=== PATIENT | female | born 1960 | race African-American/Black ===

== ENCOUNTER 2018-01-31 00:22 | Emergency (ER) | payer OTHER ==
[2018-01-31] MEDS ORDERED: IPRATROPIUM BROM 0.5MG/2.5ML ONE (01:23)
[2018-01-31] MEDS ORDERED: ALBUTEROL 2.5 MG/3 ML NEB SOL ONE (01:23)
[2018-01-31] MEDS ORDERED: NA CHLORIDE 0.9% 1,000 ML ONE (01:24)
[2018-01-31] MEDS ORDERED: LORazepam 2 MG/ML VIAL ONE (01:30)
[2018-01-31 02:49] LABS: Absolute Lymphocytes (CBC) 4.3 K/uL (0.7-4.9); Absolute Neutrophil 4.6 K/uL (1.8-8.0); Basophils % 0.7 % (0-1.3); Eosinophils % 2.4 % (0-4.4); Hematocrit 41.8 % (36.0-45.0); Lymphocytes % 42.2 % (15.3-44.8); MCH 29.1 pg (27.0-35.0); MCV 86.2 fL (80-100); MPV 11.1 fL (7.6-11.3); Monocytes % 9.5 % (3.3-12.3); RBC Red Blood Cell Count 4.85 M/uL (3.86-4.86)
[2018-01-31 02:51] LABS: Bicarbonate 23 mEq/L (21-31); Glucose Level 133 mg/dL (65-120); Potassium 3.1 mEq/L (3.6-5.0); Sodium Level 139 mEq/L (135-145)
[2018-01-31 02:54] LABS: ALT/SGPT 30 IU/L (10-60); AST/SGOT 34 IU/L (10-42); Albumin 3.8 g/dL (3.2-5.5); Alkaline Phosphatase 102 IU/L (42-121); BUN Blood Urea Nitrogen 5 mg/dL (6-20); Bilirubin Total 0.2 mg/dL (0.3-1.2); Protein, Total 7.9 g/dL (6.0-8.3)
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
[2018-01-31 04:32] LABS: Blood Morphology Comment NOT SEEN (NOT SEEN); Platelet Estimate ADEQ; Urine White Blood Cell Casts OK
[2018-01-31 06:20] VITALS: O2SAT 99
[2018-01-31 06:23] VITALS: BP 118/80; TEMP 97.8
--- NOTE | 2018-01-31 09:09 | EKG ---
Test Date: 2018-01-31 Test Time: 00:53:29 Shift Supervisor: LAURO MEASUREMENT RESULTS: Intervals: Rate: 105 DC: 188 QRSD: 96 QT: 338 QTc: 446 [place]: P: 52 DC: 188 QRS: 58 T: 37 INTERPRETIVE STATEMENTS: Sinus tachycardia Possible Left atrial enlargement Borderline ECG Compared to ECG 04/12/2017 03:43:45 No significant changes Electronically Signed On 01-31-18 09:08:26 CDT by Jim Seo
--- NOTE | 2018-01-31 10:48 | RAD REPORT ---
EXAM DESCRIPTION: Jovany Single View01/31/2018 1:16 am CLINICAL HISTORY: cough COMPARISON: March 2017 FINDINGS: The lungs appear clear of acute infiltrate. The heart is normal size IMPRESSION: No acute abnormalities displayed
== END 2018-01-31 06:12 | disposition home or self-care (01) ==
LOC: ER 00:22
DX: J40 Bronchitis, not specified as acute or chronic (principal); I10 Essential (primary) hypertension; E78.5 Hyperlipidemia, unspecified; F41.9 Anxiety disorder, unspecified; F32.9 Major depressive disorder, single episode, unspecified
CPT/HCPCS: 36415; 71045; 80053; 85025; 93005; 94640; 96361; 96374; 99284; J7030

== ENCOUNTER 2018-03-26 04:37 | Emergency (ER) | payer OTHER ==
[2018-03-26] MEDS ORDERED: ALBUTEROL 2.5 MG/3 ML NEB SOL ONE (05:19)
[2018-03-26] MEDS ORDERED: IPRATROPIUM BROM 0.5MG/2.5ML ONE (05:19)
[2018-03-26] MEDS ORDERED: predniSONE 20 MG TAB ONE (05:20)
[2018-03-26 05:50] LABS: Arterial Blood Carboxyhemoglob 6.8 % (0-1.5); Blood O2 Saturation 98.8 % (92-98.5)
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
[2018-03-26 06:42] VITALS: BP 144/78; TEMP 98; O2SAT 100
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
== END 2018-03-26 06:33 | disposition home or self-care (01) ==
LOC: ER 04:37
DX: R05 Cough (principal); R79.89 Other specified abnormal findings of blood chemistry; I10 Essential (primary) hypertension; E78.5 Hyperlipidemia, unspecified; F41.9 Anxiety disorder, unspecified; F32.9 Major depressive disorder, single episode, unspecified; J45.909 Unspecified asthma, uncomplicated; Z72.0 Tobacco use
CPT/HCPCS: 71046; 82805; 94640; 99284; J7512

== ENCOUNTER 2018-04-21 04:58 | Emergency (ER) | payer OTHER ==
[2018-04-21 06:02] LABS: Absolute Lymphocytes (CBC) 3.7 K/uL (0.7-4.9); Absolute Monocytes 0.6 K/uL (0.1-1.3); Eosinophils % 1.8 % (0-4.4); Hematocrit 42.4 % (36.0-45.0); Lymphocytes % 48.5 % (15.3-44.8); MCH 29.2 pg (27.0-35.0); MCV 86.2 fL (80-100); MPV 11.4 fL (7.6-11.3); Monocytes % 8.5 % (3.3-12.3); RBC Red Blood Cell Count 4.92 M/uL (3.86-4.86)
[2018-04-21] MEDS ORDERED: KETOROLAC 30 MG/ML INJ ONE (06:03)
[2018-04-21] MEDS ORDERED: ONDANSETRON 4 MG/2 ML VIAL ONE (06:03)
[2018-04-21] MEDS ORDERED: HYDRALAZINE HCL 20 MG/ML VIAL ONE (06:03)
[2018-04-21 06:07] LABS: Protime INR 1.02
[2018-04-21 06:18] LABS: ALT/SGPT 33 U/L (12-78); AST/SGOT 26 U/L (15-37); Albumin 3.2 g/dL (3.4-5.0); Alkaline Phosphatase 96 U/L (45-117); BUN Blood Urea Nitrogen 5 mg/dL (7-18); Bicarbonate 27 mmol/L (21-32); Bilirubin Direct 0.1 mg/dL (0-0.2); Bilirubin Total 0.4 mg/dL (0.2-1.0); CKMB Creatine Kinase MB < 1.0 ng/mL (0.3-3.6); Creatine Phosphokinase 85 U/L (26-192); Glucose Level 100 mg/dL (74-106); NT PRO-BNP 116 pg/mL (<125); Potassium 3.6 mmol/L (3.5-5.1); Protein, Total 7.5 g/dL (6.4-8.2); Sodium Level 141 mmol/L (136-145)
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
[2018-04-21 07:12] VITALS: TEMP 97.9
[2018-04-21 07:14] VITALS: BP 138/70; O2SAT 94
--- NOTE | 2018-04-21 08:26 | RAD REPORT ---
EXAM DESCRIPTION: Jovany Single View04/21/2018 5:57 am CLINICAL HISTORY: Chest pain COMPARISON: January 2018 FINDINGS: The patient is somewhat rotated limiting evaluation mediastinum. The lungs appear clear of acute infiltrate. The heart is mildly enlarged. Aorta is tortuous/ectatic. If patient's symptoms persist PA and lateral chest series would be recomme nded
--- NOTE | 2018-04-21 16:17 | EKG ---
Test Date: 2018-04-21 Test Time: 05:22:59 Certified Prosthetist: SUNSHINE MEASUREMENT RESULTS: Intervals: Rate: 70 WI: 196 QRSD: 86 QT: 398 QTc: 429 [place]: P: 39 WI: 196 QRS: 45 T: 27 INTERPRETIVE STATEMENTS: Normal sinus rhythm Normal ECG Compared to ECG 01/31/2018 00:53:29 Sinus tachycardia no longer present Electronically Signed On 04-21-18 16:14:37 CDT by Jim Seo
== END 2018-04-21 07:06 | disposition home or self-care (01) ==
LOC: ER 04:58
DX: R51 Headache (principal); E78.5 Hyperlipidemia, unspecified; I10 Essential (primary) hypertension; J45.909 Unspecified asthma, uncomplicated; F41.8 Other specified anxiety disorders
CPT/HCPCS: 36415; 70450; 71045; 80048; 80076; 82550; 82553; 83735; 83880; 84484; 85025; 85610; 85730; 93005; 96374; 96375; 99284; J0360; J2405; J2765

== ENCOUNTER 2018-04-21 12:37 | Emergency (ER) | payer OTHER ==
--- NOTE | 2018-04-21 16:01 | RAD REPORT ---
EXAM DESCRIPTION: CT - Head Brain Wo Cont - 04/21/2018 3:29 pm CLINICAL HISTORY: HEADACHE<Reason For Exam>HEADACHE COMPARISON: Head Brain Wo Cont dated 04/12/2017<Comparisons> TECHNIQUE: Axial 5 mm thick images of the head were obtained without IV contrast. All CT scans are performed using dose optimization technique as appropriate and may include automated exposure control or mA/KV adjustment according to patient size. FINDINGS: No intracranial hemorrhage, mass, edema or shift of mid-line structures. No acute infarcti on changes seen. No abnormal extra-axial fluid collections. Ventricles are normal. Mastoid air cells and visualized portions of the paranasal sinuses are clear. No acute bony findings. No interval change identified. IMPRESSION: Negative non-contrast CT head examination.
[2018-04-21] MEDS ORDERED: METOCLOPRAMIDE 10 MG/2mL INJ ONE (16:20)
[2018-04-21] MEDS ORDERED: DIPHENHYDRAMINE 50 MG/ML VIAL ONE (16:20)
[2018-04-21] MEDS ORDERED: KETOROLAC 30 MG/ML INJ ONE (16:20)
--- NOTE | 2018-04-21 17:14 | ER ---
Nurse's Notes [facility] Name: Azalia Duncan Age: 58 yrs Sex: Female : 1960 Arrival Date: 04/21/2018 Time: 12:39 Bed 6 Private MD: None, None; LUPE CADET Diagnosis: Headache;Essential (primary) hypertension Presentation: 04/21 12:57 Presenting complaint: Patient states: Headache since yesterday. Seen in this ER and aj discharged. Attempted to follow up with PCP but was instructed to come back to ER. Patient reports headache continues. Transition of care: patient was not received from another setting of care. Onset of symptoms was April 20, 2018. Risk Assessment: Do you want to hurt yourself or someone else? Patient reports no desire to harm self or others. Initial Sepsis Screen: Does the patient meet any 2 criteria? No. Patient's initial sepsis screen is negative. Does the patient have a suspected source of infection? No. Patient's initial sepsis screen is negative. Care prior to arrival: None. 12:57 Method Of Arrival: Ambulatory 12:57 Acuity: CONOR 4 Triage Assessment: 12:59 Headache History: The patient has had previous headaches and this one is similar to previous episodes. General: Appears in no apparent distress. comfortable, Behavior is calm, cooperative, appropriate for age. Pain: Complains of pain in face and scalp Pain Pain began 1 day ago. Also complains of nausea. Neuro: Level of Consciousness is awake, alert, obeys commands, Oriented to person, place, time, situation, Appropriate for age Youth Ministry Director are equal bilaterally Moves all extremities. Full function Gait is steady, Speech is normal, Facial symmetry appears normal, Pupils are PERRLA, Reports headache. Respiratory: Airway is patent Respiratory effort is even, unlabored, Respiratory pattern is regular, symmetrical. Derm: Skin is intact, is healthy with good turgor, Skin is pink, warm \T\ dry. normal. Historical: - Allergies: 12:59 NKDA; aj - Home Meds: 12:59 doxepin 25 mg Oral cap 1 cap nightly [Active]; hydroxyzine HCl 25 mg Oral tab 1 tab aj nightly [Active]; Lamictal 200 mg Oral tab 1 tab nightly [Active]; loratadine 10 mg Oral tab 1 tab daily prn [Active]; losartan 50 mg Oral tab 1 tab once daily [Active]; mirtazapine 30 mg Oral TbDL 1 tab once daily [Active]; ProAir HFA 90 mcg/actuation inhalation HFAA 2 puffs as needed [Active]; - PMHx: 12:59 Anxiety; Asthma; Depression; Hyperlipidemia; Hypertension; aj - PSHx: 12:59 Cholecystectomy; aj - Immunization history:: Adult Immunizations up to date. - Social history:: Smoking status: Patient uses tobacco products, smokes one-half pack cigarettes per day. - Ebola Screening: : Patient negative for fever greater than or equal to 101.5 degrees Fahrenheit, and additional compatible Ebola Virus Disease symptoms Patient denies exposure to infectious person Patient denies travel to an Ebola-affected area in the 21 days before illness onset No symptoms or risks identified at this time. Screenin:25 Abuse screen: Denies threats or abuse. Denies injuries from another. Nutritional jl7 screening: No deficits noted. Tuberculosis screening: No symptoms or risk factors identified. Fall Risk IV access (20 points). Total Schulz Fall Scale indicates No Risk (0-24 pts). Assessment: 15:00 General: Appears uncomfortable, Behavior is cooperative. Pain: Complains of pain in jl7 headache Pain does not radiate. Pain currently is 10 out of 10 on a pain scale. Quality of pain is described as throbbing, Pain began 1 day ago. Is continuous. Neuro: Level of Consciousness is awake, alert, obeys commands, Oriented to person, place, time, situation. Cardiovascular: Heart tones present Patient's skin is warm and dry. Respiratory: Airway is patent Respiratory effort is even, unlabored, Respiratory pattern is regular, symmetrical. GI: No signs and/or symptoms were reported involving the gastrointestinal system. : No signs and/or symptoms were reported regarding the genitourinary system. EENT: No signs and/or symptoms were reported regarding the EENT system. Derm: Skin is dry, Skin is normal, Skin temperature is warm. Musculoskeletal: No signs and/or symptoms reported regarding the musculoskeletal system. 16:00 Reassessment: No changes from previously documented assessment. Patient and/or family jl7 updated on plan of care and expected duration. Pain level reassessed. Patient is alert, oriented x 3, equal unlabored respirations, skin warm/dry/pink. 17:00 Reassessment: Patient states feeling better. Patient states symptoms have improved. jl7 Vital Signs: 12:59 BP 157 / 109; Pulse 94; Resp 16; Temp 98.4; Pulse Ox 98% on R/A; Weight 113.85 kg; aj Height 5 ft. 6 in. (167.64 cm) (R); 14:34 BP 154 / 81; aj 14:45 BP 175 / 98; Pulse 71; Resp 16; Pulse Ox 100% ; Pain 10/10; jl7 15:25 BP 152 / 79; Pulse 71; Resp 16; Pulse Ox 99% on R/A; jl7 16:25 BP 145 / 79; Pulse 67; Resp 16; Pulse Ox 99% on R/A; dh3 17:07 Pulse 72; Resp 16; Pulse Ox 98% ; sv 17:20 BP 154 / 94; Pulse 70; Resp 16; Pulse Ox 100% ; Pain 8/10; jl7 12:59 Body Mass Index 40.51 (113.85 kg, 167.64 cm) aj ED Course: 12:39 Patient arrived in ED. sb2 12:40 None, None is Private Physician. sb2 12:40 LUPE CADET is Private Physician. sb2 12:58 Triage completed. aj 12:59 Arm band placed on left wrist. Patient placed in waiting room, Patient notified of wait aj time. 14:35 Jose Miguel Batista, SAILAJA is PHCP. pm1 14:35 Wellington Nichole MD is Attending Physician. pm1 14:42 Ofelia Suárez, ENRIKE is Primary Nurse. jl7 15:20 Inserted saline lock: 24 gauge in left hand, using aseptic technique. jl7 15:[address] via stretcher. jg6 15:25 Patient has correct armband on for positive identification. Bed in low position. Call jl7 light in reach. Side rails up X 1. Pulse ox on. NIBP on. 15:29 CT Head Brain wo Cont In Process Unspecified. EDMS 17:13 LUPE CADET is Referral Physician. pm1 17:21 No provider procedures requiring assistance completed. IV discontinued, intact, jl7 bleeding controlled, No redness/swelling at site. Pressure dressing applied. Administered Medications: 16:17 Drug: Benadryl 25 mg Route: IVP; Site: left hand; jl7 16:40 Follow up: Response: No adverse reaction; Pain is decreased jl7 16:18 Drug: TORadol 30 mg Route: IVP; Site: left hand; jl7 16:40 Follow up: Response: No adverse reaction; Pain is decreased jl7 16:20 Drug: Reglan 10 mg Route: IVP; Site: left hand; 7 16:45 Follow up: Response: No adverse reaction; Pain is decreased jl7 Outcome: 17:13 Discharge ordered by MD. pm1 17:21 Discharged to home ambulatory. jl7 17:21 Condition: stable 17:21 Discharge instructions given to patient, Instructed on discharge instructions, follow up and referral plans. medication usage, Demonstrated understanding of instructions, follow-up care, medications, Prescriptions given X 1. 17:27 Patient left the ED. jl7 Signatures: Dispatcher [employer] Amanda Gtz RN RN sv Myers, Amanda, RN RN aj Marinas, Patrick, SAILAJA EXCELSIOR MACHINE OPERATOR pm1 Ofelia Suárez RN RN jl7 Brittany Dillard 3 Radha Pal 2 Samantha Whitman j6
--- NOTE | 2018-04-21 17:14 | EDPHYS ---
Physician Documentation [facility] Name: Azalia Duncan Age: 58 yrs Sex: Female : 1960 Arrival Date: 04/21/2018 Time: 12:39 Bed 6 Private MD: None, None; LUPE CADET ED Physician Wellington Nichole HPI: 04/21 15:00 This 58 yrs old Black Female presents to ER via Ambulatory with complaints of Blood pm1 Pressure Problem, Headache. 15:00 The patient complains of pain to the top of head. The patient describes the headache as pm1 pounding. Onset: The symptoms/episode began/occurred yesterday. Associated signs and symptoms: Pertinent negatives: fever, nausea, neck stiffness, paresthesias, rash, vision changes, vision loss, vomiting, weakness, vertigo. Severity of symptoms: in the emergency department the pain is unchanged. Headache History: Denies prior headaches. The symptoms are alleviated by blood pressure medications and pain medication given in ER earlier this AM. The patient has not experienced similar symptoms in the past. The patient has not recently seen a physician, the patient's primary care provider is Dr. Lupe Cadet. Patient was seen early this AM for same complaint of headache and elevated blood pressure. Patient was discharged home after improvement in headache. Patient went home to sleep but when she woke up her headache returned. Patient called her PCP to be seen, but was instructed to go the ER. Patient's headache to top of her head with pounding sensation to bilateral ears. Historical: - Allergies: 12:59 NKDA; aj - Home Meds: 12:59 doxepin 25 mg Oral cap 1 cap nightly [Active]; hydroxyzine HCl 25 mg Oral tab 1 tab aj nightly [Active]; Lamictal 200 mg Oral tab 1 tab nightly [Active]; loratadine 10 mg Oral tab 1 tab daily prn [Active]; losartan 50 mg Oral tab 1 tab once daily [Active]; mirtazapine 30 mg Oral TbDL 1 tab once daily [Active]; ProAir HFA 90 mcg/actuation inhalation HFAA 2 puffs as needed [Active]; - PMHx: 12:59 Anxiety; Asthma; Depression; Hyperlipidemia; Hypertension; aj - PSHx: 12:59 Cholecystectomy; aj - Immunization history:: Adult Immunizations up to date. - Social history:: Smoking status: Patient uses tobacco products, smokes one-half pack cigarettes per day. - Ebola Screening: : Patient negative for fever greater than or equal to 101.5 degrees Fahrenheit, and additional compatible Ebola Virus Disease symptoms Patient denies exposure to infectious person Patient denies travel to an Ebola-affected area in the 21 days before illness onset No symptoms or risks identified at this time. ROS: 15:00 Constitutional: Negative for fever, chills, and weight loss, Eyes: Negative for injury, pm1 pain, redness, and discharge, ENT: Negative for injury, pain, and discharge, Neck: Negative for injury, pain, and swelling, Cardiovascular: Negative for chest pain, palpitations, and edema, Respiratory: Negative for shortness of breath, cough, wheezing, and pleuritic chest pain, Abdomen/GI: Negative for abdominal pain, nausea, vomiting, diarrhea, and constipation, Back: Negative for injury and pain, : Negative for injury, bleeding, discharge, and swelling, MS/Extremity: Negative for injury and deformity, Skin: Negative for injury, rash, and discoloration. 15:00 Neuro: Positive for headache, Negative for dizziness, numbness, tingling, weakness. Exam: 15:00 Constitutional: This is a well developed, well nourished patient who is awake, alert, pm1 and in no acute distress. Head/Face: Normocephalic, atraumatic. Eyes: Pupils equal round and reactive to light, extra-ocular motions intact. Lids and lashes normal. Conjunctiva and sclera are non-icteric and not injected. Cornea within normal limits. Periorbital areas with no swelling, redness, or edema. ENT: Nares patent. No nasal discharge, no septal abnormalities noted. Tympanic membranes are normal and external auditory canals are clear. Oropharynx with no redness, swelling, or masses, exudates, or evidence of obstruction, uvula midline. Mucous membranes moist. Neck: Trachea midline, no thyromegaly or masses palpated, and no cervical lymphadenopathy. Supple, full range of motion without nuchal rigidity, or vertebral point tenderness. No Meningismus. Chest/axilla: Normal chest wall appearance and motion. Nontender with no deformity. No lesions are appreciated. Cardiovascular: Regular rate and rhythm with a normal S1 and S2. No gallops, murmurs, or rubs. Normal PMI, no JVD. No pulse deficits. Respiratory: Lungs have equal breath sounds bilaterally, clear to auscultation and percussion. No rales, rhonchi or wheezes noted. No increased work of breathing, no retractions or nasal flaring. Abdomen/GI: Soft, non-tender, with normal bowel sounds. No distension or tympany. No guarding or rebound. No evidence of tenderness throughout. Back: No spinal tenderness. No costovertebral tenderness. Full range of motion. Skin: Warm, dry with normal turgor. Normal color with no rashes, no lesions, and no evidence of cellulitis. MS/ Extremity: Pulses equal, no cyanosis. Neurovascular intact. Full, normal range of motion. 15:00 Neuro: Orientation: is normal, Mentation: is normal, Cranial nerves: CN II- XII are normal as tested, Cerebellar function: normal finger to nose testing, Motor: is normal, moves all fours, strength is 5/5 in all extremities, Gait: is steady, at a normal pace, without difficulty. Vital Signs: 12:59 BP 157 / 109; Pulse 94; Resp 16; Temp 98.4; Pulse Ox 98% on R/A; Weight 113.85 kg; aj Height 5 ft. 6 in. (167.64 cm) (R); 14:34 BP 154 / 81; aj 14:45 BP 175 / 98; Pulse 71; Resp 16; Pulse Ox 100% ; Pain 10/10; jl7 15:25 BP 152 / 79; Pulse 71; Resp 16; Pulse Ox 99% on R/A; jl7 16:25 BP 145 / 79; Pulse 67; Resp 16; Pulse Ox 99% on R/A; dh3 17:07 Pulse 72; Resp 16; Pulse Ox 98% ; sv 17:20 BP 154 / 94; Pulse 70; Resp 16; Pulse Ox 100% ; Pain 8/10; jl7 12:59 Body Mass Index 40.51 (113.85 kg, 167.64 cm) aj MDM: 14:36 Patient medically screened. pm1 17:12 Data reviewed: vital signs. Counseling: I had a detailed discussion with the patient pm1 and/or guardian regarding: the historical points, exam findings, and any diagnostic results supporting the discharge/admit diagnosis, radiology results, the need for outpatient follow up, to return to the emergency department if symptoms worsen or persist or if there are any questions or concerns that arise at home. 04/21 14:46 Order name: CT Head Brain wo Cont; Complete Time: 16:07 pm1 04/21 14:46 Order name: IV Saline Lock; Complete Time: 15:16 pm1 Administered Medications: 16:17 Drug: Benadryl 25 mg Route: IVP; Site: left hand; jl7 16:40 Follow up: Response: No adverse reaction; Pain is decreased jl7 16:18 Drug: TORadol 30 mg Route: IVP; Site: left hand; jl7 16:40 Follow up: Response: No adverse reaction; Pain is decreased jl7 16:20 Drug: Reglan 10 mg Route: IVP; Site: left hand; jl7 16:45 Follow up: Response: No adverse reaction; Pain is decreased jl7 Disposition: 04/22 08:08 Co-signature as Attending Physician, Wellington Nichole MD. rn Disposition: 04/21/18 17:13 Discharged to Home. Impression: Headache, Essential (primary) hypertension. - Condition is Stable. - Discharge Instructions: General Headache Without Cause, Hypertension, How to Take Your Blood Pressure, [id number], DASH Eating Plan, Managing Your Hypertension. - Prescriptions for Fiorinal 50- 325-40 mg Oral Capsule - take 1 capsule by ORAL route every 4 hours As needed - not to exceed 6 capsules per day; 20 capsule. - Medication Reconciliation Form, Thank You Letter, Antibiotic Education, Prescription Opioid Use form. - Follow up: Emergency Department; When: As needed; Reason: Worsening of condition. Follow up: LUPE CADET; When: 2 - 3 days; Reason: Recheck today's complaints, Continuance of care, Re-evaluation by your physician. - Problem is new. - Symptoms have improved. Signatures: Dispatcher [employer] EDShamika Briceno RN RN aj Nieto, Roman, MD MD rn Marinas, Patrick, NP GAS OR PETROLEUM OPERATOR pm1 Ofelia Suárez RN RN jl7 Corrections: (The following items were deleted from the chart) 04/21 17:14 17:13 04/21/2018 17:13 Discharged to Home. Impression: Headache. Condition is Stable. pm1 Forms are Medication Reconciliation Form, Thank You Letter, Antibiotic Education, Prescription Opioid Use. Follow up: Emergency Department; When: As needed; Reason: Worsening of condition. Follow up: LUPE CADET; When: 2 - 3 days; Reason: Recheck today's complaints, Continuance of care, Re-evaluation by your physician. Problem is new. Symptoms have improved. pm1 17:27 17:14 04/21/2018 17:13 Discharged to Home. Impression: Headache; Essential (primary) jl7 hypertension. Condition is Stable. Discharge Instructions: General Headache Without Cause. Prescriptions for Fiorinal 50-325-40 mg Oral Capsule - take 1 capsule by ORAL route every 4 hours As needed - not to exceed 6 capsules per day; 20 capsule. and Forms are Medication Reconciliation Form, Thank You Letter, Antibiotic Education, Prescription Opioid Use. Follow up: Emergency Department; When: As needed; Reason: Worsening of condition. Follow up: LUPE CADET; When: 2 - 3 days; Reason: Recheck today's complaints, Continuance of care, Re-evaluation by your physician. Problem is new. Symptoms have improved. pm1
[2018-04-21 17:41] VITALS: TEMP 98.4
[2018-04-21 17:48] VITALS: BP 154/94; O2SAT 100
== END 2018-04-21 17:27 | disposition home or self-care (01) ==
LOC: ER 12:37
DX: R51 Headache (principal); I10 Essential (primary) hypertension; E78.5 Hyperlipidemia, unspecified; F41.8 Other specified anxiety disorders; J45.909 Unspecified asthma, uncomplicated
CPT/HCPCS: 70450; 96374; 96375; 99284; J2765

== ENCOUNTER → 2018-06-04 | Day surgery (SDC) | payer OTHER ==
--- NOTE | 2018-06-04 13:01 | RAD REPORT ---
EXAM DESCRIPTION: US - Breast Core BX w/US Guidance - 06/04/2018 10:59 am CLINICAL HISTORY: N63.20 COMPARISON: Breast ultrasound May 21, 2018, mammogram April 21, 2018. TECHNIQUE: The patient presents for ultrasound-guided biopsy of a previously detailed 8 mm mass in t he upper-outer quadrant of the left breast. The ultrasound-guided core biopsy procedure, risks and alternatives were discussed with the patient i n detail. After answering all questions, both oral and written consent were obtained. Time out proced ure was performed. The patient had no contraindicated allergy or medication history. The patient was normotensive at the time of the study. Preliminary imaging identified the 8 mm mass with calcification. The anterior breast was prepped and draped in the usual sterile fashion. From a lateral approach, skin and deeper tissues were anesthetiz ed with 1% lidocaine. Under direct sonographic visualization a 14 gauge vacuum assisted core biopsy n eedle was advanced and placed at the lateral margin of the mass. There were a total of four core biop sies obtained under direct sonographic guidance. The mass did appear to have distortion in contour ruiz pporting transit of the biopsy needle through the small mass. At the conclusion of the procedure a localization clip was placed under sonographic guidance. Post biopsy imaging showed no hematoma or measurable bleeding within the breast. Hemostasis was obtai kaleb at the skin site with a sterile bandage placed. Post procedure care and precaution instructions were given to the patient. IMPRESSION: 1. Ultrasound-guided core biopsy was performed of the left breast upper outer quadrant m ass. All obtained material was given to pathology for histologic assessment. 2. Post biopsy localization clip was placed under ultrasound guidance.
== END | disposition home or self-care (01) ==
LOC: DS 08:47
PROVIDERS: ATTEND Nurse Practitioner Family
PROC: 0HBU3ZX Excision of Left Breast, Percutaneous Approach, Diagnostic (ICD-10-PCS; principal; 2018-06-04)
DX: C50.412 Malignant neoplasm of upper-outer quadrant of left female breast (principal); Z17.0 Estrogen receptor positive status [ER+]
CPT/HCPCS: 19083; 88305

== ENCOUNTER → 2018-07-29 | Day surgery (SDC) | payer OTHER ==
--- NOTE | 2018-07-29 11:28 | RAD REPORT ---
EXAM DESCRIPTION: US - Biopsy Lymph Node - 07/29/2018 10:41 am CLINICAL HISTORY: Breast cancer, abnormal lymph node on MRI study. COMPARISON: Breast MRI July 14, 2018. FINDINGS: The patient presents for FNA/biopsy of an abnormal left axillary lymph nodes seen on the r ecent MRI study. The patient had no contraindicated allergy or medication history. The ultrasound-guided FNA/biopsy procedure, risks and alternatives were discussed with the patient in detail. After answering all questions, both oral and written consent were obtained. Time out procedu re was performed. The patient had no contraindicated allergy or medication history. Preliminary imaging identified the 11-12 mm hypoechoic mass or lymph node deep in the left axilla. Th e left axilla was prepped and draped in the usual sterile fashion. Skin and deeper tissues down to th e lymph node were anesthetized with 1% lidocaine. Due to the deep positioning and proximity to vascul ature, it was determined that the vacuum assisted 14 gauge needle could not be used. A 16 gauge Exinda core biopsy needle was selected. A 17 gauge introducer needle was advanced under sonographic visualization. The 16 gauge biopsy needle was advanced under sonographic guidance. Tip was placed at the margin of the lymph node. There were five 20 mm core biopsies obtained. The lymph node was seen to deflect or move with advancement of the biopsy needle. Biopsy of the central portion of the mass was not confirmed. The biopsy specimens patricia eared to be along the peripheral margin of the mass or possibly in the adjacent fatty tissues. It was determined that additional biopsies were not likely to be any more successful in sampling the centra l aspect of the mass. At the conclusion of the procedure direct pressure was applied to the skin puncture site and along th e course of the needle. There was no hemorrhage in the axilla. Sterile bandage was placed to the [facility] site. Post-procedure care and precaution instructions were given to the patient. IMPRESSION: 1. Ultrasound-guided core biopsy was performed of a 11-12 mm hypoechoic mass or lymph no de in the deep left axilla. 2. As detailed above, sampling was difficult in this deep small lymph node. Review of final pathology will be needed to determine if the mass was adequately sampled. 3. The mass is suspicious on both MRI imaging and sonography. If the biopsy results do not demonstrat e malignancy or a definitive benign diagnosis other than fatty tissue, surgical resection may be need ed.
== END ==
LOC: FNA 09:15
PROVIDERS: ATTEND Surgery
PROC: 07D63ZX Extraction of Left Axillary Lymphatic, Percutaneous Approach, Diagnostic (ICD-10-PCS; principal; 2018-07-29)
DX: C50.412 Malignant neoplasm of upper-outer quadrant of left female breast (principal)
CPT/HCPCS: 38505; 76942; 88305

== ENCOUNTER 2018-07-31 14:13 | Emergency (ER) | payer OTHER ==
--- NOTE | 2018-07-31 14:32 | EDPHYS ---
Physician Documentation [facility] Name: Azalia Duncan Age: 58 yrs Sex: Female : 1960 Arrival Date: 07/31/2018 Time: 14:15 Bed 5 Private MD: LUPE CADET ED Physician Allen Gonzalez HPI: 07/31 14:30 This 58 yrs old Black Female presents to ER via Ambulatory with complaints of Dental pm1 pain. 14:30 The patient presents with pain. pm1 14:30 The problem is located in the upper right first molar. pm1 14:30 Onset: The symptoms/episode began/occurred 2 day(s) ago. Duration: The symptoms are pm1 continuous. Modifying factors: The symptoms are alleviated by nothing, the symptoms are aggravated by cold fluids, food, cold air. Associated signs and symptoms: Pertinent positives: swelling, facial, Pertinent negatives: dysphagia, fever, inability to eat, nausea, vomiting. Severity of symptoms: in the emergency department the symptoms are actually worse. The patient has experienced similar episodes in the past, multiple times, chronically, Has a two tooth extraction limit per year with her insurance therefore she has to wait until the next year for her tooth extraction. Historical: - Allergies: 14:19 NKDA; sv - PMHx: 14:19 Anxiety; Asthma; Depression; Hyperlipidemia; Hypertension; sv - PSHx: 14:19 Cholecystectomy; sv - Immunization history:: Flu vaccine is not up to date. - Social history:: Smoking status: Patient/guardian denies using tobacco. - Ebola Screening: : No symptoms or risks identified at this time. ROS: 14:30 Constitutional: Negative for fever, chills, and weight loss, Eyes: Negative for injury, pm1 pain, redness, and discharge, Neck: Negative for injury, pain, and swelling, Cardiovascular: Negative for chest pain, palpitations, and edema. 14:30 Respiratory: Negative for shortness of breath, cough, wheezing, and pleuritic chest pain, Abdomen/GI: Negative for abdominal pain, nausea, vomiting, diarrhea, and constipation, Back: Negative for injury and pain, : Negative for injury, bleeding, discharge, and swelling, MS/Extremity: Negative for injury and deformity, Skin: Negative for injury, rash, and discoloration, Neuro: Negative for headache, weakness, numbness, tingling, and seizure. 14:30 ENT: Positive for dental pain, Negative for ear pain, sore throat, difficulty swallowing, difficulty handling secretions, hoarseness. Exam: 14:30 Constitutional: This is a well developed, well nourished patient who is awake, alert, pm1 and in no acute distress. Head/Face: Normocephalic, atraumatic. Eyes: Pupils equal round and reactive to light, extra-ocular motions intact. Lids and lashes normal. Conjunctiva and sclera are non-icteric and not injected. Cornea within normal limits. Periorbital areas with no swelling, redness, or edema. 14:30 Neck: Trachea midline, no thyromegaly or masses palpated, and no cervical lymphadenopathy. Supple, full range of motion without nuchal rigidity, or vertebral point tenderness. No Meningismus. Chest/axilla: Normal chest wall appearance and motion. Nontender with no deformity. No lesions are appreciated. Cardiovascular: Regular rate and rhythm with a normal S1 and S2. No gallops, murmurs, or rubs. Normal PMI, no JVD. No pulse deficits. Respiratory: Lungs have equal breath sounds bilaterally, clear to auscultation and percussion. No rales, rhonchi or wheezes noted. No increased work of breathing, no retractions or nasal flaring. Abdomen/GI: Soft, non-tender, with normal bowel sounds. No distension or tympany. No guarding or rebound. No evidence of tenderness throughout. Back: No spinal tenderness. No costovertebral tenderness. Full range of motion. Skin: Warm, dry with normal turgor. Normal color with no rashes, no lesions, and no evidence of cellulitis. MS/ Extremity: Pulses equal, no cyanosis. Neurovascular intact. Full, normal range of motion. 14:30 ENT: External ear(s): are unremarkable, Ear canal(s): are normal, TM's: are normal, Nose: is normal, Mouth: is normal, no abscess, no drooling, no injury, (-) tongue elevation (-) trismus no ulcerations, Dental exam: dental caries, that is moderate, diffusely, missing teeth, diffusely, pain, specifically in the upper right first molar (#3). 14:30 Neuro: Orientation: is normal, Motor: is normal, Sensation: is normal, no obvious gross deficits, Gait: is steady, at a normal pace, without difficulty. Vital Signs: 14:19 BP 122 / 79; Pulse 75; Resp 16; Temp 98; Pulse Ox 97% ; Weight 121.56 kg; Height 5 ft. sv 7 in. (170.18 cm); Pain 8/10; 14:19 Body Mass Index 41.97 (121.56 kg, 170.18 cm) sv MDM: 14:23 Patient medically screened. [facility] 14:31 Data reviewed: vital signs. Data interpreted: Pulse oximetry: on room air is 97 %. pm1 Interpretation: normal. Counseling: I had a detailed discussion with the patient and/or guardian regarding: the historical points, exam findings, and any diagnostic results supporting the discharge/admit diagnosis, the need for outpatient follow up, to return to the emergency department if symptoms worsen or persist or if there are any questions or concerns that arise at home. Administered Medications: 14:40 Drug: Dover 10 mg-325 mg 1 tabs Route: PO; ca1 15:03 Follow up: Response: No adverse reaction ca1 14:40 Drug: Zofran 4 mg Route: PO; ca1 15:03 Follow up: Response: No adverse reaction ca1 Disposition: 18 14:32 Discharged to Home. Impression: Periapical abscess without sinus. - Condition is Stable. - Discharge Instructions: Dental Abscess, Dental Pain, Diet and Dental Disease. - Prescriptions for Clindamycin HCl 300 mg Oral Capsule - take 1 capsule by ORAL route every 6 hours for 10 days; 40 capsule. Tylenol- Codeine #3 300-30 mg Oral Tablet - take 2 tablets by ORAL route every 6 hours As needed; 20 tablet. - Medication Reconciliation Form, Thank You Letter, Antibiotic Education, Prescription Opioid Use form. - Follow up: Emergency Department; When: As needed; Reason: Worsening of condition. Follow up: Private Physician; When: 2 - 3 days; Reason: Recheck today's complaints, Continuance of care, Re-evaluation by your physician. - Problem is new. - Symptoms have improved. Addendum: 08/02/2018 06:23 Co-signature as Attending Physician, Allen Gonzalez MD I agree with the assessment and c brock plan of care. Signatures: Amanda Carvalho RN RN sv Anderson, Corey, MD MD cha Marinas, Patrick, DRAFTING LAYOUT WORKER DRAFTING LAYOUT WORKER pm1 Estephania Muñoz mh5 Natalia Lazar, RN RN ca1 Corrections: (The following items were deleted from the chart) 07/31 15:12 14:32 07/31/2018 14:32 Discharged to Home. Impression: Periapical abscess without mh5 sinus. Condition is Stable. Forms are Medication Reconciliation Form, Thank You Letter, Antibiotic Education, Prescription Opioid Use. Follow up: Emergency Department; When: As needed; Reason: Worsening of condition. Follow up: Private Physician; When: 2 - 3 days; Reason: Recheck today's complaints, Continuance of care, Re-evaluation by your physician. Problem is new. Symptoms have improved. pm1 15:22 15:12 07/31/2018 14:32 Discharged to Home. Impression: Periapical abscess without ca1 sinus. Condition is Stable. Discharge Instructions: Dental Pain, Diet and Dental Disease, Dental Abscess. Prescriptions for Clindamycin HCl 300 mg Oral Capsule - take 1 capsule by ORAL route every 6 hours for 10 days; 40 capsule, Tylenol-Codeine #3 300-30 mg Oral Tablet - take 2 tablets by ORAL route every 6 hours As needed; 20 tablet. and Forms are Medication Reconciliation Form, Thank You Letter, Antibiotic Education, Prescription Opioid Use. Follow up: Emergency Department; When: As needed; Reason: Worsening of condition. Follow up: Private Physician; When: 2 - 3 days; Reason: Recheck today's complaints, Continuance of care, Re-evaluation by your physician. Problem is new. Symptoms have improved. mh5
--- NOTE | 2018-07-31 14:32 | ER ---
Nurse's Notes [facility] Name: Azalia Duncan Age: 58 yrs Sex: Female : 1960 Arrival Date: 07/31/2018 Time: 14:15 Bed 5 Private MD: LUPE CADET Diagnosis: Periapical abscess without sinus Presentation: 07/31 14:18 Presenting complaint: Patient states: mouth sores and abscess with clear yellow sv drainage. Pt reports bone pain as well. Reports they are trying to r/u breast cancer right now. Transition of care: patient was not received from another setting of care. Onset of symptoms was July 31, 2018. Care prior to arrival: None. 14:18 Method Of Arrival: Ambulatory sv 14:18 Acuity: CONOR 3 sv 14:20 Risk Assessment: Do you want to hurt yourself or someone else? Patient reports no ca1 desire to harm self or others. 14:20 Initial Sepsis Screen: Does the patient meet any 2 criteria? No. Patient's initial ca1 sepsis screen is negative. Historical: - Allergies: 14:19 NKDA; sv - PMHx: 14:19 Anxiety; Asthma; Depression; Hyperlipidemia; Hypertension; sv - PSHx: 14:19 Cholecystectomy; sv - Immunization history:: Flu vaccine is not up to date. - Social history:: Smoking status: Patient/guardian denies using tobacco. - Ebola Screening: : No symptoms or risks identified at this time. Screenin:20 Abuse screen: Denies threats or abuse. Nutritional screening: No deficits noted. ca1 Tuberculosis screening: No symptoms or risk factors identified. Fall Risk None identified. Assessment: 14:20 General: Appears in no apparent distress. comfortable, Behavior is calm, cooperative. ca1 Pain: Complains of pain in mouth Pain does not radiate. Pain currently is 9 out of 10 on a pain scale. Quality of pain is described as aching, Pain began 1 day ago. Is continuous. Neuro: Level of Consciousness is awake, alert, obeys commands, Oriented to person, place, time. Cardiovascular: Heart tones S1 S2 present. Respiratory: Airway is patent Trachea midline Respiratory effort is even, unlabored, Respiratory pattern is regular, symmetrical, Breath sounds are clear bilaterally. GI: Abdomen is round Bowel sounds present X 4 quads. Abd is soft and non tender X 4 quads. : No signs and/or symptoms were reported regarding the genitourinary system. Derm: Skin is healthy with good turgor, Skin is dry, Skin temperature is warm. Vital Signs: 14:19 BP 122 / 79; Pulse 75; Resp 16; Temp 98; Pulse Ox 97% ; Weight 121.56 kg; Height 5 ft. sv 7 in. (170.18 cm); Pain 8/10; 14:19 Body Mass Index 41.97 (121.56 kg, 170.18 cm) sv ED Course: 14:15 Patient arrived in ED. mr 14:16 JENNIFER CADETA is Private Physician. mr 14:18 Triage completed. sv 14:19 Arm band placed on. sv 14:20 Jose Miguel Bat[facility] pm1 14:20 Allen Gonzalez MD is Attending Physician. pm1 14:20 Door closed. Head of bed elevated. ca1 14:20 Warm blanket given. Head of bed elevated. ca1 14:20 Bed in low position. Call light in reach. ca1 14:32 Natalia Lazar RN is Primary Nurse. ca1 15:00 No provider procedures requiring assistance completed. ca1 15:05 Patient did not have IV access during this emergency room visit. ca1 Administered Medications: 14:40 Drug: Redwood 10 mg-325 mg 1 tabs Route: PO; ca1 15:03 Follow up: Response: No adverse reaction ca1 14:40 Drug: Zofran 4 mg Route: PO; ca1 15:03 Follow up: Response: No adverse reaction ca1 Outcome: 14:32 Discharge ordered by MD. pm1 15:07 Condition: stable ca1 15:07 Discharge instructions given to patient, Instructed on discharge instructions, follow up and referral plans. medication usage, Demonstrated understanding of instructions, follow-up care, medications, Prescriptions given X 2. 15:07 Discharged to home ambulatory. ca1 15:22 Patient left the ED. ca1 Signatures: Amanda Carvalho RN RN ReneYuliana mr Jose Miguel Batista NP WORT EXTRACTOR pm1 Natalia Lazar RN RN ca1 Corrections: (The following items were deleted from the chart) 15:05 14:55 General: Appears in no apparent distress. comfortable, Behavior is calm, ca1 cooperative, ca1 15:05 14:55 Pain: Complains of pain in mouth Pain does not radiate. Pain currently is 9 out ca1 of 10 on a pain scale. Quality of pain is described as aching, Pain began 1 day ago. Is continuous, ca1 :01 04: Neuro: Level of Consciousness is awake, alert, obeys commands, Oriented to ca1 person, place, time, ca1 :01 04: Cardiovascular: Heart tones S1 S2 present ca1 ca1 : Respiratory: Airway is patent Trachea midline Respiratory effort is even, ca1 unlabored, Respiratory pattern is regular, symmetrical, Breath sounds are clear bilaterally. ca1 :01 04: GI: Abdomen is round Bowel sounds present X 4 quads. Abd is soft and non tender X ca1 4 quads. ca1 :01 04: : No signs and/or symptoms were reported regarding the genitourinary system. ca1ca1 : Derm: Skin is healthy with good turgor, Skin is dry, Skin temperature is warm ca1 ca1
[2018-07-31] MEDS ORDERED: ONDANSETRON 4 MG (ODT) TAB ONE (14:45)
[2018-07-31] MEDS ORDERED: HYDROCODONE/APAP 10/325 TAB ONE (14:45)
[2018-07-31 15:28] VITALS: BP 122/79; TEMP 98; O2SAT 97
== END 2018-07-31 15:22 | disposition home or self-care (01) ==
LOC: ER 14:13
DX: K04.7 Periapical abscess without sinus (principal); K06.9 Disorder of gingiva and edentulous alveolar ridge, unspecified
CPT/HCPCS: 99283

== ENCOUNTER 2018-10-03 18:18 | Emergency (ER) | payer OTHER ==
--- OUTSIDE RECORDS SUMMARY | 2018-10-03 18:21 | XMS REPORT ---
:1960 [facility] [address] [place] [address] Care Team Providers Name Role Phone Unavailable Unavailable Unavailable Payers Payer Name Policy Type Policy Number Effective Date Expiration Date Problems This patient has no known problems. Allergies, Adverse Reactions, Alerts Allergy Allergy Status Severity Reaction(s) Onset Inactive Treating Comments Name Type Date Date Clinician No Known DA Active U 2018-08 Allergies -08 00:00:0 0 No Known DA Active U 2018-07 Allergies -13 00:00:0 0 Medications This patient has no known medications.
[2018-10-03 21:36] LABS: RBC Red Blood Cell Count 4.59 M/uL (3.86-4.86)
[2018-10-03 21:37] LABS: Absolute Lymphocytes (CBC) 1.7 K/uL (0.7-4.9); Basophils % 0.6 % (0-1.3); Eosinophils % 0.1 % (0-4.4); Hematocrit 40.2 % (36.0-45.0); Lymphocytes % 15.8 % (15.3-44.8); MPV 11.1 fL (7.6-11.3); Monocytes % 9.2 % (3.3-12.3)
[2018-10-03] MEDS ORDERED: FENTANYL CITR 100 MCG/2 ML ONE (21:39)
[2018-10-03] MEDS ORDERED: NA CHLORIDE 0.9% 1,000 ML ONE (21:39)
[2018-10-03] MEDS ORDERED: PROMETHAZINE 25 MG/ML VIAL ONE (21:39)
[2018-10-03 21:50] LABS: ALT/SGPT 33 U/L (12-78); AST/SGOT 24 U/L (15-37); Albumin 3.6 g/dL (3.4-5.0); Alkaline Phosphatase 89 U/L (45-117); BUN Blood Urea Nitrogen 9 mg/dL (7-18); Bicarbonate 25 mmol/L (21-32); Bilirubin Direct 0.1 mg/dL (0-0.2); Bilirubin Total 0.3 mg/dL (0.2-1.0); Glucose Level 111 mg/dL (74-106); Lipase 50 U/L (73-393); Potassium 4.2 mmol/L (3.5-5.1); Protein, Total 7.7 g/dL (6.4-8.2); Sodium Level 137 mmol/L (136-145)
--- NOTE | 2018-10-03 23:26 | EDPHYS ---
Physician Documentation [facility] Name: Azalia Duncan Age: 58 yrs Sex: Female : 1960 Arrival Date: 10/03/2018 Time: 18:37 Bed 15 Private MD: ED Physician Allen Gonzalez HPI: 10/03 21:11 This 58 yrs old Black Female presents to ER via EMS with complaints of Abdominal Pain. snw 21:11 The patient presents with abdominal pain in the epigastric area, in the upper abdomen. snw Onset: The symptoms/episode began/occurred suddenly, today, and became persistent. The symptoms do not radiate. Associated signs and symptoms: Pertinent positives: diarrhea, nausea. The symptoms are described as crampy. Severity of pain: At its worst the pain was moderate in the emergency department the pain is unchanged. The patient has not experienced similar symptoms in the past. recent chemo, IV fluids s/p chemo for dehydration. Historical: - Allergies: 18:25 NKDA; rb1 - Home Meds: 18:25 doxepin 25 mg Oral cap 1 cap nightly [Active]; hydroxyzine HCl 25 mg Oral tab 1 tab rb1 nightly [Active]; Lamictal 200 mg Oral tab 1 tab nightly [Active]; loratadine 10 mg Oral tab 1 tab daily prn [Active]; losartan 50 mg Oral tab 1 tab once daily [Active]; mirtazapine 30 mg Oral TbDL 1 tab once daily [Active]; ProAir HFA 90 mcg/actuation inhalation HFAA 2 puffs as needed [Active]; - PMHx: 18:25 Anxiety; Asthma; Depression; Hyperlipidemia; Hypertension; rb1 - PSHx: 18:25 Cholecystectomy; spleen; abdomen; fingers on left hand; rb1 - Immunization history:: Adult Immunizations up to date. - Social history:: Smoking status: Patient/guardian denies using tobacco. - Ebola Screening: : Patient negative for fever greater than or equal to 101.5 degrees Fahrenheit, and additional compatible Ebola Virus Disease symptoms. ROS: 21:10 Constitutional: Negative for fever, chills, and weight loss, Eyes: Negative for injury, snw pain, redness, and discharge, ENT: Negative for injury, pain, and discharge, Neck: Negative for injury, pain, and swelling, Cardiovascular: Negative for chest pain, palpitations, and edema, Respiratory: Negative for shortness of breath, cough, wheezing, and pleuritic chest pain, Back: Negative for injury and pain, : Negative for injury, bleeding, discharge, and swelling, MS/Extremity: Negative for injury and deformity, Skin: Negative for injury, rash, and discoloration, Neuro: Negative for headache, weakness, numbness, tingling, and seizure. 21:10 Abdomen/GI: Positive for nausea, diarrhea, abdominal cramps. Exam: 21:10 Constitutional: This is a well developed, well nourished patient who is awake, alert, snw and in no acute distress. Head/Face: Normocephalic, atraumatic. Eyes: Pupils equal round and reactive to light, extra-ocular motions intact. Lids and lashes normal. Conjunctiva and sclera are non-icteric and not injected. Cornea within normal limits. Periorbital areas with no swelling, redness, or edema. ENT: Nares patent. No nasal discharge, no septal abnormalities noted. Tympanic membranes are normal and external auditory canals are clear. Oropharynx with no redness, swelling, or masses, exudates, or evidence of obstruction, uvula midline. Mucous membranes moist. Neck: Trachea midline, no thyromegaly or masses palpated, and no cervical lymphadenopathy. Supple, full range of motion without nuchal rigidity, or vertebral point tenderness. No Meningismus. Chest/axilla: Normal chest wall appearance and motion. Nontender with no deformity. No lesions are appreciated. Cardiovascular: Regular rate and rhythm with a normal S1 and S2. No gallops, murmurs, or rubs. Normal PMI, no JVD. No pulse deficits. Respiratory: Lungs have equal breath sounds bilaterally, clear to auscultation and percussion. No rales, rhonchi or wheezes noted. No increased work of breathing, no retractions or nasal flaring. Back: No spinal tenderness. No costovertebral tenderness. Full range of motion. Skin: Warm, dry with normal turgor. Normal color with no rashes, no lesions, and no evidence of cellulitis. MS/ Extremity: Pulses equal, no cyanosis. Neurovascular intact. Full, normal range of motion. Neuro: Awake and alert, GCS 15, oriented to person, place, time, and situation. Cranial nerves II-XII grossly intact. Motor strength 5/5 in all extremities. Sensory grossly intact. Cerebellar exam normal. Normal gait. Psych: Awake, alert, with orientation to person, place and time. Behavior, mood, and affect are within normal limits. 21:10 Abdomen/GI: Inspection: abdomen appears normal, Bowel sounds: normal, Palpation: moderate abdominal tenderness, in the epigastric area, right upper quadrant and left upper quadrant. Vital Signs: 18:25 BP 113 / 66; Pulse 62; Resp 19; Temp 97.6(O); Pulse Ox 98% on R/A; Weight 118.39 kg rb1 (R); Height 5 ft. 7 in. (170.18 cm) (R); Pain 7/10; 20:00 BP 122 / 72; Pulse 64; Resp 16; Pulse Ox 97% on R/A; jb4 21:00 BP 108 / 74; Pulse 64; Resp 16; Pulse Ox 98% on R/A; jb4 22:00 BP 105 / 73; Pulse 59; Resp 16; Pulse Ox 95% on R/A; jb4 23:00 BP 104 / 68; Pulse 68; Resp 16; Pulse Ox 95% on R/A; jb4 18:25 Body Mass Index 40.88 (118.39 kg, 170.18 cm) rb1 MDM: 20:16 Patient medically screened. snw 23:26 Data reviewed: vital signs, nurses notes. Data interpreted: Pulse oximetry: on room air snw is 95 %. Interpretation: acceptable. Counseling: I had a detailed discussion with the patient and/or guardian regarding: the historical points, exam findings, and any diagnostic results supporting the discharge/admit diagnosis, lab results, the need for outpatient follow up, to return to the emergency department if symptoms worsen or persist or if there are any questions or concerns that arise at home. Response to treatment: the patient's condition has returned to base line, patient is well hydrated. and as a result, I will discharge patient. Special discussion: Based on the patient's Hx, exam, and Dx evaluation, there is no indication for emergent surgery or inpatient Tx. It is understood by the patient/guardian that if the Sx's persist or worsen they need to return immediately for re-evaluation. Based on the history and exam findings, there is no indication for further emergent testing or inpatient evaluation. I discussed with the patient/guardian the need to see the marketing content specialist for further evaluation of the symptoms. 10/03 21:05 Order name: Basic Metabolic Panel; Complete Time: 21:52 snw 10/03 21:05 Order name: CBC with Diff; Complete Time: 21:40 snw 10/03 21:05 Order name: Hepatic Function; Complete Time: 21:52 snw 10/03 21:05 Order name: Lipase; Complete Time: 21:52 snw 10/03 21:05 Order name: TS; Complete Time: 22:03 snw 10/03 21:12 Order name: Flu; Complete Time: 21:52 snw 10/03 21:05 Order name: IV Saline Lock; Complete Time: 21:12 snw 10/03 21:05 Order name: Labs collected and sent; Complete Time: 21:44 snw Administered Medications: 21:35 Drug: Phenergan 6.25 mg Route: IVP; Site: left hand; jb4 22:59 Follow up: Response: No adverse reaction; Nausea is decreased jb4 21:38 Drug: fentaNYL (PF) 25 mcg Route: IVP; Site: left hand; jb4 22:59 Follow up: Response: No adverse reaction; Pain is decreased jb4 21:40 Drug: NS 0.9% 1000 ml Route: IV; Rate: 1 bolus; Site: left hand; jb4 23:00 Follow up: Response: No adverse reaction; IV Status: Completed infusion jb4 Disposition: 10/04 09:00 Co-signature as Attending Physician, Allen Gonzalez MD I agree with the assessment and maria g plan of care. Disposition: 10/03/18 23:25 Discharged to Home. Impression: Nausea, Generalized abdominal pain - resolved. - Condition is Stable. - Discharge Instructions: Abdominal Pain, Adult, Nausea and Vomiting, Adult, Rehydration, Adult. - Medication Reconciliation Form, Thank You Letter, Antibiotic Education, Prescription Opioid Use form. - Follow up: Private Physician; When: 2 - 3 days; Reason: Recheck today's complaints, Continuance of care, Re-evaluation by your physician. Follow up: Emergency Department; When: As needed; Reason: Worsening of condition. Signatures: Dispatcher [employer] Allen Hodges MD MD cha Therrien, Shelly, ADMITTED ATTORNEYS-C ADMITTED ATTORNEYS-Csnw Елена Mayorga RN RN rb1 Carlos Renee RN RN jb4 Corrections: (The following items were deleted from the chart) 10/03 23:56 23:25 10/03/2018 23:25 Discharged to Home. Impression: Nausea; Generalized abdominal jb4 pain - resolved. Condition is Stable. Forms are Medication Reconciliation Form, Thank You Letter, Antibiotic Education, Prescription Opioid Use. Follow up: Private Physician; When: 2 - 3 days; Reason: Recheck today's complaints, Continuance of care, Re-evaluation by your physician. Follow up: Emergency Department; When: As needed; Reason: Worsening of condition. snw
--- NOTE | 2018-10-03 23:26 | ER ---
Nurse's Notes [facility] Name: Azalia Duncan Age: 58 yrs Sex: Female : 1960 Arrival Date: 10/03/2018 Time: 18:37 Bed 15 Private MD: Diagnosis: Nausea;Generalized abdominal pain-resolved Presentation: 10/03 18:25 Presenting complaint: EMS states: Pt. is 58 yr. old, A \T\ O x 4, c/o abdominal pain, rb1 nausea, vomiting, diarrhea, and weakness. History of breast cancer, depression, hypertension, and high cholesterol. SR upper 60's, BGL 122, vital signs stable. Last chemo dose was 09-20-2018. Transition of care: patient was not received from another setting of care. Onset of symptoms was October 03, 2018. Care prior to arrival: Medication(s) given: zofran 4 mg. 18:25 Method Of Arrival: EMS: [facility] rb1 18:25 Acuity: CONOR 3 rb1 Triage Assessment: 18:25 General: Appears uncomfortable, Behavior is calm, cooperative. Pain: Complains of pain rb1 in abdomen Pain currently is 7 out of 10 on a pain scale. Neuro: Level of Consciousness is awake, alert, obeys commands, Oriented to person, place, time, situation. Cardiovascular: Capillary refill < 3 seconds is brisk in bilateral fingers. Respiratory: Airway is patent Respiratory effort is even, unlabored, Respiratory pattern is regular, symmetrical. GI: Reports diarrhea, nausea, vomiting. : No signs and/or symptoms were reported regarding the genitourinary system. Derm: Skin is dry, Skin is normal, Skin temperature is warm. 18:25 Neuro: Reports weakness. rb1 Historical: - Allergies: 18:25 NKDA; rb1 - Home Meds: 18:25 doxepin 25 mg Oral cap 1 cap nightly [Active]; hydroxyzine HCl 25 mg Oral tab 1 tab rb1 nightly [Active]; Lamictal 200 mg Oral tab 1 tab nightly [Active]; loratadine 10 mg Oral tab 1 tab daily prn [Active]; losartan 50 mg Oral tab 1 tab once daily [Active]; mirtazapine 30 mg Oral TbDL 1 tab once daily [Active]; ProAir HFA 90 mcg/actuation inhalation HFAA 2 puffs as needed [Active]; - PMHx: 18:25 Anxiety; Asthma; Depression; Hyperlipidemia; Hypertension; rb1 - PSHx: 18:25 Cholecystectomy; spleen; abdomen; fingers on left hand; rb1 - Immunization history:: Adult Immunizations up to date. - Social history:: Smoking status: Patient/guardian denies using tobacco. - Ebola Screening: : Patient negative for fever greater than or equal to 101.5 degrees Fahrenheit, and additional compatible Ebola Virus Disease symptoms. Screenin:25 Abuse screen: Denies threats or abuse. Nutritional screening: No deficits noted. rb1 Tuberculosis screening: No symptoms or risk factors identified. Fall Risk None identified. Assessment: 18:25 General: See triage assessment. rb1 19:00 General: Appears in no apparent distress. uncomfortable. Pain: Complains of pain in jb4 abdomen Pain does not radiate. Pain currently is 8 out of 10 on a pain scale. Quality of pain is described as crampy. Neuro: Level of Consciousness is awake, alert, obeys commands, Oriented to person, place, time, situation. Cardiovascular: Patient's skin is warm and dry. Respiratory: Airway is patent Respiratory effort is even, unlabored, Respiratory pattern is regular, symmetrical. GI: Bowel sounds present X 4 quads. Abd is soft X 4 quads Abdomen is tender to palpation X 4 quads. Reports diarrhea, nausea, vomiting. : No signs and/or symptoms were reported regarding the genitourinary system. EENT: No signs and/or symptoms were reported regarding the EENT system. Derm: Skin is intact, Skin is diaphoretic, Skin is normal, Skin temperature is warm. Musculoskeletal: Circulation, motion, and sensation intact. 20:00 Reassessment: Patient appears in no apparent distress at this time. Patient and/or jb4 family updated on plan of care and expected duration. Pain level reassessed. Patient is alert, oriented x 3, equal unlabored respirations, skin warm/dry/pink. 21:00 Reassessment: Patient appears in no apparent distress at this time. Patient and/or jb4 family updated on plan of care and expected duration. Pain level reassessed. Patient is alert, oriented x 3, equal unlabored respirations, skin warm/dry/pink. 22:00 Reassessment: Patient appears in no apparent distress at this time. Patient and/or jb4 family updated on plan of care and expected duration. Pain level reassessed. Patient is alert, oriented x 3, equal unlabored respirations, skin warm/dry/pink. Patient states feeling better. 23:00 Reassessment: Patient appears in no apparent distress at this time. Patient and/or jb4 family updated on plan of care and expected duration. Pain level reassessed. Patient is alert, oriented x 3, equal unlabored respirations, skin warm/dry/pink. Vital Signs: 18:25 BP 113 / 66; Pulse 62; Resp 19; Temp 97.6(O); Pulse Ox 98% on R/A; Weight 118.39 kg rb1 (R); Height 5 ft. 7 in. (170.18 cm) (R); Pain 7/10; 20:00 BP 122 / 72; Pulse 64; Resp 16; Pulse Ox 97% on R/A; jb4 21:00 BP 108 / 74; Pulse 64; Resp 16; Pulse Ox 98% on R/A; jb4 22:00 BP 105 / 73; Pulse 59; Resp 16; Pulse Ox 95% on R/A; jb4 23:00 BP 104 / 68; Pulse 68; Resp 16; Pulse Ox 95% on R/A; jb4 18:25 Body Mass Index 40.88 (118.39 kg, 170.18 cm) rb1 ED Course: 18:25 Arm band placed on right wrist. rb1 18:25 Patient has correct armband on for positive identification. Bed in low position. Call rb1 light in reach. Side rails up X 1. Pulse ox on. NIBP on. 18:25 Maintain EMS IV. Dressing intact. Good blood return noted. Site clean \T\ dry. Gauge \T\ rb 1 site: 22 G L hand. 18:37 Patient arrived in ED. rb1 18:43 Triage completed. rb1 18:58 Report given to ENRIKE Guerrero. rb1 19:58 Carlos Renee RN is Primary Nurse. jb4 20:16 Yuliana Soto FNP-C [facility]. snw 20:16 Allen Gonzalez MD is Attending Physician. snw 23:40 No provider procedures requiring assistance completed. IV discontinued, intact, jb4 bleeding controlled. Administered Medications: 21:35 Drug: Phenergan 6.25 mg Route: IVP; Site: left hand; jb4 22:59 Follow up: Response: No adverse reaction; Nausea is decreased jb4 21:38 Drug: fentaNYL (PF) 25 mcg Route: IVP; Site: left hand; jb4 22:59 Follow up: Response: No adverse reaction; Pain is decreased jb4 21:40 Drug: NS 0.9% 1000 ml Route: IV; Rate: 1 bolus; Site: left hand; jb4 23:00 Follow up: Response: No adverse reaction; IV Status: Completed infusion jb4 Outcome: 23:25 Discharge ordered by MD. fuller 23:40 Discharged to home via wheelchair, with family. jb4 23:40 Condition: stable 23:40 Discharge instructions given to patient, Instructed on discharge instructions, follow up and referral plans. Demonstrated understanding of instructions, follow-up care. 23:56 Patient left the ED. jb4 Signatures: Yuliana Soto, NOTCHING PRESS OPERATOR-C NOTCHING PRESS OPERATOR-Csnw Елена Mayorga, RN RN rb1 Carlos Renee RN RN jb4 Corrections: (The following items were deleted from the chart) 22:10 21:00 BP 108 / 74; Pulse 64bpm; Resp 59bpm; Pulse Ox 98% RA; jb4 jb4 22:59 22:00 Reassessment: Patient appears in no apparent distress at this time. Patient jb4 and/or family updated on plan of care and expected duration. Pain level reassessed. Patient is alert, oriented x 3, equal unlabored respirations, skin warm/dry/pink. jb4
[2018-10-04 01:11] VITALS: BP 138/99; O2SAT 99
[2018-10-04 01:13] VITALS: TEMP 97.6
== END 2018-10-03 23:56 | disposition home or self-care (01) ==
LOC: ER 18:18
DX: R10.13 Epigastric pain (principal); R11.0 Nausea; F41.9 Anxiety disorder, unspecified; J45.909 Unspecified asthma, uncomplicated; F32.9 Major depressive disorder, single episode, unspecified; E78.5 Hyperlipidemia, unspecified; I10 Essential (primary) hypertension
CPT/HCPCS: 36415; 80048; 80076; 83690; 85025; 86850; 86900; 86901; 87804; 96361; 96374; 96375; 99284; J2550; J3010; J7030

== ENCOUNTER 2018-10-17 06:42 | Emergency (ER) | payer OTHER ==
--- OUTSIDE RECORDS SUMMARY | 2018-10-17 06:45 | XMS REPORT ---
:1960 [facility] Address [address] [place] [address] Care Team Providers Name Role Phone Unavailable [...]
[2018-10-17 08:21] LABS: Absolute Lymphocytes (CBC) 1.4 K/uL (0.7-4.9); Absolute Monocytes 0.2 K/uL (0.1-1.3); Absolute Neutrophil 23.5 K/uL (1.8-8.0); Basophils % 0.2 % (0-1.3); Eosinophils % 0.2 % (0-4.4); Hematocrit 38.4 % (36.0-45.0); Lymphocytes % 5.5 % (15.3-44.8); MPV 11.2 fL (7.6-11.3); Monocytes % 0.9 % (3.3-12.3); RBC Red Blood Cell Count 4.35 M/uL (3.86-4.86)
[2018-10-17 08:41] LABS: ALT/SGPT 25 U/L (12-78); AST/SGOT 17 U/L (15-37); Albumin 3.1 g/dL (3.4-5.0); Alkaline Phosphatase 99 U/L (45-117); BUN Blood Urea Nitrogen 7 mg/dL (7-18); Bicarbonate 31 mmol/L (21-32); Bilirubin Total 0.3 mg/dL (0.2-1.0); Glucose Level 100 mg/dL (74-106); Lipase 45 U/L (73-393); Potassium 4.1 mmol/L (3.5-5.1); Protein, Total 6.7 g/dL (6.4-8.2); Sodium Level 137 mmol/L (136-145); Troponin (Emerg Dept Use Only) < 0.02 ng/mL (0.0-0.045)
--- NOTE | 2018-10-17 08:43 | RAD REPORT ---
EXAM DESCRIPTION: CT - Head Brain Wo Cont - 10/17/2018 8:32 am CLINICAL HISTORY: Headache COMPARISON: March 2018 TECHNIQUE: Computed axial tomography of the head was obtained. IV contrast was not requested. All CT scans are performed using dose optimization technique as appropriate and may include automated exposure control or mA/KV adjustment according to patient size. FINDINGS: An intracranial bleed is not seen . The ventricles are normal in caliber. No extra-axial fluid collection is noted. Fluid within the sinuses/ mastoids is not seen. IMPRESSION: No acute intracranial abnormality is seen. If patient's symptoms persist MRI of the bra in would be recommended.
[2018-10-17] MEDS ORDERED: KETOROLAC 30 MG/ML INJ ONE (08:50)
[2018-10-17] MEDS ORDERED: ONDANSETRON 4 MG/2 ML VIAL ONE (08:50)
[2018-10-17] MEDS ORDERED: MORPHINE 4 MG/ML SYR ONE (08:50)
[2018-10-17] MEDS ORDERED: NA CHLORIDE 0.9% 1,000 ML ONE (08:51)
[2018-10-17 08:58] LABS: Anisocytosis 1+; Blood Morphology Comment NOTED (NOT SEEN); Platelet Estimate DECR; Platelets, Giant PRESENT; Stomatocytes 1+
--- NOTE | 2018-10-17 09:56 | EDPHYS ---
Physician Documentation [facility] Name: Azalia Duncan Age: 58 yrs Sex: Female : 1960 Arrival Date: 10/17/2018 Time: 06:44 Bed 2 Private MD: ED Physician Allen Gonzalez HPI: 10/17 08:00 This 58 yrs old Black Female presents to ER via Ambulatory with complaints of Headache, maria g Pain All Over. 08:00 The patient complains of pain to the forehead, left side of the back of head, left side maria g of forehead, left temporal area, right temporal area and right side of forehead. The patient describes the headache as constant. Onset: The symptoms/episode began/occurred 2 day(s) ago. Associated signs and symptoms: The patient has no apparent associated signs or symptoms. Severity of symptoms: At its worst the pain was moderate, in the emergency department the pain is unchanged. Headache History: The patient has had previous headaches and this one is different than previous episodes. The patient has experienced similar episodes in the past, a few times. Historical: - Allergies: 07:06 NKDA; fc - Home Meds: 07:06 clonazepam 0.5 mg Oral tab 1 tab daily prn [Active]; Lasix 40 mg Oral tab 1 tab once fc daily [Active]; mirtazapine 30 mg Oral TbDL 1 tab nightly [Active]; Lamictal 200 mg Oral tab 1 tab nightly [Active]; doxepin 25 mg Oral cap 1 cap nightly [Active]; promethazine 25 mg Oral tab 1 tab q6hrs prn [Active]; - PMHx: 07:06 Anxiety; Depression; Hyperlipidemia; Hypertension; Asthma; Cancer, Breast; fc - PSHx: 07:06 Cholecystectomy; spleenectomy; abdomen; fingers on left hand; fc - Immunization history:: Last tetanus immunization: up to date Flu vaccine is up to date. - Social history:: Smoking status: Patient/guardian denies using tobacco, Patient/guardian denies using alcohol, street drugs. - Ebola Screening: : Patient negative for fever greater than or equal to 101.5 degrees Fahrenheit, and additional compatible Ebola Virus Disease symptoms Patient denies exposure to infectious person Patient denies travel to an Ebola-affected area in the 21 days before illness onset. ROS: 08:01 Constitutional: Negative for fever, chills, and weight loss, Eyes: Negative for injury, maria g pain, redness, and discharge, ENT: Negative for injury, pain, and discharge, Neck: Negative for injury, pain, and swelling, Cardiovascular: Negative for chest pain, palpitations, and edema, Respiratory: Negative for shortness of breath, cough, wheezing, and pleuritic chest pain, Abdomen/GI: Negative for abdominal pain, nausea, vomiting, diarrhea, and constipation, : Negative for injury, bleeding, discharge, and swelling, Skin: Negative for injury, rash, and discoloration, Psych: Negative for depression, anxiety, suicide ideation, homicidal ideation, and hallucinations, Allergy/Immunology: Negative for hives, rash, and allergies, Endocrine: Negative for neck swelling, polydipsia, polyuria, polyphagia, and marked weight changes, Hematologic/Lymphatic: Negative for swollen nodes, abnormal bleeding, and unusual bruising. 08:01 Back: Positive for pain at rest, pain with movement. 08:01 Neuro: Positive for headache. Exam: 08:01 Constitutional: This is a well developed, well nourished patient who is awake, alert, maria g and in no acute distress. Head/Face: Normocephalic, atraumatic. Eyes: Pupils equal round and reactive to light, extra-ocular motions intact. Lids and lashes normal. Conjunctiva and sclera are non-icteric and not injected. Cornea within normal limits. Periorbital areas with no swelling, redness, or edema. ENT: Nares patent. No nasal discharge, no septal abnormalities noted. Tympanic membranes are normal and external auditory canals are clear. Oropharynx with no redness, swelling, or masses, exudates, or evidence of obstruction, uvula midline. Mucous membranes moist. Neck: Trachea midline, no thyromegaly or masses palpated, and no cervical lymphadenopathy. Supple, full range of motion without nuchal rigidity, or vertebral point tenderness. No Meningismus. Chest/axilla: Normal chest wall appearance and motion. Nontender with no deformity. No lesions are appreciated. Cardiovascular: Regular rate and rhythm with a normal S1 and S2. No gallops, murmurs, or rubs. Normal PMI, no JVD. No pulse deficits. Respiratory: Lungs have equal breath sounds bilaterally, clear to auscultation and percussion. No rales, rhonchi or wheezes noted. No increased work of breathing, no retractions or nasal flaring. Abdomen/GI: Soft, non-tender, with normal bowel sounds. No distension or tympany. No guarding or rebound. No evidence of tenderness throughout. Back: No spinal tenderness. No costovertebral tenderness. Full range of motion. Skin: Warm, dry with normal turgor. Normal color with no rashes, no lesions, and no evidence of cellulitis. MS/ Extremity: Pulses equal, no cyanosis. Neurovascular intact. Full, normal range of motion. Neuro: Awake and alert, GCS 15, oriented to person, place, time, and situation. Cranial nerves II-XII grossly intact. Motor strength 5/5 in all extremities. Sensory grossly intact. Cerebellar exam normal. Normal gait. Psych: Awake, alert, with orientation to person, place and time. Behavior, mood, and affect are within normal limits. 08:01 Musculoskeletal/extremity: DVT Exam: No signs of deep vein thrombosis. no pain, no swelling, no tenderness, negative Homans' sign noted on exam, no appreciated bluish discoloration, no erythema, no increased warmth. 08:26 Neck: ROM/movement: is normal, no acute changes, Meningeal signs: are not present, [facility] Kernig's sign is negative, Brudzinski's sign is negative. Vital Signs: 06:45 BP 133 / 87; Pulse 71; Resp 18; Temp 98.5(O); Pulse Ox 96% on R/A; Weight 113.85 kg fc (R); Height 5 ft. 7 in. (170.18 cm) (R); Pain 10/10; 07:31 BP 116 / 74; Pulse 73; Resp 17; Pulse Ox 98% on R/A; sg 11:30 BP 104 / 66; Pulse 67; Resp 18; Pulse Ox 99% ; aj1 12:30 BP 113 / 62; Pulse 67; Resp 18; Pulse Ox 98% on R/A; aj1 06:45 Body Mass Index 39.31 (113.85 kg, 170.18 cm) MDM: 07:14 Patient medically screened. [facility] 08:02 Data reviewed: vital signs, nurses notes, lab test result(s), EKG, radiologic studies, [facility] CT scan, plain films. 10/17 08:00 Order name: CBC with Diff [facility] 10/17 08:00 Order name: Comprehensive Metabolic Panel [facility] 10/17 08:00 Order name: Lipase [facility] 10/17 08:00 Order name: Urine Culture [facility] 10/17 08:00 Order name: Troponin (emerg Dept Use Only) [facility] 10/17 08:25 Order name: CBC with Automated Diff; Complete Time: 09:18 EDME 10/17 08:26 Order name: Procalcitonin [facility] 10/17 08:26 Order name: Lactate [facility] 10/17 08:41 Order name: Comprehensive Metabolic Panel; Complete Time: 08:43 EDMS 10/17 08:41 Order name: Troponin (Emerg Dept Use Only); Complete Time: 08:43 EDMS 10/17 08:41 Order name: Lipase; Complete Time: 08:43 EDMS 10/17 08:52 Order name: Flu [facility] 10/17 08:58 Order name: Manual Differential; Complete Time: 09:18 EDME 10/17 08:00 Order name: EKG; Complete Time: 08:00 [facility] 10/17 08:00 Order name: EKG - Nurse/Tech; Complete Time: 08:04 [facility] 10/17 08:00 Order name: Chest Single View XRAY [facility] 10/17 08:00 Order name: CT Head Brain wo Cont [facility] 10/17 08:00 Order name: Urine Dipstick-Ancillary (obtain specimen); Complete Time: 09:48 [facility] 10/17 08:43 Order name: CT; Complete Time: 08:52 EDME 10/17 09:18 Order name: Influenza Screen (A ; Complete Time: 09:19 EDME 10/17 09:23 Order name: Lactate; Complete Time: 09:50 ED10/17 09:42 Order name: Procalcitonin; Complete Time: 09:50 EDME 10/17 09:49 Order name: Urine Dipstick--Ancillary (enter results) hi 10/17 10:36 Order name: RAD EDMS Administered Medications: 08:50 Drug: morphine 4 mg Route: IVP; Site: right antecubital; hb 08:50 Drug: Zofran 4 mg Route: IVP; Site: right antecubital; hb 08:51 Drug: NS 0.9% 1000 ml Route: IV; Rate: 1 bolus; Site: right antecubital; hb 12:53 Follow up: IV Status: Completed infusion; IV Intake: 1000ml aj1 08:51 Drug: TORadol 30 mg Route: IVP; Site: right antecubital; hb 10:36 Drug: Rocephin 1 grams Route: IV; Rate: per protocol; Site: right antecubital; aj1 10:40 Follow up: Response: No adverse reaction; IV Status: Completed infusion; IV Intake: aj1 10ml ; given SIVP per pharmacy protocol Disposition: 10/17/18 09:56 Discharged to Home. Impression: Headache, Malaise and fatigue, Elevated white blood cell count, Urinary tract infection, site not specified. - Condition is Stable. - Discharge Instructions: General Headache Without Cause, Urinary Tract Infection, Adult, Weakness, Weakness, [id number], General Headache Without Cause, [id number]. - Prescriptions for Tylenol- Codeine #3 300-30 mg Oral Tablet - take 2 tablet by ORAL route every 6 hours As needed; 30 tablet. Zofran 4 mg Oral Tablet - take 1 tablet by ORAL route every 12 hours As needed; 20 tablet. Cipro 250 mg Oral Tablet - take 1 tablet by ORAL route every 12 hours; 14 tablet. - Medication Reconciliation Form, Thank You Letter, Antibiotic Education, Prescription Opioid Use form. - Follow up: Private Physician; When: 2 - 3 days; Reason: Recheck today's complaints, Continuance of care, Re-evaluation by your physician. - Problem is new. - Symptoms have improved. Signatures: Dispatcher [employer] EDShania Godoy RN RN aj1 Allen Gonzalez MD MD cha Chretien, Felicia, RN RN Katheryn Manley RN RN Corrections: (The following items were deleted from the chart) 12:54 09:56 10/17/2018 09:56 Discharged to Home. Impression: Headache; Malaise and fatigue; aj1 Elevated white blood cell count; Urinary tract infection, site not specified. Condition is Stable. Discharge Instructions: General Headache Without Cause, Weakness, Weakness, Ziei-ah-Sris, General Headache Without Cause, [id number]-[id number]. Prescriptions for Tylenol-Codeine #3 300-30 mg Oral Tablet - take 2 tablet by ORAL route every 6 hours As needed; 30 tablet, Zofran 4 mg Oral Tablet - take 1 tablet by ORAL route every 12 hours As needed; 20 tablet. and Forms are Medication Reconciliation Form, Thank You Letter, Antibiotic Education, Prescription Opioid Use. Follow up: Private Physician; When: 2 - 3 days; Reason: Recheck today's complaints, Continuance of care, Re-evaluation by your physician. Problem is new. Symptoms have improved. maria g
--- NOTE | 2018-10-17 09:56 | ER ---
Nurse's Notes [facility] Name: Azalia Duncan Age: 58 yrs Sex: Female : 1960 Arrival Date: 10/17/2018 Time: 06:44 Bed 2 Private MD: Diagnosis: Headache;Malaise and fatigue;Elevated white blood cell count;Urinary tract infection, site not specified Presentation: 10/17 06:45 Presenting complaint: Patient states: that she had Chemo for her breast cancer last fc Thursday and then on Thursday started to have nausea, vomiting, dizziness, weakness and having trouble eating. States that this happens sometimes after her chemo. Transition of care: patient was not received from another setting of care. Onset of symptoms was October 15, 2018. Risk Assessment: Do you want to hurt yourself or someone else? Patient reports no desire to harm self or others. Initial Sepsis Screen: Does the patient meet any 2 criteria? No. Patient's initial sepsis screen is negative. Does the patient have a suspected source of infection? No. Patient's initial sepsis screen is negative. Care prior to arrival: None. 06:45 Method Of Arrival: Ambulatory 06:45 Acuity: CONOR 3 fc Historical: - Allergies: 07:06 NKDA; fc - Home Meds: 07:06 clonazepam 0.5 mg Oral tab 1 tab daily prn [Active]; Lasix 40 mg Oral tab 1 tab once fc daily [Active]; mirtazapine 30 mg Oral TbDL 1 tab nightly [Active]; Lamictal 200 mg Oral tab 1 tab nightly [Active]; doxepin 25 mg Oral cap 1 cap nightly [Active]; promethazine 25 mg Oral tab 1 tab q6hrs prn [Active]; - PMHx: 07:06 Anxiety; Depression; Hyperlipidemia; Hypertension; Asthma; Cancer, Breast; fc - PSHx: 07:06 Cholecystectomy; spleenectomy; abdomen; fingers on left hand; fc - Immunization history:: Last tetanus immunization: up to date Flu vaccine is up to date. - Social history:: Smoking status: Patient/guardian denies using tobacco, Patient/guardian denies using alcohol, street drugs. - Ebola Screening: : Patient negative for fever greater than or equal to 101.5 degrees Fahrenheit, and additional compatible Ebola Virus Disease symptoms Patient denies exposure to infectious person Patient denies travel to an Ebola-affected area in the 21 days before illness onset. Screenin:45 Abuse screen: Denies threats or abuse. Nutritional screening: No deficits noted. fc Tuberculosis screening: No symptoms or risk factors identified. Fall Risk None identified. Assessment: 07:15 General: Appears in no apparent distress. comfortable, well groomed, well developed, sg well nourished, Behavior is calm, cooperative, appropriate for age. Pain: Complains of pain in right side of forehead and left side of forehead and left side of the back of head Quality of pain is described as aching. Neuro: Level of Consciousness is awake, alert, obeys commands, Oriented to person, place, time, situation, Systems Auditor are equal bilaterally Speech is normal, Facial symmetry appears normal. Cardiovascular: Capillary refill is brisk in bilateral fingers Patient's skin is warm and dry. Chest pain is denied. Cardiovascular: port a cath noted to R upper chest, appears healthy clean and dry at this time. Respiratory: Airway is patent Respiratory effort is even, unlabored, Respiratory pattern is regular, symmetrical. GI: Abdomen is flat, non-distended. : No signs and/or symptoms were reported regarding the genitourinary system. EENT: No signs and/or symptoms were reported regarding the EENT system. Derm: Skin is intact, is healthy with good turgor, Skin is dry, Skin is normal, Skin temperature is warm. Musculoskeletal: No signs and/or symptoms reported regarding the musculoskeletal system. 09:04 Reassessment: Patient appears in no apparent distress at this time. Patient and/or sg family updated on plan of care and expected duration. Pain level reassessed. Patient is alert, oriented x 3, equal unlabored respirations, skin warm/dry/pink. pt family remains at bedside at this time, awaiting new orders, will continue to monitor. 10:30 Reassessment: Patient discharge awaiting completion of IV fluids. aj1 10:30 Reassessment: Patient and/or family updated on plan of care and expected duration. Pain aj1 level reassessed. General: Appears in no apparent distress. comfortable, Behavior is calm, cooperative, appropriate for age. Neuro: Level of Consciousness is awake, alert, obeys commands. Cardiovascular: Patient's skin is warm and dry. Respiratory: Airway is patent Respiratory effort is even, unlabored, Respiratory pattern is regular, symmetrical. GI: Abdomen is flat, non-distended. Derm: Skin is normal. Musculoskeletal: No signs and/or symptoms reported regarding the musculoskeletal system. Circulation, motion, and sensation intact. 11:30 Reassessment: Patient appears in no apparent distress at this time. No changes from aj1 previously documented assessment. Patient and/or family updated on plan of care and expected duration. Pain level reassessed. Patient is alert, oriented x 3, equal unlabored respirations, skin warm/dry/pink. 12:30 Reassessment: Patient appears in no apparent distress at this time. No changes from aj1 previously documented assessment. Patient and/or family updated on plan of care and expected duration. Pain level reassessed. Patient is alert, oriented x 3, equal unlabored respirations, skin warm/dry/pink. Vital Signs: 06:45 BP 133 / 87; Pulse 71; Resp 18; Temp 98.5(O); Pulse Ox 96% on R/A; Weight 113.85 kg fc (R); Height 5 ft. 7 in. (170.18 cm) (R); Pain 10/10; 07:31 BP 116 / 74; Pulse 73; Resp 17; Pulse Ox 98% on R/A; sg 11:30 BP 104 / 66; Pulse 67; Resp 18; Pulse Ox 99% ; aj1 12:30 BP 113 / 62; Pulse 67; Resp 18; Pulse Ox 98% on R/A; aj1 06:45 Body Mass Index 39.31 (113.85 kg, 170.18 cm) ED Course: 06:44 Patient arrived in ED. ds1 06:45 Arm band placed on Patient placed in an exam room, on a stretcher. fc 06:45 Patient has correct armband on for positive identification. Bed in low position. Call light in reach. 06:59 Triage completed. fc 07:14 Allen Gonzalez MD is Attending Physician. [facility] 07:16 Pa Desir, ENRIKE is Primary Nurse. sg 08:11 Initial lab(s) drawn, by me, sent to lab. Inserted saline lock: 22 gauge in right dh3 antecubital area, using aseptic technique. Blood collected. 08:19 X-ray completed. Portable x-ray completed in exam room. Patient tolerated procedure sg4 well. 08:31 CT completed. Patient tolerated procedure well. Patient moved to CT via stretcher. mw3 Patient moved back from CT. 08:51 procalcitonin and lactate drawn by co and sent to lab. on license of [facility] 08:56 Flu and/or RSV swab sent to lab. on license of [facility] 12:52 No provider procedures requiring assistance completed. IV discontinued, intact, aj1 bleeding controlled, No redness/swelling at site. Pressure dressing applied. Administered Medications: 08:50 Drug: morphine 4 mg Route: IVP; Site: right antecubital; hb 08:50 Drug: Zofran 4 mg Route: IVP; Site: right antecubital; hb 08:51 Drug: NS 0.9% 1000 ml Route: IV; Rate: 1 bolus; Site: right antecubital; hb 12:53 Follow up: IV Status: Completed infusion; IV Intake: 1000ml [facility] 08:51 Drug: TORadol 30 mg Route: IVP; Site: right antecubital; hb 10:36 Drug: Rocephin 1 grams Route: IV; Rate: per protocol; Site: right antecubital; aj1 10:40 Follow up: Response: No adverse reaction; IV Status: Completed infusion; IV Intake: aj1 10ml ; given SIVP per pharmacy protocol Intake: 10:40 IV: 10ml; Total: 10ml. 1 12:53 IV: 1000ml; Total: 1010ml. aj1 Outcome: 09:56 Discharge ordered by . [facility] 12:52 Discharged to home via wheelchair, with family. [facility] 12:52 Condition: stable 12:52 Discharge instructions given to patient, Instructed on discharge instructions, follow up and referral plans. no drinking with medication, no driving heavy equipment, medication usage, Demonstrated understanding of instructions, follow-up care, medications, Prescriptions given X 3. 12:54 Patient left the ED. aj1 Signatures: Sherrell Baez, Shania Reyna RN, ch RN RN aj1 Pa Desir RN RN sg Anderson, Corey, MD MD cha Chretien, Felicia RN Ros Wisdom ds1 Katheryn Manley RN RN Brittany Dillard 3 Amberly Concepcion mw3 Veronica Whitman 4
--- NOTE | 2018-10-17 10:35 | RAD REPORT ---
EXAM DESCRIPTION: Jovany Single View10/17/2018 8:20 am CLINICAL HISTORY: cough COMPARISON: March 2018 FINDINGS: The lungs appear clear of acute infiltrate. The heart is mildly enlarged. Central venous catheter remains in place IMPRESSION: No acute abnormalities displayed
[2018-10-17] MEDS ORDERED: CEFTRIAXONE/SWI 1gm 1 GM/10 ML SYR ONE (10:41)
--- NOTE | 2018-10-17 12:34 | EKG ---
Test Date: 2018-10-17 Test Time: 08:10:13 Granulator Operator: SWG MEASUREMENT RESULTS: Intervals: Rate: 66 NE: 172 QRSD: 90 QT: 386 QTc: 404 [place]: P: 37 NE: 172 QRS: 57 T: 24 INTERPRETIVE STATEMENTS: Normal sinus rhythm Normal ECG Compared to ECG 04/21/2018 05:22:59 No significant changes Electronically Signed On 10-17-18 12:33:37 CHORAL DIRECTOR by Kvng Lyn
[2018-10-17 13:24] VITALS: TEMP 98.5
[2018-10-17 13:35] VITALS: BP 113/62; O2SAT 98
[2018-10-17 13:58] LABS: Urine Blood NEGATIVE (NEG); Urine Glucose NEGATIVE (NEG); Urine Protein NEGATIVE (NEG); Urine pH 7.5 (5.0-7.0)
== END 2018-10-17 12:54 | disposition home or self-care (01) ==
LOC: ER 06:42
DX: R51 Headache (principal); R53.81 Other malaise; R53.83 Other fatigue; D72.829 Elevated white blood cell count, unspecified; N39.0 Urinary tract infection, site not specified; F41.9 Anxiety disorder, unspecified; F32.9 Major depressive disorder, single episode, unspecified; E78.5 Hyperlipidemia, unspecified; I10 Essential (primary) hypertension
CPT/HCPCS: 36415; 70450; 71045; 80053; 81003; 83605; 83690; 84145; 84484; 85025; 87086; 87088; 87804; 93005; J0696; J2405; J7030

== ENCOUNTER 2018-11-29 12:51 | Emergency (ER) | payer OTHER ==
[2018-11-29] MEDS ORDERED: NA CHLORIDE 0.9% 1,000 ML ONE (13:39)
[2018-11-29] MEDS ORDERED: ONDANSETRON 4 MG/2 ML VIAL ONE (13:39)
[2018-11-29 13:47] LABS: Absolute Lymphocytes (CBC) 1.6 K/uL (0.7-4.9); Absolute Monocytes 0.1 K/uL (0.1-1.3); Absolute Neutrophil 0.6 K/uL (1.8-8.0); Basophils % 1.5 % (0-1.3); Eosinophils % 0.6 % (0-4.4); Hematocrit 37.6 % (36.0-45.0); Lymphocytes % 67.1 % (15.3-44.8); MPV 12.4 fL (7.6-11.3); Monocytes % 3.6 % (3.3-12.3); RBC Red Blood Cell Count 4.15 M/uL (3.86-4.86)
--- OUTSIDE RECORDS SUMMARY | 2018-11-29 13:47 | XMS REPORT ---
:1960 [facility] Address [address] [place] [address] Care Team Providers Name Role Phone Unavailable [...]
[2018-11-29 13:56] LABS: ALT/SGPT 37 U/L (12-78); AST/SGOT 35 U/L (15-37); Albumin 3.3 g/dL (3.4-5.0); Alkaline Phosphatase 66 U/L (45-117); BUN Blood Urea Nitrogen 9 mg/dL (7-18); Bicarbonate 27 mmol/L (21-32); Bilirubin Direct 0.1 mg/dL (0-0.2); Bilirubin Total 0.2 mg/dL (0.2-1.0); Glucose Level 94 mg/dL (74-106); Lipase 42 U/L (73-393); Potassium 3.9 mmol/L (3.5-5.1); Protein, Total 7.1 g/dL (6.4-8.2); Sodium Level 139 mmol/L (136-145)
[2018-11-29] MEDS ORDERED: MORPHINE 4 MG/ML SYR ONE (14:03)
--- NOTE | 2018-11-29 15:10 | RAD REPORT ---
EXAM DESCRIPTION: CT - Abdomen Pelvis W Contrast - 11/29/2018 2:53 pm CLINICAL HISTORY: Abdominal pain COMPARISON: CT March 2017 TECHNIQUE: Biphasic, helical CT imaging of the abdomen and pelvis was performed following 100 ml non -ionic IV contrast. No oral contrast. All CT scans are performed using dose optimization technique as appropriate and may include automated exposure control or mA/KV adjustment according to patient size. FINDINGS: No suspicious findings in the lung bases. The liver, spleen, and pancreas show no suspicious findings. Gallbladder is absent. Biliary tree prom inent similar to comparison. Symmetric renal function is seen with no hydronephrosis or suspicious renal mass. No pyelonephritis o r acute parenchymal process. No bladder abnormalities. No adrenal abnormalities. No dilated bowel loops or bowel wall thickening. Large stool volume is present throughout most of the colon. Uterus and ovaries show no suspicious findings. No free air, free fluid or inflammatory stran ding. No mass or bulky lymphadenopathy. Patient has a small fat filled umbilical hernia. No suspicious bony findings. IMPRESSION: Contrast CT imaging shows no significant or suspicious finding. Full findings are detailed in the body of the report.
[2018-11-29 15:43] LABS: Anisocytosis 1+; Blood Morphology Comment NOTED (NOT SEEN); Macrocytosis 1+; Platelet Estimate ADEQ
--- NOTE | 2018-11-29 17:27 | EDPHYS ---
Physician Documentation [facility] Name: Azalia Duncan Age: 58 yrs Sex: Female : 1960 Arrival Date: 11/29/2018 Time: 12:55 Bed 26 Private MD: ED Physician Wellington Nichole HPI: 11/29 14:31 This 58 yrs old Black Female presents to ER via EMS with complaints of Pain All Over. rn 14:31 Reports pain all over, last chemo 4 days ago, no fever, no chills, no trauma. Reports rn pain began in thighs, goes to lower back, + lower abd, no vomiting/diarrhea. No hx of DVT, no calf pain, no rash.. 14:33 Onset: The symptoms/episode began/occurred 3 day(s) ago. Severity of symptoms: At their rn worst the symptoms were moderate in the emergency department the symptoms are unchanged. The patient has experienced similar episodes in the past. The patient has been recently seen by a physician:. Historical: - Allergies: 13:01 NKDA; aj1 - Home Meds: 13:01 clonazepam 0.5 mg Oral tab 1 tab daily prn [Active]; Simvastatin Oral [Active]; [place] aj1 7.5-325 mg Oral tab 1 tab as needed [Active]; losartan oral oral [Active]; promethazine 25 mg Oral tab 1 tab q6hrs prn [Active]; - PMHx: 13:01 Anxiety; Asthma; Cancer, Breast; Depression; Hyperlipidemia; Hypertension; aj1 - PSHx: 13:01 Cholecystectomy; aj1 - Immunization history:: Flu vaccine is up to date. - Social history:: Smoking status: Patient/guardian denies using tobacco. - Ebola Screening: : Patient denies travel to an Ebola-affected area in the 21 days before illness onset. - Family history:: not pertinent. - Hospitalizations: : No recent hospitalization is reported. ROS: 14:33 Constitutional: Negative for fever, chills, and weight loss, Eyes: Negative for injury, rn pain, redness, and discharge, Neck: Negative for injury, pain, and swelling, Cardiovascular: Negative for chest pain, palpitations, and edema, Respiratory: Negative for shortness of breath, cough, wheezing, and pleuritic chest pain, Abdomen/GI: Negative for nausea, vomiting, diarrhea, and constipation MS/Extremity: Negative for injury and deformity, Skin: Negative for injury, rash, and discoloration, Neuro: Negative for headache, numbness, tingling, and seizure. Exam: 14:33 Constitutional: This is a well developed, well nourished patient who is awake, alert, rn asking for pain medication Head/Face: Normocephalic, atraumatic. Eyes: Pupils equal round and reactive to light, extra-ocular motions intact. Lids and lashes normal. Conjunctiva and sclera are non-icteric and not injected. Cornea within normal limits. Periorbital areas with no swelling, redness, or edema. ENT: dry MM Neck: Trachea midline, no thyromegaly or masses palpated, and no cervical lymphadenopathy. Supple, full range of motion without nuchal rigidity, or vertebral point tenderness. No Meningismus. Cardiovascular: Regular rate and rhythm with a normal S1 and S2. No gallops, murmurs, or rubs. Normal PMI, no JVD. No pulse deficits. Respiratory: Lungs have equal breath sounds bilaterally, clear to auscultation and percussion. No rales, rhonchi or wheezes noted. No increased work of breathing, no retractions or nasal flaring. Abdomen/GI: soft, mild lower abd tenderness, no rebound Skin: Warm, dry, no evidence of cellulitis MS/ Extremity: Pulses equal, no cyanosis. Neurovascular intact. Full, normal range of motion. Equal circumference. Neuro: Awake and alert, GCS 15, oriented to person, place, time, and situation. Cranial nerves II-XII grossly intact. Motor strength 5/5 in all extremities. Sensory grossly intact. Vital Signs: 13:01 BP 117 / 77; Pulse 77; Resp 18; Temp 98.2; Pulse Ox 100% on R/A; Weight 113.85 kg (R); aj1 Height 5 ft. 7 in. (170.18 cm) (R); 14:39 BP 112 / 59; Pulse 69; Resp 18; Pulse Ox 97% on R/A; aj1 15:30 BP 111 / 66; Pulse 67; Resp 18; Pulse Ox 97% on R/A; aj1 16:30 BP 116 / 62; Pulse 69; Resp 18; Pulse Ox 100% ; aj1 13:01 Body Mass Index 39.31 (113.85 kg, 170.18 cm) aj1 MDM: 12:58 Patient medically screened. rn 17:23 Differential Diagnosis dehydration, electrolyte disorder, deconditioning, cancer pain, rn kidney stone. Data reviewed: vital signs, nurses notes, lab test result(s), radiologic studies, CT scan, and as a result, I will discharge patient. Counseling: I had a detailed discussion with the patient and/or guardian regarding: the historical points, exam findings, and any diagnostic results supporting the discharge/admit diagnosis, lab results, radiology results, the need for outpatient follow up, to return to the emergency department if symptoms worsen or persist or if there are any questions or concerns that arise at home. Response to treatment: the patient's symptoms have markedly improved after treatment, and as a result, I will discharge patient. Special discussion: I discussed with the patient/guardian in detail that at this point there is no indication for admission to the hospital. It is understood, however, that if the symptoms persist or worsen the patient needs to return immediately for re-evaluation. ED course: NO acute findings of blood work or ct scan, + expected neutropenia but afebrile and no acute infection found. Improved symptoms, here mainly for pain management. Will dc home with instructions for rest and hydration, and f/u with pcp/cancer doctor.. 11/29 13:07 Order name: CBC with Diff; Complete Time: 16:20 rn 11/29 13:07 Order name: Basic Metabolic Panel; Complete Time: 14:36 rn 11/29 13:07 Order name: LFT's; Complete Time: 14:36 rn 11/29 13:07 Order name: Lipase; Complete Time: 14:36 rn 11/29 14:00 Order name: Manual Differential; Complete Time: 16:20 EDMS 11/29 13:07 Order name: IV Start; Complete Time: 13:26 rn 11/29 13:07 Order name: EKG; Complete Time: 13:07 rn 11/29 14:37 Order name: CT Abd/Pelvis - W/Contrast; Complete Time: 15:21 rn 11/29 13:07 Order name: EKG - Nurse/Tech; Complete Time: 13:25 rn Administered Medications: 13:31 Drug: NS 0.9% 1000 ml Route: IV; Rate: 1000 ml; Site: left antecubital; aj1 18:03 Follow up: IV Status: Completed infusion; IV Intake: 1000ml [facility] 13:31 Drug: Zofran 4 mg Route: IVP; Site: left antecubital; [facility] 17:50 Follow up: Response: Nausea is decreased rv 13:54 Drug: morphine 4 mg Route: IVP; Site: left antecubital; aj1 17:50 Follow up: Response: Pain is decreased rv Disposition: 11/29/18 17:26 Discharged to Home. Impression: Muscle spasm of back, Pain, unspecified, Dehydration. - Condition is Stable. - Discharge Instructions: Dehydration, Adult, Dental Pain, Muscle Cramps and Spasms, Musculoskeletal Pain. - Prescriptions for Clindamycin HCl 300 mg Oral Capsule - take 1 capsule by ORAL route every 6 hours for 10 days; 40 capsule. Cyclobenzaprine 10 mg Oral Tablet - take 1 tablet by ORAL route every 8 hours As needed; 20 tablet. - Medication Reconciliation Form, Thank You Letter, Antibiotic Education, Prescription Opioid Use form. - Follow up: Private Physician; When: As needed; Reason: Recheck today's complaints, Re-evaluation by your physician. - Problem is new. - Symptoms have improved. Signatures: Dispatcher [employer] EDMS Shania Flores RN RN aj1 Maryellen Barth RN RN iw Wellington Nichole MD MD rn Vicente, Ronaldo RN rv Corrections: (The following items were deleted from the chart) 14:37 14:33 Constitutional: This is a well developed, well nourished patient who is awake, rn alert, asking for pain medication Head/Face: Normocephalic, atraumatic. Eyes: Pupils equal round and reactive to light, extra-ocular motions intact. Lids and lashes normal. Conjunctiva and sclera are non-icteric and not injected. Cornea within normal limits. Periorbital areas with no swelling, redness, or edema. ENT: dry MM Neck: Trachea midline, no thyromegaly or masses palpated, and no cervical lymphadenopathy. Supple, full range of motion without nuchal rigidity, or vertebral point tenderness. No Meningismus. Cardiovascular: Regular rate and rhythm with a normal S1 and S2. No gallops, murmurs, or rubs. Normal PMI, no JVD. No pulse deficits. Respiratory: Lungs have equal breath sounds bilaterally, clear to auscultation and percussion. No rales, rhonchi or wheezes noted. No increased work of breathing, no retractions or nasal flaring. Abdomen/GI: soft, mild lower abd tenderness, no rebound Skin: Warm, dry, no evidence of cellulitis MS/ Extremity: Pulses equal, no cyanosis. Neurovascular intact. Full, normal range of motion. Equal circumference. Neuro: Awake and alert, GCS 15, oriented to person, place, time, and situation. Cranial nerves II-XII grossly intact. Motor strength 5/5 in all extremities. Sensory grossly intact. rn 14:39 14:36 Abdomen Pelvis W Con+CT.RAD.BRZ ordered. EDMS EDMS 18:02 17:26 11/29/2018 17:26 Discharged to Home. Impression: Muscle spasm of back; Pain, iw unspecified; Dehydration. Condition is Stable. Forms are Medication Reconciliation Form, Thank You Letter, Antibiotic Education, Prescription Opioid Use. Follow up: Private Physician; When: As needed; Reason: Recheck today's complaints, Re-evaluation by your physician. Problem is new. Symptoms have improved. rn
--- NOTE | 2018-11-29 17:27 | ER ---
Nurse's Notes [facility] Name: Azalia Duncan Age: 58 yrs Sex: Female : 1960 Arrival Date: 11/29/2018 Time: 12:55 Bed 26 Private MD: Diagnosis: Muscle spasm of back;Pain, unspecified;Dehydration Presentation: 11/29 12:57 Presenting complaint: Patient states: She has had pain and weakness all over her body aj1 for the past 3 days. She is currently undergoing Chemo for breast cancer, her last treatment was on . Reports that she is taking [place] 7.5mg for the pain but it isn't helping, she is having a hard time sleeping due to the pain. Patient also reports poor appetite. Transition of care: patient was not received from another setting of care. Onset of symptoms was November 26, 2018. Risk Assessment: Do you want to hurt yourself or someone else? Patient reports no desire to harm self or others. Initial Sepsis Screen: Does the patient meet any 2 criteria? No. Patient's initial sepsis screen is negative. Does the patient have a suspected source of infection? No. Patient's initial sepsis screen is negative. Care prior to arrival: None. 12:57 Method Of Arrival: EMS: [facility] aj1 12:57 Acuity: CONOR 3 aj1 Triage Assessment: 13:01 General: Appears uncomfortable, Behavior is calm, cooperative, appropriate for age. aj1 Pain: Complains of pain in "everywhere". Historical: - Allergies: 13:01 NKDA; aj1 - Home Meds: 13:01 clonazepam 0.5 mg Oral tab 1 tab daily prn [Active]; Simvastatin Oral [Active]; [place] aj1 7.5-325 mg Oral tab 1 tab as needed [Active]; losartan oral oral [Active]; promethazine 25 mg Oral tab 1 tab q6hrs prn [Active]; - PMHx: 13:01 Anxiety; Asthma; Cancer, Breast; Depression; Hyperlipidemia; Hypertension; aj1 - PSHx: 13:01 Cholecystectomy; aj1 - Immunization history:: Flu vaccine is up to date. - Social history:: Smoking status: Patient/guardian denies using tobacco. - Ebola Screening: : Patient denies travel to an Ebola-affected area in the 21 days before illness onset. - Family history:: not pertinent. - Hospitalizations: : No recent hospitalization is reported. Screenin:03 Abuse screen: Denies threats or abuse. Denies injuries from another. Nutritional aj1 screening: No deficits noted. Tuberculosis screening: No symptoms or risk factors identified. Assessment: 13:03 General: Appears uncomfortable, Behavior is calm, cooperative, appropriate for age. aj1 Pain: Complains of pain in "everywhere". Neuro: Level of Consciousness is awake, alert, obeys commands, Oriented to person, place, time, situation, Speech is normal. Cardiovascular: Patient's skin is warm and dry. Respiratory: Airway is patent Respiratory effort is even, unlabored, Respiratory pattern is regular, symmetrical. GI: No signs and/or symptoms were reported involving the gastrointestinal system. : No signs and/or symptoms were reported regarding the genitourinary system. EENT: No signs and/or symptoms were reported regarding the EENT system. Derm: Skin is. Musculoskeletal: Circulation, motion, and sensation intact. 14:39 Reassessment: Patient appears in no apparent distress at this time. No changes from aj1 previously documented assessment. Patient and/or family updated on plan of care and expected duration. Pain level reassessed. Patient is alert, oriented x 3, equal unlabored respirations, skin warm/dry/pink. 15:30 Reassessment: Patient appears in no apparent distress at this time. No changes from aj1 previously documented assessment. Patient and/or family updated on plan of care and expected duration. Pain level reassessed. Patient is alert, oriented x 3, equal unlabored respirations, skin warm/dry/pink. 16:30 Reassessment: Patient appears in no apparent distress at this time. No changes from aj1 previously documented assessment. Patient and/or family updated on plan of care and expected duration. Pain level reassessed. Patient is alert, oriented x 3, equal unlabored respirations, skin warm/dry/pink. 17:30 Reassessment: Patient appears in no apparent distress at this time. No changes from aj1 previously documented assessment. Patient and/or family updated on plan of care and expected duration. Pain level reassessed. Patient is alert, oriented x 3, equal unlabored respirations, skin warm/dry/pink. Vital Signs: 13:01 BP 117 / 77; Pulse 77; Resp 18; Temp 98.2; Pulse Ox 100% on R/A; Weight 113.85 kg (R); aj1 Height 5 ft. 7 in. (170.18 cm) (R); 14:39 BP 112 / 59; Pulse 69; Resp 18; Pulse Ox 97% on R/A; aj1 15:30 BP 111 / 66; Pulse 67; Resp 18; Pulse Ox 97% on R/A; aj1 16:30 BP 116 / 62; Pulse 69; Resp 18; Pulse Ox 100% ; aj1 13:01 Body Mass Index 39.31 (113.85 kg, 170.18 cm) aj1 ED Course: 12:55 Patient arrived in ED. aj1 12:57 Shania Flores, RN is Primary Nurse. aj1 12:58 Wellington Nichole MD is Attending Physician. rn 13:00 Triage completed. aj1 13:01 Arm band placed on. aj1 13:03 Patient has correct armband on for positive identification. Bed in low position. Call aj1 light in reach. Side rails up X 1. 13:03 No provider procedures requiring assistance completed. aj1 13:20 Inserted saline lock: 22 gauge in left antecubital area, using aseptic technique. Blood ds4 collected. 13:28 CBC with Diff Sent. ds4 13:28 Basic Metabolic Panel Sent. ds4 13:28 Lipase Sent. ds4 13:28 LFT's Sent. ds4 14:53 CT Abd/Pelvis - W/Contrast In Process Unspecified. EDMS Administered Medications: 13:31 Drug: NS 0.9% 1000 ml Route: IV; Rate: 1000 ml; Site: left antecubital; aj1 18:03 Follow up: IV Status: Completed infusion; IV Intake: 1000ml aj1 13:31 Drug: Zofran 4 mg Route: IVP; Site: left antecubital; aj1 17:50 Follow up: Response: Nausea is decreased rv 13:54 Drug: morphine 4 mg Route: IVP; Site: left antecubital; aj1 17:50 Follow up: Response: Pain is decreased rv Intake: 18:03 IV: 1000ml; Total: 1000ml. aj1 Outcome: 17:26 Discharge ordered by . rn 18:02 Patient left the ED. iw Signatures: Dispatcher [employer] EDMS Shania Flores, RN RN aj1 Maryellen Barth, RN RN Wellington Calderon MD MD rn Swanson, Donovan ds4 Herbert Clark RN RN rv
[2018-11-29 19:39] VITALS: TEMP 98.2
[2018-11-29 19:43] VITALS: BP 116/62; O2SAT 100
--- NOTE | 2018-11-30 11:41 | EKG ---
Test Date: 2018-11-29 Test Time: 13:20:34 Candle Molder: MICHOACANO MEASUREMENT RESULTS: Intervals: Rate: 72 VA: 164 QRSD: 88 QT: 368 QTc: 402 [place]: P: 24 VA: 164 QRS: 56 T: 46 INTERPRETIVE STATEMENTS: Normal sinus rhythm Normal ECG Compared to ECG 10/17/2018 08:10:13 No significant changes Electronically Signed On 11-29-18 16:08:45 CDT by Kvng Lyn
== END 2018-11-29 18:02 | disposition home or self-care (01) ==
LOC: ER 12:51
DX: E86.0 Dehydration (principal); M62.838 Other muscle spasm; I10 Essential (primary) hypertension; F41.9 Anxiety disorder, unspecified; F32.9 Major depressive disorder, single episode, unspecified; E78.5 Hyperlipidemia, unspecified; Z85.3 Personal history of malignant neoplasm of breast
CPT/HCPCS: 36415; 74177; 80048; 80076; 83690; 85025; 93005; 96361; 96374; 96375; 99284; J2405; J7030; Q9967

== ENCOUNTER 2018-12-22 01:43 | Emergency (ER) | payer OTHER ==
--- OUTSIDE RECORDS SUMMARY | 2018-12-22 01:46 | XMS REPORT ---
:1960 [facility] Address [address] [place] [address] Care Team Providers Name Role Phone Unavailable [...]
[2018-12-22] MEDS ORDERED: ONDANSETRON 4 MG/2 ML VIAL ONE (02:08)
[2018-12-22] MEDS ORDERED: KETOROLAC 30 MG/ML INJ ONE (02:08)
[2018-12-22] MEDS ORDERED: FENTANYL CITR 100 MCG/2 ML ONE (03:11)
[2018-12-22] MEDS ORDERED: NA CHLORIDE 0.9% 1,000 ML ONE (03:50)
--- NOTE | 2018-12-22 04:58 | ER ---
Nurse's Notes [facility] Name: Azalia Duncan Age: 58 yrs Sex: Female : 1960 Arrival Date: 12/22/2018 Time: 01:47 Bed 4 Private MD: Diagnosis: Other chronic pain Presentation: 12/22 01:47 Presenting complaint: EMS states: they were toned out for report of pt having abdominal bb pain, nausea, vomiting and diarrhea since Thursday, pt is a chemo pt and received her second dose of a different chemo on . Transition of care: patient was not received from another setting of care. Onset of symptoms was December 17, 2018. Risk Assessment: Do you want to hurt yourself or someone else? Patient reports no desire to harm self or others. Initial Sepsis Screen: Does the patient meet any 2 criteria? No. Patient's initial sepsis screen is negative. Does the patient have a suspected source of infection? No. Patient's initial sepsis screen is negative. Care prior to arrival: Medication(s) given: Normal saline infusion, 400 mLs IV initiated. 20 GA, in the left hand, Glucose check: 120. 01:47 Method Of Arrival: EMS: [facility] bb 01:47 Acuity: CONOR 3 bb Historical: - Allergies: 01:51 No Known Allergies; bb - Home Meds: 01:51 losartan oral oral [Active]; cholesterol medication [Active]; [place] 7.5-325 mg Oral tab bb [Active]; - PSHx: 01:51 Cholecystectomy; mastectomy; bb - Immunization history:: Adult Immunizations up to date. - Social history:: Smoking status: unknown. - Ebola Screening: : No symptoms or risks identified at this time. Screenin:02 Abuse screen: Denies threats or abuse. Denies injuries from another. Nutritional ak1 screening: No deficits noted. Tuberculosis screening: No symptoms or risk factors identified. Fall Risk Gait- Weak (10 pts.). Assessment: 02:02 General: Appears uncomfortable, Behavior is cooperative, crying. Pain: Complains of ak1 pain in all over body pain. Neuro: No deficits noted. Cardiovascular: No deficits noted. Respiratory: No deficits noted. GI: Abdomen is round Bowel sounds present X 4 quads. Reports diarrhea, nausea, vomiting, since Thursday after receiving new chemo drug on . : No signs and/or symptoms were reported regarding the genitourinary system. EENT: No signs and/or symptoms were reported regarding the EENT system. Derm: No signs and/or symptoms reported regarding the dermatologic system. Musculoskeletal: Reports all over body pain since Thursday after receiving new chemo drug. 03:42 Reassessment: Patient appears in no apparent distress at this time. pt continues to ak1 complain of back pain and "bone aches" but stated the pain has improved since arrival. pt receiving more fluids. pt and family informed of possible discharge after fluid bolus is complete. Patient states feeling better. Patient states symptoms have improved. 05:11 Reassessment: Patient appears in no apparent distress at this time. Patient and/or tl2 family updated on plan of care and expected duration. Pain level reassessed. Patient is alert, oriented x 3, equal unlabored respirations, skin warm/dry/pink. pt verbalized understanding of discharge instructions, need for follow up Patient states feeling better. Vital Signs: 01:49 BP 110 / 98; Pulse 72; Resp 18; Temp 98.6(O); Pulse Ox 99% on R/A; Weight 113.85 kg bb (R); Height 5 ft. 7 in. (170.18 cm) (R); Pain 10/10; 02:42 BP 116 / 57; Pulse 77; Resp 16; Pulse Ox 100% on R/A; ak1 03:40 BP 98 / 59; Pulse 77; Resp 16; Pulse Ox 100% on R/A; ak1 04:07 BP 121 / 67; Pulse 89; Pulse Ox 100% on R/A; tl2 05:11 BP 124 / 79; Pulse 70; Resp 18; Pulse Ox 100% on R/A; tl2 01:49 Body Mass Index 39.31 (113.85 kg, 170.18 cm) bb ED Course: 01:47 Patient arrived in ED. bb 01:49 Triage completed. bb 01:49 Arm band placed on Patient placed in an exam room, on a stretcher, on pulse oximetry. bb 01:53 John Reyes MD is Attending Physician. tw4 02:00 Paris Mast, RN is Primary Nurse. ak1 02:02 Patient has correct armband on for positive identification. Bed in low position. Call ak1 light in reach. Side rails up X2. Adult w/ patient. Pulse ox on. NIBP on. Door closed. Lights dimmed. Warm blanket given. Pillow given. 02:06 Maintain EMS IV. Dressing intact. Site clean \\T\\ dry. Gauge \\T\\ site: 20g left hand. ak 1 05:11 No provider procedures requiring assistance completed. IV discontinued, intact, tl2 bleeding controlled, No redness/swelling at site. Pressure dressing applied. Administered Medications: 01:30 Drug: NS 0.9% 1000 ml {Note: 400mL given in route via EMS. 600mL started in ER4. .} ak1 Route: IV; Rate: 1 bolus; Site: left hand; 03:12 Follow up: IV Status: Completed infusion; IV Intake: 1000ml ak1 02:01 Drug: TORadol 30 mg Route: IVP; Site: left hand; ak1 02:43 Follow up: Response: No adverse reaction ak1 02:01 Drug: Zofran 4 mg Route: IVP; Site: left hand; ak1 02:43 Follow up: Response: No adverse reaction ak1 03:12 Drug: fentaNYL (PF) 25 mcg Route: IVP; Site: left hand; ak1 03:41 Follow up: Response: No adverse reaction; Pain is decreased ak1 03:40 CANCELLED (Physician Discretion): NS 0.9% 500 ml IV at bolus once tw4 03:41 Drug: NS 0.9% 1000 ml Route: IV; Rate: 1 bolus; Site: left hand; ak1 05:13 Follow up: IV Status: Completed infusion; IV Intake: 1000ml tl2 Intake: 03:12 IV: 1000ml; Total: 1000ml. ak1 05:13 IV: 1000ml; Total: 2000ml. tl2 Outcome: 04:58 Discharge ordered by MD. tw4 05:11 Discharged to home via wheelchair, with family. tl2 05:11 Condition: stable 05:11 Discharge instructions given to patient, Instructed on discharge instructions, follow up and referral plans. Demonstrated understanding of instructions, follow-up care. 05:13 Patient left the ED. tl2 Signatures: Mary Catalan RN RN Paris Molina RN RN ak1 Aliyah Winston RN RN tl2 Joseph Gooden Terrence MD MD tw4 Corrections: (The following items were deleted from the chart) 01:54 01:49 BP 110 / 98; Pulse 72bpm; Resp 18bpm; Pulse Ox 99% RA; Temp 98.6F Oral; oe bb
--- NOTE | 2018-12-22 04:58 | EDPHYS ---
Physician Documentation [facility] Name: Azalia Duncan Age: 58 yrs Sex: Female : 1960 Arrival Date: 12/22/2018 Time: 01:47 Bed 4 Private MD: ED Physician John Reyes HPI: 12/22 06:41 This 58 yrs old Black Female presents to ER via EMS with complaints of tw4 Nausea/Vomiting/Diarrhea, Abdominal Pain. 06:41 The patient presents to the emergency department with nausea, that is mild. Onset: The tw4 symptoms/episode began/occurred yesterday. Possible causes: unknown. The symptoms are aggravated by nothing. The symptoms are alleviated by nothing. Associated signs and symptoms: Pertinent positives: body aches. Severity of symptoms: At their worst the symptoms were moderate in the emergency department the symptoms are unchanged. The patient has been recently seen by a physician: the patient's primary care provider. Historical: - Allergies: 01:51 No Known Allergies; bb - Home Meds: 01:51 losartan oral oral [Active]; cholesterol medication [Active]; Bryan 7.5-325 mg Oral tab bb [Active]; - PSHx: 01:51 Cholecystectomy; mastectomy; bb - Immunization history:: Adult Immunizations up to date. - Social history:: Smoking status: unknown. - Ebola Screening: : No symptoms or risks identified at this time. ROS: 06:41 Eyes: Negative for injury, pain, redness, and discharge. tw4 06:41 Cardiovascular: Negative for chest pain, palpitations, and edema, Respiratory: Negative for shortness of breath, cough, wheezing, and pleuritic chest pain, Back: Negative for injury and pain. 06:41 Constitutional: Positive for body aches, fatigue, Negative for chills, fever, malaise. 06:41 Abdomen/GI: Positive for nausea and vomiting, nausea, vomiting, and diarrhea, nausea, vomiting, Negative for abdominal cramps, abdominal distension, anorexia, dysphagia, hematemesis, black/tarry stool, rectal pain, rectal bleeding. Exam: 06:41 Constitutional: This is a well developed, well nourished patient who is awake, alert, tw4 and in no acute distress. Head/Face: Normocephalic, atraumatic. Chest/axilla: Normal chest wall appearance and motion. Nontender with no deformity. No lesions are appreciated. Cardiovascular: Regular rate and rhythm with a normal S1 and S2. No gallops, murmurs, or rubs. Normal PMI, no JVD. No pulse deficits. Respiratory: Lungs have equal breath sounds bilaterally, clear to auscultation and percussion. No rales, rhonchi or wheezes noted. No increased work of breathing, no retractions or nasal flaring. Abdomen/GI: Soft, non-tender, with normal bowel sounds. No distension or tympany. No guarding or rebound. No evidence of tenderness throughout. Back: No spinal tenderness. No costovertebral tenderness. Full range of motion. MS/ Extremity: Pulses equal, no cyanosis. Neurovascular intact. Full, normal range of motion. Neuro: Awake and alert, GCS 15, oriented to person, place, time, and situation. Cranial nerves II-XII grossly intact. Motor strength 5/5 in all extremities. Sensory grossly intact. Cerebellar exam normal. Normal gait. Vital Signs: 01:49 BP 110 / 98; Pulse 72; Resp 18; Temp 98.6(O); Pulse Ox 99% on R/A; Weight 113.85 kg bb (R); Height 5 ft. 7 in. (170.18 cm) (R); Pain 10/10; 02:42 BP 116 / 57; Pulse 77; Resp 16; Pulse Ox 100% on R/A; ak1 03:40 BP 98 / 59; Pulse 77; Resp 16; Pulse Ox 100% on R/A; ak1 04:07 BP 121 / 67; Pulse 89; Pulse Ox 100% on R/A; tl2 05:11 BP 124 / 79; Pulse 70; Resp 18; Pulse Ox 100% on R/A; tl2 01:49 Body Mass Index 39.31 (113.85 kg, 170.18 cm) bb MDM: 01:53 Patient medically screened. tw4 06:41 Differential diagnosis: Nonspecific abd pain, gastritis, cholecystitis, appendicitis. tw4 Data reviewed: vital signs, nurses notes. Data interpreted: Pulse oximetry: Interpretation: normal. Counseling: I had a detailed discussion with the patient and/or guardian regarding: the historical points, exam findings, and any diagnostic results supporting the discharge/admit diagnosis, radiology results. Special discussion: I discussed with the patient/guardian in detail that at this point there is no indication for admission to the hospital. It is understood, however, that if the symptoms persist or worsen the patient needs to return immediately for re-evaluation. 12/22 02:03 Order name: IV Saline Lock; Complete Time: 02:06 tw4 12/22 02:03 Order name: Labs collected and sent; Complete Time: : tw4 Administered Medications: 01:30 Drug: NS 0.9% 1000 ml {Note: 400mL given in route via EMS. 600mL started in ER4. .} ak1 Route: IV; Rate: 1 bolus; Site: left hand; 03:12 Follow up: IV Status: Completed infusion; IV Intake: 1000ml ak1 02:01 Drug: TORadol 30 mg Route: IVP; Site: left hand; ak1 02:43 Follow up: Response: No adverse reaction ak1 02:01 Drug: Zofran 4 mg Route: IVP; Site: left hand; ak1 02:43 Follow up: Response: No adverse reaction ak1 03:12 Drug: fentaNYL (PF) 25 mcg Route: IVP; Site: left hand; ak1 03:41 Follow up: Response: No adverse reaction; Pain is decreased ak1 03:40 CANCELLED (Physician Discretion): NS 0.9% 500 ml IV at bolus once tw4 03:41 Drug: NS 0.9% 1000 ml Route: IV; Rate: 1 bolus; Site: left hand; ak1 05:13 Follow up: IV Status: Completed infusion; IV Intake: 1000ml tl2 Disposition: 12/22/18 04:58 Discharged to Home. Impression: Other chronic pain. - Condition is Stable. - Discharge Instructions: Chronic Pain. - Medication Reconciliation Form, Thank You Letter, Antibiotic Education, Prescription Opioid Use form. - Follow up: Private Physician; When: Upon discharge from the Emergency Department; Reason: If symptoms return, Recheck today's complaints, Continuance of care. - Problem is new. - Symptoms have improved. Signatures: Dispatcher [employer] EDMS Mary Catalan RN RN Paris Molina RN RN ak1 Aliyah Winston RN RN tl2 John Reyes MD MD tw4 Corrections: (The following items were deleted from the chart) 03:40 03:40 NS 0.9% 500 ml IV at bolus once ordered. tw4 tw4 05:13 04:58 12/22/2018 04:58 Discharged to Home. Impression: Other chronic pain. Condition is tl2 Stable. Forms are Medication Reconciliation Form, Thank You Letter, Antibiotic Education, Prescription Opioid Use. Follow up: Private Physician; When: Upon discharge from the Emergency Department; Reason: If symptoms return, Recheck today's complaints, Continuance of care. Problem is new. Symptoms have improved. tw4
[2018-12-22 05:25] VITALS: TEMP 98.6
[2018-12-22 05:26] VITALS: O2SAT 100
[2018-12-22 05:30] VITALS: BP 124/79
== END 2018-12-22 05:13 | disposition home or self-care (01) ==
LOC: ER 01:43
DX: G89.29 Other chronic pain (principal)
CPT/HCPCS: 96361; 96374; 96375; 99284; J2405; J3010; J7030

== ENCOUNTER 2019-04-02 21:48 | Emergency (ER) | payer OTHER ==
[2019-04-02] MEDS ORDERED: CEFTRIAXONE/SWI 1gm 1 GM/10 ML SYR ONE (22:35)
[2019-04-02 22:52] LABS: Basophils % 0.9 % (0-1.3); Hematocrit 37.8 % (36.0-45.0); Lymphocytes % 28.1 % (15.3-44.8); MPV 9.6 fL (7.6-11.3)
[2019-04-02 23:07] LABS: BUN Blood Urea Nitrogen 6 mg/dL (7-18); Bicarbonate 27 mmol/L (21-32); Glucose Level 81 mg/dL (74-106); Potassium 3.7 mmol/L (3.5-5.1); Sodium Level 138 mmol/L (136-145)
--- NOTE | 2019-04-02 23:16 | EDPHYS ---
Physician Documentation [facility] Name: Azalia Duncan Age: 59 yrs Sex: Female : 1960 Arrival Date: 04/02/2019 Time: 21:51 Bed 7 Private MD: ED Physician Ponce Carey HPI: 04/02 23:07 This 59 yrs old Black Female presents to ER via Ambulatory with complaints of Pain/ gs Drainage from Stitches. 23:07 The affected area is on the left axilla. Previous treatment: mastectomy axillary node gs dissection. Progress: The patient reports drainage of purulent material no fever. The patient has not experienced similar symptoms in the past. Historical: - Allergies: 21:52 NKDA; la1 - PMHx: 21:52 Anxiety; Asthma; Cancer, Breast; Depression; Hyperlipidemia; Hypertension; la1 - Immunization history:: Adult Immunizations up to date. - Social history:: Smoking status: Patient/guardian denies using tobacco. - Ebola Screening: : No symptoms or risks identified at this time. ROS: 23:07 Constitutional: Negative for fever. gs 23:07 All other systems are negative. Exam: 23:07 Head/Face: Normocephalic, atraumatic. ENT: Nares patent. No nasal discharge, no gs septal abnormalities noted. Tympanic membranes are normal and external auditory canals are clear. Oropharynx with no redness, swelling, or masses, exudates, or evidence of obstruction, uvula midline. Mucous membranes moist. Cardiovascular: Regular rate and rhythm with a normal S1 and S2. No gallops, murmurs, or rubs. Normal PMI, no JVD. No pulse deficits. Respiratory: Lungs have equal breath sounds bilaterally, clear to auscultation and percussion. No rales, rhonchi or wheezes noted. No increased work of breathing, no retractions or nasal flaring. Abdomen/GI: Soft, non-tender, with normal bowel sounds. No distension or tympany. No guarding or rebound. No evidence of tenderness throughout. Back: No spinal tenderness. No costovertebral tenderness. Full range of motion. Skin: Warm, dry with normal turgor. Normal color with no rashes, no lesions, and no evidence of cellulitis. MS/ Extremity: Pulses equal, no cyanosis. Neurovascular intact. Full, normal range of motion. Neuro: Awake and alert, GCS 15, oriented to person, place, time, and situation. Cranial nerves II-XII grossly intact. Motor strength 5/5 in all extremities. Sensory grossly intact. Cerebellar exam normal. Normal gait. 23:07 Constitutional: The patient appears alert, awake, uncomfortable. 23:07 Chest/axilla: drainage induration axillary wound, expressed mod amount of pus, breast wound clean and dry.. Vital Signs: 21:54 BP 148 / 68; Pulse 93; Resp 16; Temp 98.4; Pulse Ox 98% on R/A; Weight 109.32 kg; la1 Height 5 ft. 6 in. (167.64 cm); 22:18 BP 140 / 87; Pulse 95; Resp 16 S; Pulse Ox 98% on R/A; cc3 23:40 BP 141 / 65; Pulse 92; Resp 17 S; Pulse Ox 98% on R/A; cc3 21:54 Body Mass Index 38.90 (109.32 kg, 167.64 cm) la1 MDM: 22:23 Patient medically screened. gs 23:07 Data reviewed: vital signs, nurses notes. Counseling: I had a detailed discussion with the patient and/or guardian regarding: the historical points, exam findings, and any diagnostic results supporting the discharge/admit diagnosis, the need for outpatient follow up. ED course: dt junie wants warm compresses and start cipro doesnot want pt to be transferred, pt good with surgeons recommendation. 04/02 22:22 Order name: CBC with Diff; Complete Time: 22:56 04/02 22:22 Order name: Basic Metabolic Panel; Complete Time: 23:15 04/02 22:22 Order name: Blood Culture* Administered Medications: 23:00 Drug: Rocephin - (cefTRIAXone) 1 grams Route: IVPB; Infused Over: 30 mins; Site: right cc3 antecubital; 23:05 Follow up: Response: No adverse reaction; IV Status: Completed infusion; IV Intake: [id number] 23:25 Drug: [place] 10 mg-325 mg 1 tabs Route: PO; cc3 23:42 Follow up: Response: No adverse reaction; Pain is decreased cc3 23:42 Follow up: Response: No adverse reaction; Pain is decreased; RASS: Alert and Calm (0) cc3 Disposition: 04/02/19 23:15 Discharged to Home. Impression: Other postprocedural complications of skin and subcutaneous tissue, Cutaneous abscess of left axilla. - Condition is Stable. - Discharge Instructions: Skin Abscess. - Prescriptions for Cipro 500 mg Oral Tablet - take 1 tablet by ORAL route every 12 hours for 7 days; 14 tablet. - Medication Reconciliation Form, Thank You Letter, Antibiotic Education, Prescription Opioid Use form. - Follow up: Private Physician; When: 1 - 2 days; Reason: Re-evaluation by your physician. Signatures: Dispatcher [employer] EDMS Robbin Bhatt RN RN la1 Jose Miguel Batista, SAILAJA MESMERIST pm1 Ponce Carey MD MD gs Cordel, Charlene cc3 Corrections: (The following items were deleted from the chart) 23:42 23:15 04/02/2019 23:15 Discharged to Home. Impression: Other postprocedural cc3 complications of skin and subcutaneous tissue; Cutaneous abscess of left axilla. Condition is Stable. Forms are Medication Reconciliation Form, Thank You Letter, Antibiotic Education, Prescription Opioid Use. Follow up: Private Physician; When: 1 - 2 days; Reason: Re-evaluation by your physician. gs
--- NOTE | 2019-04-02 23:16 | ER ---
Nurse's Notes [facility] Name: Azalia Duncan Age: 59 yrs Sex: Female : 1960 Arrival Date: 04/02/2019 Time: 21:51 Bed 7 Private MD: Diagnosis: Other postprocedural complications of skin and subcutaneous tissue;Cutaneous abscess of left axilla Presentation: 04/02 21:52 Presenting complaint: Patient states: I had a partial mastectomy on the left side about la1 [address] [facility] with Dr. Jensen. I started noticing some pain, swelling, and drainage from the surgical wound on my left side. Transition of care: patient was not received from another setting of care. Onset of symptoms was April 02, 2019. Risk Assessment: Do you want to hurt yourself or someone else? Patient reports no desire to harm self or others. Initial Sepsis Screen: Does the patient meet any 2 criteria? No. Patient's initial sepsis screen is negative. Does the patient have a suspected source of infection? No. Patient's initial sepsis screen is negative. Care prior to arrival: None. 21:52 Method Of Arrival: Ambulatory la1 21:52 Acuity: CONOR 3 la1 Triage Assessment: 22:00 General: Appears in no apparent distress. uncomfortable, Behavior is calm, cooperative, cc3 appropriate for age. Pain: Complains of pain in left arm and left axilla. Historical: - Allergies: 21:52 NKDA; la1 - PMHx: 21:52 Anxiety; Asthma; Cancer, Breast; Depression; Hyperlipidemia; Hypertension; la1 - Immunization history:: Adult Immunizations up to date. - Social history:: Smoking status: Patient/guardian denies using tobacco. - Ebola Screening: : No symptoms or risks identified at this time. Screenin:00 Abuse screen: Denies threats or abuse. Denies injuries from another. Nutritional cc3 screening: No deficits noted. Tuberculosis screening: No symptoms or risk factors identified. Fall Risk Ambulatory Aid- None/Bed Rest/Nurse Assist (0 pts). Gait- Normal/Bed Rest/Wheelchair (0 pts) Mental Status- Oriented to own ability (0 pts). Assessment: 22:00 General: Appears in no apparent distress. uncomfortable, Behavior is calm, cooperative, cc3 appropriate for age. Pain: Complains of pain in left axilla and left arm. Neuro: Level of Consciousness is awake, alert, obeys commands, Oriented to person, place, time, situation, Appropriate for age. Cardiovascular: Denies chest pain, Capillary refill < 3 seconds Patient's skin is warm and dry. Respiratory: Airway is patent Respiratory effort is even, unlabored, Respiratory pattern is regular, symmetrical. GI: Abdomen is round obese. : No signs and/or symptoms were reported regarding the genitourinary system. EENT: No signs and/or symptoms were reported regarding the EENT system. Derm: Skin is intact, is healthy with good turgor, Skin is normal, black, post-surgical site on the left axilla pain but no drainage noted now. Musculoskeletal: Circulation, motion, and sensation intact. Range of motion: intact in all extremities. 23:42 Reassessment: Patient appears in no apparent distress at this time. Patient and/or cc3 family updated on plan of care and expected duration. Pain level reassessed. Patient is alert, oriented x 3, equal unlabored respirations, skin warm/dry/pink. Dr. Carey discharged the patient home with prescription given. IV cannula removed and patient left ER vitally stable by wheelchair escorted by me and the patient's relative. No valuables left in the patient's room. Patient denies pain at this time. Patient states feeling better. Patient states symptoms have improved. Vital Signs: 21:54 BP 148 / 68; Pulse 93; Resp 16; Temp 98.4; Pulse Ox 98% on R/A; Weight 109.32 kg; la1 Height 5 ft. 6 in. (167.64 cm); 22:18 BP 140 / 87; Pulse 95; Resp 16 S; Pulse Ox 98% on R/A; cc3 23:40 BP 141 / 65; Pulse 92; Resp 17 S; Pulse Ox 98% on R/A; cc3 21:54 Body Mass Index 38.90 (109.32 kg, 167.64 cm) la1 ED Course: 21:51 Patient arrived in ED. ds1 21:52 Arm band placed on right wrist. la1 21:54 Triage completed. la1 22:00 Marely Castillo is Primary Nurse. cc3 22:00 Patient has correct armband on for positive identification. Placed in gown. Bed in low cc3 position. Call light in reach. Side rails up X2. threat monitoring analyst on. Pulse ox on. NIBP on. 22:15 Ponce Carey MD is Attending Physician. 22:43 Inserted saline lock: 22 gauge in right antecubital area, using aseptic technique. jd3 Blood collected. 23:42 No provider procedures requiring assistance completed. IV discontinued, intact, cc3 bleeding controlled, No redness/swelling at site. Pressure dressing applied. Administered Medications: 23:00 Drug: Rocephin - (cefTRIAXone) 1 grams Route: IVPB; Infused Over: 30 mins; Site: right cc3 antecubital; 23:05 Follow up: Response: No adverse reaction; IV Status: Completed infusion; IV Intake: [id number] 23:25 Drug: [place] 10 mg-325 mg 1 tabs Route: PO; cc3 23:42 Follow up: Response: No adverse reaction; Pain is decreased cc3 23:42 Follow up: Response: No adverse reaction; Pain is decreased; RASS: Alert and Calm (0) cc3 Intake: 23:05 IV: 10ml; Total: 10ml. cc3 Outcome: 23:15 Discharge ordered by . gs 23:42 Patient left the ED. cc3 23:42 Discharged to home via wheelchair, with family. cc3 23:42 Condition: stable 23:42 Discharge instructions given to patient, family, Instructed on discharge instructions, follow up and referral plans. medication usage, Demonstrated understanding of instructions, follow-up care, medications, Prescriptions given X 1. Signatures: Ros Pham ds1 Robbin Bhatt RN RN la1 Ponce Carey MD MD gs Davies, Jonathon, RN RN jd3 Marely Castillo cc3 Corrections: (The following items were deleted from the chart) 04/03 01:36 08 22:00 Derm: Skin is intact, is healthy with good turgor, Skin is normal, black, cc3 post-surgical site on the left axilla pain cc3
[2019-04-02] MEDS ORDERED: HYDROCODONE/APAP 10/325 TAB ONE (23:33)
[2019-04-02 23:58] VITALS: BP 148/68; TEMP 98.4; O2SAT 98
== END 2019-04-02 23:42 | disposition home or self-care (01) ==
LOC: ER 21:48
DX: L76.82 Other postprocedural complications of skin and subcutaneous tissue (principal); L02.412 Cutaneous abscess of left axilla; F41.9 Anxiety disorder, unspecified; J45.909 Unspecified asthma, uncomplicated; F32.9 Major depressive disorder, single episode, unspecified; E78.5 Hyperlipidemia, unspecified; I10 Essential (primary) hypertension
CPT/HCPCS: 87040 ×2; 85025; 80048; 36415; 96374; 99284; J0696

== ENCOUNTER 2019-06-26 15:32 | Emergency (ER) | payer OTHER ==
--- NOTE | 2019-06-26 16:07 | ER ---
Nurse's Notes [facility] Name: Azalia Duncan Age: 59 yrs Sex: Female : 1960 Arrival Date: 06/26/2019 Time: 15:33 Bed 24 Private MD: Diagnosis: Otitis externa in other diseases classified elsewhere, left ear Presentation: 06/26 15:37 Presenting complaint: Patient states: left eat pain since Thursday. Transition of care: la1 patient was not received from another setting of care. Onset of symptoms was June 26, 2019. Risk Assessment: Do you want to hurt yourself or someone else? Patient reports no desire to harm self or others. Initial Sepsis Screen: Does the patient meet any 2 criteria? No. Patient's initial sepsis screen is negative. Does the patient have a suspected source of infection? No. Patient's initial sepsis screen is negative. Care prior to arrival: None. 15:37 Method Of Arrival: Ambulatory la1 15:37 Acuity: CONOR 5 la1 Historical: - Allergies: 15:38 NKDA; la1 - PMHx: 15:38 Anxiety; Asthma; Cancer, Breast; Depression; Hyperlipidemia; Hypertension; la1 - Immunization history:: Adult Immunizations up to date. - Social history:: Smoking status: Patient/guardian denies using tobacco. - Ebola Screening: : No symptoms or risks identified at this time. Screenin:12 Abuse screen: Denies threats or abuse. Denies injuries from another. Nutritional mg2 screening: No deficits noted. Tuberculosis screening: No symptoms or risk factors identified. Fall Risk None identified. Assessment: 16:11 General: Appears in no apparent distress. comfortable, Behavior is calm, cooperative. mg2 Pain: Complains of pain in left ear Pain does not radiate. Pain currently is 2 out of 10 on a pain scale. Quality of pain is described as aching, Pain began gradually, Is intermittent. Neuro: Level of Consciousness is awake, alert, obeys commands, Oriented to person, place, time, situation. Cardiovascular: Capillary refill < 3 seconds Patient's skin is warm and dry. Respiratory: Airway is patent Respiratory effort is even, unlabored, Respiratory pattern is regular, symmetrical. GI: No signs and/or symptoms were reported involving the gastrointestinal system. : No signs and/or symptoms were reported regarding the genitourinary system. EENT: Ear canal infected. Derm: Skin is intact, is healthy with good turgor, Skin is pink, warm \T\ dry. normal. Musculoskeletal: Circulation, motion, and sensation intact. Capillary refill < 3 seconds. Vital Signs: 15:38 BP 141 / 89; Pulse 98; Resp 16; Temp 98.6; Pulse Ox 100% on R/A; Weight 109.32 kg; la1 Height 5 ft. 7 in. (170.18 cm); 15:38 Body Mass Index 37.75 (109.32 kg, 170.18 cm) la1 ED Course: 15:33 Patient arrived in ED. as 15:37 Triage completed. la1 15:38 Arm band placed on left wrist. la1 15:39 Allen Guo PA is PHCP. cp 15:39 Wellington Nichole MD is Attending Physician. cp 15:50 Juan Alonzo, ENRIKE is Primary Nurse. mg2 16:13 Patient has correct armband on for positive identification. mg2 16:13 No provider procedures requiring assistance completed. Patient did not have IV access mg2 during this emergency room visit. Administered Medications: No medications were administered Outcome: 16:07 Discharge ordered by . cp 16:13 Discharged to home ambulatory. mg2 16:13 Condition: stable 16:13 Discharge instructions given to patient, Instructed on discharge instructions, follow up and referral plans. medication usage, Demonstrated understanding of instructions, follow-up care, medications, Prescriptions given X 1. 16:13 Patient left the ED. mg2 Signatures: Park Muñoz Lee RN RN la1 Allen Guo PA PA cp Juan Alonzo, ENRIKE RN mg2
--- NOTE | 2019-06-26 16:08 | EDPHYS ---
Physician Documentation [facility] Name: Azalia Duncan Age: 59 yrs Sex: Female : 1960 Arrival Date: 06/26/2019 Time: 15:33 Bed 24 Private MD: ED Physician Wellington Nichole HPI: 06/26 16:02 This 59 yrs old Black Female presents to ER via Ambulatory with complaints of Ear Pain. cp 16:02 The patient presents with pain, that is acute, swelling, tenderness. The complaints cp affect the left ear. 16:02 Onset: The symptoms/episode began/occurred 2 day(s) ago. Associated signs and symptoms: cp Pertinent negatives: cough, fever, rhinorrhea, sinus trouble, sore throat, vertigo, vomiting. Severity of symptoms: in the emergency department the symptoms are unchanged despite home interventions. Historical: - Allergies: 15:38 NKDA; la1 - PMHx: 15:38 Anxiety; Asthma; Cancer, Breast; Depression; Hyperlipidemia; Hypertension; la1 - Immunization history:: Adult Immunizations up to date. - Social history:: Smoking status: Patient/guardian denies using tobacco. - Ebola Screening: : No symptoms or risks identified at this time. ROS: 16:03 Eyes: Negative for injury, pain, redness, and discharge. cp 16:03 Constitutional: Negative for body aches, chills, fever. 16:03 ENT: Positive for ear pain, Negative for drainage from ear(s), rhinorrhea, sinus congestion, sinus pain, sore throat, difficulty swallowing, difficulty handling secretions. 16:03 Cardiovascular: Negative for chest pain. 16:03 Respiratory: Negative for cough, wheezing. Exam: 16:04 Head/Face: Normocephalic, atraumatic. cp 16:04 Constitutional: The patient appears in no acute distress, alert, awake, non-toxic, well developed, well nourished. 16:04 Eyes: Periorbital structures: appear normal, Conjunctiva: normal, no exudate, no injection, Lids and lashes: appear normal, bilaterally. 16:04 ENT: External ear(s): pain with movement, that is moderate, of the pinna of left ear and left ear canal, Ear canal(s): purulent discharge, that is minimal, in the left canal, swelling, that is moderate, of the left canal, Examination of the other ear shows no obvious abnormality, Nose: is normal, Mouth: Lips: moist, Oral mucosa: pink and intact, moist, Posterior pharynx: is normal, airway is patent, no erythema, no exudate. 16:04 Neck: ROM/movement: is normal, is supple, without pain, no range of motions limitations, no meningismus, no nuchal rigidity. 16:04 Chest/axilla: Inspection: normal. 16:04 Cardiovascular: Rate: normal. 16:04 Respiratory: the patient does not display signs of respiratory distress, Respirations: normal, no use of accessory muscles, no retractions. 16:04 Skin: cellulitis, is not appreciated. Vital Signs: 15:38 BP 141 / 89; Pulse 98; Resp 16; Temp 98.6; Pulse Ox 100% on R/A; Weight 109.32 kg; la1 Height 5 ft. 7 in. (170.18 cm); 15:38 Body Mass Index 37.75 (109.32 kg, 170.18 cm) la1 MDM: 15:54 Patient medically screened. cp 16:07 Data reviewed: vital signs, nurses notes. cp 16:07 Differential diagnosis: otitis media, otitis externa, foreign body, acute otalgia, cp cerumen impaction. Counseling: I had a detailed discussion with the patient and/or guardian regarding: the historical points, exam findings, and any diagnostic results supporting the discharge/admit diagnosis, the need for outpatient follow up, a family practitioner, to return to the emergency department if symptoms worsen or persist or if there are any questions or concerns that arise at home. Response to treatment: the patient's symptoms have mildly improved after treatment, and as a result, I will discharge patient. Administered Medications: No medications were administered Disposition: 17:30 Co-signature as Attending Physician, Wellington Nichole MD. rn Disposition: 06/26/19 16:07 Discharged to Home. Impression: Otitis externa in other diseases classified elsewhere, left ear. - Condition is Stable. - Discharge Instructions: Otitis Externa. - Prescriptions for Ciprodex 0.3- 0.1 % Otic Drops, Suspension - instill 4 drop by OTIC route every 12 hours for 7 days , for ears ONLY; 1 Container. - Medication Reconciliation Form, Thank You Letter, Antibiotic Education, Prescription Opioid Use form. - Follow up: Private Physician; When: 2 - 3 days; Reason: Recheck today's complaints. - Problem is new. - Symptoms have improved. Signatures: Wellington Nichole MD MD rn Attema, Lee RN RN la1 Allen Guo PA PA cp Juan Alonzo RN RN mg2 Corrections: (The following items were deleted from the chart) 16:13 16:07 06/26/2019 16:07 Discharged to Home. Impression: Otitis externa in other diseases mg2 classified elsewhere, left ear. Condition is Stable. Forms are Medication Reconciliation Form, Thank You Letter, Antibiotic Education, Prescription Opioid Use. Follow up: Private Physician; When: 2 - 3 days; Reason: Recheck today's complaints. Problem is new. Symptoms have improved. cp
[2019-06-26 20:39] VITALS: BP 141/89; TEMP 98.6; O2SAT 100
== END 2019-06-26 16:13 | disposition home or self-care (01) ==
LOC: ER 15:32
DX: H62.42 Otitis externa in other diseases classified elsewhere, left ear (principal)
CPT/HCPCS: 99282

== ENCOUNTER 2019-07-25 23:03 | Emergency (ER) | payer OTHER ==
[2019-07-26 00:07] LABS: Absolute Lymphocytes (CBC) 1.6 K/uL (0.7-4.9); Basophils % 1.1 % (0-1.3); Hematocrit 38.9 % (36.0-45.0); Lymphocytes % 41.5 % (15.3-44.8); RBC Red Blood Cell Count 4.59 M/uL (3.86-4.86)
[2019-07-26 00:10] LABS: Protime INR 1.04
[2019-07-26 00:19] LABS: ALT/SGPT 39 U/L (12-78); AST/SGOT 32 U/L (15-37); Albumin 3.1 g/dL (3.4-5.0); Alkaline Phosphatase 89 U/L (45-117); BUN Blood Urea Nitrogen 8 mg/dL (7-18); Bicarbonate 27 mmol/L (21-32); Bilirubin Direct < 0.1 mg/dL (0-0.2); Bilirubin Total 0.2 mg/dL (0.2-1.0); CKMB Creatine Kinase MB < 1.0 ng/mL (0.3-3.6); Creatine Phosphokinase 177 U/L (26-192); Glucose Level 116 mg/dL (74-106); Lipase 69 U/L (73-393); Magnesium 1.8 mg/dL (1.8-2.4); Potassium 3.9 mmol/L (3.5-5.1); Protein, Total 7.3 g/dL (6.4-8.2); Sodium Level 139 mmol/L (136-145); Troponin (Emerg Dept Use Only) < 0.02 ng/mL (0.0-0.045)
[2019-07-26 01:14] LABS: Blood Morphology Comment NOT SEEN (NOT SEEN); Platelet Estimate ADEQ
[2019-07-26] MEDS ORDERED: ACETAMINOPHEN 500 MG TAB ONE (01:22)
--- NOTE | 2019-07-26 02:54 | EDPHYS ---
Physician Documentation [facility] Name: Azalia Duncan Age: 59 yrs Sex: Female : 1960 Arrival Date: 07/25/2019 Time: 23:12 Bed 3 Private MD: ED Physician John Reyes HPI: 07/26 03:06 This 59 yrs old Black Female presents to ER via EMS with complaints of Altered Mental tw4 Status. 03:06 The patient presents with decreased responsiveness. Onset: The symptoms/episode tw4 began/occurred today. Possible causes: unknown. Associated signs and symptoms: The patient has no apparent associated signs or symptoms. Current symptoms: In the emergency department the patient's symptoms have improved, mildly. Patient's baseline: Neuro: alert and fully oriented, Motor: no deficits, Ambulation: walks without assistance. The patient has not experienced similar symptoms in the past. PT WAS EXPOSED TO PAINT FUMES FOR UNKNOWN AMOUNT OF TIME WITHOUT ADEQUATE VENTILATION. Historical: - Allergies: 07/25 23:36 NKDA; lp1 - Home Meds: 23:36 clonazepam 0.5 mg Oral Tb24 1 tab daily prn [Active]; doxepin 25 mg Oral cap 1 cap lp1 nightly [Active]; Lamictal 200 mg Oral Tb24 1 tab nightly [Active]; Lasix 40 mg Oral Tb24 1 tab once daily [Active]; losartan Oral [Active]; mirtazapine 30 mg Oral TbDL 1 tab nightly [Active]; [place] 7.5-325 mg Oral Tb24 1 tab as needed [Active]; promethazine 25 mg Oral Tb24 1 tab q6hrs prn [Active]; Simvastatin Oral [Active]; Lyrica Oral [Active]; - PMHx: 23:36 Anxiety; Asthma; Cancer, Breast; Depression; Hyperlipidemia; Hypertension; lp1 - 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 - Social history:: Smoking status: Patient/guardian denies using tobacco. - Ebola Screening: : No symptoms or risks identified at this time. ROS: 07/26 03:06 Constitutional: Negative for fever, chills, and weight loss, Eyes: Negative for injury, tw4 pain, redness, and discharge, Cardiovascular: Negative for chest pain, palpitations, and edema, Respiratory: Negative for shortness of breath, cough, wheezing, and pleuritic chest pain, Abdomen/GI: Negative for abdominal pain, nausea, vomiting, diarrhea, and constipation, Back: Negative for injury and pain, MS/Extremity: Negative for injury and deformity, Skin: Negative for injury, rash, and discoloration. Neuro: Positive for altered mental status, Negative for dizziness, gait disturbance, headache, numbness, seizure activity, speech changes, syncope, visual changes, weakness. Exam: 03:06 Constitutional: This is a well developed, well nourished patient who is awake, alert, tw4 and in no acute distress. Head/Face: Normocephalic, atraumatic. Chest/axilla: Normal chest wall appearance and motion. Nontender with no deformity. No lesions are appreciated. Cardiovascular: Regular rate and rhythm with a normal S1 and S2. No gallops, murmurs, or rubs. Normal PMI, no JVD. No pulse deficits. Respiratory: Lungs have equal breath sounds bilaterally, clear to auscultation and percussion. No rales, rhonchi or wheezes noted. No increased work of breathing, no retractions or nasal flaring. Abdomen/GI: Soft, non-tender, with normal bowel sounds. No distension or tympany. No guarding or rebound. No evidence of tenderness throughout. Back: No spinal tenderness. No costovertebral tenderness. Full range of motion. MS/ Extremity: Pulses equal, no cyanosis. Neurovascular intact. Full, normal range of motion. Neuro: Awake and alert, GCS 15, oriented to person, place, time, and situation. Cranial nerves II-XII grossly intact. Motor strength 5/5 in all extremities. Sensory grossly intact. Cerebellar exam normal. Normal gait. Vital Signs: 07/25 23:31 BP 169 / 80; Pulse 75; Resp 20; Temp 97.1; Pulse Ox 100% on R/A; Weight 111.13 kg (R); lp1 Height 5 ft. 7 in. (170.18 cm); Pain 0/10; 07/26 00:24 BP 139 / 76; Pulse 69; Resp 19; Pulse Ox 99% ; ea 01:00 BP 136 / 82; Pulse 70; Resp 13; Pulse Ox 100% on R/A; lp1 02:00 BP 119 / 64; Pulse 65; Resp 14; Pulse Ox 100% on R/A; lp1 07/25 23:31 Body Mass Index 38.37 (111.13 kg, 170.18 cm) lp1 MDM: 07/25 23:13 Patient medically screened. tw4 07/26 03:06 Data reviewed: vital signs, nurses notes. Data reviewed: lab test result(s), CBC, white tw4 blood cell count, hemoglobin, hematocrit, platelets, electrolytes, sodium, potassium, chloride, serum bicarbonate, BUN, creatinine, serum glucose, hepatic panel, urinalysis, NEGATIVE. Data reviewed: radiologic studies, CT scan. Data interpreted: Pulse oximetry: Interpretation: normal. Counseling: I had a detailed discussion with the patient and/or guardian regarding: the historical points, exam findings, and any diagnostic results supporting the discharge/admit diagnosis, lab results, radiology results. Special discussion: I discussed with the patient/guardian in detail that at this point there is no indication for admission to the hospital. It is understood, however, that if the symptoms persist or worsen the patient needs to return immediately for re-evaluation. ED course: PT BECAME MORE AWAKE AND ALERT IN ED. PT HAD NO COMPLAINTS. 07/25 23:15 Order name: Basic Metabolic Panel tw4 07/25 23:15 Order name: CBC with Diff tw07/25 23:15 Order name: Ckmb; Complete Time: :4 07/26 01:27 Interpretation: Within normal limits: CKMB < 1.0. tw4 07/25 23:15 Order name: CPK; Complete Time: 4 07/26 01:27 Interpretation: Within normal limits: CPK 177. tw07/25 23:15 Order name: Hepatic Function tw4 07/25 23:15 Order name: Lipase tw4 07/25 23:15 Order name: CT Head Brain wo Cont tw4 07/25 23:15 Order name: Magnesium; Complete Time: : tw4 07/26 01:28 Interpretation: Within normal limits: MG 1.8. tw07/25 23:15 Order name: Protime (+inr); Complete Time: 4 07/26 01:28 Interpretation: Within normal limits: PT 12.2. tw4 07/25 23:15 Order name: Ptt, Activated; Complete Time: 01:28 tw4 07/26 01:28 Interpretation: Within normal limits: PTT 35.6. tw4 07/25 23:15 Order name: Troponin (emerg Dept Use Only); Complete Time: 01:30 tw4 07/26 01:30 Interpretation: Within normal limits: TROPED < 0.02. tw4 07/25 23:15 Order name: Lactate; Complete Time: 01:31 tw4 07/26 01:31 Interpretation: Within normal limits: LAC 1.6. tw4 07/26 00:20 Order name: Manual Differential; Complete Time: 01:25 EDMS 07/26 01:25 Interpretation: Normal except: EOS 5; BASOS 2. tw4 07/26 02:18 Order name: Urine Dipstick--Ancillary (enter results) [facility] 07/25 23:15 Order name: EKG; Complete Time: 23:16 tw4 07/25 23:15 Order name: Cardiac monitoring; Complete Time: 23:37 tw4 07/25 23:15 Order name: EKG - Nurse/Tech; Complete Time: 23:37 tw4 07/25 23:15 Order name: IV Saline Lock; Complete Time: 23:37 tw4 07/25 23:15 Order name: Labs collected and sent; Complete Time: 23:51 tw4 07/25 23:15 Order name: NPO; Complete Time: 23:37 tw4 07/25 23:15 Order name: O2 Per Protocol; Complete Time: 23:37 tw4 07/25 23:15 Order name: O2 Sat Monitoring; Complete Time: 23:37 tw4 07/25 23:15 Order name: Urine Dipstick-Ancillary (obtain specimen); Complete Time: 02:21 tw4 EC:06 Rate is 70 beats/min. Rhythm is regular. QRS [place] is Normal. [place] interval is normal. QRS tw4 interval is normal. QT interval is normal. No Q waves. T waves are Normal. No ST changes noted. Clinical impression: Normal ECG. Interpreted by me. Reviewed by me. Administered Medications: 01:24 Drug: Tylenol 1000 mg Route: PO; lp1 02:21 Follow up: Response: No adverse reaction lp1 Disposition: 07/26/19 02:54 Discharged to Home. Impression: Delirium due to known physiological condition. - Condition is Stable. - Discharge Instructions: Delirium. - Medication Reconciliation Form, Thank You Letter, Antibiotic Education, Prescription Opioid Use form. - Follow up: Private Physician; When: Upon discharge from the Emergency Department; Reason: Recheck today's complaints, Continuance of care. - Problem is new. - Symptoms have improved. Signatures: Dispatcher [employer] EDMS Jacqui Stewart RN RN lp1 John Reyes MD MD tw4 Corrections: (The following items were deleted from the chart) 07/25 23:37 23:15 Urine Dipstick-Ancillary ordered. tw4 lp1 07/26 03:09 02:54 07/26/2019 02:54 Discharged to Home. Impression: Delirium due to known lp1 physiological condition. Condition is Stable. Forms are Medication Reconciliation Form, Thank You Letter, Antibiotic Education, Prescription Opioid Use. Follow up: Private Physician; When: Upon discharge from the Emergency Department; Reason: Recheck today's complaints, Continuance of care. Problem is new. Symptoms have improved. tw4
--- NOTE | 2019-07-26 02:54 | ER ---
Nurse's Notes [facility] Name: Azalia Duncan Age: 59 yrs Sex: Female : 1960 Arrival Date: 07/25/2019 Time: 23:12 Bed 3 Private MD: Diagnosis: Delirium due to known physiological condition Presentation: 07/25 23:27 Presenting complaint: EMS states: Called for patient who was not responsive, son states lp1 having to crawl through window to get inside, patient was lying in her bed, states eyes were twitching but she couldn't get words out; Son states patient was having her bathtub painted and the fumes were very strong in the house; patient anxious, crying on arrival to ED. Transition of care: patient was not received from another setting of care. Onset of symptoms was July 25, 2019 at 20:30. Risk Assessment: Do you want to hurt yourself or someone else? Patient reports no desire to harm self or others. Initial Sepsis Screen: Does the patient meet any 2 criteria? Altered Mental Status. Does the patient have a suspected source of infection? No. Patient's initial sepsis screen is negative. Care prior to arrival: IV initiated. 22g IV to L wrist, 22g IV to R AC Oxygen administered. via nasal cannula. 23:27 Method Of Arrival: EMS: [facility] lp1 23:27 Acuity: CONOR 2 lp1 Triage Assessment: 23:15 General: Appears in no apparent distress. Behavior is anxious. Neuro: Level of lp1 Consciousness is awake, obeys commands, Oriented to person, place, Patient slow to respond to questions. 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 - Social history:: Smoking status: Patient/guardian denies using tobacco. - Ebola Screening: : No symptoms or risks identified at this time. Screenin:36 Abuse screen: Denies threats or abuse. Denies injuries from another. Nutritional lp1 screening: No deficits noted. Tuberculosis screening: No symptoms or risk factors identified. Fall Risk Total Schulz Fall Scale indicates High Risk Score (45 or more points). Fall prevention measures have been instituted. Side Rails Up X 2. Assessment: 23:32 Reassessment: Son at bedside, patient more alert, answering questions appropriately; lp1 States "What happened? Why am I here?"; Patient complaint of headache. 07/26 00:18 General: Appears in no apparent distress. Behavior is anxious. Pain: Complains of pain lp1 in head Pain currently is 10 out of 10 on a pain scale. Quality of pain is described as aching. Neuro: Level of Consciousness is awake, alert, obeys commands, Oriented to person, place, Moves all extremities. Full function Speech is normal. Cardiovascular: Patient's skin is warm and dry. Respiratory: Respiratory effort is even, unlabored, Breath sounds are clear bilaterally. GI: Abdomen is obese. : No signs and/or symptoms were reported regarding the genitourinary system. EENT: No signs and/or symptoms were reported regarding the EENT system. Derm: Skin is intact, Skin is dry, Skin is normal. Musculoskeletal: No deficits noted. 01:14 Reassessment: Patient appears in no apparent distress at this time. Patient and/or lp1 family updated on plan of care and expected duration. Pain level reassessed. Patient states continued headache at this time. 02:18 Reassessment: Assisted patient to bathroom via wheelchair; states continued headache lp1 and feeling dizzy. Vital Signs: 07/25 23:31 BP 169 / 80; Pulse 75; Resp 20; Temp 97.1; Pulse Ox 100% on R/A; Weight 111.13 kg (R); lp1 Height 5 ft. 7 in. (170.18 cm); Pain 0/10; 12 00:24 BP 139 / 76; Pulse 69; Resp 19; Pulse Ox 99% ; ea 01:00 BP 136 / 82; Pulse 70; Resp 13; Pulse Ox 100% on R/A; lp1 02:00 BP 119 / 64; Pulse 65; Resp 14; Pulse Ox 100% on R/A; lp1 12 23:31 Body Mass Index 38.37 (111.13 kg, 170.18 cm) lp1 ED Course: 07/25 23:12 Patient arrived in ED. cf2 23:13 John Reyes MD is Attending Physician. tw4 23:27 Jacqui Stewart, RN is Primary Nurse. lp1 23:31 Triage completed. lp1 23:32 Arm band placed on. lp1 23:36 Patient has correct armband on for positive identification. Placed in gown. Bed in low lp1 position. Side rails up X2. web worker on. Pulse ox on. NIBP on. 23:46 CT Head Brain wo Cont In Process Unspecified. EDMS 07/26 02:19 No provider procedures requiring assistance completed. lp1 03:08 No redness/swelling at site. Pressure dressing applied, IV's to R AC and L wrist DC'd. lp1 Administered Medications: 01:24 Drug: Tylenol 1000 mg Route: PO; lp1 02:21 Follow up: Response: No adverse reaction lp1 Outcome: 02:54 Discharge ordered by . tw4 03:09 Discharged to home via wheelchair, with family. lp1 03:09 Condition: good 03:09 Discharge instructions given to patient, family, Instructed on discharge instructions, follow up and referral plans. Demonstrated understanding of instructions, follow-up care. 03:09 Patient left the ED. lp1 Signatures: Dispatcher [employer] EDMT Jacqui Stewart RN RN lp1 Gabriela Brumfield RN RN ea Wadley, Terrence, MD MD tw4 Russell Solorzano cf2 Corrections: (The following items were deleted from the chart) 07/25 23:36 23:32 Reassessment: Son at bedside, patient more alert, answering questions lp1 appropriately; States "What happened? Why am I here?" lp1 07/26 00:43 12/02 23:31 BP 169 / 80; Pulse 75bpm; Resp 20bpm; Pulse Ox 100% RA; 111.13 kg Reported; lp1 Height 5 ft. 7 in.; BMI: 38.3; Pain 0/10; lp1
[2019-07-26 04:11] LABS: Urine Blood NEGATIVE (NEG); Urine Glucose NEGATIVE (NEG); Urine Protein NEGATIVE (NEG); Urine pH 8.5 (5.0-7.0)
[2019-07-26 06:06] VITALS: TEMP 97.1
[2019-07-26 06:09] VITALS: BP 119/64; O2SAT 100
--- NOTE | 2019-07-26 08:01 | EKG ---
Test Date: 2019-07-25 Test Time: 23:20:45 [employer]cher: CLIFFORD MEASUREMENT RESULTS: Intervals: Rate: 70 VA: 182 QRSD: 94 QT: 386 QTc: 416 Brandon: P: 6 VA: 182 QRS: 55 T: 44 INTERPRETIVE STATEMENTS: Normal sinus rhythm Normal ECG Compared to ECG 11/29/2018 13:20:34 No significant changes Electronically Signed On 07-26-19 08:00:54 DUST PULLER by Kvng Lyn
--- NOTE | 2019-07-26 10:39 | RAD REPORT ---
EXAM DESCRIPTION: CT Head Without Intravenous Contrast CLINICAL HISTORY: The patient is 59 years old and is Female; HEADACHE TECHNIQUE: Axial computed tomography images of the head/brain without intravenous contrast. Sagitt al and coronal reformatted images were created and reviewed. This CT exam was performed using one o r more of the following dose reduction techniques: automated exposure control, adjustment of the mA and/or kV according to patient size, and/or use of iterative reconstruction technique. COMPARISON: CT head October 17, 2018. FINDINGS: BRAIN: Unremarkable. The wilhelm-white matter differentiation is preserved . No hemorrhag e. No significant white matter disease. No edema. No extra-axial fluid collections. VENTRICLES: Unremarkable. No ventriculomegaly. BONES/JOINTS: No acute fracture. SOFT TISSUES: Unremarkable. SINUSES: Unremarkable as visualized. No acute sinusitis. MASTOID AIR CELLS: Unremarkable as visualized. No mastoid effusion. ORBITS: Unremarkable as visualized. IMPRESSION: No acute intracranial findings. Electronically signed by: Sylvia Linton MD 07/26/2019 12:21 AM SPINNING DOFFER Due to temporary technical issues with the PACS/Fluency reporting system, reports are being signed by the in house radiologist as a courtesy to ensure prompt reporting. The interpreting radiologist is f ully responsible for the content of the report.
== END 2019-07-26 03:09 | disposition home or self-care (01) ==
LOC: ER 23:03
DX: R41.0 Disorientation, unspecified (principal); I10 Essential (primary) hypertension; E78.5 Hyperlipidemia, unspecified; F32.9 Major depressive disorder, single episode, unspecified; Z85.3 Personal history of malignant neoplasm of breast
CPT/HCPCS: 36415; 70450; 80048; 80076; 81003; 82550; 82553; 83605; 83690; 83735; 84484; 85025; 85610; 85730; 93005; 99284

== ENCOUNTER 2020-03-01 18:52 | Emergency (ER) | payer SELFPAY ==
--- NOTE | 2020-03-02 00:47 | ER ---
Nurse's Notes [facility] Name: Azalia Duncan Age: 60 yrs Sex: Female : 1960 Arrival Date: 03/01/2020 Time: 18:55 Bed Waiting Private MD: Diagnosis: Presentation: 03/01 19:24 Chief complaint: Patient states: "I'm a [place] patient and my doctor wanted me to be seen ss because I woke up with bruising on my R upper arm.". Coronavirus screen: Proceed with normal triage. Patient denies a cough. Patient denies shortness of breath or difficulty breathing. Patient denies measured and/or subjective temperature greater than 100.4F prior to today's visit. Patient denies travel on a cruise ship or to a country the [facility] currently lists as an affected area. Patient denies contact with known and/or suspected case of COVID-19. Ebola Screen: Patient denies exposure to infectious person. Patient denies travel to an Ebola-affected area in the 21 days before illness onset. Initial Sepsis Screen: Does the patient meet any 2 criteria? No. Patient's initial sepsis screen is negative. Does the patient have a suspected source of infection? No. Patient's initial sepsis screen is negative. Risk Assessment: Do you want to hurt yourself or someone else? Patient reports no desire to harm self or others. Onset of symptoms was March 01, 2020. 19:24 Method Of Arrival: Ambulatory ss 19:24 Acuity: CONOR 4 ss Triage Assessment: 23:34 General: Appears in no apparent distress. Behavior is cooperative, agitated, behavior dm5 due to long wait time.. Pain: Complains of pain in right bicep. Neuro: Level of Consciousness is awake, alert, obeys commands, Oriented to person, place, time. Historical: - Allergies: 19:26 NKDA; ss - PMHx: 19:26 Anxiety; Asthma; Cancer, Breast; Depression; Hyperlipidemia; Hypertension; ss - PSHx: 19:26 spleenectomy; ss - Immunization history:: Adult Immunizations up to date. - Social history:: Smoking status: Patient denies any tobacco usage or history of. Vital Signs: 19:24 BP 150 / 94; Pulse 74; Resp 15; Temp 97.7(TE); Pulse Ox 100% on R/A; Weight 109.32 kg; Height 5 ft. 7 in. (170.18 cm); Pain 0/10; 23:25 BP 164 / 78; Pulse 74; Resp 18; Temp 97.8(TE); dm5 19:24 Body Mass Index 37.75 (109.32 kg, 170.18 cm) ED Course: 18:55 Patient arrived in ED. mr 19:26 Triage completed. 19:26 Arm band placed on right wrist. 03/02 00:12 Fred Hooper MD is Attending Physician. 7 Administered Medications: No medications were administered Outcome: 00:46 Patient left the ED. dm5 Signatures: Adnria Lopez RN RN dm Yuliana Rene mr Berna Disla RN RN Fred Hooper MD MD [id number]
[2020-03-02 01:13] VITALS: O2SAT 100
[2020-03-02 01:17] VITALS: BP 164/78; TEMP 97.8
== END 2020-03-02 00:46 | disposition left against medical advice (07) ==
LOC: ER 18:52
DX: S40.021A Contusion of right upper arm, initial encounter (principal); Z53.21 Procedure and treatment not carried out due to patient leaving prior to being seen by health care provider
CPT/HCPCS: 99281

== ENCOUNTER 2020-03-10 11:08 | Emergency (ER) | payer OTHER, SELFPAY ==
--- OUTSIDE RECORDS SUMMARY | 2020-03-10 11:11 | XMS REPORT | Continuity of Care Document ---
:1960 Author Organization [facility] t Address [address] [place] [address] Care Team Providers Name Role Phone Unavailable Unavailable Unavailable Payers Payer Name Policy Type Policy Number Effective Date Expiration Date S ource Problems This patient has no known problems. Allergies, Adverse Reactions, Alerts Allergy Allergy Status Severity Reaction(s) Onset Inactive Treating Comm ents Source Name Type Date Date Clinician No Known DA Active U [facility] 7[facility]19 [facility] 00:00: d 00 [facility] No Known DA Active U 2018-0 [facility] [address] [place] [address] No Known DA Active U 2018-0 [facility] 1-08 [facility] s 00:00: [place] 00 [facility] No Known DA Active U 2017- [facility] 2-13 [place] 00:00: d 00 [facility] Medications This patient has no known medications. Procedures This patient has no known procedures. Results Test Description Test Time Test Comments Results Result [facility] e Comments BREAST,EXCISION OF 2019-03-23 LESION/MASS 16:54:00 --------RUN DATE: 03/23/19 [facility] PAGE 1 RUN TIME: 1654 Specimen Inquiry RUN USER: INTERFACE --------PATIENT: AARON HUFFMAN LOC: JANET U #: [id number] AGE/SX: 59/F ROOM: RE03/17/19HERNAN DR: Surjit Jensen : 64 BED: DIS: STATUS: LILIANA MILLER TLOC: -------- SPEC #: [id number] RECD: 03/17/19 STATUS: JUAN R LANG #: [id number] AGUSTO: 03/17/19- SUBM DR: Surjit Jensen MD ENTERED: 03/18/19 SP TYPE: BREAST,EXC OTHR DR: ORDERED: LEVEL SURGIC CODES: [id number] - BREAST, NOS PROCEDURES: LEVEL SURGIC (Incomplete) TISSUES: BREAST, NOS - LEFT BREAST TISSUE X 3 CLINICAL HISTORY 59 year old, LEFT breast cancer (kr) FINAL DIAGNOSIS LEFT breast tissue, LEFT partial mastectomy: - residual invasive micropapillary carcinoma (please see Tumor Details below) - atypical ductal hyperplasia, focal - stromal fibrosis, apocrine metaplasia, cyst formation, and sclerosing adenosis associated with numerous calcifications LEFT breast partial mastectomy cavity, re-excision: - benign breast parenchyma with cyst formation and stromal fibrosis associated with numerous calcifications Axillary contents, dissection: - 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 nine lymph nodes (09/01) TUMOR DETAILS: Procedure: LEFT partial mastectomy Tumor Site: 2:00 Tumor Size: 14 mm within a 25 x 10 x 7 mm tumor bed Histologic Type: Invasive micropapillary carcinoma Histologic Grade (Draper Histologic Score): Grading may be inaccurate post chemotherapy Glandular (Acinar)/Tubular Differentiation: Score 2 Nuclear Pleomorphism: Score 3 Mitotic Rate: Score 1 CONTINUED ON NEXT PAGE --------RUN DATE: 03/23/19 [facility] PAGE 2 RUN TIME: 1654 Specimen Inquiry RUN USER: INTERFACE --------SPEC #: [id number] PATIENT: AARON HUFFMAN #[id number] (Continued) FINAL DIAGNOSIS (Continued) Overall Grade: Grade 2 Tumor Focality: Single focus of invasive carcinoma Ductal Carcinoma In Situ (DCIS): Not identified Lobular Carcinoma In Situ (LCIS): No LCIS in specimen Margins: Invasive Carcinoma Margins: Uninvolved by invasive carcinoma Distance from closest margins: 1.5 mm from deep, 4 mm from superior, 5 mm from medial and 9 mm from anterior on initial specimen, re-excision of cavity is free of tumor Regional Lymph Nodes: Number of Lymph Nodes Examined: 9 Involved by tumor cells: 1 Number of Lymph Nodes with Macrometastases (>2 mm): 1 Size of Largest Metastatic Deposit: 5.5 mm Extranodal Extension: Not identified Treatment Effect: In the Breast: Probable or definite response to presurgical therapy in the invasive carcinoma; 20% cellularity in tumor bed In the Lymph Nodes: No definite response to presurgical therapy in metastatic carcinoma Lymphovascular Invasion: Present Pathologic Stage Classification (pTNM, AJCC 8th Edition): ypT1c,N1a Ancillary Studies, block A6: Estrogen Receptor (ER): Positive, 62%, strong intensity Progesterone Receptor (PgR) : Positive, 43%, weak intensity HER2 (by immunohistochemistry) : Negative (Score 1+) Ki-67: Low, 5%, strong intensity Microcalcifications: Present in non-neoplastic tissue CPT code(s): 95074 x3, 89739-78, 75539-98 [facility]/donny dt: 03/23/19 CONTINUED ON NEXT PAGE --------RUN DATE: 03/23/19 [facility] PAGE 3 RUN TIME: 1654 Specimen Inquiry RUN USER: INTERFACE --------SPEC #: [id number] PATIENT: AARON HUFFMAN #[id number] (Continued) GROSS DESCRIPTION ANATOMIC SOURCE OF TISSUE (per Requisition): 1. LEFT breast tissue, LEFT partial mastectomy 2. Re-excision partial LEFT breast mastectomy cavity 3. Axillary contents Each specimen is labeled with the patient's name and medical record number. Specimen #1 is designated "LEFT breast tissue, LEFT partial mastectomy" and consists of 25 gm, 5.5 x 4.5 x 2.5 cm portion of breast tissue with an inserted localization wire. The specimen is oriented by the surgeon as follows: Short - superior, long - lateral, double - deep. A needle guide wire is present in the specimen, entering at the superior/lateral aspect and exiting at the medial aspect. The central/superior aspect of the breast parenchyma displays a 2.5 x 1.0 x 0.7 cm spiculated mass in slices 2, 3, and 4 through 6. The lesion comes within 0.6 cm of the posterior margin, 0.7 cm to the medial margin, 1.2 cm to the lateral margin, and 1.1 cm to the anterior margin. The cut surfaces are dacosta and firm with focal areas of hemorrhage. A clip is identified in slice 3. The outer surface of the specimen is dacosta-yellow, cauterized, and slightly fragmented. The remainder of the breast parenchyma is predominantly pink-yellow, lobulated adipose tissue with a few unremarkable fibrous bands (90% adipose tissue and 10% fibrous tissue). There are no other lesions. The specimen is serially sectioned into 11 slices and submitted in its entirety in sequential order from superior to inferior. Ink code: Blue - superior Red - inferior Black - posterior Green - anterior [place] - medial Yellow - lateral Section code: Slice 1 - A1 and A2 Slice 2 - A3 and A4 Slice 3 - A5 through A7 Slice 4 - A8 and A9 Slice 5 - A10 and A11 Slice 6 - A12 and A13 Slice 7 - A14 and A15 Slice 8 - A16 and A17 Slice 9 - A18 and A19 Slice 10 - A20 and A21 Slice 11 - A22 through A24 Specimen #2 is designated "re-excision partial LEFT breast mastectomy cavity" and CONTINUED ON NEXT PAGE --------RUN DATE: 03/23/19 [facility] PAGE 4 RUN TIME: 4 Specimen Inquiry RUN USER: INTERFACE --------SPEC #: [id number] PATIENT: AARON HUFFMAN #[id number] (Continued) GROSS DESCRIPTION (Continued) consists of a 9.5 gm, 5.0 x 2.5 x 1.5 cm portion of breast tissue. The specimen is oriented by the surgeon as follows: ink is new margin side, long - lateral, ink - deep, and short - superior. The outer surface of the specimen is dacosta-yellow, cauterized, and slightly fragmented. The breast parenchyma is predominantly pink-yellow, lobulated adipose tissue with a few unremarkable fibrous bands (95% adipose tissue and 5% fibrous tissue). There is no definite residual tumor. The specimen is serially sectioned into 10 slices and submitted in its entirety in sequential order from lateral to medial. Ink code: Blue - superior Red - inferior Black - posterior Green - anterior [place] - medial Yellow - lateral Section code: Slice 1 - B1 Slice 2 - B2 Slice 3 - B3 Slice 4 - B4 Slice 5 - B5 Slice 6 - B6 Slice 7 - B7 Slice 8 - B8 Slice 9 - B9 Slice 10 - B10 Specimen #3 is designated "axillary contents" and consists of a 7.0 x 6.0 x 3.5 cm pink-yellow, lobulated portion of adipose tissue with an inserted localized wire. The specimen displays multiple dacosta-pink, soft and firm lymph nodes, 0.2 to 2.5 cm. The cut surfaces of one lymph node, directly adjacent to localization wire displays a 0.6 cm dacosta-wilhelm, firm nodule. [employer] sections are submitted labeled C1 - 1 bisected lymph node, C2 and C3 - 1 serially sectioned lymph node, C4 - 3 single intact lymph nodes, C5 - 1 bisected lymph node, C6 - 1 trisected lymph node, C7 - 1 serially sectioned lymph node, C8 - 1 single intact lymph node, C9 - 1 trisected lymph node, C10 - 1 serially sectioned lymph node, C11 through C14 - fibrofatty soft tissue. marvin/donny 03/18/19 @ 1034 MICROSCOPIC DESCRIPTION Specimen #1, LEFT breast tissue: There is a 25 x 10 x 7 mm tumor bed with approximately 20% cellularity and the largest contiguous focus being 14 mm. It is found less than 1.5 mm from the deep margin, 4 mm from the superior, 5 mm from the medial, and 9 mm from the anterior margins. The tumor has focal tubules, a high nuclear grade, and a low mitotic rate. A D240 and CD31 immunostains highlight CONTINUED ON NEXT PAGE --------RUN DATE: 03/23/19 [facility] PAGE 5 RUN TIME: 1654 Specimen Inquiry RUN USER: INTERFACE --------SPEC #: [id number] PATIENT: AARON HUFFMAN #[id number] (Continued) MICROSCOPIC DESCRIPTION (Continued) lymphovascular invasion and are negative around the micropapillary structures. A focus of atypical ductal hyperplasia is found less than 2 mm from the medial margin; however, no ductal carcinoma in-situ identified. The uninvolved breast parenchyma has stromal fibrosis, apocrine metaplasia, cyst formation, and sclerosing adenosis, which are associated with calcifications. Specimen #2, re-excision partial LEFT breast mastectomy cavity: No invasive or in-situ carcinoma identified. There is focal cyst formation and stromal fibrosis associated with numerous calcifications. Specimen #3, axillary contents: Metastatic carcinoma is present in one of nine lymph nodes, a 5.5 mm focus with no extracapuslar extension. No fibrosis identified. [facility]/ dt: 03/23/19 The following technical components were performed at [facility] [place], [address] [place] [address]. The interpretation is provided by [facility], [address] [place] [id number]. Controls received from [facility] stained appropriately. INTERPRETATION: Block A6: D2-40 and CD31- See above for results. Prognostic Markers performed and interpreted 03/23/19 at [facility] ER: POSITIVE Tumor Stained: 62% Intensity: 3+ Internal control: Present MA: POSITIVE Tumor Stained: 43% Intensity: 1+ Internal control: Present HER2 (IHC): NEGATIVE Score: 1+ Ki67: LOW, 5% Intensity: 3+ Signed SIGNATURE ON FILE Catherine Kelly MD 03/23/19 1654 -------- END OF REPORT CHEMISTRY 7 PROFILE 2019-03-10 14:59:00 Test Item Value Reference Range Interpretation Comme nts SODIUM (test code = NA) 134 mEq/L 135-145 L POTASSIUM (test code = K) 4.5 mEq/L 3.5-5.0 N CHLORIDE (test code = CL) 101 mEq/L 100-115 N CARBON DIOXIDE (test code = CO2) 24 mEq/L 22-31 N ANION GAP (test code = GAP) 13.20 10-20 N GLUCOSE (test code = GLU) 85 mg/dL 65-110 N BLOOD UREA NITROGEN (test code = BUN) 8 mg/dL 7-18 N GLOMERULAR FILTRATION RATE (test code = GFR) 115 ml/min >60 N CREATININE (test code = CREAT) 0.6 mg/dL 0.5-1.0 N CALCIUM (test code = CA) 9.6 mg/dL 8.4-10.2 N HGB [id number] 14:27:00 Test Item Value Reference Range Interpretation Comments HEMOGLOBIN (test code = HGB) 12.4 g/dL 10.7-13.9 N HEMATOCRIT (test code = HCT) 38.6 % 32.1-42.1 N - USG NDL PLACEMENT (Bxg/Asp)2019-01-11 11:50:00 Name: AARON HUFFMAN [facility] : 1960 Age/S: 59 / F [address] Unit #: [id number] Loc: [place] [address] Phys: Julia Wiley MD Acct: [id number] Dis Date: Status: DEP CLI PHONE #: [phone] Exam Date: 01/11/2019 1135 FAX #: Reason: ASPIRATION EXAMS: CPT: [id number] USG NDL PLACEMENT (Bxg/Asp) 70394 PROCEDURE:PERCUTANEOUS IMAGE GUIDED ASPIRATION. LOCATION: S 17. HISTORY: Scalp abscess. SEDATION: The patient did not require conscious sedation for the procedure. TECHNIQUE: The risks, benefits, and alternatives were discussed and informed consent was obtained. Prior to beginning the procedure, [place] Protocol was used to confirm the patient's identity and planned procedure. Sterile barriers including cap, mask, hand hygiene, sterile gloves, and cutaneous antisepsis were used. The overlying skin in the vertex of the scalp was prepped, draped, and infiltrated with lidocaine. Using ultrasound guidance, an 18- gauge needle was advanced into the small abscess. 1 cc of dacosta pus was aspirated. The needle was removed and Band-Aid applied. The patient tolerated the procedure well. ESTIMATED BLOOD LOSS: Less than 5 mL. COMPLICATIONS: None. DISCHARGED TO: Outpatient recovery then home. FINDINGS: Images during the procedure demonstrate subcutaneous edema at the vertex of the scalp with a small abscess. IMPRESSION: Successful image-guided aspiration of small scalp abscess. at 1150 Reported and signed by: Gareth Hernandez M.D. PAGE 1 Signed Report (CONTINUED) Name: AARON HUFFMAN : 1960 Age/S: 59 / F [address] [address] Unit #: [id number] Loc: [place] [address] Phys: Julia Wiley MD Acct: [id number] Dis Date: Status: DEP CLI PHONE #: [phone] Exam Date: 01/11/2019 1135 FAX #: Reason: ASPIRATION EXAMS: CPT: [id number] USG NDL PLACEMENT (Bxg/Asp) 77207 <Continued> CC: Nancy Wiley MD Technologist: Slime Dubois, RT(R),RDMS(AB) Trnscb Date/Time: 01/11/2019 (2260) [email or web address] PAGE 2 Signed Report Name: AARON HUFFMAN : 1960 Age/S: 59 / F [address] Unit #: [id number] Loc: [place] [address] Phys: Jluia Wiley MD Acct: [id number] Dis Date: Status: DEP CLI PHONE #: [phone] Exam Date: 01/11/2019 1137 FAX #: Reason: ASPIRATION EXAMS: CPT: [id number] USG NDL PLACEMENT (Bxg/Asp) 03789 <Continued> Orig Print D/T: S: 01/11/2019 (1652) Probe: PAGE 3 Signed Report- USG NDL PLACEMENT (Bxg/Asp)2019-01-11 11:50:00 Name: AARON HUFFMAN [place] : 1960 Age/S: 59 / F [address] Unit #: [id number] Loc: [place] [address] Phys: Julia Wiley MD Acct: [id number] Dis Date: Status: REG CLI PHONE #: [phone] Exam Date: 01/11/2019 1137 FAX #: Reason: ASPIRATION EXAMS: CPT: [id number] USG NDL PLACEMENT (Bxg/Asp) 70729 PROCEDURE:PERCUTANEOUS IMAGE GUIDED ASPIRATION. LOCATION: S 17. HISTORY: Scalp abscess. SEDATION: The patient did not require conscious sedation for the procedure. TECHNIQUE: The risks, benefits, and alternatives were discussed and informed consent was obtained. Prior to beginning the procedure, [place] Protocol was used to confirm the patient's identity and planned procedure. Sterile barriers including cap, mask, hand hygiene, sterile gloves, and cutaneous antisepsis were used. The overlying skin in the vertex of the scalp was prepped, draped, and infiltrated with lidocaine. Using ultrasound guidance, an 18-gauge needle was advanced into the small abscess. 1 cc of dacosta pus was aspirated. The needle was removed and Band-Aid applied. The patient tolerated the procedure well. ESTIMATED BLOOD LOSS: Less than 5 mL. COMPLICATIONS: None. DISCHARGED TO: Outpatient recovery then home. FINDINGS: Images during the procedure demonstrate subcutaneous edema at the vertex of the scalp with a small abscess. IMPRESSION: Successful image-guided aspiration of small scalp abscess. at 1150 Reported and signed by: Gareth Hernandez M.D. PAGE 1 Signed Report (CONTINUED) Name: AARON HUFFMAN [place] : 1960 Age/S: 59 / F [address] [address] Unit #: [id number] Loc: [place] [address] Phys: Julia Wiley MD Acct: [id number] Dis Date: Status: REG CLI PHONE #: [phone] Exam Date: 01/11/2019 1135 FAX #: Reason: ASPIRATION EXAMS: CPT: [id number] USG NDL PLACEMENT (Bxg/Asp) 26036 <Continued> CC: Nancy Wiley MD Technologist: Slime Dubois, RT(R),RDMS(AB) Trnscb Date/Time: 01/11/2019 (1150) [email or web address] PAGE 2 Signed Report Name: AARON HUFFMAN [place] : 1960 Age/S: 59 / F [address] [address] Unit #: [id number] Loc: [place] [address] Phys: Julia Wiley MD Acct: [id number] Dis Date: Status: REG CLI PHONE #: [phone] Exam Date: 01/11/2019 1134 FAX #: Reason: ASPIRATION EXAMS: CPT: [id number] USG NDL PLACEMENT (Bxg/Asp) 81415 <Continued> Orig Print D/T: S: 01/11/2019 (1153) Probe: PAGE 3 Signed Report- SP FLUORO GUID CTRL ACC [id number] 11:21:00 Name: AARON HUFFMAN [place] : 1960 Age/S: 58 / F [id number] [address] Unit #: [id number] Loc: [place] [address] Phys: Gareth Hernandez MD Acct: [id number] Dis Date: Status: [facility] PHONE #: [phone] Exam Date: 08/05/2018 1100 FAX #: Reason: EXAMS: CPT: [id number] SP FLUORO GUID CTRL ACC DEV 52455 Fluoro Time: 00:52 DAP (Gy m2): 0.87 Air Kerma (mGy): 4 EXAMINATION: PORT CATHETER PLACEMENT. LOCATION: S 17. HISTORY: Left breast cancer. SEDATION: Under physician supervision, Versed and Fentanyl were administered intravenously for moderate sedation. Pulse oximetry, heart rate, and BP were continuously monitored by an independent trained observer present. The physician spent 30 minutes of face to face sedation time with the patient. RADIATION DOSE: Total reference air kerma 3.0 mGy. ANTIBIOTICS: None. Not indicated. CONTRAST: None. TECHNIQUE: The risks, benefits, and alternatives were discussed and informed consent was obtained. Prior to beginning the procedure, [place] Protocol was used to confirm the patient's identity and planned procedure. Maximum sterile barriers including cap, mask, hand hygiene, sterile gloves, sterile gown, large sterile drape and cutaneous antisepsis were used. The skin over the right internal jugular vein was sterilely prepped, draped, and infiltrated with lidocaine. Priorto the procedure, the target vessel was evaluated by ultrasound. An image of the patent vessel was recorded and saved to PACS. After sterile prep, this vessel was accessed with a micropuncture needle using real-time ultrasound guidance. A guidewire and catheter werethen passed centrally using fluoroscopic guidance. The intravascular length from the access site to the right atrium was assessed. After infiltrating the skin in the subclavic ular region with lidocaine, a short transverse incision was made and the pocket for the port reservoir was formed by blunt dissection. The catheter was tunneled to the access site, cut to the appropriate length, and inserted through a peel-away sheath. The catheter was flushed and the access needle was removed. The deep tissues were approximated using 4-0Monocryl and the superficial incision closed using Dermabond. The incision in the PAGE 1 Signed Report (CONTINUED) Name: AARON HUFFMAN [facility] : 1960 Age/S: 58 / F [address] [address] Unit #: [id number] Loc: [place] [address] Phys: Gareth Hernandez MD Acct: [id number] Dis Date: Status: [facility] PHONE #: [phone] Exam Date: 08/05/2018 1100 FAX #: Reason: EXAMS: CPT: [id number] SP FLUORO GUIDCTRL ACC DEV 83450 Fluoro Time: 00:52 DAP (Gy m2): 0.87 Air Kerma (mGy): 4 <Continued> lower neck was closed in a similar fashion. A sterile dressing was applied. ESTIMATED BLOOD LOSS: Less than 30 milliliters. COMPLICATIONS: None. DISCHARGED TO: Outpatient recovery then home. FINDINGS: Ultrasound demonstrates a patent right internal jugular vein. The final fluoroscopic image demonstrates the catheter with its tip in the upper right atrium. No complications are seen. IMPRESSION: Successful right chest wall port catheter placement. PLAN: The catheter is ready for immediate use. When treatment is completed, removal can be scheduled by calling Interventional Radiology. at 1121 Reported and signed by: Gareth Hernandez M.D. CC: Nancy GARRIDOP Miah; Gareth Hernandez MD PAGE 2 Signed Report Name: AARON HUFFMAN [place] : 1960 Age/S: 58 / F [address] [address] Unit #: [id number] Loc: [place] [address] Phys: Gareth Hernandez MD Acct: [id number] Dis Date: Status: [facility] PHONE #: [phone] Exam Date: 08/05/2018 1100FAX #: Reason: EXAMS: CPT: [id number] SP FLUORO GUID CTRL ACC DEV 46294 Fluoro Time: 00:52 DAP (Gy m2): 0.87 Air Kerma (mGy): 4 <Continued> Technologist: John Higuera RT(R) Trnscb Date/Time: 2017 (1121) [id number] Orig Print D/T: S: 08/05/2018 (1771) PAGE 3 Signed Report
--- NOTE | 2020-03-10 13:10 | EDPHYS ---
Physician Documentation [facility] Name: Azalia Duncan Age: 60 yrs Sex: Female : 1960 Arrival Date: 03/10/2020 Time: 11:12 Bed 18 Private MD: JARED Physician Allen Gonzalez HPI: 03/10 11:48 This 60 yrs old Black Female presents to ER via Ambulatory with complaints of Sore kb Throat, Cough. 11:48 The patient presents with sore throat. The patient describes throat pain as constant. kb Onset: The symptoms/episode began/occurred 2 day(s) ago. Severity of symptoms: At their worst the symptoms were moderate, in the emergency department the symptoms are unchanged. Modifying factors: The symptoms are alleviated by nothing, the symptoms are aggravated by swallowing, Patient's oral intake status: good Denies contact with similarly ill indivduals. Associated signs and symptoms: Pertinent positives: cough, flu-like symptoms, myalgias, rhinorrhea, Sore throat. The patient has not experienced similar symptoms in the past. The patient has not recently seen a physician. Pt reports sore throat (worse when swallowing), productive cough, body aches, malaise, fatigue, and runny nose for 2 days. Denies fever. . Historical: - Allergies: 11:25 NKDA; sv - PMHx: 11:25 Anxiety; Depression; Asthma; Hyperlipidemia; Hypertension; Left Breast cancer; sv - PSHx: 11:25 spleenectomy; lung; Cholecystectomy; sv - Immunization history:: Adult Immunizations up to date. - Social history:: Smoking status: Patient denies any tobacco usage or history of. ROS: 11:46 Cardiovascular: Negative for chest pain, palpitations, and edema, Abdomen/GI: Negative kb for abdominal pain, nausea, vomiting, diarrhea, and constipation, Back: Negative for injury and pain, MS/Extremity: Negative for injury and deformity, Skin: Negative for injury, rash, and discoloration, Neuro: Negative for headache, weakness, numbness, tingling, and seizure. 11:46 Constitutional: Positive for body aches, fatigue, malaise, Negative for chills, fever, poor PO intake, weight loss. 11:46 ENT: Positive for rhinorrhea, sore throat. 11:46 Respiratory: Positive for cough, Negative for dyspnea on exertion, hemoptysis, orthopnea, pleurisy, shortness of breath, wheezing. Exam: 11:46 Constitutional: This is a well developed, well nourished patient who is awake, alert, kb and in no acute distress. Head/Face: Normocephalic, atraumatic. Neck: Trachea midline, no thyromegaly or masses palpated, and no cervical lymphadenopathy. Supple, full range of motion without nuchal rigidity, or vertebral point tenderness. No Meningismus. Chest/axilla: Normal chest wall appearance and motion. Nontender with no deformity. No lesions are appreciated. Cardiovascular: Regular rate and rhythm with a normal S1 and S2. No gallops, murmurs, or rubs. Normal PMI, no JVD. No pulse deficits. Respiratory: Lungs have equal breath sounds bilaterally, clear to auscultation and percussion. No rales, rhonchi or wheezes noted. No increased work of breathing, no retractions or nasal flaring. Abdomen/GI: Soft, non-tender, with normal bowel sounds. No distension or tympany. No guarding or rebound. No evidence of tenderness throughout. Skin: Warm, dry with normal turgor. Normal color with no rashes, no lesions, and no evidence of cellulitis. MS/ Extremity: Pulses equal, no cyanosis. Neurovascular intact. Full, normal range of motion. Neuro: Awake and alert, GCS 15, oriented to person, place, time, and situation. Cranial nerves II-XII grossly intact. Motor strength 5/5 in all extremities. Sensory grossly intact. Cerebellar exam normal. Normal gait. 11:46 ENT: Posterior pharynx: Airway: normal, Tonsils: are normal in appearance, Uvula: normal, midline, swelling, is not appreciated, erythema, that is mild. Vital Signs: 11:36 BP 148 / 76; Pulse 74; Resp 16; Temp 99.9(O); Pulse Ox 98% on R/A; sv 13:18 BP 111 / 77; Pulse 73; Resp 18; Pulse Ox 100% ; ll1 MDM: 11:18 Patient medically screened. maria g 11:48 Data reviewed: vital signs, nurses notes. Data interpreted: Pulse oximetry: on room air kb is 100 %. Interpretation: normal. 13:08 Counseling: I had a detailed discussion with the patient and/or guardian regarding: the kb historical points, exam findings, and any diagnostic results supporting the discharge/admit diagnosis, lab results, the need for outpatient follow up, a family practitioner, to return to the emergency department if symptoms worsen or persist or if there are any questions or concerns that arise at home. 03/10 11:44 Order name: Strep; Complete Time: 13:08 kb 03/10 11:44 Order name: COVID-19 kb 03/10 13:08 Order name: Throat Culture EDMS Administered Medications: No medications were administered Disposition: 03/11 10:24 Co-signature as Attending Physician, Allen Gonzalez MD I agree with the assessment and [facility] plan of care. Disposition: 03/10/20 13:09 Discharged to Home. Impression: Acute upper respiratory infection, unspecified. - Condition is Stable. - Discharge Instructions: Viral Respiratory Infection, [id number], COVID-19. - Medication Reconciliation Form, Thank You Letter, Antibiotic Education, Prescription Opioid Use form. - Follow up: Emergency Department; When: As needed; Reason: Worsening of condition. Follow up: Private Physician; When: 2 - 3 days; Reason: Recheck today's complaints, Continuance of care, Re-evaluation by your physician. Addendum: 03/14/2020 07:30 Addendum: Contacted pt \T\ 0730, feeling the same, notified patient of positive COVID-19 rn test result. Return precautions given and understood. [facility] health department will be contacting for further information and proof of positive test. . Signatures: Dispatcher [facility] Berkley Andersen, LEANN-C DIRECTOR OF OCCUPATIONAL THERAPY-Amanda De La Garza RN RN sv Anderson, Corey, MD MD cha Nieto, Roman, MD MD rn Lewis, Lynsay, RN RN ll1 Corrections: (The following items were deleted from the chart) 03/10 13:20 13:09 03/10/2020 13:09 Discharged to Home. Impression: Acute upper respiratory ll1 infection, unspecified. Condition is Stable. Forms are Medication Reconciliation Form, Thank You Letter, Antibiotic Education, Prescription Opioid Use. Follow up: Emergency Department; When: As needed; Reason: Worsening of condition. Follow up: Private Physician; When: 2 - 3 days; Reason: Recheck today's complaints, Continuance of care, Re-evaluation by your physician. kb
--- NOTE | 2020-03-10 13:10 | ER ---
Nurse's Notes [facility] Name: Azalia Duncan Age: 60 yrs Sex: Female : 1960 Arrival Date: 03/10/2020 Time: 11:12 Bed 18 Private MD: Diagnosis: Acute upper respiratory infection, unspecified Presentation: 03/10 11:23 Chief complaint: Patient states: body aches, runny nose, sore throat, productive cough sv x 2 days. Coronavirus screen: Patient reports a cough. Patient denies shortness of breath or difficulty breathing. Patient denies measured and/or subjective temperature greater than 100.4F prior to today's visit. Patient denies travel on a cruise ship or to a country the [facility] currently lists as an affected area. Patient denies contact with known and/or suspected case of COVID-19. Patient instructed to continue to wear a mask when interacting with others. Patient moved to private room, placed in contact and droplet isolation with eye protection until further assessment. Ebola Screen: No symptoms or risks identified at this time. Risk Assessment: Do you want to hurt yourself or someone else? Patient reports no desire to harm self or others. Onset of symptoms was March 08, 2020. 11:23 Method Of Arrival: Ambulatory sv 11:23 Acuity: CONOR 3 sv 11:36 Initial Sepsis Screen: Does the patient meet any 2 criteria? No. Patient's initial sv sepsis screen is negative. Does the patient have a suspected source of infection? No. Patient's initial sepsis screen is negative. Triage Assessment: 11:23 General: Appears in no apparent distress. uncomfortable, well developed, Behavior is sv calm, cooperative, appropriate for age. Pain: Complains of pain in "all over" Quality of pain is described as aching. EENT: Reports pain when swallowing. Neuro: Level of Consciousness is awake, alert, obeys commands, Oriented to person, place, time, situation, Moves all extremities. Full function Gait is steady, Speech is normal. Respiratory: Airway is patent Respiratory effort is even, unlabored, Respiratory pattern is regular, symmetrical. Respiratory: Reports cough that is productive. Derm: Skin is normal. Musculoskeletal: Range of motion: intact in all extremities. Historical: - Allergies: 11:25 NKDA; sv - PMHx: 11:25 Anxiety; Depression; Asthma; Hyperlipidemia; Hypertension; Left Breast cancer; sv - PSHx: 11:25 spleenectomy; lung; Cholecystectomy; sv - Immunization history:: Adult Immunizations up to date. - Social history:: Smoking status: Patient denies any tobacco usage or history of. Screenin:26 Abuse screen: Denies threats or abuse. Denies injuries from another. Nutritional sv screening: No deficits noted. Tuberculosis screening: No symptoms or risk factors identified. Fall Risk None identified. Assessment: 11:45 Reassessment: COVID-19 and strep sent to lab. sv 12:44 Reassessment: No changes from previously documented assessment. Patient and/or family ll1 updated on plan of care and expected duration. Pain level reassessed. Patient is alert, oriented x 3, equal unlabored respirations, skin warm/dry/pink. 13:19 Respiratory: Airway is patent Trachea midline Respiratory effort is even, unlabored, ll1 Respiratory pattern is regular, symmetrical, Breath sounds are clear. 13:19 EENT: Throat is clear. ll1 Vital Signs: 11:36 BP 148 / 76; Pulse 74; Resp 16; Temp 99.9(O); Pulse Ox 98% on R/A; sv 13:18 BP 111 / 77; Pulse 73; Resp 18; Pulse Ox 100% ; ll1 ED Course: 11:12 Patient arrived in ED. bp1 11:16 Amanda Carvalho, RN is Primary Nurse. sv 11:18 Allen Gonzalez MD is Attending Physician. maria g 11:21 Berkley Andersen FNP-C [facility]. kb 11:24 Triage completed. sv 11:25 Arm band placed on Patient placed in an exam room, on a stretcher. sv 11:26 Patient has correct armband on for positive identification. Placed in gown. Bed in low sv position. Call light in reach. Door closed. Head of bed elevated. 13:19 No provider procedures requiring assistance completed. Patient did not have IV access ll1 during this emergency room visit. Administered Medications: No medications were administered Outcome: 13:09 Discharge ordered by . kb 13:20 Discharged to home ambulatory. ll1 13:20 Condition: stable 13:20 Discharge instructions given to patient, Instructed on discharge instructions, follow up and referral plans. Demonstrated understanding of instructions, follow-up care. 13:20 Patient left the ED. ll1 Signatures: Berkley Andersen, CABIN FURNISHINGS INSTALLER-C CABIN FURNISHINGS INSTALLER-CkAmanda Hannah, RN RN Allen Mares MD MD cha Lewis, Lynsay, RN RN ll1 Tasia Reynolds [facility]
[2020-03-10 13:37] VITALS: TEMP 99.9
[2020-03-10 13:38] VITALS: BP 111/77; O2SAT 100
== END 2020-03-10 13:20 | disposition home or self-care (01) ==
LOC: ER 11:08
DX: U07.1 COVID-19 (principal); J06.9 Acute upper respiratory infection, unspecified; I10 Essential (primary) hypertension; Z85.3 Personal history of malignant neoplasm of breast
CPT/HCPCS: 87070; 87081; 99282; U0001

== ENCOUNTER 2020-06-28 03:31 | Emergency (ER) | payer OTHER ==
--- OUTSIDE RECORDS SUMMARY | 2020-06-28 03:33 | XMS REPORT | Continuity of Care Document ---
:1960 Author Organization [facility] t Address [address] [place] [address] Care Team Providers Name Role Phone Unavailable Unavailable Unavailable Payers Payer Name Policy Type Policy Number Effective Date Expiration Date S ource Problems This patient has no known problems. Allergies, Adverse Reactions, Alerts Allergy Allergy Status Severity Reaction(s) Onset Inactive Treating Comm ents Source Name Type Date Date Clinician No Known DA Active U 2019-0 [facility] 7[facility]19 [facility] 00:00: d 00 [facility] No Known DA Active U 2019-0 [facility] [address] [place] [address] No Known DA Active U 2019-0 [facility] All[facility]ie 1-08 Clear s 00:00: [place] 00 [facility] No Known DA Active U 2018- [facility] 2-13 [facility] 00:[facility]: d 00 [facility] Medications This patient has no known medications. Procedures This patient has no known procedures. Results Test Description Test Time Test Comments Results Result [facility] e Comments - SP FLUORO GUID 2020-05-21 Name: AARON HUFFMAN CTRL ACC DEV 13:23:00 [facility] Karine : 1960 Age/S: 60 / F [address] [place] Unit #: [id number] Loc: [place] [address] Phys: Julia Wiley MD Acct: [id number] Dis Date: Status: REG [facility] PHONE #: [phone] Exam Date: 05/21/2020 1250 FAX #: Reason: CANCER TREATMENT COMPLETE EXAMS: CPT: [id number] SP FLUORO GUID CTRL ACC DEV [id number] Fluoro Time: 00:14 DAP (Gy m2): 0.25 Air Kerma (mGy): 1 EXAMINATION: REMOVAL OF A TUNNELED CENTRAL VENOUS CATHETER. LOCATION: S17. HISTORY: Cancer treatment completed, breast cancer, request is made for port removal. COMPARISON: None. SEDATION: Moderate sedation was administered under the attending physician's direction and continuous monitoring by a trained nurse specialist who was independent from those actually performing the procedure. Total monitored intraservice sedation time was 25 minutes. TECHNIQUE: Prior to beginning the procedure, Corea Protocol was used to confirm the patient's identity and planned procedure. Maximum sterile barriers including cap, mask, hand hygiene, sterile gloves, sterile gown, large sterile drape and cutaneous antisepsis were used. The skin adjacent to the right chest Port-A-Cath was sterilely prepped, draped and infiltrated with 1% lidocaine. A transverse incision was made. Using blunt dissection, the port was successfully removed. The incision was closed using 3-0 Vicryl and Dermabond. A sterile dressing was applied. ESTIMATED BLOOD LOSS: Less than 30 milliliters. DISCHARGED TO: Recovery and then to inpatient unit. CONDITION: Stable. FINDINGS: The catheter site showed no evidence of infection. IMPRESSION: Successful removal of right chest Port-A-Cath. at 1323 Reported and signed by: Jordi Shannon M.D. CC: Nancy Dooley; Julia Wiley MD PAGE 1 Signed Report Name: AARON HUFFMAN [facility]ly [facility] : 1960 Age/S: 60 / F [address] [place] Unit #: [id number] Loc: [place] [address] Phys: Julia Wiley MD Acct: [id number] Dis Date: Status: REG [facility] PHONE #: [phone] Exam Date: 05/21/2020 1250 FAX #: Reason: CANCER TREATMENT COMPLETE EXAMS: CPT: [id number] SP FLUORO GUID CTRL ACC DEV 44672 Fluoro Time: 00:14 DAP (Gy m2): 0.25 Air Kerma (mGy): 1 <Continued> Technologist: John Higuera RT(R) Davidb Date/Time: 05/21/2020 (1607) [id number] Orig Print D/T: S: 05/21/2020 (6444) PAGE 2 Signed Report COVID 19 INHOUSE AG 2020-05-21 11:54:00 Test Item Value Reference Range Interpretation Comme nts COVID 19 INHOUSE AG (test code = NEGATIVE Negative Per stumper feller, negative [id number]) results should be treated aspresumptive a nd, if inconsistent wi th clinical signs andsymptoms or necessary for patient managem ent, should betested with a n alternative molecular assay . Negative resultsdo not p reclude SARS-CoV-2 infection and s hould not be usedas the sole basis for patient management deci sions. Negative results should be considered in the context of apatient's recent exposures, hist ory, presence of clinicalsigns a nd symptoms consistent with COVID-19. BREAST,EXCISION OF LESION/[id number] 16:54:00 RUN DATE: 03/23/19 [facility] PAGE 1 RUN TIME: 2774 Specimen Inquiry RUN USER: INTERFACE PATIENT: AARON HUFFMAN LOC: [facility] Dai #: [id number] AGE/SX: 59/F ROOM: RE03/17/19REG DR: Surjit Jensen : [birth year] BED: DIS: STATUS: [place]IA[place] [facility] TLOC: SPEC #: [id number] RECD: 03/17/19 STATUS: JUAN R LANG #: [id number] AGUSTO: 03/17/19- SUBM DR: Surjit Jensen MD ENTERED: 03/18/19 SP TYPE: BREAST,EXC OTHR DR: ORDERED: LEVEL SURGIC CODES: I86408 - BREAST, NOS PROCEDURES: LEVEL SURGIC (Incomplete) [...] Histologic Type: Invasive micropapillary carcinoma Histologic Grade (Remedios Histologic Score): Grading may be inaccurate post chemotherapy Glandular (Acinar)/Tubular Differe ntiation: Score 2 Nuclear Pleomorphism: Score 3 Mitotic Rate: Score 1 CONTINUED ON NEXT PAGE RUN DATE: 03/23/19 [facility] PAGE 2 RUN TIME: 1654 Specimen Inquiry RUN USER: INTERFACE SPEC #: [id number] PATIENT: AARON HUFFMAN #[id number] (Continued) FINAL DIAGNOSIS (Continued) Overall Grade: Grade 2 Tumor Focality: Single focus of invasive carcinoma Ductal Carcinoma In Situ (DCIS): Not identified Lobular Carcinoma In Situ (LCIS): No LCIS in specimen Margins: Invasive Carcinoma Margins: Uninvolved by invasive carcinoma Distance from closest margins: 1.5 mm from deep, 4 mm from superior, 5 mm from medial and 9 mm from anterior on initial specimen, re- excision of cavity is freeof tumor Regional Lymph Nodes: Number of Lymph [...] : Positive, 43%, weak intensity HER2 (by immunohistochemistry): Negative (Score 1+) Ki-67: Low, 5%, strong intensity Microcalcifications: Presentin non-neoplastic tissue CPT code(s): 03293 x3, 63984-05, 19426-10 [facility]/donny dt: 03/23/19 CONTINUED ON NEXT PAGE RUN DATE: 03/23/19 [facility] PAGE 3 RUN TIME: 1654 Specimen Inquiry RUN USER: INTERFACE SPEC #: [id number] PATIENT: AARON HUFFMAN #[id number] (Continued) - GROSS DESCRIPTION ANATOMIC SOURCE OF TISSUE (per [...] needle guide wire is present in the specime n, entering at the superior/lateral aspect and exiting [...] - inferior Black - posterior Green - anteriorOrange - medial Yellow - lateral Section code: Slice 1 - A1 and A2 Slice 2 - A3 and U4Qdteo 3 - A5 through A7 Slice 4 - A8 and A9 Slice 5 - A10 and A11 Slice 6 - A12 and A13 Slice 7 - A14 and A15 Slice 8 - A16 and A17 Slice 9 - A18 and A19 Slice 10 - A20 and A21 Slice 11- A22 through A24 Specimen #2 is designated "re-excision partial LEFT breast mastectomy cavity" and CONTINUED ON NEXT PAGE RUN DATE: 03/23/19 [facility] PAGE 4 RUN TIME: 1654 Specimen Inquiry RUN USER: INTERFACE SPEC #:[id number] PATIENT: AARON HUFFMAN #[id number] (Continued) GROSS DESCRIPTION (Continued) consists of a [...] is predominantly pink-yellow, lobulated adipose tissue with afew unremarkable fibrous bands (95% adipose tissue and 5% fibrous tissue). There is no definite residual tumor. The specimen is serially sectioned into 10 slices and submitted in its entirety in sequential order from lateral to medial. Ink code: Blue - superior Red - inferior Black - posterior Green - anterior [place] - medial Yellow - lateral Section code: [...] and firm lymph nodes, 0.2 to 2.5 cm.The cut surfaces of one lymph node, directly adjacent to localization wire displays a 0.6 cm dacosta-wilhelm, firm nodule. Control Systems Drafting Officer sections are submitted labeled C1 - 1 bisected lymph node, C2 andC3 - 1 serially sectioned lymph node, C4 - 3 single intact lymph nodes, C5 - 1 bisected lymph node, C6 - 1 trisected lymph node, C7 - 1 serially sectioned lymph node, C8 - 1 single intact lymph node, C9 - 1 trisected lymph node, C10 - 1 serially sectioned lymph node, C11 through C14 - fibrofatty soft tissue. marvin/donny 03/18/19 @ 8480 MICROSCOPIC DESCRIPTION Specimen #1, LEFT breast tissue: There is a 25 x 10 x 7 mm tumor bed with approximately 20% cellularity and the largest contiguous focus being 14 mm. It is found less than 1.5 mm from the deep margin, 4 mm from the superior, 5mm from the medial, and 9 mm from the anterior margins. The tumor has focal tubules, a high nuclear grade, and a low mitotic rate. A D240 and CD31 immunostains highlight CONTINUED ON NEXT PAGE RUN DATE: 03/23/19 [facility] PAGE 5 RUN TIME: 1654 Specimen Inquiry RUN USER: INTERFACE SPEC #: [id number] PATIENT: AARON HUFFMAN #[id number] (Continued) MICROSCOPIC DESCRIPTION (Continued) lymphovascular invasion and [...] with no extracapuslar extension. No fibrosis identified. [facility]donny dt: 03/23/19 The following technical components [facility], [address] [place] [address]. The interpretation is provided by [facility], [address] [place] [address]. [facility]. INTERPRETATION: Block A6: D2-40 and CD31- See above for results. Prognostic Markers performed and interpreted 03/23/19 at [facility] ER: POSITIVE Tumor Stained: 62% Intensity: 3+ Internal control: Present IL: POSITIVE Tumor Stained: 43% Intensity: 1+ Internal control: Present HER2 (IHC): NEGATIVE Score: 1+ Ki67: LOW, 5% Intensity: 3+ Signed SIGNATURE ON FILE Catherine Kelly MD 03/23/19 1654 END OF REPORT CHEMISTRY 7 [id number] 14:59:00 Test Item Value Reference Range Interpretation Comments SODIUM (test code = NA) 134 mEq/L 135-145 L POTASSIUM (test code = K) 4.5 mEq/L 3.5-5.0 N CHLORIDE (test code = CL) 101 mEq/L 100-115 N CARBON DIOXIDE (test code = CO2) 24 mEq/L 22-31 N ANION GAP (test code = GAP) 13.20 10-20 N GLUCOSE (test code = GLU) 85 mg/dL 65-110 N BLOOD UREA NITROGEN (test code = 8 mg/dL 7-18 N BUN) GLOMERULAR FILTRATION RATE (test 115 ml/min >60 N code = GFR) CREATININE (test code = CREAT) 0.6 mg/dL 0.5-1.0 N CALCIUM (test code = CA) 9.6 mg/dL 8.4-10.2 N HGB [id number] 14:27:00 Test Item Value Reference Range Interpretation Comments HEMOGLOBIN (test code = HGB) 12.4 g/dL 10.7-13.9 N HEMATOCRIT (test code = HCT) 38.6 % 32.1-42.1 N - USG NDL PLACEMENT (Bxg/Asp)2019-01-11 11:50:00 Name: AARON HUFFMAN [facility]ly [facility] : 1960 Age/S: 59 / F [address] [facility] Unit #: [id number] Loc: [place] [address] Phys: Julia Wiley MD Acct: [id number] Dis Date: Status: REG CL PHONE #: [phone] Exam Date: 01/11/2019 1138 FAX #: Reason: ASPIRATION EXAMS: CPT: [id number] USG NDL PLACEMENT (Bxg/Asp) 55818 PROCEDURE:PERCUTANEOUS IMAGE GUIDED ASPIRATION. LOCATION: S 17. HISTORY: Scalp abscess. SEDATION: The patient did not require conscious sedation for the procedure. TECHNIQUE: The risks, benefits, and alternatives were discussed and informed consent was obtained. Prior to beginning the procedure, Corea Protocol was used to confirm the patient's [...] 1 Signed Report (CONTINUED) [facility] 1960 Age/S: 59 / F [address] [place] Unit #: [id number] Loc: [place] [address] Phys: Julia Wiley MD Acct: [id number] Dis Date: Status: REG CLI PHONE #: [phone] Exam Date: 01/11/2019 1138 FAX #: Reason: ASPIRATION EXAMS: CPT: [id number] USG NDL PLACEMENT (Bxg/Asp) 37177 <Continued> CC: Nancy Wiley MD Technologist: RT Kyrie(R),BERKLEY(AB) Trnscb Date/Time: 01/11/2019 (1150) t.[email or web address] PAGE 2 Signed Report [facility] 1960 Age/S: 59 / F [address] [place] Unit #: [id number] Loc: [place] [address] Phys: Julia Wiley MD Acct: [id number] Dis Date: Status: REG CLI PHONE #: [phone] Exam Date: 01/11/2019 1132 FAX #: Reason: ASPIRATION EXAMS: CPT: [id number] USG NDL PLACEMENT (Bxg/Asp) 39235 <Continued> Orig Print D/T: S: 01/11/2019 (1153) Probe: PAGE 3 Signed Report- USG NDL PLACEMENT (Bxg/Asp)2019-01-11 11:50:00 Name: AARON HUFFMAN : 1960 Age/S: 59 / F [address] [address] [place] Unit #: [id number] Loc: [place] [address] Phys: Julia Wiley MD Acct: [id number] Dis Date: Status: DEP CLI PHONE #: [phone] Exam Date: 01/11/2019 1130 FAX #: Reason: ASPIRATION EXAMS: CPT: [id number] USG NDL PLACEMENT (Bxg/Asp) 65090 PROCEDURE:PERCUTANEOUS IMAGE GUIDED ASPIRATION. LOCATION: S 17. HISTORY: Scalp abscess. SEDATION: The patient did not require conscious sedation for the procedure. TECHNIQUE: The risks, benefits, and alternatives were discussed and informed consent was obtained. Prior to beginning the procedure, Corea Protocol was used to confirm the patient's [...] PAGE 1 Signed Report (CONTINUED) Name: AARON HFUFMAN : 1960 Age/S: 59 / F [address] [address] [place] Unit #: [id number] Loc: [place] [address] Phys: Julia Wiley MD Acct: [id number] Dis Date: Status: [facility] PHONE #: [phone] Exam Date: 01/11/2019 1137 FAX #: Reason: ASPIRATION EXAMS: CPT: [id number] USG NDL PLACEMENT (Bxg/Asp) 32272 <Continued> CC: Nancy Dooley; Julia Wiley MD Technologist: Slime Dubois, RT(R),RDMS(AB) Trnscb Date/Time: 01/11/2019 (1150) t.SDR.PR7 PAGE 2 Signed Report Name: AARON HUFFMAN [place] : 1960 Age/S: 59 / F [address] [place] Unit #: [id number] Loc: [place] [address] Phys: Julia Wiley MD Acct: [id number] Dis Date: Status: [facility] PHONE #: [phone] Exam Date: 01/11/2019 1135 FAX #: Reason: ASPIRATION EXAMS: CPT: [id number] USG NDL PLACEMENT (Bxg/Asp) 92931 <Continued> Orig Print D/T: S: 01/11/2019 (1153) Probe: PAGE 3 Signed Report- SP FLUORO GUID CTRL ACC [id number] 11:21:00 Name: AARON HUFFMAN [place] : 1960 Age/S: 58 / F [address] [address] [place] Unit #: [id number] Loc: [place] [address] Phys: Gareth Hernandez MD Acct: [id number] Dis Date: Status: [facility] PHONE #: [phone] Exam Date: 08/05/2018 1100 FAX #: Reason: EXAMS: CPT: [id number] SP FLUORO GUID CTRL ACC DEV 27260 Fluoro Time: 00:52 DAP (Gy m2): 0.87 [...] was obtained. Prior to beginning the procedure, Corea Protocol was used to confirm the patient's [...] 1 Signed Report (CONTINUED) [facility]: [facility] [place] : 1960 Age/S: 58 / F [address] [facility] Unit #: [id number] Loc: [place] [address] Phys: Gareth Hernandez MD Acct: [id number] Dis Date: Status: [facility] PHONE #: [phone] Exam Date: 08/05/2018 1100 FAX #: Reason: EXAMS: CPT: [id number] SP FLUORO GUIDCTRL ACC DEV 10243 Fluoro Time: 00:52 DAP (Gy m2): 0.87 [...] PAGE 2 Signed Report Name: AARON HUFFMAN [place] : 1960 Age/S: 58 / F [address] [address] [place] Unit #: [id number] Loc: [place] [address] Phys: Gareth Hernandez MD Acct: [id number] Dis Date: Status: [facility] PHONE #: [phone] Exam Date: 08/05/2018 1100FAX #: Reason: EXAMS: CPT: [id number] SP FLUORO GUID CTRL ACC DEV 52345 Fluoro Time: 00:52 DAP (Gy m2): 0.87 Air Kerma (mGy): 4 <Continued> Technologist: RT Jazzmine(R) Trnscb Date/Time: 2017 (112) [email or web address] Orig Print D/T: S: 08/05/2018 (3590) PAGE 3 Signed Report
[2020-06-28] MEDS ORDERED: MORPHINE 4 MG/ML SYR ONE (05:49)
[2020-06-28] MEDS ORDERED: ONDANSETRON 4 MG/2 ML VIAL ONE (05:49)
[2020-06-28] MEDS ORDERED: TETANUS & DIPHTHERIA TOX,ADULT 0.5 ML VIAL ONE (05:50)
[2020-06-28] MEDS ORDERED: CEFAZOLIN/SWI 1gm 1 GM/10 ML SYR ONE (05:50)
[2020-06-28] MEDS ORDERED: LIDOCAINE 1% MPF 30 ML VIAL ONE (06:17)
--- NOTE | 2020-06-28 07:09 | EDPHYS ---
Physician Documentation [facility] Name: Azalia Duncan Age: 60 yrs Sex: Female : 1960 Arrival Date: 06/28/2020 Time: 03:33 Bed 15 Private MD: Jhony Lyles DEBRA ED Physician Fred Hooper HPI: 06/28 04:42 This 60 yrs old Black Female presents to ER via Wheelchair with complaints of Toe mh7 Injury - Left pinky toe, Hand Pain - Right, Wrist Pain - Right. 04:42 Details of fall: The patient fell from an upright position, while walking, tripped . mh7 Onset: The symptoms/episode began/occurred today. Associated injuries: The patient sustained right hand, painful injury, left fifth toe, laceration, painful injury. Severity of symptoms: At their worst the symptoms were moderate, earlier today, in the emergency department the symptoms are unchanged. Historical: - Allergies: 03:44 NKDA; sg - PMHx: 03:44 Anxiety; Asthma; Cancer, Breast; Depression; Hyperlipidemia; Hypertension; left breast sg cancer; - PSHx: 03:44 spleenectomy; Cholecystectomy; lung; sg - Immunization history:: Adult Immunizations up to date. - Social history:: Smoking status: Patient denies any tobacco usage or history of. ROS: 04:45 Constitutional: Negative for fever, chills, and weight loss, Eyes: Negative for injury, mh7 pain, redness, and discharge, ENT: Negative for injury, pain, and discharge, Neck: Negative for injury, pain, and swelling, Cardiovascular: Negative for chest pain, palpitations, and edema, Respiratory: Negative for shortness of breath, cough, wheezing, and pleuritic chest pain, Abdomen/GI: Negative for abdominal pain, nausea, vomiting, diarrhea, and constipation, Back: Negative for injury and pain, : Negative for injury, bleeding, discharge, and swelling, Neuro: Negative for headache, weakness, numbness, tingling, and seizure, Psych: Negative for depression, anxiety, suicide ideation, homicidal ideation, and hallucinations, Allergy/Immunology: Negative for hives, rash, and allergies, Endocrine: Negative for neck swelling, polydipsia, polyuria, polyphagia, and marked weight changes, Hematologic/Lymphatic: Negative for swollen nodes, abnormal bleeding, and unusual bruising. Exam: 04:45 Head/Face: Normocephalic, atraumatic. Eyes: Pupils equal round and reactive to light, mh7 extra-ocular motions intact. Lids and lashes normal. Conjunctiva and sclera are non-icteric and not injected. Cornea within normal limits. Periorbital areas with no swelling, redness, or edema. Neck: Trachea midline, no thyromegaly or masses palpated, and no cervical lymphadenopathy. Supple, full range of motion without nuchal rigidity, or vertebral point tenderness. No Meningismus. Chest/axilla: Normal chest wall appearance and motion. Nontender with no deformity. No lesions are appreciated. Cardiovascular: Regular rate and rhythm with a normal S1 and S2. No gallops, murmurs, or rubs. Normal PMI, no JVD. No pulse deficits. Respiratory: Lungs have equal breath sounds bilaterally, clear to auscultation and percussion. No rales, rhonchi or wheezes noted. No increased work of breathing, no retractions or nasal flaring. Abdomen/GI: Soft, non-tender, with normal bowel sounds. No distension or tympany. No guarding or rebound. No evidence of tenderness throughout. Back: No spinal tenderness. No costovertebral tenderness. Full range of motion. Neuro: Awake and alert, GCS 15, oriented to person, place, time, and situation. Cranial nerves II-XII grossly intact. Motor strength 5/5 in all extremities. Sensory grossly intact. Cerebellar exam normal. Normal gait. Psych: Awake, alert, with orientation to person, place and time. Behavior, mood, and affect are within normal limits. 04:45 Constitutional: The patient appears in no acute distress, alert, awake, uncomfortable. 07:14 Musculoskeletal/extremity: Extremities: noted in the right hand: pain, tenderness, mh7 noted in the left foot 5 th toe: laceration, tenderness, ROM: intact in all extremities, Circulation is intact in all extremities. Pulses: are normal with no appreciated deficits, Sensation intact. Compartment Syndrome exam of affected extremity: is normal. no numbness, no tingling, no sensation deficit, no palor, no weak pulses, Joints: All joints appear normal with full range of motion. Weight bearing: able to fully bear weight, Tendon exam: specific tendon testing normal through active and passive range of motion 07:14 Skin: injury, laceration(s), the wound is approximately 2.5 cm(s), with a depth of 0.5 cm(s), of the plantar left 5 th toe. Vital Signs: 03:45 BP 134 / 81; Pulse 74; Resp 16; Temp 97.5; Pulse Ox 100% ; ds4 04:45 BP 138 / 85; Pulse 75; Resp 18; Temp 97.5; Pulse Ox 100% on R/A; Pain 7/10; jv1 05:45 BP 130 / 82; Pulse 73; Resp 18; Temp 98; Pulse Ox 99% on R/A; jv1 06:31 BP 124 / 76; Pulse 71; Resp 18; Temp 98.1; Pulse Ox 99% on R/A; jv1 Laceration: 06:57 Wound Repair of 2.5cm ( 1.0in ) subcutaneous laceration to left 5th toe. Irregularly mh7 shaped.. Distal neuro/vascular/tendon intact. Anesthesia: Digital block administered with 4 mls of 1% lidocaine. Wound prep: Extensive cleansing with betadine by me, Wound irrigation with saline by ms, Wound explored extensively, Copious irrigation. Skin closed with 5 3-0 Ethilon using simple sutures and sterile technique. Dressed with Bacitracin, non-adherent dressing. MDM: 04:10 Patient medically screened. mh7 07:01 Differential diagnosis: abrasion, contusion, fracture, laceration, sprain. Data 7 reviewed: vital signs, nurses notes, radiologic studies, plain films. Data interpreted: Pulse oximetry: on room air is 99 %. Interpretation: normal. Counseling: I had a detailed discussion with the patient and/or guardian regarding: the historical points, exam findings, and any diagnostic results supporting the discharge/admit diagnosis, radiology results, the need for outpatient follow up, a orthopedic surgeon, to return to the emergency department if symptoms worsen or persist or if there are any questions or concerns that arise at home. Response to treatment: the patient's symptoms have markedly improved after treatment. Physician consultation: Pa Lawrence MD was contacted at 06:30, regarding patient's condition, and will see patient in office, in 2-3 days. ED course: Discussed with Dr. Lawrence about possibility of open fracture of left 5 th toe. He recommended extensive irrigation of wound, antibiotics, tetanus, and follow up in the office.. 06/28 03:45 Order name: Foot Left 2 View XRAY ds4 06/28 03:45 Order name: Hand Right 2 View XRAY ds4 Administered Medications: 05:30 Drug: Ancef 1 grams Route: IVPB; Infused Over: 5 mins; Site: left hand; jv1 06:21 Follow up: Response: No adverse reaction jv1 07:16 Follow up: Response: No adverse reaction; IV Status: Completed infusion sg 05:40 Drug: Zofran (Ondansetron) 4 mg Route: IVP; Infused Over: 2 mins; Site: left hand; jv1 06:22 Follow up: Response: No adverse reaction jv1 05:43 Drug: morphine 4 mg {Note: RASS 0.} Route: IVP; Site: left hand; jv1 06:22 Follow up: Response: No adverse reaction; Pain is decreased jv1 05:47 Drug: Tetanus-Diphtheria Toxoid Adult 0.5 ml {Hop Picker: [employer]. Exp: jv1 11/04/2021. Lot #: [id number]. } Route: IM; Site: right deltoid; 06:21 Follow up: Response: No adverse reaction jv1 Disposition: 06/28/20 07:09 Discharged to Home. Impression: Fracture Left Foot Fifth Proximal Phalanx, Laceration Toe, Right Hand Contusion. - Condition is Stable. - Discharge Instructions: Toe Fracture, [id number], Hand Contusion, [id number], Laceration Care, Adult, [id number]. - Prescriptions for Keflex 500 mg Oral Capsule - take 1 capsule by ORAL route every 6 hours for 10 days; 40 capsule. Tylenol- Codeine #3 300-30 mg Oral Tablet - take 2 tablet by ORAL route every 6 hours As needed; 30 tablet. - Medication Reconciliation Form, Thank You Letter, Antibiotic Education, Prescription Opioid Use form. - Follow up: Private Physician; When: 1 - 2 days; Reason: Wound Recheck, Worsening of condition, Recheck today's complaints, Continuance of care, Re-evaluation by your physician. Follow up: Pa Lawrence MD; When: 1 - 2 days; Reason: Worsening of condition, Recheck today's complaints. - Problem is new. - Symptoms have improved. Signatures: Dispatcher [employer] EDPa Bernal, RN RN sg Tracy Clark RN RN jv1 Fred Hooper MD MD mh7 Corrections: (The following items were deleted from the chart) 07:16 07:09 06/28/2020 07:09 Discharged to Home. Impression: Fracture Left Foot Fifth sg Proximal Phalanx; Laceration Toe; Right Hand Contusion. Condition is Stable. Forms are Medication Reconciliation Form, Thank You Letter, Antibiotic Education, Prescription Opioid Use. Follow up: Private Physician; When: 1 - 2 days; Reason: Wound Recheck, Worsening of condition, Recheck today's complaints, Continuance of care, Re-evaluation by your physician. Follow up: Pa Lawrence; When: 1 - 2 days; Reason: Worsening of condition, Recheck today's complaints. Problem is new. Symptoms have improved. mh7
--- NOTE | 2020-06-28 07:09 | ER ---
Nurse's Notes [facility] Name: Azalia Duncan Age: 60 yrs Sex: Female : 1960 Arrival Date: 06/28/2020 Time: 03:33 Bed 15 Private MD: Darryn Lyles; LUPE CADET Diagnosis: Fracture Left Foot Fifth Proximal Phalanx;Laceration Toe;Right Hand Contusion Presentation: 06/28 03:41 Chief complaint: Patient states: I was getting up, and when I did I fell from standing. sg I guess my pinky toe was bent backwards or something happened because its basically split where it is attached to my foot, My right wrist is hurting and my right hand is hurting as well. pt denies LOC, denies head injury at this time. Coronavirus screen: Client denies travel out of the [place] in the last 14 days. At this time, the client does not indicate any symptoms associated with coronavirus-19. Ebola Screen: Patient negative for fever greater than or equal to 101.5 degrees Fahrenheit, and additional compatible Ebola Virus Disease symptoms Patient denies exposure to infectious person. Patient denies travel to an Ebola-affected area in the 21 days before illness onset. No symptoms or risks identified at this time. Initial Sepsis Screen: Does the patient meet any 2 criteria? No. Patient's initial sepsis screen is negative. Does the patient have a suspected source of infection? No. Patient's initial sepsis screen is negative. Risk Assessment: Do you want to hurt yourself or someone else? Patient reports no desire to harm self or others. Onset of symptoms was June 28, 2020. Care prior to arrival: None. Transition of care: patient was not received from another setting of care. 03:41 Method Of Arrival: Wheelchair 03:41 Acuity: CONOR 3 sg Historical: - Allergies: 03:44 NKDA; sg - PMHx: 03:44 Anxiety; Asthma; Cancer, Breast; Depression; Hyperlipidemia; Hypertension; left breast sg cancer; - PSHx: 03:44 spleenectomy; Cholecystectomy; lung; sg - Immunization history:: Adult Immunizations up to date. - Social history:: Smoking status: Patient denies any tobacco usage or history of. Screenin:45 Abuse screen: Denies threats or abuse. Nutritional screening: No deficits noted. jv1 Tuberculosis screening: No symptoms or risk factors identified. Fall Risk Fall in past 12 months (25 points). Assessment: 04:01 General: Appears in no apparent distress. uncomfortable, obese, well groomed, Behavior jv1 is calm, cooperative, appropriate for age. Pain: Complains of pain in left foot and right hand Pain does not radiate. Pain currently is 7 out of 10 on a pain scale. Quality of pain is described as aching. Neuro: Level of Consciousness is awake, alert, obeys commands, Oriented to person, place, time, situation, Appropriate for age Retail Associate are equal bilaterally Moves all extremities. Speech is normal, Facial symmetry appears normal. Cardiovascular: Denies chest pain, Heart tones S1 S2 Capillary refill < 3 seconds. Respiratory: Airway is patent Respiratory effort is even, unlabored, Respiratory pattern is regular, symmetrical, Breath sounds are clear bilaterally. GI: Abdomen is round non-distended, Bowel sounds present X 4 quads. : No signs and/or symptoms were reported regarding the genitourinary system. EENT: No signs and/or symptoms were reported regarding the EENT system. Musculoskeletal: Capillary refill < 3 seconds. 04:48 Reassessment: provider ordered to put an IV. jv1 05:00 Reassessment: Patient appears in no apparent distress at this time. No changes from jv1 previously documented assessment. Patient and/or family updated on plan of care and expected duration. Pain level reassessed. Patient is alert, oriented x 3, equal unlabored respirations, skin warm/dry/pink. 06:05 Reassessment: Dr. Hooper in the room with pt. jv1 06:30 Reassessment: Asked if he wants me to dress the wound now, he said not yet he jv1 will consult another physician. 06:39 Reassessment: Dr. Hooper went back to the room of the patient to suture. jv1 07:12 Reassessment: Dr. Hooper said to dress the wounds and put ortho boots and provide the jv1 pt with crutches. All done. Vital Signs: 03:45 BP 134 / 81; Pulse 74; Resp 16; Temp 97.5; Pulse Ox 100% ; ds4 04:45 BP 138 / 85; Pulse 75; Resp 18; Temp 97.5; Pulse Ox 100% on R/A; Pain 7/10; jv1 05:45 BP 130 / 82; Pulse 73; Resp 18; Temp 98; Pulse Ox 99% on R/A; jv1 06:31 BP 124 / 76; Pulse 71; Resp 18; Temp 98.1; Pulse Ox 99% on R/A; jv1 ED Course: 03:33 Patient arrived in ED. cl3 03:41 Darryn Lyles MD is Private Physician. sg 03:41 LUPE CADET is Private Physician. sg 03:41 Arm band placed on. sg 03:44 Triage completed. sg 03:48 Fred Hooper MD is Attending Physician. mh7 04:29 Foot Left 2 View XRAY In Process Unspecified. EDMS 04:30 Hand Right 2 View XRAY In Process Unspecified. EDMS 04:30 Patient has correct armband on for positive identification. Bed in low position. Call jv1 light in reach. Side rails up X2. at bedside. 05:05 Inserted saline lock: 24 gauge in left hand, using aseptic technique. Blood collected. ds4 07:07 Pa Lawrence MD is Referral Physician. mh7 07:13 suture. IV discontinued, intact, bleeding controlled, No redness/swelling at site. jv1 Pressure dressing applied. Administered Medications: 05:30 Drug: Ancef 1 grams Route: IVPB; Infused Over: 5 mins; Site: left hand; jv1 06:21 Follow up: Response: No adverse reaction jv1 07:16 Follow up: Response: No adverse reaction; IV Status: Completed infusion sg 05:40 Drug: Zofran (Ondansetron) 4 mg Route: IVP; Infused Over: 2 mins; Site: left hand; jv1 06:22 Follow up: Response: No adverse reaction jv1 05:43 Drug: morphine 4 mg {Note: RASS 0.} Route: IVP; Site: left hand; jv1 06:22 Follow up: Response: No adverse reaction; Pain is decreased jv1 05:47 Drug: Tetanus-Diphtheria Toxoid Adult 0.5 ml {Medical Insurance Clerk: [employer]. Exp: jv1 11/04/2021. Lot #: [id number]. } Route: IM; Site: right deltoid; 06:21 Follow up: Response: No adverse reaction jv1 Outcome: 07:09 Discharge ordered by . bhupinder 07:14 Discharged to home via wheelchair. jv1 07:14 Condition: stable 07:14 Discharge instructions given to patient, significant other, Instructed on discharge instructions, follow up and referral plans. medication usage, crutch walking, wound care, Demonstrated understanding of instructions, follow-up care, medications, wound care, crutch walking. 07:16 Patient left the ED. sg Signatures: Dispatcher [employer] EDPa Bernal RN RN sg John Harris ds4 Tracy Clark RN RN jv1 Lewis, Charde cl3 Fred Hooper MD MD mh7
[2020-06-28 07:33] VITALS: O2SAT 99
[2020-06-28 07:34] VITALS: BP 124/76; TEMP 98.1
--- NOTE | 2020-06-28 11:05 | RAD REPORT ---
EXAM DESCRIPTION: RAD - Hand Right 2 View - 06/28/2020 4:30 am CLINICAL HISTORY: The patient is 60 years old and is Female; PAIN TECHNIQUE: Three views of the right hand. COMPARISON: No relevant prior studies available. FINDINGS: Bones/joints: Basal joint degenerative changes. No acute fracture. No dislocation. Soft tissues: Unremarkable. No radiopaque foreign body. IMPRESSION: 1. No acute findings. 2. Basal joint degenerative changes. Electronically signed by: Amanda Campbell MD 06/28/2020 4:46 AM GREENSKEEPER Due to temporary technical issues with the PACS/Fluency reporting system, reports are being signed by the in house radiologists without review as a courtesy to insure prompt reporting. The interpreting radiologist is fully responsible for the content of the report.
--- NOTE | 2020-06-28 11:22 | RAD REPORT ---
EXAM DESCRIPTION: RAD - Foot Left 2 View - 06/28/2020 4:29 am CLINICAL HISTORY: The patient is 60 years old and is Female; PAIN TECHNIQUE: Two views of the left foot. COMPARISON: No relevant prior studies available. FINDINGS: Bones/joints: Horizontal fracture in the base of the fifth proximal phalanx. No dislocation. Soft tissues: Unremarkable. No radiopaque foreign body. IMPRESSION: Horizontal fracture in the base of the fifth proximal phalanx. Electronically signed by: Amanda Campbell MD 06/28/2020 4:44 AM CASE MANAGEMENT DIRECTOR Due to temporary technical issues with the PACS/Fluency reporting system, reports are being signed by the in house radiologists without review as a courtesy to insure prompt reporting. The interpreting radiologist is fully responsible for the content of the report.
== END 2020-06-28 07:16 | disposition home or self-care (01) ==
LOC: ER 03:31
PROC: 0JQR0ZZ Repair Left Foot Subcutaneous Tissue and Fascia, Open Approach (ICD-10-PCS; principal; 2020-06-28)
DX: S92.512A Displaced fracture of proximal phalanx of left lesser toe(s), initial encounter for closed fracture (principal); S60.222A Contusion of left hand, initial encounter; W01.0XXA Fall on same level from slipping, tripping and stumbling without subsequent striking against object, initial encounter; Y93.01 Activity, walking, marching and hiking; Y92.9 Unspecified place or not applicable; Z23 Encounter for immunization; Z85.3 Personal history of malignant neoplasm of breast; I10 Essential (primary) hypertension
CPT/HCPCS: 96365; 73120; 73620; 90471; 90714; 96375; 99284; 96366; 12001; J0690; J2405

== ENCOUNTER 2020-07-10 08:16 | Emergency (ER) | payer OTHER ==
--- OUTSIDE RECORDS SUMMARY | 2020-07-10 08:23 | XMS REPORT | Continuity of Care Document ---
:1960 Author Organization [facility] t Address [address] [place] [address] Care Team Providers Name Role Phone Unavailable Unavailable Unavailable Payers Payer Name Policy Type Policy Number Effective Date Expiration Date S ource Problems This patient has no known problems. Allergies, Adverse Reactions, Alerts Allergy Allergy Status Severity Reaction(s) Onset Inactive Treating Comm ents Source Name Type Date Date Clinician No Known DA Active U 2019-0 [facility] 7[facility]19 [facility] 00:[facility]: d 00 [facility] No Known DA Active U 2019-0 [facility]21 [facility] [address] [place] [address] No Known DA Active U 2019-0 [facility] 1-08 [facility] 00:00: [place] 00 [facility] No Known DA Active U 2018- [facility] 2[facility] Medications This patient has no known medications. Procedures This patient has no known procedures. Results Test Description Test Time Test Comments Results Result [facility] e Comments - SP FLUORO GUID 2020-05-21 Name: AARON HUFFMAN CTRL ACC DEV 13:23:00 [facility] [place] : 1960 Age/S: 60 / F [address] Unit #: [id number] Loc: [place] [address] Phys: Julia Wiley MD Acct: [id number] Dis Date: Status: REG [facility] PHONE #: [phone] Exam Date: 05/21/2020 1250 FAX #: Reason: CANCER TREATMENT COMPLETE EXAMS: CPT: [id number] SP FLUORO GUID CTRL ACC DEV 78832 Fluoro Time: 00:14 DAP (Gy m2): 0.25 [...] minutes. TECHNIQUE: Prior to beginning the procedure, Cleghorn Protocol was used to confirm the patient's [...] PAGE 1 Signed Report Name: AARON HUFFMAN [facility] : 1960 Age/S: 60 / F [address] Unit #: [id number] Loc: [place] [address] Phys: Julia Wiley MD Acct: [id number] Dis Date: Status: REG [facility] PHONE #: [phone] Exam Date: 05/21/2020 1250 FAX #: Reason: CANCER TREATMENT COMPLETE EXAMS: CPT: [id number] SP FLUORO GUID CTRL ACC DEV 03811 Fluoro Time: 00:14 DAP (Gy m2): 0.25 Air Kerma (mGy): 1 <Continued> Technologist: John Higuera RT(R) Dell Date/Time: 05/21/2020 (0853) [id number] Orig Print D/T: S: 05/21/2020 (5407) PAGE 2 Signed Report COVID 19 INHOUSE AG 2020-05-21 11:54:00 Test Item Value Reference Range Interpretation Comme nts COVID 19 INHOUSE AG (test code = NEGATIVE Negative Per clerk travel reservations, negative [id number]) results should be treated aspresumptive a nd, [...] nd symptoms consistent with COVID-19. BREAST,EXCISION OF LESION/[id number] 16:54:00 RUN DATE: 03/23/19 [facility] PAGE 1 RUN TIME: 1084 Specimen Inquiry RUN USER: INTERFACE PATIENT: AARON HUFFMAN LOC: [facility] U #: [id number] AGE/SX: 59/F ROOM: RE03/17/19REG DR: Surjit Jensen : [birth year] BED: DIS: STATUS: LILIANA [facility] TLOC: SPEC #: [id number] RECD: 03/17/19 STATUS: AMAURIMiranda PRECIOUS #: [id number] AGUSTO: 03/17/19- SUBM DR: Surjit Jensen MD ENTERED: 03/18/19 SP TYPE: BREAST,EXC OTHR DR: ORDERED: LEVEL SURGIC CODES: P38584 - BREAST, NOS PROCEDURES: LEVEL SURGIC (Incomplete) [...] Specimen Inquiry RUN USER: INTERFACE SPEC #: [id number] PATIENT: AARON HUFFMAN #[id number] (Continued) FINAL DIAGNOSIS (Continued) Overall Grade: Grade [...] intensity Microcalcifications: Presentin non-neoplastic tissue CPT code(s): 04125 x3, 26795-20, 76330-32 [facility]/donny dt: 03/23/19 CONTINUED ON NEXT PAGE RUN DATE: 03/23/19 [facility] PAGE 3 RUN TIME: 1654 Specimen Inquiry RUN USER: INTERFACE SPEC #: [id number] PATIENT: AARON HUFFMAN #[id number] (Continued) - GROSS DESCRIPTION ANATOMIC SOURCE OF [...] and A2 Slice 2 - A3 and G0Buhuo 3 - A5 through A7 Slice 4 [...] 1654 Specimen Inquiry RUN USER: INTERFACE SPEC #:[id number] PATIENT: AARON HUFFMAN #[id number] (Continued) GROSS DESCRIPTION (Continued) consists of a [...] inferior Black - posterior Green - anterior [place] - medial Yellow - lateral Section code: [...] displays a 0.6 cm dacosta-wilhelm, firm nodule. Cadet Deck sections are submitted labeled C1 - 1 [...] Specimen Inquiry RUN USER: INTERFACE SPEC #: [id number] PATIENT: AARON HUFFMAN #[id number] (Continued) MICROSCOPIC DESCRIPTION (Continued) lymphovascular invasion and [...] with no extracapuslar extension. No fibrosis identified. carlos/donny dt: 03/23/19 The following technical components [facility] at [facility], [address] [place] [address]. The interpretation is provided by [facility], [address] [place] [address]. [facility] appropriately. INTERPRETATION: Block A6: D2-40 and CD31- See above for results. Prognostic Markers performed and interpreted 03/23/19 at [facility] ER: POSITIVE Tumor Stained: 62% Intensity: 3+ Internal control: Present MD: POSITIVE Tumor Stained: 43% Intensity: 1+ Internal control: Present HER2 ([facility]): NEGATIVE Score: 1+ Ki67: LOW, 5% Intensity: 3+ Signed SIGNATURE ON FILE Catherine Kelly MD 03/23/19 1654 END OF REPORT CHEMISTRY 7 [id number] 14:59:00 Test Item Value Reference Range Interpretation [...] = CA) 9.6 mg/dL 8.4-10.2 N HGB [id number] 14:27:00 Test Item Value Reference Range Interpretation Comments HEMOGLOBIN (test code = HGB) 12.4 g/dL 10.7-13.9 N HEMATOCRIT (test code = HCT) 38.6 % 32.1-42.1 N - USG NDL PLACEMENT (Bxg/Asp)2019-01-11 11:50:00 Name: AARON HUFFMAN [facility] : 1960 Age/S: 59 / F [address] [facility] Unit #: [id number] Loc: [place] [address] Phys: Julia Wiley MD Acct: [id number] Dis Date: Status: [facility] PHONE #: [phone] Exam Date: 01/11/2019 1134 FAX #: Reason: ASPIRATION EXAMS: CPT: [id number] USG NDL PLACEMENT (Bxg/Asp) 01413 PROCEDURE:PERCUTANEOUS IMAGE GUIDED ASPIRATION. LOCATION: S 17. HISTORY: Scalp abscess. SEDATION: The patient did not require conscious sedation for the procedure. TECHNIQUE: The risks, benefits, and alternatives were discussed and informed consent was obtained. Prior to beginning the procedure, Cleghorn Protocol was used to confirm the patient's [...] 1 Signed Report (CONTINUED) Name: AARON HUFFMAN [facility] [place] : 1960 Age/S: 59 / F [address] Unit #: [id number] Loc: [place] [address] Phys: Julia Wiley MD Acct: [id number] Dis Date: Status: DEP CLI PHONE #: [phone] Exam Date: 01/11/2019 113 FAX #: Reason: ASPIRATION EXAMS: CPT: [id number] USG NDL PLACEMENT (Bxg/Asp) 93455 <Continued> CC: Nancy Wiley MD Technologist: Slime Dubois RT(R),RDMS(AB) Trnscb Date/Time: 01/11/2019 (1150) t.PAULR.PR7 PAGE 2 Signed Report Name: AARON HUFFMAN TRACEEFlavia [place] : 1960 Age/S: 59 / F [address] Unit #: [id number] Loc: [place] [address] Phys: Julia Wiley MD Acct: [id number] Dis Date: Status: DEP CLI PHONE #: [phone] Exam Date: 01/11/2019 1130 FAX #: Reason: ASPIRATION EXAMS: CPT: [id number] USG NDL PLACEMENT (Bxg/Asp) 07069 <Continued> Orig Print D/T: S: 01/11/2019 (1153) Probe: PAGE 3 Signed Report- USG NDL PLACEMENT (Bxg/Asp)2019-01-11 11:50:00 Name: AARON HUFFMAN : 1960 Age/S: 59 / F [address] Unit #: [id number] Loc: [place] [address] Phys: Julia Wiley MD Acct: [id number] Dis Date: Status: REG CLI PHONE #: [phone] Exam Date: 01/11/2019 1130 FAX #: Reason: ASPIRATION EXAMS: CPT: [id number] USG NDL PLACEMENT (Bxg/Asp) 36414 PROCEDURE:PERCUTANEOUS IMAGE GUIDED ASPIRATION. LOCATION: S 17. HISTORY: Scalp abscess. SEDATION: The patient did not require conscious sedation for the procedure. TECHNIQUE: The risks, benefits, and alternatives were discussed and informed consent was obtained. Prior to beginning the procedure, Cleghorn Protocol was used to confirm the patient's [...] HUFFMAN : 1960 Age/S: 59 / F [address] Unit #: [id number] Loc: [place] [address] Phys: Julia Wiley MD Acct: [id number] Dis Date: Status: REG CLI PHONE #: [phone] Exam Date: 01/11/2019 1136 FAX #: Reason: ASPIRATION EXAMS: CPT: [id number] USG NDL PLACEMENT (Bxg/Asp) 00209 <Continued> CC: Nancy Dooley; Julia Wiley MD Technologist: Slime Dubois, RT(R),RDMS(AB) Trnscb Date/Time: 01/11/2019 (1150) t.SDR.PR7 PAGE 2 Signed Report Name: AARON HUFFMAN [place] : 1960 Age/S: 59 / F [address] Unit #: [id number] Loc: [place] [address] Phys: Julia Wiley MD Acct: [id number] Dis Date: Status: REG CL PHONE #: [phone] Exam Date: 01/11/2019 1135 FAX #: Reason: ASPIRATION EXAMS: CPT: [id number] USG NDL PLACEMENT (Bxg/Asp) [address]6432 <Continued> Orig Print D/T: S: 01/11/2019 (1153) Probe: PAGE 3 Signed Report- SP FLUORO GUID CTRL ACC [id number] 11:21:00 Name: AARON HUFFMAN [place] : 1960 Age/S: 58 / F [address] Unit #: [id number] Loc: [place] [address] Phys: Gareth Hernandez MD Acct: [id number] Dis Date: Status: [facility] PHONE #: [phone] Exam Date: 08/05/2018 1100 FAX #: Reason: EXAMS: CPT: [id number] SP FLUORO GUID CTRL ACC DEV 75096 Fluoro Time: 00:52 DAP (Gy m2): 0.87 [...] was obtained. Prior to beginning the procedure, Cleghorn Protocol was used to confirm the patient's [...] 1 Signed Report (CONTINUED) Name: AARON HUFFMAN [facility] : 1960 Age/S: 58 / F [address] [facility] Unit #: [id number] Loc: [place] [address] Phys: Gareth Hernandez MD Acct: [id number] Dis Date: Status: [facility] PHONE #: [phone] Exam Date: 08/05/2018 1100 FAX #: Reason: EXAMS: CPT: [id number] SP FLUORO GUIDCTRL ACC DEV 18646 Fluoro Time: 00:52 DAP (Gy m2): 0.87 [...] MD PAGE 2 Signed [facility]: [facility] 1960 Age/S: 58 / F [address] Unit #: [id number] Loc: [place] [address] Phys: Gareth Hernandez MD Acct: [id number] Dis Date: Status: [facility] PHONE #: [phone] Exam Date: 08/05/2018 1100FAX #: Reason: EXAMS: CPT: [id number] SP FLUORO GUID CTRL ACC DEV 73827 Fluoro Time: 00:52 DAP (Gy m2): 0.87 Air Kerma (mGy): 4 <Continued> Technologist: RT Jazzmine(R) Trnscb Date/Time: 2017 (112) [email or web address] Orig Print D/T: S: 08/05/2018 (8155) PAGE 3 Signed Report
--- NOTE | 2020-07-10 09:08 | ER ---
Nurse's Notes [facility] Name: Azalia Duncan Age: 60 yrs Sex: Female : 1960 Arrival Date: 07/10/2020 Time: 08:20 Bed 19 Private MD: Diagnosis: Encounter for removal of sutures Presentation: 07/10 08:31 Chief complaint: Patient states: Here to have sutures removed from R 5th toe. Injury ss occurred 9 days ago. Coronavirus screen: Client denies travel out of the [place] in the last 14 days. Ebola Screen: Patient denies exposure to infectious person. Patient denies travel to an Ebola-affected area in the 21 days before illness onset. Initial Sepsis Screen: Does the patient meet any 2 criteria? No. Patient's initial sepsis screen is negative. Does the patient have a suspected source of infection? No. Patient's initial sepsis screen is negative. Risk Assessment: Do you want to hurt yourself or someone else? Patient reports no desire to harm self or others. Onset of symptoms was July 02, 2020. 08:31 Method Of Arrival: Ambulatory ss 08:31 Acuity: CONOR 5 ss Historical: - Allergies: 08:33 NKDA; ss - PMHx: 08:33 Anxiety; Hyperlipidemia; Depression; Cancer, Breast; Asthma; Hypertension; left breast ss cancer; - PSHx: 08:33 spleenectomy; lung; Cholecystectomy; ss - Immunization history:: Adult Immunizations up to date. - Social history:: Smoking status: Patient denies any tobacco usage or history of. Screenin:34 Abuse screen: Denies threats or abuse. Denies injuries from another. Nutritional ss screening: No deficits noted. Tuberculosis screening: Never had TB. Fall Risk None identified. Assessment: 08:34 General: Appears in no apparent distress. comfortable, Behavior is calm, cooperative. ss Pain: Complains of pain in left fifth toe Pain currently is 6 out of 10 on a pain scale. Quality of pain is described as "soreness". Neuro: Level of Consciousness is awake, alert. Cardiovascular: Pulses are all present. Respiratory: Airway is patent Respiratory effort is even, unlabored, Respiratory pattern is regular, symmetrical. Derm: Skin is pink, warm \\T\\ dry. normal. 09:11 Reassessment: Patient appears in no apparent distress at this time. No changes from tw2 previously documented assessment. Patient and/or family updated on plan of care and expected duration. Pain level reassessed. Patient is alert, oriented x 3, equal unlabored respirations, skin warm/dry/pink. Vital Signs: 08:31 BP 137 / 80; Pulse 68; Resp 16; Temp 98.0(TE); Pulse Ox 100% on R/A; Pain 6/10; ss ED Course: 08:20 Patient arrived in ED. mr 08:32 Triage completed. ss 08:33 Johann Marquez MD is Attending Physician. kdr 08:33 Arm band placed on right wrist. ss 08:34 Patient has correct armband on for positive identification. Bed in low position. Call light in reach. 09:07 Berkley Andersen FNP-C is [facility]. kb 09:11 Rosaura Melendez, RN is Primary Nurse. tw2 09:11 No provider procedures requiring assistance completed. Patient did not have IV access tw2 during this emergency room visit. Administered Medications: No medications were administered Outcome: 09:07 Discharge ordered by . kb 09:11 Patient left the ED. tw2 09:11 Discharged to home ambulatory. tw2 09:11 Condition: stable 09:11 Discharge instructions given to patient, Instructed on discharge instructions, follow up and referral plans. Demonstrated understanding of instructions, follow-up care. Signatures: Berkley Andersen FNP-C FNP-Ckb Johann Marquez MD MD kdr Yuliana ReneBerna, ENRIKE RN Rosaura Melendez RN RN tw2
--- NOTE | 2020-07-10 09:08 | EDPHYS ---
Physician Documentation [facility] Name: Azalia Duncan Age: 60 yrs Sex: Female : 1960 Arrival Date: 07/10/2020 Time: 08:20 Bed 19 Private MD: ED Physician Johann Marquez HPI: 07/10 09:08 This 60 yrs old Black Female presents to ER via Ambulatory with complaints of Suture kb Removal. 09:08 The patient has sutures on the left fifth toe. Previous treatment: The patient was kb initially treated on June 28, 2020. Sutures/marlena progress: The patient has no c/o's. The wound is well-healing with no redness, swelling, discharge, or dehiscence reported. The patient has not experienced similar symptoms in the past. The patient has been recently seen at the [facility] Emergency Department. Historical: - Allergies: 08:33 NKDA; ss - PMHx: 08:33 Anxiety; Hyperlipidemia; Depression; Cancer, Breast; Asthma; Hypertension; left breast ss cancer; - PSHx: 08:33 spleenectomy; lung; Cholecystectomy; ss - Immunization history:: Adult Immunizations up to date. - Social history:: Smoking status: Patient denies any tobacco usage or history of. ROS: 09:08 Constitutional: Negative for fever, chills, and weight loss, MS/Extremity: Negative for kb injury and deformity, Neuro: Negative for headache, weakness, numbness, tingling, and seizure. 09:08 Skin: Positive for of the left fifth toe, sutures in place. Exam: 09:08 Constitutional: This is a well developed, well nourished patient who is awake, alert, kb and in no acute distress. Head/Face: Normocephalic, atraumatic. MS/ Extremity: Pulses equal, no cyanosis. Neurovascular intact. Full, normal range of motion. Neuro: Awake and alert, GCS 15, oriented to person, place, time, and situation. Cranial nerves II-XII grossly intact. Motor strength 5/5 in all extremities. Sensory grossly intact. Cerebellar exam normal. Normal gait. 09:08 Respiratory: the patient does not display signs of respiratory distress, Respirations: normal. 09:08 Skin: Wound recheck: Suture laceration closure: the wound is healing well, the edges are well approximated, no evidence of dehiscence, no drainage, no erythema, no swelling. Vital Signs: 08:31 BP 137 / 80; Pulse 68; Resp 16; Temp 98.0(TE); Pulse Ox 100% on R/A; Pain 6/10; ss Procedures: 09:09 Suture/Staple removal: Removed 5 sutures, from left fifth toe, site appears well kb healed, Patient tolerated well. MDM: 09:07 Patient medically screened. kb 09:07 Data reviewed: vital signs, nurses notes. Data interpreted: Pulse oximetry: on room air kb is 100 %. Interpretation: normal. Counseling: I had a detailed discussion with the patient and/or guardian regarding: the historical points, exam findings, and any diagnostic results supporting the discharge/admit diagnosis, the need for outpatient follow up, a family practitioner, to return to the emergency department if symptoms worsen or persist or if there are any questions or concerns that arise at home. Administered Medications: No medications were administered Disposition: 13:21 Co-signature as Attending Physician, Johann Marquez MD I agree with the assessment and kdr plan of care. Disposition: 07/10/20 09:07 Discharged to Home. Impression: Encounter for removal of sutures. - Condition is Stable. - Discharge Instructions: Suture Removal, Care After. - Medication Reconciliation Form, Thank You Letter, Antibiotic Education, Prescription Opioid Use form. - Follow up: Private Physician; When: 2 - 3 days; Reason: Recheck today's complaints, Continuance of care, Re-evaluation by your physician. Follow up: Emergency Department; When: As needed; Reason: Worsening of condition. Signatures: Berkley Andersen, LEANN-C LEANN-Johann Davalos MD MD [facility] Berna Disla RN RN ss Rosaura Melendez RN RN tw2 Corrections: (The following items were deleted from the chart) 09:11 09:07 07/10/2020 09:07 Discharged to Home. Impression: Encounter for removal of tw2 sutures. Condition is Stable. Forms are Medication Reconciliation Form, Thank You Letter, Antibiotic Education, Prescription Opioid Use. Follow up: Private Physician; When: 2 - 3 days; Reason: Recheck today's complaints, Continuance of care, Re-evaluation by your physician. Follow up: Emergency Department; When: As needed; Reason: Worsening of condition. kb
[2020-07-10 13:19] VITALS: BP 137/80; TEMP 98; O2SAT 100
== END 2020-07-10 09:11 | disposition home or self-care (01) ==
LOC: ER 08:16
DX: Z48.02 Encounter for removal of sutures (principal)
CPT/HCPCS: 99281

== ENCOUNTER 2022-01-25 13:01 | Emergency (ER) | payer OTHER ==
--- OUTSIDE RECORDS SUMMARY | 2022-01-25 13:15 | XMS REPORT | Continuity of Care Document ---
:1960 Author Organization [facility] t Address [address] [place] [address] Care Team Providers Name Role Phone Austin WESTBROOK Primary Care Physician Miah Attending Clinician Unavailable Saurabh Attending Clinician Unavailable Harry Shannon Attending Clinician Unavailable Stefany Jensen Attending Clinician Unavailable Katarzyna RN, L Attending Clinician Unavailable [place] Attending Clinician Unavailable Eliz CADE Attending Clinician Unavailable Austin WESTBROOK Attending Clinician Doctor Unassigned, Name Attending Clinician Unavailable Teresita Dooley Admitting Clinician Unavailable Saurabh Admitting Clinician Unavailable Physician, Primary or Family Admitting Clinician Unavailabl e Payers Payer Name Policy Type Policy Number Effective Date Expiration Date S ource Problems Condition Condition Condition Status Onset Resolution Last Treating Co mments Source Name Details Category Date Date Treatment Clinician Date Exposure Exposure Disease Active Unive rs to to 2-19 ity of syphilis syphilis 00:00: [place] 00 [facility] Branch Exposure Exposure Disease Active [place] 2 [place] Screening Screening Disease Active Uni vers for for 2-19 [place] malignant malignant [place] of colon of colon Branch Anxiety Anxiety Disease Active Univers and [place] 10[place]12 [place] [facility] History of History of Disease Active U nivers left left 10-12 ity of breast breast 00:00: [place] cancer cancer 00 [facility] Nicotine Nicotine Disease Active Unive rs dependence dependence 10-12 it y of , , 00:00: [place] cigarettes cigarettes 00 Me dical , in , in Branch remission remission Screening Screening Disease Active Uni vers for for - [place] of malignant malignant [place]oplasm [place] of the of the Branch cervix cervix No known No known Disease Unive rs active active ity of problems problems [facility] Allergies, Adverse Reactions, Alerts Allergy Allergy Status Severity Reaction(s) Onset Inactive Treating Comm ents Source Name Type Date Date Clinician No Known DA Active U 2019-0 [facility]ie 7[facility]19 [place] 00:[facility]: d 00 [facility] No Known DA Active U 2019-0 [facility] Allergie 7-19 [place] 00:00: d 00 [facility] No Known DA Active U 2019-0 [facility] Drug 5-21 [facility] Hosp[facility] s [address] [place] [address] No Known DA Active U 2019-0 [facility] Allergie 1-08 [place] s 00:00: [place] [address] [facility] No Known DA Active U 2018-1 [facility] Allergie 2-13 [place] 00:00: d 00 [facility] NO KNOWN Drug Active Univers ALLERGIE Class ity of S [facility] Social History Social Habit Start Date Stop Date Quantity Comments Source History of tobacco Cigarette Smoker University of use [facility] Exposure to Not sure University of SARS-CoV-2 (event) [facility] Cigarettes smoked 2020-10-14 2020-10-14 Univers ity of current (pack per 00:00:00 00:00:00 ) - Reported Branch Tobacco use and 2020-10-14 2020-10-14 Never used Universit y of exposure 00:00:00 00:00:00 [facility] Alcohol intake 2020-10-14 2020-10-14 Current University 00:00:00 00:00:00 non-drinker of [facility] alcohol Branch (finding) Sex Assigned At [birth year] Universit y of 00:00:00 00:00:00 [facility] Smoking Status Start Date Stop Date Source Current every day smoker 2020-10-14 00:00:00 Uni versity of [facility] Medications Ordered Filled Start Stop Current Ordering Indication Dosage Frequency Signature Comments Components Source Medication Medication Date Date Medication? Clinician (SIG) Name Name penicillin 2020- No [id number] 2.410 Univers g proc & 10-12 ity of benzathine 19:30: 18:26 [place] (BICILLIN 00 :52 Medical C-R) Branch 1,200,000 unit/ 2 mL(600k/600 k) injection 2.4 Million Units penicillin 2020- No [id number] 2.410 Univers g 10-12 ity of benzathine 19:30: 18:28 [place] (BICILLIN 00 :00 Medical L-A) Branch injection 2.4 Million Units penicillin 2020- No [id number] 2.410 2.4 Univers g 10-12 Million ity of benzathine 19:30: 18:28 [place] ([place] :00 Intramuscu [facility] L-A) lar, ONCE, Branch injection 1 dose, 2.4 Million Fri Units 10/12/20 at 1330, JORGE LUIS
Re ason for Anti-Infec tive: Documented Infection< br>Documen chaim Infection Site: Other
O ther site: Syhilis&lt ;br>Durati on of Therapy: Other (see Comments) penicillin 2020- No [id number] 2.410 Univers g proc & 10-12 ity of benzathine 19:30: 18:26 [place] (BICILLIN 00 :52 Medical C-R) Branch 1,200,000 unit/ 2 mL(600k/600 k) injection 2.4 Million Units penicillin 2020- No [id number] 2.410 Univers g 10-12 ity of benzathine 19:30: 18:28 [place] (BICILLIN 00 :00 Medical L-A) Branch injection 2.4 Million Units penicillin 2020- No [id number] 2.410 2.4 Univers g 10-12 Million ity of benzathine 19:30: 18:28 [place], [place] (B[place]ILL[place] 00 :00 Intramuscu Medi sandoval L-A) lar, ONCE, Branch injection 1 dose, 2.4 Million Fri Units 10/12/20 at 1330, JORGE LUIS
Re ason for Anti-Infec tive: Documented Infection< br>Documen chaim Infection Site: Other
O ther site: Syhilis&lt ;br>Durati on of Therapy: Other (see Comments) penicillin 2020- No [id number] 2.410 Univers g 10-12 ity of benzathine 19:15: 18:15 [place] (BICILLIN 00 :25 Medical L-A) Branch injection 2.4 Million Units penicillin 2020- No [id number] 2.410 Univers g 10-12 ity of benzathine 19:15: 18:15 [place] (BICILLIN 00 :25 Medical L-A) Branch injection 2.4 Million Units losartan 2015-08 Yes 100mg Take 100 Univ ers (COZAAR) 1-21 mg by ity of 100 mg 16:32: mouth [place] tablet [address] [facility] MULTIVITAMI 2015-08 Yes 1{tbl} Take 1 Tab Univers N ORAL 1-21 by mouth ity of 16:32: daily. [address] losartan 2015-08 Yes 100mg Take 100 Univ ers (COZAAR) 1-21 mg by ity of 100 mg 16:32: mouth [place] tablet [address] [facility] MULTIVITAMI 2015-08 Yes 1{tbl} Take 1 Tab Univers N ORAL 1-21 by mouth ity of 16:32: daily. [address] losartan 2015-08 Yes 100mg Take 100 Univ ers (COZAAR) 1-21 mg by ity of 100 mg 16:32: mouth [place] tablet [address] [facility] MULTIVITAMI 2015-08 Yes 1{tbl} Take 1 Tab Univers N ORAL 1-21 by mouth ity of 16:32: daily. [address] losartan 2015-08 Yes 100mg Take 100 Univ ers (COZAAR) 1-21 mg by ity of 100 mg 16:32: mouth [place] tablet 23 daily. Medical Branch MULTIVITAMI 2015-08 Yes 1{tbl} Take 1 Tab Univers N ORAL 1-21 by mouth ity of 16:32: daily. [address] losartan 2015-08 Yes 100mg Take 100 Univ ers (COZAAR) 1-21 mg by ity of 100 mg 16:32: mouth [place] tablet 23 daily. [facility] Branch MULTIVITAMI 2015-08 Yes 1{tbl} Take 1 Tab Univers N ORAL 1-21 by mouth ity of 16:32: daily. [address] DULoxetine 2015-08 Yes 60mg Take 60 mg U nivers (CYMBALTA) 1-21 by mouth ity o f 60 mg 16:32: daily. [address] HYDROcodone 2015-08 Yes 1{tbl} Take 1 Tab Univers -acetaminop 1-21 by mouth 2 it y of hen (NORCO) 16:32: (two) [place] 10-325 mg 22 times Medical tablet daily. Branch meloxicam 2015-08 Yes 7.5mg Take 7.5 Uni vers (MOBIC) 7.5 1-21 mg by ity of mg tablet 16:32: mouth [place] 22 daily. [facility] Branch traMADOL 2015-08 Yes 50mg Take 50 mg Uni vers (ULTRAM) 50 1-21 by mouth ity of mg tablet 16:32: daily. [address] simvastatin 2015-08 Yes 40mg Take 40 mg Univers (ZOCOR) 40 1-21 by mouth ity o f mg tablet 16:32: daily. [address] furosemide 2015-08 Yes 40mg Take 40 mg U nivers (LASIX) 40 1-21 by mouth ity o f mg tablet 16:32: daily. [address] cyclobenzap 2015-08 Yes 10mg Take 10 mg Univers rine 1-21 by mouth 3 ity of (FLEXERIL) 16:32: (three[place] 10 mg 22 times Medical tablet daily. Branch DULoxetine 2015-08 Yes 60mg Take 60 mg U nivers (CYMBALTA) 1-21 by mouth ity o f 60 mg 16:32: daily. [place] capsule [address] [place] [address] HYDROcodone 2015-08 Yes 1{tbl} Take 1 Tab Univers -acetaminop 1-21 by mouth 2 it y of hen (NORCO) 16:32: (two) [place] 10-325 mg 22 times Medical tablet daily. Branch meloxicam 2015-08 Yes 7.5mg Take 7.5 Uni vers (MOBIC) 7.5 1-21 mg by ity of mg tablet 16:32: mouth [place] 22 daily. Medical Branch traMADOL 2015-08 Yes 50mg Take 50 mg Uni vers (ULTRAM) 50 1-21 by mouth ity of mg tablet 16:32: daily. [address] simvastatin 2015-08 Yes 40mg Take 40 mg Univers (ZOCOR) 40 1-21 by mouth ity o f mg tablet 16:32: daily. [address] furosemide 2015-08 Yes 40mg Take 40 mg U nivers (LASIX) 40 1-21 by mouth ity o f mg tablet 16:32: daily. [address] cyclobenzap 2015-08 Yes 10mg Take 10 mg Univers rine 1-21 by mouth 3 ity of (FLEXERIL) 16:32: (three[place] 10 mg 22 times Medical tablet daily. Branch DULoxetine 2015-08 Yes 60mg Take 60 mg U nivers (CYMBALTA) 1-21 by mouth ity o f 60 mg 16:32: daily. [address] HYDROcodone 2015-08 Yes 1{tbl} Take 1 Tab Univers -acetaminop 1-21 by mouth 2 it y of hen (NORCO) 16:32: (two) [place] 10-325 mg 22 times Medical tablet daily. Branch meloxicam 2015-08 Yes 7.5mg Take 7.5 Uni vers (MOBIC) 7.5 1-21 mg by ity of mg tablet 16:32: mouth [place] 22 daily. Medical Branch traMADOL 2015-08 Yes 50mg Take 50 mg Uni vers (ULTRAM) 50 1-21 by mouth ity of mg tablet 16:32: daily. [address] simvastatin 2015-08 Yes 40mg Take 40 mg Univers (ZOCOR) 40 1-21 by mouth ity o f mg tablet 16:32: daily. [address] furosemide 2015-08 Yes 40mg Take 40 mg U nivers (LASIX) 40 1-21 by mouth ity o f mg tablet 16:32: daily. [address] cyclobenzap 2015-08 Yes 10mg Take 10 mg Univers rine 1-21 by mouth 3 ity of (FLEXERIL) 16:32: (three[place] 10 mg 22 times Medical tablet daily. Branch DULoxetine 2015-08 Yes 60mg Take 60 mg U nivers (CYMBALTA) 1-21 by mouth ity o f 60 mg 16:32: daily. [place] capsule [address] [place] [address] HYDROcodone 2015-08 Yes 1{tbl} Take 1 Tab Univers -acetaminop 1-21 by mouth 2 it y of hen (NORCO) 16:32: (two) [place] 10-325 mg 22 times Medical tablet daily. Branch meloxicam 2015-08 Yes 7.5mg Take 7.5 Uni vers (MOBIC) 7.5 1-21 mg by ity of mg tablet 16:32: mouth [place] 22 daily. [facility] Branch traMADOL 2015-08 Yes 50mg Take 50 mg Uni vers (ULTRAM) 50 1-21 by mouth ity of mg tablet 16:32: daily. [address] simvastatin 2015-08 Yes 40mg Take 40 mg Univers (ZOCOR) 40 1-21 by mouth ity o f mg tablet 16:32: daily. [address] furosemide 2015-08 Yes 40mg Take 40 mg U nivers (LASIX) 40 1-21 by mouth ity o f mg tablet 16:32: daily. [address] cyclobenzap 2015-08 Yes 10mg Take 10 mg Univers rine 1-21 by mouth 3 ity of (FLEXERIL) 16:32: (three[place] 10 mg 22 times Medical tablet daily. Branch DULoxetine 2015-08 Yes 60mg Take 60 mg U nivers (CYMBALTA) 1-21 by mouth ity o f 60 mg 16:32: daily. [address] HYDROcodone 2015-08 Yes 1{tbl} Take 1 Tab Univers -acetaminop 1-21 by mouth 2 it y of hen (NORCO) 16:32: (two) [place] 10-325 mg 22 times Medical tablet daily. Branch meloxicam 2015-08 Yes 7.5mg Take 7.5 Uni vers (MOBIC) 7.5 1-21 mg by ity of mg tablet 16:32: mouth [place] 22 daily. Medical Branch traMADOL 2015-08 Yes 50mg Take 50 mg Uni vers (ULTRAM) 50 1-21 by mouth ity of mg tablet 16:32: daily. [address] simvastatin 2015-08 Yes 40mg Take 40 mg Univers (ZOCOR) 40 1-21 by mouth ity o f mg tablet 16:32: daily. [address] furosemide 2015-08 Yes 40mg Take 40 mg U nivers (LASIX) 40 1-21 by mouth ity o f mg tablet 16:32: daily. [address] cyclobenzap 2015-08 Yes 10mg Take 10 mg Univers rine 1-21 by mouth 3 ity of (FLEXERIL) 16:32: (three[place] 10 mg 22 times Medical tablet daily. Branch Immunizations Ordered Filled Immunization Date Status Comments [facility] e Immunization Name Name SARS-COV-2 COVID-19 2020-12-26 Completed Unive rsity of MODERNA VACCINE 00:00:00 [facility] SARS-COV-2 COVID-19 2020-12-26 Completed Unive rsity of MODERNA VACCINE 00:00:00 [facility] SARS-COV-2 COVID-19 2020-11-28 Completed Unive rsity of MODERNA VACCINE 00:00:00 [facility] SARS-COV-2 COVID-19 2020-11-28 Completed Unive rsity of MODERNA VACCINE 00:00:00 [facility] Vital Signs Vital Name Observation Time Observation Value Comments Source Systolic blood 2020-10-12 17:43:00 136 mm[Hg] Univer sity of pressure [facility] Diastolic blood 2020-10-12 17:43:00 83 mm[Hg] Unive rsity of pressure [facility] Heart rate 2020-10-12 17:43:00 79 /min [facility] Body temperature 2020-10-12 17:43:00 36.72 [facility] Respiratory rate 2020-10-12 17:43:00 18 /min [facility] Body weight 2020-10-12 17:43:00 120.702 kg [facility] BMI 2020-10-12 17:43:00 45.68 kg/m2 [facility] Oxygen saturation in 2020-10-12 17:43:00 99 /min University of Arterial blood by [facility] Pulse oximetry Branch Systolic blood 2020-10-12 17:43:00 136 mm[Hg] Univer sity of pressure [facility] Diastolic blood 2020-10-12 17:43:00 83 mm[Hg] Unive rsity of pressure [facility] Heart rate 2020-10-12 17:43:00 79 /min [facility] Body temperature 2020-10-12 17:43:00 36.72 [facility] Respiratory rate 2020-10-12 17:43:00 18 /min [facility] Body weight 2020-10-12 17:43:00 120.702 kg [facility] BMI 2020-10-12 17:43:00 45.68 kg/m2 [facility] Oxygen saturation in 2020-10-12 17:43:00 99 /min University of Arterial blood by [facility] Pulse oximetry Branch Procedures Procedure Date / Time Performed Performing Clinician [facility] e ASSIGNMENT OF BENEFITS 2020-10-12 17:33:19 Doctor Unassigned, No [facility] Encounters Start End Encounter Admission Attending Care Care Encounter Source Date/Time Date/Time Type Type Clinicians Facility Department ID 2021-09-18 Outpatient Simpson, [facility]LMLC [facility] [id number] Common 12:07:11 Nancy 01045 [facility] 2020-05-21 Inpatient EL Saurabh, HCAPM RADI [id number] [facility] 10:00:00 Julia [id number] [facility] 2020-05-17 Inpatient Shannon, HCAPM RADI [id number] [facility] 10:00:[id number] [facility] 2019-08-23 Inpatient GIA Jensen, HCAWH ADMI [id number] [facility] 13:00:00 Surjit [id number] [facility] 2021-08-29 2021-08-29 Outpatient EL Saurabh, HCAWH MICHELLE [id number] [facility] 12:00:00 12:00:00 Julia [id number] [facility] 2021-04-23 2021-04-23 Telephone Katarzyna Srivastava [id number] Univers 00:00:00 00:00:00 , Nancy Bruce Linn 350.1.13.10 ity of [place] 4[place]2.686 [place] [phone] [facility] 086 [place] 2021 2021 Outpatient R AUSTIN, [facility] [id number] Univers 14:40:00 14:40:00 ELY [id number] ity [facility] 2020-12-26 2020-12-26 Outpatient R RAYO, [facility] [id number] Univers 08:30:00 08:30:00 MICHELLE ity [facility] 2020-11-28 2020-11-28 Outpatient [facility] [id number] Univers 16:50:00 16:50:00 ity [facility] 2020-10-12 2020-10-12 [facility] [id number] Univers 14:00:00 14:00:[address] [facility] 2020-10-12 2020-10-12 Office [facility] [id number] Univers 11:35:09 12:32:47 Visit Ely Smart 350.1.13.10 i [place] 4[place]2.[place].2.[place] Professio [phone] De dical [address] 2020-10-12 2020-10-12 Office [facility] [id number] 11:35:09 12:32:47 Visit Ely Smart 350.1.13.10 [place] 4.2.7.2.686 Professio [phone] nal [address] [place] [address] 2020-10-12 2020-10-12 Orders Doctor [place] [id number] [id number] Univers 00:00:00 00:00:00 Only Unassigned, JULES 350.1.13.10 ity of [place] [facility] 4.2.7.2.686 [place] as [phone] [facility] 009 Branch 2020-09-20 2020-09-20 Outpatient Saurabh, [facility] [id number] [facility] 09:00:00 09:00:00 Julia [id number] [facility] 2020-08-20 2020-08-20 Outpatient EL Saurabh, AGNES TERESAI [id number] [facility] 12:00:00 12:00:00 Julia [id number] [facility] 2020-03-09 2020-03-09 Outpatient Saurabh, HCAPM HCAPM [id number] [facility] 09:00:00 09:00:00 Julia [id number] [facility] 2020-02-09 2020-02-09 Outpatient Saurabh, HCAPM [facility] [id number] [facility] 13:48:00 13:48:00 Julia [id number] [facility] 2019-10-04 2019-10-04 Outpatient Saurabh, HCA [facility] [id number] [facility] 09:30:00 09:30:00 Julia [id number] [facility] 2019-09-23 2019-09-23 Outpatient Saurabh, [facility] [id number] [facility] 16:48:00 16:48:00 Julia [id number] [facility] 2019-08-15 2019-08-15 Outpatient EL Saurabh, HCAADI MICHELLE [id number] [facility] 12:00:00 12:00:00 Julia [id number] [facility] Results Test Description Test Time Test Comments Results Result [facility] e Comments - SP FLUORO GUID 2020-05-21 Name: AARON HUFFMAN CTRL ACC DEV 13:23:00 [facility] [place] : 1960 Age/S: 60 / F [id number] Unit #: [id number] Loc: [place] [address] Phys: Julia Wiley MD Acct: [id number] Dis Date: Status: [facility] PHONE #: [phone] Exam Date: 05/21/2020 1250 FAX #: Reason: CANCER TREATMENT COMPLETE EXAMS: CPT: [id number] SP FLUORO GUID CTRL ACC DEV [id number] Fluoro Time: 00:14 DAP (Gy m2): 0.25 [...] minutes. TECHNIQUE: Prior to beginning the procedure, [place] Protocol was used to confirm the patient's [...] signed by: Jordi Shannon M.D. CC: Nancy GARRIDOP Miah; Julia Wiley MD PAGE 1 Signed Report Name: [facility] : 1960 Age/S: 60 / F [address] [facility] Unit #: [id number] Loc: [place] [address] Phys: Julia Wiley MD Acct: [id number] Dis Date: Status: REG [facility] PHONE #: [phone] Exam Date: 05/21/2020 1252 FAX #: Reason: CANCER TREATMENT COMPLETE EXAMS: CPT: [id number] SP FLUORO GUID CTRL ACC DEV [id number] Fluoro Time: 00:14 DAP (Gy m2): 0.25 Air Kerma (mGy): 1 <Continued> Technologist: RT Jazzmine(R) Trnscb Date/Time: 05/21/2020 (1323) [email or web address] Orig Print D/T: S: 05/21/2020 (1987) PAGE 2 Signed Report COVID 19 INHOUSE AG 2020-05-21 11:54:00 Test Item Value Reference Range Interpretation Comme nts COVID 19 INHOUSE AG (test code = NEGATIVE Negative Per stock handler, negative [id number]) results should be treated aspresumptive a nd, [...] nd symptoms consistent with COVID-19. BREAST,EXCISION OF LESION/[id number] 16:54:00 RUN DATE: 03/23/19 [facility] PAGE 1 RUN TIME: 1654 Specimen Inquiry RUN USER: INTERFACE PATIENT: AARON HUFFMAN LOC: [place] U #: [id number] AGE/SX: 59/F ROOM: RE03/17/19REG DR: Surjit Jensen : [birth year] BED: DIS: STATUS: [facility] TLOC: SPEC #: [id number] RECD: 03/17/19 STATUS: JUAN R LANG #: [id number] AGUSTO: 03/17/19- SUBM DR: Surjit Jensen MD ENTERED: 03/18/19 SP TYPE: BREAST,EXC OTHR DR: ORDERED: LEVEL SURGIC CODES: U91067 - BREAST, NOS PROCEDURES: LEVEL SURGIC (Incomplete) [...] Specimen Inquiry RUN USER: INTERFACE SPEC #: [id number] PATIENT: AARON HUFFMAN #[id number] (Continued) FINAL DIAGNOSIS (Continued) Overall Grade: Grade [...] intensity Microcalcifications: Presentin non-neoplastic tissue CPT code(s): 89580 x3, 06769-88, 24539-68 carlos/donny dt: 03/23/19 CONTINUED ON NEXT PAGE RUN DATE: 03/23/19 [facility] PAGE 3 RUN TIME: 1654 Specimen Inquiry RUN USER: INTERFACE SPEC #: [id number] PATIENT: AARON HUFFMAN #[id number] (Continued) - GROSS DESCRIPTION ANATOMIC SOURCE OF [...] and A2 Slice 2 - A3 and E7Lkwae 3 - A5 through A7 Slice 4 [...] 1654 Specimen Inquiry RUN USER: INTERFACE SPEC #:[id number] PATIENT: AARON HUFFMAN #[id number] (Continued) GROSS DESCRIPTION (Continued) consists of a [...] inferior Black - posterior Green - anterior [place] - medial Yellow - lateral Section code: [...] displays a 0.6 cm dacosta-wilhelm, firm nodule. Land Law Examiner sections are submitted labeled C1 - 1 [...] Specimen Inquiry RUN USER: INTERFACE SPEC #: [id number] PATIENT: AARON HUFFMAN #[id number] (Continued) MICROSCOPIC DESCRIPTION (Continued) lymphovascular invasion and [...] with no extracapuslar extension. No fibrosis identified. ls/kr dt: 03/23/19 The following technical components were performed at [facility] [address]. The interpretation is provided by [facility], [address] [place] [address]. Controls received from [facility] stained appropriately. INTERPRETATION: Block A6: D2-40 and CD31- See above for results. Prognostic Markers performed and interpreted 03/23/19 at [facility] ER: POSITIVE Tumor Stained: 62% Intensity: 3+ Internal control: Present GA: POSITIVE Tumor Stained: 43% Intensity: 1+ Internal control: Present HER2 (IHC): NEGATIVE Score: 1+ Ki67: LOW, 5% Intensity: 3+ Signed SIGNATURE ON FILE Catherine Kelly MD 03/23/19 1654 END OF REPORT CHEMISTRY 7 [id number] 14:59:00 Test Item Value Reference Range Interpretation [...] = CA) 9.6 mg/dL 8.4-10.2 N HGB [id number] 14:27:00 Test Item Value Reference Range Interpretation Comments HEMOGLOBIN (test code = HGB) 12.4 g/dL 10.7-13.9 N HEMATOCRIT (test code = HCT) 38.6 % 32.1-42.1 N - USG NDL PLACEMENT (Bxg/Asp)2019-01-11 11:50:00 Name: [facility] : 1960 Age/S: 59 / F [address] [facility] Unit #: [id number] Loc: [place] [address] Phys: Julia Wiley MD Acct: [id number] Dis Date: Status: DEP [facility] PHONE #: [phone] Exam Date: 01/11/2019 1135 FAX #: Reason: ASPIRATION EXAMS: CPT: [id number] USG NDL PLACEMENT (Bxg/Asp) 92660 PROCEDURE:PERCUTANEOUS IMAGE GUIDED ASPIRATION. LOCATION: S 17. HISTORY: Scalp abscess. SEDATION: The patient did not require conscious sedation for the procedure. TECHNIQUE: The risks, benefits, and alternatives were discussed and informed consent was obtained. Prior to beginning the procedure, [place] Protocol was used to confirm the patient's [...] HUFFMAN : 1960 Age/S: 59 / F [address] Unit #: [id number] Loc: [place] [address] Phys: Julia Wiley MD Acct: [id number] Dis Date: Status: DEP CLI PHONE #: [phone] Exam Date: 01/11/2019 1139 FAX #: Reason: ASPIRATION EXAMS: CPT: [id number] USG NDL PLACEMENT (Bxg/Asp) 92740 <Continued> CC: Nancy Wiley MD Technologist: Slime Dubois, RT(R),RDMS(AB) Trnscb Date/Time: 01/11/2019 (3270) [email or web address] PAGE 2 Signed Report Name: AARON HUFFMAN : 1960 Age/S: 59 / F [address] Unit #: [id number] Loc: [place] [address] Phys: Julia Wiley MD Acct: [id number] Dis Date: Status: DEP CLI PHONE #: [phone] Exam Date: 01/11/2019 1139 FAX #: Reason: ASPIRATION EXAMS: CPT: [id number] USG NDL PLACEMENT (Bxg/Asp) 91154 <Continued> Orig Print D/T: S: 01/11/2019 (7773) Probe: PAGE 3 Signed Report- USG NDL PLACEMENT (Bxg/Asp)2019-01-11 11:50:00 Name: AARON HUFFMAN [place] : 1960 Age/S: 59 / F [address] Unit #: [id number] Loc: [place] [address] Phys: Julia Wiley MD Acct: [id number] Dis Date: Status: REG CLI PHONE #: [phone] Exam Date: 01/11/2019 1131 FAX #: Reason: ASPIRATION EXAMS: CPT: [id number] USG NDL PLACEMENT (Bxg/Asp) 28608 PROCEDURE:PERCUTANEOUS IMAGE GUIDED ASPIRATION. LOCATION: S 17. HISTORY: Scalp abscess. SEDATION: The patient did not require conscious sedation for the procedure. TECHNIQUE: The risks, benefits, and alternatives were discussed and informed consent was obtained. Prior to beginning the procedure, [place] Protocol was used to confirm the patient's [...] 1 Signed Report (CONTINUED) Name: [facility] : 1960 Age/S: 59 / F [address] [address] Unit #: [id number] Loc: [place] [address] Phys: Julia Wiley MD Acct: [id number] Dis Date: Status: REG CLI PHONE #: [phone] Exam Date: 01/11/2019 1138 FAX #: Reason: ASPIRATION EXAMS: CPT: [id number] USG NDL PLACEMENT (Bxg/Asp) [id number] <Continued> CC: Nancy Wiley MD Technologist: Slime Dubois, RT(R),RDMS(AB) Trnmab Date/Time: 01/11/2019 (1150) [email or web address] PAGE 2 Signed Report Name: [facility] : 1960 Age/S: 59 / F [address] [address] Unit #: [id number] Loc: [place] [address] Phys: Julia Wiley MD Acct: [id number] Dis Date: Status: REG CLI PHONE #: [phone] Exam Date: 01/11/2019 1135 FAX #: Reason: ASPIRATION EXAMS: CPT: [id number] USG NDL PLACEMENT (Bxg/Asp) [id number] <Continued> Orig Print D/T: S: 01/11/2019 (1998) Probe: PAGE 3 Signed Report- SP FLUORO GUID CTRL ACC [id number] 11:21:00 Name: [facility] : 1960 Age/S: 58 / F [address] [address] Unit #: [id number] Loc: [place] [address] Phys: Gareth Hernandez MD Acct: [id number] Dis Date: Status: DEP [facility] PHONE #: [phone] Exam Date: 08/05/2018 1100 FAX #: Reason: EXAMS: CPT: [id number] SP FLUORO GUID CTRL ACC DEV [id number] Fluoro Time: 00:52 DAP (Gy m2): 0.87 Air Kerma (mGy): 4 EXAMINATION: PORT CATHETER PLACEMENT. LOCATION: S 17. HISTORY: Left breast cancer. SEDATION: Under physician supervision, Versed and Fentanyl were administered intravenously for moderate sedation. Pulse oximetry, heart rate, and BP were continuously monitored by an independent trained ob surveillance observer present. The physician spent 30 minutes of face to face sedation time with the patient. RADIATION DOSE: Total reference air kerma 3.0 mGy. ANTIBIOTICS: None. Not indicated. CONTRAST: None. TECHNIQUE: The risks, benefits, and alternatives were discussed and informed consent was obtained. Prior to beginning the procedure, [place] Protocol was used to confirm the patient's identity and planned procedure. Maximum sterile barriers including cap, mask, hand hygiene, sterile gloves, sterile gown, large sterile drape and cutaneous antisepsis were used. The skin over the right internal j ugular vein was sterilely prepped, draped, and infiltrated [...] assessed. After infiltrating the skin in the subclavicular region with lidocaine, a short transverse incision was made and the pocket for the port reservoir was formed by blunt dissection. The catheter was tunneled to the access site, cut to the appropriate length, and inserted through a peel-away sheath. The catheter was flushed and the access needle was removed. The deep tissues were approximated using 4-0 Monocryl and the superficial incision closed using Dermabond. The incision in the PAGE 1 Signed Report (CONTINUED) Name: [facility] : 1960 Age/S: 58 / F [address] [address] Unit #: [id number] Loc: [place] [address] Phys: Gareth Hernandez MD Acct: [id number] Dis Date: Status: [facility] PHONE #: [phone] Exam Date: 08/05/2018 1100 FAX #: Reason: EXAMS: CPT: [id number] SP FLUORO GUIDCTRL ACC DEV [id number] Fluoro Time: 00:52 DAP (Gy m2): 0.87 [...] signed by: Gareth Hernandez M.D. CC: Nancy Dooley; Gareth Hernandez MD PAGE 2 Signed Report Name: [facility] [place] : 1960 Age/S: 58 / F [address] [address] Unit #: [id number] Loc: [place] [address] Phys: Gareth Hernandez MD Acct: [id number] Dis Date: Status: DEP [facility] PHONE #: [phone] Exam Date: 08/05/2018 1100FAX #: Reason: EXAMS: CPT: [id number] SP FLUORO GUID CTRL ACC DEV [id number] Fluoro Time: 00:52 DAP (Gy m2): 0.87 Air Kerma (mGy): 4 <Continued> Technologist: RT Jazzmine(R) Trnmab Date/Time: 2017 (1123) [email or web address] Orig Print D/T: S: 08/05/2018 (7989) PAGE 3 Signed Report
--- NOTE | 2022-01-25 15:07 | RAD REPORT ---
EXAM DESCRIPTION: CTSpine Lumbar Wo Con01/25/2022 2:56 pm CLINICAL HISTORY: Fall with back pain COMPARISON: None TECHNIQUE: Computed axial tomography lumbar spine was obtained with coronal and sagittal reconstruct ion. All CT scans are performed using dose optimization technique as appropriate and may include automated exposure control or mA/KV adjustment according to patient size. FINDINGS: No fracture is seen. No dislocation is noted. Small right posterior-lateral disc bulge L4-5 Slight posterior subluxation of L5 on S1 is chronic. Vacuum phenomena is present at this level with s mall disc bulge A high-grade stenosis is not noted. IMPRESSION: Negative for a lumbar fracture. If patient's symptoms do not resolve MRI would be recommended
--- NOTE | 2022-01-25 15:12 | RAD REPORT ---
EXAM DESCRIPTION: CTThoracic Spine W/o Cont01/25/2022 2:55 pm CLINICAL HISTORY: Back injury with Back pain status post fall COMPARISON: None TECHNIQUE: Computed axial tomography of thoracic spine was obtained with coronal and sagittal recons truction. All CT scans are performed using dose optimization technique as appropriate and may include automated exposure control or mA/KV adjustment according to patient size. FINDINGS: No fracture is seen. No dislocation is noted. High-grade central/foraminal stenosis is not seen IMPRESSION: Negative for a thoracic fracture If the patient has clinical symptoms to suggest spinal cord/spinal canal pathology then MRI would be recommended.
--- NOTE | 2022-01-25 15:19 | RAD REPORT ---
EXAM DESCRIPTION: CT - Pelvis Wo Cont - 01/25/2022 2:57 pm CLINICAL HISTORY: Right hip pain status post fall COMPARISON: None. TECHNIQUE: Computed axial tomography of the pelvis was obtained. Coronal and sagittal reconstruction performed All CT scans are performed using dose optimization technique as appropriate and may include automated exposure control or mA/KV adjustment according to patient size. FINDINGS: No fracture or dislocation is seen. Mild osteoarthritis involves the hips Muscles are normal size and density. A subcutaneous contusion is not noted No significant hip joint effusion IMPRESSION: No fracture seen
--- NOTE | 2022-01-25 15:19 | RAD REPORT ---
EXAM DESCRIPTION: RAD - Hip Right 2 View - 01/25/2022 3:11 pm CLINICAL HISTORY: Right hip pain FINDINGS: No fracture or dislocation is seen.
--- NOTE | 2022-01-25 15:20 | RAD REPORT ---
EXAM DESCRIPTION: RAD - Femur Right - 01/25/2022 3:11 pm CLINICAL HISTORY: Leg pain FINDINGS: No fracture is seen.
[2022-01-25 15:27] LABS: Absolute Lymphocytes (CBC) 2.3 K/uL (0.7-4.9); Hematocrit 43.2 % (36.0-45.0); Lymphocytes % 46.4 % (15.3-44.8); MPV 9.5 fL (7.6-11.3); RBC Red Blood Cell Count 5.04 M/uL (3.86-4.86)
[2022-01-25] MEDS ORDERED: MORPHINE 4 MG/ML SYR ONE (15:28)
[2022-01-25] MEDS ORDERED: ONDANSETRON 4 MG/2 ML VIAL ONE (15:29)
[2022-01-25] MEDS ORDERED: NA CHLORIDE 0.9% 1,000 ML ONE (15:29)
[2022-01-25] MEDS ORDERED: KETOROLAC 30 MG/ML INJ ONE (15:29)
[2022-01-25 15:44] LABS: Albumin 3.5 g/dL (3.4-5.0); Bilirubin Total 0.4 mg/dL (0.2-1.0); Potassium 3.9 mmol/L (3.5-5.1)
--- NOTE | 2022-01-25 15:45 | ER ---
Nurse's Notes [facility] Name: Azalia Duncan Age: 62 yrs Sex: Female : 1960 Arrival Date: 01/25/2022 Time: 13:02 Bed 15 Private MD: Diagnosis: Fall on same level, unspecified;Low back pain;Pain in right hip Presentation: 01/25 13:05 Chief complaint: Chief complaint: Patient states: Slipped on wet carpet last night ll1 around 10 pm. Started hurting on R leg and R lower back today. Initial Sepsis Screen: Does the patient meet any 2 criteria? No. Patient's initial sepsis screen is negative. Does the patient have a suspected source of infection? No. Patient's initial sepsis screen is negative. Risk Assessment: Do you want to hurt yourself or someone else? Patient reports no desire to harm self or others. 13:05 Method Of Arrival: Wheelchair ll1 13:05 Acuity: CONOR 3 ll1 13:13 Coronavirus screen: Vaccine status: Patient reports receiving the 2nd dose of the covid ll1 vaccine. Client denies travel out of the [place] in the last 14 days. At this time, the client does not indicate any symptoms associated with coronavirus-19. Ebola Screen: Patient denies travel to an Ebola-affected area in the 21 days before illness onset. Onset of symptoms was January 25, 2022. Triage Assessment: 13:14 General: Appears uncomfortable, Behavior is cooperative, appropriate for age. Pain: ll1 Complains of pain in right leg and R lower back Quality of pain is described as aching, throbbing, Aggravated by increased activity. Neuro: No deficits noted. Cardiovascular: No deficits noted. Respiratory: No deficits noted. Musculoskeletal: Reports pain in right leg and R lower back. Injury Description: Bruise. Historical: - Allergies: 13:04 NKDA; ll1 - PMHx: 13:04 Depression; Hyperlipidemia; Hypertension; Cancer, Breast; Asthma; Anxiety; left breast ll1 cancer; - Immunization history:: Adult Immunizations unknown. - Social history:: Smoking status: unknown. Screenin:02 Abuse screen: Denies threats or abuse. Denies injuries from another. Nutritional ph screening: No deficits noted. Tuberculosis screening: No symptoms or risk factors identified. Fall Risk Fall in past 12 months (25 points). No secondary diagnosis (0 pts). No IV (0 pts). Ambulatory Aid- None/Bed Rest/Nurse Assist (0 pts). Gait- Normal/Bed Rest/Wheelchair (0 pts) Mental Status- Oriented to own ability (0 pts). Total Schulz Fall Scale indicates High Risk Score (45 or more points). Fall prevention measures have been instituted. Side Rails Up X 2 Placed Close to Nursing Station Frequent Obs/Assessments Occuring As available patient and family educated on Fall Prevention Program and Strategies. Assessment: 14:00 General: Appears in no apparent distress. uncomfortable, well groomed, Behavior is ph cooperative, appropriate for age. Pain: Complains of pain in anterior aspect of right lateral abdomen and posterior aspect of right lateral abdomen and right leg and right hip and right low back. Neuro: Level of Consciousness is awake, alert, obeys commands, Oriented to person, place, time, situation. Cardiovascular: Capillary refill < 3 seconds in bilateral fingers Patient's skin is warm and dry. Respiratory: Airway is patent Respiratory effort is even, unlabored, Respiratory pattern is regular, symmetrical. GI: Abdomen is round non-distended. Derm: Skin is intact, is healthy with good turgor, Skin is pink, warm \T\ dry. 15:30 Reassessment: Patient appears in no apparent distress at this time. Patient and/or ph family updated on plan of care and expected duration. Pain level reassessed. Patient is alert, oriented x 3, equal unlabored respirations, skin warm/dry/pink. Vital Signs: 13:13 BP 147 / 111; Pulse 62; Resp 20; Temp 98.1; Pulse Ox 100% ; Pain 10/10; ll1 14:00 BP 151 / 101; Pulse 67; Resp 18; Pulse Ox 99% on R/A; ph 15:35 BP 146 / 87; Pulse 64; Resp 16; Pulse Ox 99% on R/A; ph 16:30 BP 145 / 82; Pulse 67; Resp 18; Pulse Ox 99% on R/A; ph ED Course: 13:02 Patient arrived in ED. [email or web address] 13:05 Arm band placed on. ll1 13:08 Triage completed. ll1 13:13 Allen Gonzalez MD is Attending Physician. [facility] 13:14 Beth Mcallister, RN is Primary Nurse. ph 13:15 Patient placed in an exam room, on a stretcher. ll1 14:08 Missed attempt(s): 22 gauge in right antecubital area. Bleeding controlled, band aid ph applied, catheter tip intact. Missed attempt(s): 24 gauge in right hand. Bleeding controlled, band aid applied, catheter tip intact. 14:57 CT Thoracic Spine Wo Cont In Process Unspecified. EDMS 15:02 CT Lumbar Spine Wo Con In Process Unspecified. EDMS 15:02 CT Pelvis wo Cont In Process Unspecified. EDMS 15:02 Patient has correct armband on for positive identification. Bed in low position. Call ph light in reach. Side rails up X2. Pulse ox on. NIBP on. Warm blanket given. 15:12 Inserted saline lock: 22 gauge in right antecubital area, using aseptic technique. ss Blood collected. 15:13 Femur Right XRAY In Process Unspecified. EDMS 15:13 Hip Right 2 View XRAY In Process Unspecified. EDMS 15:44 Pa Lawrence MD is Referral Physician. maria g 17:07 No provider procedures requiring assistance completed. IV discontinued, intact, ss bleeding controlled, No redness/swelling at site. Pressure dressing applied. Administered Medications: 15:28 Drug: NS 0.9% 1000 ml Route: IV; Rate: 1 bolus; Site: right antecubital; ph 17:00 Follow up: Response: No adverse reaction; IV Status: Completed infusion ph 15:28 Drug: Zofran (Ondansetron) 4 mg Route: IVP; Site: right antecubital; ph 17:07 Follow up: Response: No adverse reaction ss 15:30 Drug: Ketorolac 30 mg Route: IVP; Site: right antecubital; ph 17:07 Follow up: Response: No adverse reaction ss 15:32 Drug: morphine 4 mg Route: IVP; Infused Over: 4 mins; Site: right antecubital; ph 17:07 Follow up: Response: No adverse reaction ss Medication: 15:03 VIS not applicable for this client. ph Outcome: 15:44 Discharge ordered by . maria g 17:07 Discharged to home ambulatory. ss 17:07 Condition: improved 17:07 Discharge instructions given to patient, Instructed on discharge instructions, follow up and referral plans. medication usage, Demonstrated understanding of instructions, follow-up care, medications, Prescriptions given X 3. 17:08 Patient left the ED. Signatures: Dispatcher [employer] EDGA Allen Gonzalez MD MD cha Smirch, Shelby RN RN ss Beth Mcallister RN RN Mio Browning RN RN ll1 Ca Toney [email or web address] Corrections: (The following items were deleted from the chart) 13:14 13:05 Chief complaint: ll1 ll1
--- NOTE | 2022-01-25 15:45 | EDPHYS ---
Physician Documentation [facility] Name: Azalia Duncan Age: 62 yrs Sex: Female : 1960 Arrival Date: 01/25/2022 Time: 13:02 Bed 15 Private MD: ED Physician Allen Gonzalez HPI: 01/25 13:38 This 62 yrs old Black Female presents to ER via Wheelchair with complaints of Fall maria g Injury. 13:38 Details of fall: The patient fell from an upright position, while walking. Onset: The maria g symptoms/episode began/occurred 4 day(s) ago. Associated injuries: The patient sustained upper back injury, injury to the low back, decreased range of motion, pain, pain with movement. Severity of symptoms: At their worst the symptoms were mild, moderate, in the emergency department the symptoms are unchanged. The patient has not experienced similar symptoms in the past. Historical: - Allergies: 13:04 NKDA; ll1 - PMHx: 13:04 Depression; Hyperlipidemia; Hypertension; Cancer, Breast; Asthma; Anxiety; left breast ll1 cancer; - Immunization history:: Adult Immunizations unknown. - Social history:: Smoking status: unknown. ROS: 13:39 Constitutional: Negative for fever, chills, and weight loss, Eyes: Negative for injury, maria g pain, redness, and discharge, ENT: Negative for injury, pain, and discharge, Neck: Negative for injury, pain, and swelling, Cardiovascular: Negative for chest pain, palpitations, and edema, Respiratory: Negative for shortness of breath, cough, wheezing, and pleuritic chest pain, Abdomen/GI: Negative for abdominal pain, nausea, vomiting, diarrhea, and constipation, : Negative for injury, bleeding, discharge, and swelling, Skin: Negative for injury, rash, and discoloration, Neuro: Negative for headache, weakness, numbness, tingling, and seizure, Psych: Negative for depression, anxiety, suicide ideation, homicidal ideation, and hallucinations, Allergy/Immunology: Negative for hives, rash, and allergies, Endocrine: Negative for neck swelling, polydipsia, polyuria, polyphagia, and marked weight changes, Hematologic/Lymphatic: Negative for swollen nodes, abnormal bleeding, and unusual bruising. 13:39 Back: Positive for decreased range of motion, pain at rest, pain with movement, of the lumbar area and right low back. 13:39 MS/extremity: Positive for injury or acute deformity, decreased range of motion, pain, of the right hip. Exam: 13:39 Constitutional: This is a well developed, well nourished patient who is awake, alert, maria g and in no acute distress. Head/Face: Normocephalic, atraumatic. Eyes: Pupils equal round and reactive to light, extra-ocular motions intact. Lids and lashes normal. Conjunctiva and sclera are non-icteric and not injected. Cornea within normal limits. Periorbital areas with no swelling, redness, or edema. ENT: Nares patent. No nasal discharge, no septal abnormalities noted. Tympanic membranes are normal and external auditory canals are clear. Oropharynx with no redness, swelling, or masses, exudates, or evidence of obstruction, uvula midline. Mucous membranes moist. Neck: Trachea midline, no thyromegaly or masses palpated, and no cervical lymphadenopathy. Supple, full range of motion without nuchal rigidity, or vertebral point tenderness. No Meningismus. Chest/axilla: Normal chest wall appearance and motion. Nontender with no deformity. No lesions are appreciated. Cardiovascular: Regular rate and rhythm with a normal S1 and S2. No gallops, murmurs, or rubs. Normal PMI, no JVD. No pulse deficits. Respiratory: Lungs have equal breath sounds bilaterally, clear to auscultation and percussion. No rales, rhonchi or wheezes noted. No increased work of breathing, no retractions or nasal flaring. Back: No spinal tenderness. No costovertebral tenderness. Full range of motion. Female : Normal external genitalia. Skin: Warm, dry with normal turgor. Normal color with no rashes, no lesions, and no evidence of cellulitis. Neuro: Awake and alert, GCS 15, oriented to person, place, time, and situation. Cranial nerves II-XII grossly intact. Motor strength 5/5 in all extremities. Sensory grossly intact. Cerebellar exam normal. Normal gait. Psych: Awake, alert, with orientation to person, place and time. Behavior, mood, and affect are within normal limits. 13:39 Abdomen/GI: Inspection: distension, that is mild, Bowel sounds: normal, Palpation: mild abdominal tenderness, in the posterior aspect of right lateral abdomen, anterior aspect of right lateral abdomen and right lower quadrant, Liver: no appreciated palpable abnormalities, Hernia: not appreciated. Vital Signs: 13:13 BP 147 / 111; Pulse 62; Resp 20; Temp 98.1; Pulse Ox 100% ; Pain 10/10; ll1 14:00 BP 151 / 101; Pulse 67; Resp 18; Pulse Ox 99% on R/A; ph 15:35 BP 146 / 87; Pulse 64; Resp 16; Pulse Ox 99% on R/A; ph 16:30 BP 145 / 82; Pulse 67; Resp 18; Pulse Ox 99% on R/A; ph MDM: 13:13 Patient medically screened. maria g 13:41 Differential diagnosis: closed fracture, contusion, abrasion, tendonitis. Differential maria g diagnosis: fracture, multiple trauma, sprain, strain. Data reviewed: vital signs, nurses notes, lab test result(s), radiologic studies, CT scan, plain films. Data interpreted: surveillance system monitor: rate is 62 beats/min, rhythm is regular, Pulse oximetry: on room air is 100 %. Test interpretation: by ED physician or midlevel provider: plain radiologic studies. Counseling: I had a detailed discussion with the patient and/or guardian regarding: the historical points, exam findings, and any diagnostic results supporting the discharge/admit diagnosis, lab results, radiology results. 01/25 13:38 Order name: CBC with Diff; Complete Time: 15:37 [facility] 01/25 13:38 Order name: Comprehensive Metabolic Panel; Complete Time: 15:45 [facility] 01/25 13:38 Order name: Femur Right XRAY; Complete Time: 15:37 [facility] 01/25 13:38 Order name: Hip Right 2 View XRAY; Complete Time: 15:37 [facility] 01/25 13:38 Order name: CT Thoracic Spine Wo Cont; Complete Time: 15:37 [facility] 01/25 13:38 Order name: CT Lumbar Spine Wo Con; Complete Time: 15:37 [facility] 01/25 14:45 Order name: CT Pelvis wo Cont; Complete Time: 15:37 eb Administered Medications: 15:28 Drug: NS 0.9% 1000 ml Route: IV; Rate: 1 bolus; Site: right antecubital; ph 17:00 Follow up: Response: No adverse reaction; IV Status: Completed infusion ph 15:28 Drug: Zofran (Ondansetron) 4 mg Route: IVP; Site: right antecubital; ph 17:07 Follow up: Response: No adverse reaction ss 15:30 Drug: Ketorolac 30 mg Route: IVP; Site: right antecubital; ph 17:07 Follow up: Response: No adverse reaction ss 15:32 Drug: morphine 4 mg Route: IVP; Infused Over: 4 mins; Site: right antecubital; ph 17:07 Follow up: Response: No adverse reaction ss Disposition Summary: 01/25/22 15:44 Discharge Ordered Location: Home maria g Problem: new maria g Symptoms: have improved maria g Condition: Stable maria g Diagnosis - Fall on same level, unspecified maria g - Low back pain maria g - Pain in right hip maria g Followup: maria g - With: Private Physician - When: 2 - 3 days - Reason: Recheck today's complaints, Continuance of care, Re-evaluation by your physician Followup: maria g - With: Pa Lawrence MD - When: 2 - 3 days - Reason: Recheck today's complaints, Re-evaluation by your physician Discharge Instructions: - Discharge Summary Sheet maria g - Joint Pain maria g - Acute Back Pain, Adult maria g - Musculoskeletal Pain maria g - Back Injury Prevention, [id number] maria g - Hip Pain maria g Forms: - Medication Reconciliation Form [facility] - Thank You Letter [facility] - Antibiotic Education [facility] - Prescription Opioid Use [facility] Prescriptions: - Ibuprofen 600 mg Oral Tablet - take 1 tablet by ORAL route every 6 hours As needed take with food; 30 tablet; [facility] Refills: 0, Product Selection Permitted - Cyclobenzaprine 5 mg Oral Tablet - take 1 tablet by ORAL route 3 times per day As needed; 15 tablet; Refills: 0, [facility] Product Selection Permitted - Tylenol-Codeine #3 300 mg-30 mg Oral - take 2 tablet by ORAL route every 6 hours; 26 tablet; Refills: 0, Product [facility] Selection Permitted Signatures: Dispatcher [employer] EDAllen Holland MD MD cha Hall, Patricia, RN RN ph Mio Dudley RN RN ll Berna Disla RN ss Corrections: (The following items were deleted from the chart) 14:51 14:08 Pelvis+RAD.RAD.BRZ ordered. EDMS EDMS
[2022-01-25 17:37] VITALS: BP 147/111; TEMP 98.1; O2SAT 100
== END 2022-01-25 17:08 | disposition home or self-care (01) ==
LOC: ER 13:01
DX: M54.50 Low back pain, unspecified (principal); M25.551 Pain in right hip; W18.30XA Fall on same level, unspecified, initial encounter; I10 Essential (primary) hypertension; Z85.3 Personal history of malignant neoplasm of breast
CPT/HCPCS: 96361; 85025; 36415; 80053; 72131; 72128; 72192; 73502; 73552; 96375; 96374; 99284; J7030; J2405

== ENCOUNTER 2023-08-01 09:03 | Emergency (ER) | payer OTHER ==
--- OUTSIDE RECORDS SUMMARY | 2023-08-01 09:05 | XMS REPORT | Continuity of Care Document ---
Author Name Unknown Address [address] [facility] [address] [place] [address] [facility] thconnect Address [address] [facility] [address] [place] [address] Care Team Providers Care Knock Up Assembler Name Role Phone Ely Avila MD Primary Care Physician + [phone] Nancy Dooley Attending Clinician Unavailable Julia Wiley Attending Clinician Unavailable José Antonio Shannon Attending Clinician UnavailSurjit Mohan Attending Clinician Unasong Colón RN, Nancy Brcue Attending Clinician Unav MICHELLE Maria Attending Clinician Unavailable ELY AVILA Attending Clinician Unavailable Ely Avila MD Attending Clinician [phone] Doctor Unassigned, [place] Attending Clinician U Nancy Emerson Admitting Clinician Unavail able Julia Wiley Admitting Clinician Unavailable Physician, No Primary or Family Admitting Clinic gabriella Unavailable Payers Payer Name Policy Type Policy Number Effective Date Expirati on Date Source Problems Condition Name Condition Details Condition Category Status Onset Date Resolution Date Last Treatment Date Treating Clinician Comments Source Exposure to syphilis Exposure to syphilis Disease Active 10-12 00:00: 00 [facility] Exposure to hepatitis C Exposure to hepatitis C Disease Active 10-12 00:00: 00 [facility] Screening for malignant neoplasm of colon Screening for malignant neoplasm of colon Disease Active 10-12 00:00: 00 [facility] Anxiety and depression Anxiety and depression Disease Active 10-12 00:00: 00 [facility] History of left breast cancer History of left breast cancer Disease Active 10-12 00:00: 00 [facility] Nicotine dependence , cigarettes , in remission Nicotine dependence , cigarettes , in remission Disease Active 10-12 00:00: 00 [facility] Screening for malignant neoplasm of the cervix Screening for malignant neoplasm of the cervix Disease Active 10-12 00:00: 00 [facility] No known active problems No known active problems Disease [facility] Allergies, Adverse Reactions, Alerts Allergy Name Allergy Type Status Severity Reaction(s) Onset Date Inactive Date Treating Clinician Comments Source No Known Allergie s DA Active U 19 00:00: 00 [facility] No Known Allergie s DA Active U 0 19 00:00: 00 [facility] No Known Drug Allergie s DA Active U 0 5-21 00:00: 00 [facility] No Known Allergie s DA Active U 0 1-08 00:00: 00 [facility] No Known Allergie s DA Active U 2017-08 2-13 00:00: 00 [facility] NO KNOWN ALLERGIE S Drug Class Active [facility] Social History Social Habit Start Date Stop Date Quantity Comments Source History of tobacco use Cigarette Smoker [facility] Exposure to SARS-CoV-2 (event) Not sure [facility] Cigarettes smoked current (pack per day) - Reported 2020-10-14 00:00:00 2020-10-14 00:00:00 [facility] Tobacco use and exposure 2020-10-14 00:00:00 2020-10-14 00:00:00 Never used [facility] Alcohol intake 2020-10-14 00:00:00 2020-10-14 00:00:00 Current non-drinker of alcohol (finding) [facility] Sex Assigned At 1960 00:00:00 1960 00:00:00 [facility] Smoking Status Start Date Stop Date Source Current every day smoker 2020-10-14 00:00:00 [facility] Medications Ordered Medication Name Filled Medication Name Start Date Stop Date Current Medication? Ordering Clinician Indication Dosage Frequency Signature (SIG) Comments Components Source penicillin g benzathine (BICILLIN L-A) injection 2.4 Million Units 10-12 19:30: 00 10-12 18:28 :00 No [id number] 2.410 2.4 Million Units, Intramuscu lar, ONCE, 1 dose, 10/12/20 at 1330, JORGE LUIS
Re ason for Anti-Infec tive: Documented Infection< br>Documen chaim Infection Site: Other
O ther site: Syhilis
Duration of Therapy: Other (see Comments) [facility] penicillin g proc & benzathine (BICILLIN C-R) 1,200,000 unit/ 2 mL(600k/600 k) injection 2.4 Million Units 10-12 19:30: 00 10-12 18:26 :52 No [id number] 2.410 [facility] penicillin g benzathine (BICILLIN L-A) injection 2.4 Million Units 10-12 19:30: 00 10-12 18:28 :00 No [id number] 2.410 [facility] penicillin g benzathine (BICILLIN L-A) injection 2.4 Million Units 10-12 19:30: 00 10-12 18:28 :00 No [id number] 2.410 2.4 Million Units, Intramuscu lar, ONCE, 1 dose, 10/12/20 at 1330, JORGE LUIS
Re ason for Anti-Infec tive: Documented Infection< br>Documen chaim Infection Site: Other
O ther site: Syhilis
Duration of Therapy: Other (see Comments) [facility] penicillin g proc & benzathine (BICILLIN C-R) 1,200,000 unit/ 2 mL(600k/600 k) injection 2.4 Million Units 10-12 19:30: 00 10-12 18:26 :52 No [id number] 2.410 [facility] penicillin g benzathine (BICILLIN L-A) injection 2.4 Million Units 10-12 19:30: 00 10-12 18:28 :00 No [id number] 2.410 [facility] penicillin g benzathine (BICILLIN L-A) injection 2.4 Million Units 10-12 19:15: 00 10-12 18:15 :25 No [id number] 2.410 [facility] penicillin g benzathine (BICILLIN L-A) injection 2.4 Million Units 10-12 19:15: 00 10-12 18:15 :25 No [id number] 2.410 [facility] losartan (COZAAR) 100 mg tablet 2015-08 16:32: 23 Yes 100mg Take 100 mg by mouth daily. [facility] MULTIVITAMI N ORAL 2015-08 16:32: 23 Yes 1{tbl} Take 1 Tab by mouth daily. [facility] losartan (COZAAR) 100 mg tablet 2015-08 16:32: 23 Yes 100mg Take 100 mg by mouth daily. [facility] MULTIVITAMI N ORAL 2015-08 16:32: 23 Yes 1{tbl} Take 1 Tab by mouth daily. [facility] losartan (COZAAR) 100 mg tablet 2015-08 16:32: 23 Yes 100mg Take 100 mg by mouth daily. [facility] MULTIVITAMI N ORAL 2015-08 16:32: 23 Yes 1{tbl} Take 1 Tab by mouth daily. [facility] losartan (COZAAR) 100 mg tablet 2015-08 16:32: 23 Yes 100mg Take 100 mg by mouth daily. [facility] MULTIVITAMI N ORAL 2015-08 16:32: 23 Yes 1{tbl} Take 1 Tab by mouth daily. [facility] losartan (COZAAR) 100 mg tablet 2015-08 16:32: 23 Yes 100mg Take 100 mg by mouth daily. [facility] MULTIVITAMI N ORAL 2015-08 16:32: 23 Yes 1{tbl} Take 1 Tab by mouth daily. [facility] DULoxetine (CYMBALTA) 60 mg capsule 2015-08 16:32: 22 Yes 60mg Take 60 mg by mouth daily. [facility] HYDROcodone -acetaminop hen (NORCO) 10-325 mg tablet 2015-08 16:32: 22 Yes 1{tbl} Take 1 Tab by mouth 2 (two) times daily. [facility] meloxicam (MOBIC) 7.5 mg tablet 2015-08 16:32: 22 Yes 7.5mg Take 7.5 mg by mouth daily. [facility] traMADOL (ULTRAM) 50 mg tablet 2015-08 16:32: 22 Yes 50mg Take 50 mg by mouth daily. [facility] simvastatin (ZOCOR) 40 mg tablet 2015-08 16:32: 22 Yes 40mg Take 40 mg by mouth daily. [facility] furosemide (LASIX) 40 mg tablet 2015-08 16:32: 22 Yes 40mg Take 40 mg by mouth daily. [facility] cyclobenzap rine (FLEXERIL) 10 mg tablet 2015-08 16:32: 22 Yes 10mg Take 10 mg by mouth 3 (three) times daily. [facility] DULoxetine (CYMBALTA) 60 mg capsule 2015-08 16:32: 22 Yes 60mg Take 60 mg by mouth daily. [facility] HYDROcodone -acetaminop hen (NORCO) 10-325 mg tablet 2015-08 16:32: 22 Yes 1{tbl} Take 1 Tab by mouth 2 (two) times daily. [facility] meloxicam (MOBIC) 7.5 mg tablet 2015-08 16:32: 22 Yes 7.5mg Take 7.5 mg by mouth daily. [facility] traMADOL (ULTRAM) 50 mg tablet 2015-08 16:32: 22 Yes 50mg Take 50 mg by mouth daily. [facility] simvastatin (ZOCOR) 40 mg tablet 2015-08 16:32: 22 Yes 40mg Take 40 mg by mouth daily. [facility] furosemide (LASIX) 40 mg tablet 2015-08 16:32: 22 Yes 40mg Take 40 mg by mouth daily. [facility] cyclobenzap rine (FLEXERIL) 10 mg tablet 2015-08 16:32: 22 Yes 10mg Take 10 mg by mouth 3 (three) times daily. [facility] DULoxetine (CYMBALTA) 60 mg capsule 2015-08 16:32: 22 Yes 60mg Take 60 mg by mouth daily. [facility] HYDROcodone -acetaminop hen (NORCO) 10-325 mg tablet 2015-08 16:32: 22 Yes 1{tbl} Take 1 Tab by mouth 2 (two) times daily. [facility] meloxicam (MOBIC) 7.5 mg tablet 2015-08 16:32: 22 Yes 7.5mg Take 7.5 mg by mouth daily. [facility] traMADOL (ULTRAM) 50 mg tablet 2015-08 16:32: 22 Yes 50mg Take 50 mg by mouth daily. [facility] simvastatin (ZOCOR) 40 mg tablet 2015-08 16:32: 22 Yes 40mg Take 40 mg by mouth daily. [facility] furosemide (LASIX) 40 mg tablet 2015-08 16:32: 22 Yes 40mg Take 40 mg by mouth daily. [facility] cyclobenzap rine (FLEXERIL) 10 mg tablet 2015-08 16:32: 22 Yes 10mg Take 10 mg by mouth 3 (three) times daily. [facility] DULoxetine (CYMBALTA) 60 mg capsule 2015-08 16:32: 22 Yes 60mg Take 60 mg by mouth daily. [facility] HYDROcodone -acetaminop hen (NORCO) 10-325 mg tablet 2015-08 16:32: 22 Yes 1{tbl} Take 1 Tab by mouth 2 (two) times daily. [facility] meloxicam (MOBIC) 7.5 mg tablet 2015-08 16:32: 22 Yes 7.5mg Take 7.5 mg by mouth daily. [facility] traMADOL (ULTRAM) 50 mg tablet 2015-08 16:32: 22 Yes 50mg Take 50 mg by mouth daily. [facility] simvastatin (ZOCOR) 40 mg tablet 2015-08 16:32: 22 Yes 40mg Take 40 mg by mouth daily. [facility] furosemide (LASIX) 40 mg tablet 2015-08 16:32: 22 Yes 40mg Take 40 mg by mouth daily. [facility] cyclobenzap rine (FLEXERIL) 10 mg tablet 2015-08 16:32: 22 Yes 10mg Take 10 mg by mouth 3 (three) times daily. [facility] DULoxetine (CYMBALTA) 60 mg capsule 2015-08 16:32: 22 Yes 60mg Take 60 mg by mouth daily. [facility] HYDROcodone -acetaminop hen (NORCO) 10-325 mg tablet 2015-08 16:32: 22 Yes 1{tbl} Take 1 Tab by mouth 2 (two) times daily. [facility] meloxicam (MOBIC) 7.5 mg tablet 2015-08 16:32: 22 Yes 7.5mg Take 7.5 mg by mouth daily. [facility] traMADOL (ULTRAM) 50 mg tablet 2015-08 16:32: 22 Yes 50mg Take 50 mg by mouth daily. [facility] simvastatin (ZOCOR) 40 mg tablet 2015-08 16:32: 22 Yes 40mg Take 40 mg by mouth daily. [facility] furosemide (LASIX) 40 mg tablet 2015-08 16:32: 22 Yes 40mg Take 40 mg by mouth daily. [facility] cyclobenzap rine (FLEXERIL) 10 mg tablet 2015-08 16:32: 22 Yes 10mg Take 10 mg by mouth 3 (three) times daily. [facility] Vital Signs Vital Name Observation Time Observation Value Comments S melchor Systolic blood pressure 2020-10-12 17:43:00 136 mm[Hg] [facility] Diastolic blood pressure 2020-10-12 17:43:00 83 mm[Hg] [facility] Heart rate 2020-10-12 17:43:00 79 /min [facility] Body temperature 2020-10-12 17:43:00 36.72 Lauren [facility] Respiratory rate 2020-10-12 17:43:00 18 /min [facility] Body weight 2020-10-12 17:43:00 120.702 kg [facility] BMI 2020-10-12 17:43:00 45.68 kg/m2 [facility] Oxygen saturation in Arterial blood by Pulse oximetry 2020-10-12 17:43:00 99 /min [facility] Systolic blood pressure 2020-10-12 17:43:00 136 mm[Hg] [facility] Diastolic blood pressure 2020-10-12 17:43:00 83 mm[Hg] [facility] Heart rate 2020-10-12 17:43:00 79 /min [facility] Body temperature 2020-10-12 17:43:00 36.72 Lauren [facility] Respiratory rate 2020-10-12 17:43:00 18 /min [facility] Body weight 2020-10-12 17:43:00 120.702 kg [facility] BMI 2020-10-12 17:43:00 45.68 kg/m2 [facility] Oxygen saturation in Arterial blood by Pulse oximetry 2020-10-12 17:43:00 99 /min [facility] Procedures Procedure Date / Time Performed Performing Clinicia n Source ASSIGNMENT OF BENEFITS 2020-10-12 17:33:19 Docto r Unassigned, [place] [facility] Encounters Start Date/Time End Date/Time Encounter Type Admission Type Attending Clinicians Care Facility Care Department Encounter ID Source 2022-07-28 09:52:01 Outpatient [facility] [id number] [facility] 2021-09-18 12:07:11 Outpatient Nancy Dooley [facility] [id number] [facility] 2020-05-21 10:00:00 Inpatient Julia Houser [facility] [id number] [facility] 2020-05-17 10:00:00 Inpatient ShannonMadysonoliva [facility] [id number] [facility] 2019-08-23 13:00:00 Inpatient Surjit Yang [facility] [id number] [facility] 2023-03-02 12:00:00 2023-03-02 12:00:00 Outpatient Julia Houser [facility] MICHELLE [id number] [facility] 2021-08-29 12:00:00 2021-08-29 12:00:00 Outpatient Julia Houser [facility] [id number] [facility] 2021-04-23 00:00:00 2021-04-23 00:00:00 Telephone Nancy Colón [id number] [facility] 2020-12-26 08:30:00 2020-12-26 08:30:00 Outpatient MICHELLE JAQUEZ [facility] [id number] [facility] 2020-11-28 16:50:00 2020-11-28 16:50:00 Outpatient [facility] [id number] [facility] 2020-10-12 14:00:00 2020-10-12 14:00:00 Outpatient R ELY AVILA [facility] [id number] [facility] 2020-10-12 11:35:09 2020-10-12 12:32:47 Office Visit Ely Avila [facility] [id number] [facility] 2020-10-12 11:35:09 2020-10-12 12:32:47 Office Visit Ely Avila [facility] [id number] 2020-10-12 00:00:00 2020-10-12 00:00:00 Orders Only Doctor Unassigned, [place] [facility] [id number] [facility] 2020-09-20 09:00:00 2020-09-20 09:00:00 Outpatient Saurabh, Julia [facility] [id number] [facility] 2020-08-20 12:00:00 2020-08-20 12:00:00 Outpatient EL Saurabh, Julia [facility] [id number] [facility] 2020-03-09 09:00:00 2020-03-09 09:00:00 Outpatient Saurabh, Julia [facility] [id number] [facility] 2020-02-09 13:48:00 2020-02-09 13:48:00 Outpatient Saurabh, Julia [facility] [id number] [facility] 2019-10-04 09:30:00 2019-10-04 09:30:00 [facility] [id number] [facility] 2019-09-23 16:48:00 2019-09-23 16:48:00 [facility] [id number] [facility] 2019-08-15 12:00:00 2019-08-15 12:00:00 Outpatient EL Julia Wiley [facility] MICHELLE [id number] [facility] Results Test Description Test Time Test Comments Results Resul t Comments Source - SP FLUORO GUID CTRL ACC DEV 2020-05-21 13:23:00 Name: AZALIA DUNCAN [facility] : 1960 Age/S: 60 / F [id number] Unit #: [id number] Loc: [place] [address] Phys: Julia Wiley MD Acct: [id number] Dis Date: Status: REG [facility] PHONE #: [phone] Exam Date: 05/21/2020 1251 FAX #: Reason: CANCER TREATMENT COMPLETE EXAMS: CPT: [id number] SP FLUORO GUID CTRL ACC DEV [id number] Fluoro Time: 00:14 DAP (Gy m2): 0.25 [...] minutes. TECHNIQUE: Prior to beginning the procedure, [place] Protocol was used to confirm the patient's [...] Wiley MD PAGE 1 Signed Report Name: AZALIA DUNCAN [facility] : 1960 Age/S: 60 / F [id number] Unit #: [id number] Loc: [place] [address] Phys: Julia Wiley MD Acct: [id number] Dis Date: Status: REG [facility] PHONE #: [phone] Exam Date: 05/21/2020 1250 FAX #: Reason: CANCER TREATMENT COMPLETE EXAMS: CPT: [id number] SP FLUORO GUID CTRL ACC DEV [id number] Fluoro Time: 00:14 DAP (Gy m2): 0.25 Air Kerma (mGy): 1 <Continued> Technologist: John Higuera RT(R) Trnscb Date/Time: 05/21/2020 (6213) [email or web address] Orig Print D/T: S: 05/21/2020 (2140) PAGE 2 Signed Report BREAST,EXCISION OF LESION/[id number] 16:54:00 RUN DATE: 03/23/19 [facility] PAGE 1 RUN TIME: 1654 Specimen Inquiry RUN USER: INTERFACE -------- ----PATIENT: AZALIA DUNCAN LOC: SHIVA U #: [id number] AGE/SX: 59/F ROOM: RE03/17/19REG DR: Surjit Jensen : 64 BED: DIS: STATUS: [facility] TLOC: SPEC #: [id number] RECD: 03/17/19STATUS: JUAN R REQ #: [id number] AGUSTO: 03/17/19- SUBM DR: Surjit Jensen MD ENTERED: 03/18/19 SP TYPE: BREAST,EXC OTHR DR: ORDERED: LEVEL SURGIC CODES: C22964 - BREAST, NOS PROCEDURES: LEVEL SURGIC (Incomplete) TISSUES: BREAST, NOS - LEFT BREAST TISSUE X 3 CLINICAL HISTORY 59 year old, LEFT breast cancer (kr) FINAL DIAGNOSIS LEFT breast tissue, LEFT partial mastectomy: - residual invasive micropapillary carcinoma (please see Tumor Details below) - atypical ductal hyperplasia, focal - stromal fibrosis, apocrine metaplasia, cyst formation, and sclerosing adenosis associated with n umerous calcifications LEFT breast partial mastectomy cavity, re-excision: [...] Histologic Type: Invasive micropapillary carcinoma Histologic Grade (Shannock Histologic Score): Gradingmay be inaccurate post chemotherapy Glandular (Acinar)/Tubular Differentiation: Score 2 Nuclear Pleomorphism: Score 3 Mitotic Rate: Score 1 CONTINUED ON NEXT PAGE RUN DATE: 03/23/19 [facility] PAGE 2 RUN TIME: 1654 Specimen Inquiry RUN USER: INTERFACE SPEC #: [id number] PATIENT: AZALIA DUNCAN #[id number] (Continued) FINAL DIAGNOSIS (Continued) Overall Grade: Grade [...] 5.5 mm Extranodal Extension: Not identified Treatment Effec t: In the Breast: Probable or definite response [...] 5%, strong intensity Microcalcifications: Present in non-neoplastic tissueCPT code(s): 69977 x3, 20855-26, 00887-64 carlos/donny dt: 03/23/19 CONTINUED ON NEXT PAGE --RUN DATE: 03/23/19 [facility] PAGE 3 RUN TIME: 1654 Specimen Inquiry RUN USER: INTERFACE SPEC #: [id number] PATIENT: AZALIA DUNCAN #[id number] (Continued) GROSS DESCRIPTION ANATOMIC SOURCE OF TISSUE (per Requisition): 1. LEFT breast tissue, LEFT partial mastectomy 2. Re- excision partial LEFT breast mastectomy cavity 3. Axillary contents Each specimen is labeled with the patient's name and medical record number. Specimen #1 is designated "LEFT breast tissue, LEFT partial mastectomy" and consists of 25 gm, 5.5 x4.5 x 2.5 cm portion of breast tissue [...] to the anterior margin. The cut surfaces aretan and firm with focal areas of hemorrhage. [...] in sequential order from superior to inferior. Inkcode: Blue - superior Red - inferior Black - posterior Green - anterior [place] - medial Yellow - lateral Section code: Slice 1 - A1 and A2 Slice 2 - A3 and A4 Slice 3 - A5 through A7 Slice 4 - A8 andA9 Slice 5 - A10 and A11 Slice [...] [facility] PAGE 4 RUN TIME: 1653 Specimen Inquiry RUN USER: INTERFACE SPEC #: [id number] PATIENT: AZALIA DUNCAN #[id number] (Continued) GROSS DESCRIPTION (Continued) consists of a [...] adipose tissue and 5% fibrous tissue). There isno definite residual tumor. The specimen is serially sectioned into 10 slices and submitted in its entirety in sequential order from lateral to medial. Ink code: Blue - superior Red - inferior Black - posterior Green - anterior [place] - medial Yellow - lateral Section code: [...] The cut surfaces of one lymph node, directlyadjacent to localization wire displays a 0.6 cm dacosta- wilhelm, firm nodule. Pipe Bender sections are submitted labeled C1 - 1 [...] 7 mm tumor bed with approximately 20% c ellularity and the largest contiguous focus being 14 mm. It is found less than 1.5 mm from the deepmargin, 4 mm from the superior, 5 mm from the medial, and 9 mm from the anterior margins. The tumor has focal tubules, a high nuclear grade, and a low mitotic rate. A D240 and CD31 immunostains highlight CONTINUED ON NEXT PAGE RUN DATE: 03/23/19 [facility] PAGE 5 RUN TIME: 1654 Specimen Inquiry RUN USER: INTERFACE SPEC #: [id number] PATIENT: AZALIA DUNCAN #[id number] (Continued) - MICROSCOPIC DESCRIPTION (Continued) lymphovascular invasion and are negative around the micropapillary structures. A focus of atypical ductal hyperplasia is found less than 2 mm from the medial margin; however, no ductal carcinoma in- situ identified. The uninvolved breast parenchyma has stromal fibrosis, apocrine metaplasia, cyst formation, and sclerosing adenosis, which are associated with calcifications. Specimen #2, re-excision partial LEFT breast mastectomy cavity: No invasive or in-situ carcinoma identified. There is focal cyst formation and stromal fibrosis associated with numerous calcifications. Specimen #3, axillary contents: Metastatic carcinoma is present in one of nine lymph nodes, a 5.5 mm focuswith no extracapuslar extension. No fibrosis identified. [facility]/donny dt: 03/23/19 The following technicalcomponents were performed at [facility], [address] [place] [address]. The interpretation is provided by [facility], [address] [place] [id number]. Controls received from [facility] stained appropriately. INTERPRETATION: Block A6: D2-40 and CD31- See above for results. Prognostic Markers performed and interpreted 03/23/19 at [facility] ER: POSITIVE Tumor Stained: 62% Intensity: 3+ Internal control: Present NM: POSITIVE Tumor Stained: 43% Intensity: 1+ Internal control: Present HER2 (IHC): NEGATIVE Score: 1+ Ki67: LOW, 5% Intensity: 3+ Signed SIGNATURE ON FILE Catherine Kelly MD 03/23/19 1654 END OF REPORT CHEMISTRY 7 [id number] 14:59:00* Test Item Value Reference Range Interpretation Comme [...] mg/dL 65-110 N BLOOD UREA NITROGEN (test co de = BUN) 8 mg/dL 7-18 N GLOMERULAR FILTRATION RATE ( test code = GFR) 115 ml/min >60 N CREATININE (test code = CREAT) 0.6 mg/dL 0.5-1.0 N CALCIUM (test code = CA) 9.6 mg/dL 8.4-10.2 N HGB [id number] 14:27:00* Test Item Value Reference Range Interpretation Comme nts HEMOGLOBIN (test code = HGB) 12.4 g/dL 10.7-13.9 N HEMATOCRIT (test code = HCT) 38.6 % 32.1-42.1 N - USG NDL PLACEMENT (Bxg/Asp)2019-01-11 11:50:00Name: AZALIA DUNCAN [facility] : 1960 Age/S: 59 / F [id number] [address] Unit #: [id number] Loc: [place] [address] Phys: Julia Wiley MD Acct: [id number] Dis Date: Status: DEP CLI PHONE #: [phone] Exam Date: 01/11/2019 1135 FAX #: Reason: ASPIRATION EXAMS: CPT: [id number] USG NDL PLACEMENT (Bxg/Asp) 08824 PROCEDURE: PERCUTANEOUS IMAGE GUIDED ASPIRATION. LOCATION: S 17. HISTORY: Scalp abscess. SEDATION: The patient did not require conscious sedation for the procedure. TECHNIQUE: The risks, benefits, and alternatives were discussed and informed consent was obtained. Prior to beginning the procedure, [place] Protocol was used to confirm the patient's identity and planned procedure. Sterile barriers including cap, mask, hand hygiene, sterile gloves, and cutaneous antisepsis were used. The overlying skin in the vertex of the scalp was prepped, draped, and infiltrated with lidocaine. Using ultrasound guidance, an 18-gauge needle was advanced into the small abscess. 1 ccof dacosta pus was aspirated. The needle was [...] M.D. PAGE 1 Signed Report (CONTINUED) Name: AZALIA DUNCAN [place] : 1960 Age/S: 59 / F [address] Unit #: [id number] Loc: [place] [address] Phys: Julia Wiley MD Acct: [id number] Dis Date: Status: [facility] PHONE #: [phone] Exam Date: 01/11/2019 1135 FAX#: Reason: ASPIRATION EXAMS: CPT: [id number] USG NDL PLACEMENT (Bxg/Asp) 09278 <Continued> CC:Nancy Wiley MD Technologist: Slime Dubois, RT(R),RDMS(AB) Trnscb Date/Time: 01/11/2019 (1150) t.PAULR.PR7 PAGE 2 Signed Report Name: AZALIA DUNCAN [place] : 1960 Age/S: 59 / F [address] Unit #: [id number] Loc: [place] [address] Phys: Julia Wiley MD Acct: [id number] Dis Date: Status: DEP CLI PHONE #: [phone] Exam Date: 01/11/2019 1135 FAX #: Reason: ASPIRATION EXAMS: CPT: [id number] USG NDL PLACEMENT (Bxg/Asp) 85275 <Continued> Orig Print D/T: S: 01/11/2019 (1153) Probe: PAGE 3 Signed Report- USG NDL PLACEMENT (Bxg/Asp)2019-01-11 11:50:00 Name: [place]IA [place] : 1960 Age/S: 59 / F [address] Unit #: [id number] Loc: [place] [address] Phys: Julia Wiley MD Acct: [id number] Dis Date: Status: REG CLI PHONE #: [phone] Exam Date: 01/11/2019 1135 FAX #: Reason: ASPIRATION EXAMS: CPT: [id number] USG NDL P LACEMENT (Bxg/Asp) 44553 PROCEDURE: PERCUTANEOUS IMAGE GUIDED ASPIRATION. LOCATION: S 17. HISTORY:Scalp abscess. SEDATION: The patient did not require conscious sedation for the procedure. TECHNIQUE: The risks, benefits, and alternatives were discussed and informed consent was obtained. Prior to b eginning the procedure, [place] Protocol was used to confirm the patient's identity and planned procedure. Sterile barriers including cap, mask, hand hygiene, sterile gloves, and cutaneous antisepsis were used. The overlying skin in the vertex of the scalp was prepped, draped, and infiltrated with lidocaine. Using ultrasound guidance, an 18-gauge needle was advanced into the small abscess. 1 ccof dacosta pus was aspirated. The needle was removed and Band-Aid applied. The patient tolerated the procedure well. ESTIMATED BLOOD LOSS: Less than 5 mL. COMPLICATIONS: None. DISCHARGED TO: Outpatient recovery then home. FINDINGS: Images during the procedure demonstrate subcutaneous edema at the vertex of the scalp with a small abscess. IMPRESSION: Successful image-guided aspiration of small scalp abscess. at 1150 Reported and signedby: Gareth Hernandez M.D. PAGE 1 Signed Report (CONTINUED) Name: AZALIA DUNCAN [place] : 1960 Age/S: 59 / F [address] Unit #: [id number] Loc: [place] [address] Phys: Julia Wiley MD Acct: [id number] Dis Date: Status: REG CLI PHONE #: [phone] Exam Date: 01/11/2019 1135FAX #: Reason: ASPIRATION EXAMS: CPT: [id number] USG NDL PLACEMENT (Bxg/Asp) 03165 (Continued) CC: Nancy Dooley; Julia Wiley MD Technologist: Slime Dubois, RT(R),RDMS(AB) Trnscb Date/Time: 01/11/2019 (1150) tJAMILAHR.PR7 PAGE 2 Signed Report Name: AZALIA DUNCAN [place] : 1960 Age/S: 59 / F [address] [address] Unit #: [id number] Loc: [place] [address] Phys: Julia Wiley MD Acct:[id number] Dis Date: Status: REG CLI PHONE #: [phone] Exam Date: 01/11/2019 1135 FAX #: Reason: ASPIRATION EXAMS: CPT: [id number] USG NDL PLACEMENT (Bxg/Asp) 50942 (Continued) Orig Print D/T: S: 01/11/2019 (1153) Probe: PAGE 3 Signed Report- SP FLUORO GUID CTRL ACC [id number] 11:21:00Name: AZALIA DUNCAN [place] : 1960 Age/S: 58 / F [address] [address] Unit #: [id number] Loc: [place] [address] Phys: Gareth Hernandez MD Acct: [id number] Dis Date: Status: DEP [facility] PHONE #: [phone] Exam Date: 08/05/2018 1100 FAX #: Reason: EXAMS: CPT: [id number] SP FLUORO GUID CTRLACC DEV [id number] Fluoro Time: 00:52 DAP (Gy m2): 0.87 [...] patient. RADIATION DOSE: Total reference air kerma 3.0mGy. ANTIBIOTICS: None. Not indicated. CONTRAST: None. TECHNIQUE: The risks, benefits, and alternatives were discussed and informed consent was obtained. Prior to beginning the procedure, [place] Protocol was used to confirm the patient's identity and planned procedure. Maximum sterile barriers including cap, mask, hand hygiene, sterile gloves, sterile gown, large sterile drape and cutaneous antisepsis were used. The skin over the right internal jugular vein was sterilely prepped, draped, and infiltrated with lidocaine. Prior to the procedure, the target vessel was evaluated by ultrasound.An image of the patent vessel was recorded and saved to PACS. After sterile prep, this vessel was accessed with a micropuncture needle using real-time ultrasound guidance. A guidewire and catheter were then passed centrally using fluoroscopic guidance. The intravascular length from the access site to the right atrium was assessed. After infiltrating the skin in the subclavicular region with lidocaine, a short transverse incision was made and the pocket for the port reservoir was formed by bluntdissection. The catheter was tunneled to the access site, cut to the appropriate length, and inserted through a peel-away sheath. The catheter was flushed and the access needle was removed. The deep tissues were approximated using 4-0 Monocryl and the superficial incision closed using Dermabond. The incision in the PAGE 1 Signed Report (CONTINUED) Name[facility] 1960 Age/S: 58 / F [address] [address] Unit #: [id number] Loc: [place] [address] Phys: Gareth Hernandez [facility] [id number] Dis Date: Status: [facility] PHONE #: [phone] Exam Date: 08/05/2018 1100 FAX #: Reason: EXAMS: CPT: [id number] SP FLUORO GUID CTRL ACC DEV 33741 Fluoro Time: 00:52 DAP (Gy m2): 0.87 [...] scheduled by calling Interventional Radiology. at 1121 * * Reported and signed by: Gareth Hernandez M.D. CC: Nancy Dooley; Gareth Hernandez MD PAGE 2 SignedReport Name: AZALIA DUNCAN [facility] : 1960 Age/S: 58 / F [address] [facility] Unit #: [id number] Loc: [place] [address] Phys: Gareth Hernandez MD Acct: [id number] Dis Date: Status: [facility] PHONE #: [phone] Exam Date: 08/05/2018 1100 FAX #: Reason: EXAMS: CPT: [id number] SP FLUOROGUID CTRL ACC DEV 30381 Fluoro Time: 00:52 DAP (Gy m2): 0.87 Air Kerma (mGy): 4 <Continued> Technologist: RT Jazzmine(R) Trnpbb Date/Time: 08/05/2018 (112) [email or web address] Orig Print D/T: S: 08/05/2018 (1125) PAGE 3 Signed Report Notes Date/Time Note Provider Source 2020-09-20 12:26:00 [id number] Formerly [facility] [address] [place] [address] PATIENT NAME: AZALIA DUNCAN ADMIT DATE: 09/20/20ACCOUNT NO: [id number] ROOM NO: AGE: 60 REPORT TYPE: eECHOCARDIOGRAM REPORT SEX: F ADMITTING PHYSICIAN: ATTENDING PHYSICIAN: Julia Wiley MD *[facility]*[address] [place], [place] [address]Joygc Transthoracic Echocardiogram Patient: Azalia DuncaniseStudy Date: 09/20/2020 BP: Location: [facility]: [id number] : 1960 Age: 60 Height: 67 in / 170.2 cmAccession#: [id number] Gender: F Weight: 250.5 lb / 113.9 kgBMI/BSA: 39.3 kg/m 2 / 2.23 m 2 *Ordering Physician: * Julia Wiley *Interpreting Physician: * Junior MinManufacturing Worker: * Shaniqua Brennan Indications: MALG NEOPLASM OF QUADRANT. Study data: Transthoracic echocardiogram. Procedure: Transthoracicechocardiography was performed. Image quality was adequate. [id number], complete spectral Doppler, and color Doppler. Location: Emergencydepartment. Patient status: Outpatient. Study status: Routine. Findings Left ventricle: The cavity size is normal. Wall thickness is normal.Systolic function is normal. The estimated ejection fraction is >70%.Wall motion is normal; there are no regional wall motion abnormalities.Doppler parameters are consistent with abnormal left ventricularrelaxation (grade 1 diastolic dysfunction).Right ventricle: The cavity size is normal. Systolic function is PATIENT NAME: AZALIA DUNCAN normal.Left atrium: The atrium is normal in size.Right atrium: The atrium is normal in size.Aorta: Aortic root: The aortic root is normal in size.Aortic valve: The valve is structurally normal. The valve istrileaflet. There is no evidence of stenosis. There is noregurgitation.Mitral valve: The valve is structurally normal. There is trivialregurgitation.Tricuspid valve: The valve is structurally normal. There is mildregurgitation.Pulmonic valve: The valve is structurally normal. There is trivialregurgitation.Pericardium: There is no pericardial effusion.Pulmonary arteries:The main pulmonary artery is normal-sized.Systemic veins:Inferior vena cava: The vessel is normal in size. Measurements Left ventricle Value 10/04/2019 Ref JENNIFER, LAX 5.0 cm 4.8 3.8 - 5.2 ESD, LAX 2.9 cm 3.2 2.2 - 3.5 ESD/bsa, 1.3 cm/m 2 1.3 1.3 - 2.1 LAX FS, LAX 43 % 34 27 - 45 PW, ED 1.1 cm 1.1 0.6 - 0.9 IVS/PW, ED 1 1.03 --------- EF 73 % 62 54 - 74 IVRT 126 ms 125 --------- E/e', avg, 13 <=14 TDI LVOT Value 10/04/2019 Ref Diam, S 2.08 cm 1.95 --------- Area 3.4 cm 2 3.0 --------- Peak fannie, S 1.17 m/sec 1.24 --------- Mean fannie, S 0.79 m/sec 0.85 --------- VTI, S 27.1 cm 26.2 --------- Peak grad, 5 mm Hg 6 --------- S Mean grad, 3 mm Hg 3 --------- S SV 92 ml 78 --------- SV/bsa 41 ml/m 2 33 --------- Ventricular septum Value 10/04/2019 Ref IVS, ED 1.1 cm 1.1 0.6 - 0.9 Right ventricle Value 10/04/2019 Ref Pressure, S 34 mm Hg 32 --------- PATIENT NAME: AZALIA DUNCAN Left atrium Value 10/04/2019 Ref Vol/bsa, 33 ml/m 2 40 ES, 1-p A4C Vol/bsa, 35 ml/m 2 16 34 ES, A/L AP dim, ES 3.4 cm 3.6 2.7 - 3.8 MM LA/Ao root 1.18 1.27 --------- ratio, MM Aortic valve Value 10/04/2019 Ref Leaflet 1.88 cm 1.88 --------- sep, MM Peak v, S 1.43 m/sec --------- Mean v, S 1.01 m/sec 1.14 --------- VTI, S 29.4 cm 30.8 --------- Mean grad, 4.4 mm Hg 6.0 --------- S Peak grad, 8.2 mm Hg 12.3 --------- S LVOT/AV, 0.92 0.85 --------- VTI ratio TAJ, VTI 3.14 cm 2 2.54 --------- LVOT/AV, 0.82 --------- Vpeak ratio TAJ, Vmax 2.79 cm 2 2.11 --------- Mitral valve Value 10/04/2019 Ref Peak E 0.68 m/sec 0.67 --------- Peak A 0.87 m/sec 0.85 --------- Decel time 224 ms 323 --------- PHT 75 ms 74 --------- Peak E/A 0.78 0.79 --------- ratio MVA, PHT 2.9 cm 2 3.0 --------- Pulmonic valve Value 10/04/2019 Ref NM peak v 0.99 m/sec 1.08 --------- NM peak 4 mm Hg --------- grad Tricuspid valve Value 10/04/2019 Ref TR peak v 2.69 m/sec 2.61 <=2.8 Peak RV-RA 29 mm Hg 27 --------- grad, S Aortic root Value 10/04/2019 Ref Root diam, 2.89 cm 2.84 --------- ED MM Pulmonary artery Value 10/04/2019 Ref Pressure, S 29.9 mm Hg --------- Systemic veins Value 10/04/2019 Ref PATIENT NAME: AZALIA DUNCAN Estimated 5 mm Hg 5 --------- CVP Pulmonary veins Value 10/04/2019 Ref A rev 137 ms 125 --------- duration Conclusions Summary: 1. Left ventricle: The cavity size is normal. Wall thickness is normal. Systolic function is normal. The estimated ejection fraction is >70%. Wall motion is normal; there are no regional wall motion abnormalities. Doppler parameters are consistent with abnormal left ventricular relaxation (grade 1 diastolic dysfunction).2. Right ventricle: The RV pressure during systole by Doppler is 34 mm Hg. Prepared and electronically signed by Molly Min09/20/2020 12:26 at 1227 PATIENT NAME: AZALIA DUNCAN :26:0 0L.[id number] for patient [id number]:27:19 [facility] 2019-10-04 22:02:00 [id number] [facility] [address] [place] [address] PATIENT NAME: AZALIA DUNCAN ADMIT DATE: 10/04/19ACCOUNT NO: [id number] ROOM NO: AGE: 59 REPORT TYPE: eECHOCARDIOGRAM REPORT SEX: F ADMITTING PHYSICIAN: ATTENDING PHYSICIAN: Julia Wiley MD *[place] [id number] Transthoracic Echocardiogram Patient: Azalia Duncantudy Date: 10/04/2019 BP: Location: [facility]: [id number] : 1960 Age: 59 Height: 67 in / 170.2 cmAccession#: [id number] Gender: F Weight: 244.5 lb / 111.1 kgBMI/BSA: 38.4 kg/m 2 / 2.34 m 2 *Ordering Physician: * Julia Wiley *Interpreting Physician: * Yrn Whitehead MD*Manufacturing Worker: * Shaniqua Brennan Indications: Encounter For Antineoplastic Chemotherapy. Study data: Transthoracic echocardiogram. Procedure: Transthoracicechocardiography was performed. Image quality was adequate. [id number], complete spectral Doppler, and color Doppler. Location: Echolaboratory. Patient status: Outpatient. Study status: Routine.Rhythm: Normal sinus rhythm. Findings Left ventricle: The cavity size is normal. Wall thickness is normal.The estimated ejection fraction is 60-64%. Wall motion is normal; thereare no regional wall motion abnormalities. Doppler parameters areconsistent with abnormal left ventricular relaxation (grade 1 diastolicdysfunction). PATIENT NAME: AZALIA DUNCAN Right ventricle: The cavity size is normal. Systolic function isnormal.Left atrium: The atrium is normal in size.Right atrium: The atrium is normal in size.Aorta: Aortic root: The aortic root is normal in size.Aortic valve: The valve is structurally normal. The valve istrileaflet. There is no evidence of stenosis. There is noregurgitation.Mitral valve: The valve is structurally normal. There is mildregurgitation.Tricuspid valve: The valve is structurally normal. There is mildregurgitation.Pulmonic valve: Not well visualized. There is trivial regurgitation.Pericardium: There is no pericardial effusion.Pulmonary arteries:The main pulmonary artery is normal-sized. Systolic pressure is withinthe normal range.Systemic veins:Inferior vena cava: The vessel is normal in size. Measurements Left ventricle Value 05/19/2019 Ref Aortic valve continued Value 05/19/2019 Ref JENNIFER, LAX 4.8 cm 4.3 3.8 - 5.2 VTI, S 30.8 cm 31.7 ----- ESD, LAX 3.2 cm 2.9 2.2 - 3.5 Mean grad, S 6.0 mm Hg 5.4 ----- ESD/bsa, 1.3 cm/m 2 1.3 1.3 - 2.1 Peak grad, S 12.3 mm Hg 10.6 ----- LAX LVOT/AV, VTI 0.85 0.84 ----- FS, LAX 34 % 32 27 - 45 ratio PW, ED 1.1 cm 1.2 0.6 - 0.9 TAJ, VTI 2.54 cm 2 3.14 ----- IVS/PW, ED 1.03 0.99 --------- TAJ, Vmax 2.11 cm 2 2.64 ----- EF 62 % 61 54 - 74 IVRT 125 ms 94 --------- Mitral valve Value 05/19/2019 Ref E', med 6.2 cm/sec 6.7 >=7.0 Peak E 0.67 m/sec 0.95 ----- christofer, TDI Peak A 0.85 m/sec 0.86 ----- E/e', med 11 14 --------- Decel time 323 ms 233 ----- christofer, TDI PHT 74 ms 77 ----- Peak E/A ratio 0.79 1.1 ----- LVOT Value 05/19/2019 Ref MVA, PHT 3.0 cm 2 2.8 ----- Diam, S 1.95 cm 2.18 --------- PATIENT NAME: AZALIA DUNCAN Area 3.0 cm 2 3.7 --------- Pulmonic valve Value 05/19/2019 Ref Peak fannie, S 1.24 m/sec 1.15 --------- NM peak v 1.08 m/sec 1.38 ----- Mean fannie, S 0.85 m/sec 0.93 --------- NM grad, ED 5 mm Hg 8 ----- VTI, S 26.2 cm 26.7 --------- Peak grad, 6 mm Hg 5 --------- Tricuspid valve Value 05/19/2019 Ref S TR peak v 2.61 m/sec 2.89 <=2.8 Mean grad, 3 mm Hg 4 --------- Peak RV-RA grad, 27 mm Hg 34 ----- S S SV 78 ml 100 --------- SV/bsa 33 ml/m 2 45 --------- Aortic root Value 05/19/2019 Ref Root diam, ED MM 2.84 cm 3.16 ----- Ventricular septum Value 05/19/2019 Ref IVS, ED 1.1 cm 1.2 0.6 - 0.9 Pulmonary artery Value 05/19/2019 Ref Pressure, S 27.7 mm Hg ----- Right ventricle Value 05/19/2019 Ref Pressure, S 32 mm Hg 39 --------- Systemic veins Value 05/19/2019 Ref Estimated CVP 5 mm Hg 5 ----- Left atrium Value 05/19/2019 Ref AP dim, ES 3.6 cm 3.6 2.7 - 3.8 Pulmonary veins Value 05/19/2019 Ref MM A rev duration 125 ms 108 ----- LA/Ao root 1.27 1.13 --------- ratio, MM Aortic valve Value 05/19/2019 Ref Leaflet 1.88 cm 1.87 --------- sep, MM Mean v, S 1.14 m/sec 1.11 --------- Conclusions Summary: 1. Left ventricle: The cavity size is normal. Wall thickness is normal. The estimated ejection fraction is 60-64%. Wall motion is normal; there are no regional wall motion abnormalities. Doppler parameters are consistent with abnormal left ventricular relaxation (grade 1 diastolic dysfunction).2. Right ventricle: The RV pressure during systole by Doppler is 32 mm Hg. PATIENT NAME: AZALIA DUNCAN Prepared and electronically signed by Yrn Whitehead MD10/04/2019 22:02 at 2203 PATIENT NAME: AZALIA DUNCAN :02:0 0L.[id number] for patient [id number]:03:18 [facility] 2019-05-24 10:36:00 [id number] [address] PATIENT NAME: AZALIA DUNCAN ADMIT DATE: 05/19/19ACCOUNT NO: [id number] ROOM NO: AGE: 59 REPORT TYPE: eECHOCARDIOGRAM REPORT SEX: F ADMITTING PHYSICIAN: ATTENDING PHYSICIAN: Julia Wiley MD *[facility]*[address] [place] [address]Cqrdz Transthoracic Echocardiogram Patient: Ana Duncan Date: 05/19/2019 BP: [id number] 1960 Age: 59 Height: 67 in / 170.2 cmAccession#: [id number] Gender: F Weight: 243.5 lb / 110.7 kgBMI/BSA: 38.2 kg/m 2 / 2.2 m 2 *Ordering Physician: * Julia Wiley *Interpreting Physician: * Yrn Whitehead MD*Manufacturing Worker: * Shaniqua Brennan Indications: Antineoplastic Chemotherapy. Study data: Transthoracic echocardiogram. Procedure: Transthoracicechocardiography was performed. Image quality was adequate. Euzvcvmp4A, complete spectral Doppler, and color Doppler. Location: Echolaboratory. Patient status: Outpatient. Study status: Routine.Rhythm: Normal sinus rhythm. Findings Left ventricle: The cavity size is normal. Wall thickness is mildlyincreased. The estimated ejection fraction is 60-64%. Wall motion isnormal; there are no regional wall motion abnormalities. Leftventricular diastolic function parameters are normal for the patient'suraj.Right ventricle: The cavity size is mildly dilated. Systolic function PATIENT NAME: AZALIA DUNCAN is normal.Left atrium: The atrium is normal in size.Right atrium: The atrium is normal in size.Aorta: Aortic root: The aortic root is normal in size.Aortic valve: The valve is structurally normal. The valve istrileaflet. There is no evidence of stenosis. There is noregurgitation.Mitral valve: The valve is structurally normal. There is trivialregurgitation.Tricuspid valve: The valve is structurally normal. There is mildregurgitation.Pulmonic valve: The valve is structurally normal. There isphysiologic regurgitation.Pericardium: There is no pericardial effusion.Pulmonary arteries:The main pulmonary artery is normal-sized. Systolic pressure is withinthe normal range.Systemic veins:Inferior vena cava: The vessel is normal in size. Measurements Left ventricle Value Ref Aortic valve continued Value Ref JENNIFER, LAX 4.3 cm 3.8 - 5.2 Mean grad, S 5.4 mm Hg ----- ESD, LAX 2.9 cm 2.2 - 3.5 Peak grad, S 10.6 mm Hg ----- ESD/bsa, LAX 1.3 cm/m 2 1.3 - 2.1 LVOT/AV, VTI ratio 0.84 ----- FS, LAX 32 % 27 - 45 TAJ, VTI 3.14 cm 2 ----- PW, ED 1.2 cm 0.6 - 0.9 LVOT/AV, Vpeak ratio 0.71 ----- IVS/PW, ED 0.99 --------- TAJ, Vmax 2.64 cm 2 ----- EF 61 % 54 - 74 IVRT 94 ms --------- Mitral valve Value Ref E', med christofer, TDI 6.7 cm/sec >=7.0 Peak E 0.95 m/sec ----- E/e', med christofer, TDI 14 --------- Peak A 0.86 m/sec ----- Decel time 233 ms ----- LVOT Value Ref PHT 77 ms ----- Diam, S 2.18 cm --------- Peak grad, D 3.6 mm Hg ----- Area 3.7 cm 2 --------- Peak E/A ratio 1.1 ----- Peak fannie, S 1.15 m/sec --------- MVA, PHT 2.8 cm 2 ----- PATIENT NAME: AZALIA DUNCAN Mean fannie, S 0.93 m/sec --------- VTI, S 26.7 cm --------- Pulmonic valve Value Ref Peak grad, S 5 mm Hg --------- NM peak v 1.38 m/sec ----- Mean grad, S 4 mm Hg --------- NM peak grad 8 mm Hg ----- SV 100 ml --------- NM grad, ED 8 mm Hg ----- SV/bsa 45 ml/m 2 --------- Tricuspid valve Value Ref Ventricular septum Value Ref TR peak v 2.89 m/sec <=2.8 IVS, ED 1.2 cm 0.6 - 0.9 Peak RV-RA grad, S 34 mm Hg ----- Right ventricle Value Ref Aortic root Value Ref Pressure, S 39 mm Hg --------- Root diam, ED MM 3.16 cm ----- Left atrium Value Ref Pulmonary artery Value Ref AP dim, ES MM 3.6 cm 2.7 - 3.8 Pressure, S 32.9 mm Hg ----- LA/Ao root ratio, MM 1.13 --------- Systemic veins Value Ref Aortic valve Value Ref Estimated CVP 5 mm Hg ----- Leaflet sep, MM 1.87 cm --------- Peak v, S 1.63 m/sec --------- Pulmonary veins Value Ref Mean v, S 1.11 m/sec --------- A rev duration 108 ms ----- VTI, S 31.7 cm --------- Conclusions Summary: 1. Left ventricle: The cavity size is normal. Wall thickness is mildly increased. The estimated ejection fraction is 60-64%. Wall motion is normal; there are no regional wall motion abnormalities. Left ventricular diastolic function parameters are normal for the patient's age.2. Right ventricle: The cavity size is mildly dilated.3. Pulmonary arteries: The peak pressure during systole by Doppler is 32.9 mm Hg. Prepared and electronically signed by PATIENT NAME: AZALIA DUNCAN Yrn Whitehead MD05/24/2019 10:36 at 1036 PATIENT NAME: AZALIA DUNCAN :36:0 0L.[id number] for patient [id number]:36:32 [facility] 2019-03-24 12:02:00 [id number] [place] [address] PATIENT NAME: AZALIA DUNCAN ADMIT DATE: 03/17/19ACCOUNT NO: [id number] ROOM NO: AGE: 59 SEX: F ADMITTING PHYSICIAN: ATTENDING PHYSICIAN: Surjit Jensen MD OPERATION DATE: 03/17/2019 PREOPERATIVE DIAGNOSIS: Left breast cancer, status post neoadjuvantchemotherapy T2 N1. POSTOPERATIVE DIAGNOSIS: Left breast cancer, status post neoadjuvantchemotherapy T2 N1. PROCEDURE PERFORMED: Left partial mastectomy with axillary dissection and preopneedle localization. SURGEON: Surjit Jensen MD DEHYDRATOR: Bradley Reyna SA. ANESTHESIA: General. DRAINS: 15-Maori drain placed in the left axilla. PROCEDURE IN DETAIL: After the adequate induction of anesthesia, appropriatetimeout intravenous antibiotics were administered. The needle entering the leftbreast was cut, prepped and draped in a sterile manner. Imaging was reviewedand 0.25% Marcaine was infiltrated in the upper outer quadrant of the leftbreast. A radial skin incision was made. The needle was skeletonized for acentimeter and then segmental resection of the upper outer quadrant of the leftbreast in the area of previously treated neoadjuvant chemotherapy breast cancerwas performed. Care and attention was taken towards margins around the fibrotictissue for approximately a centimeter around the fibrotic tissue using a #10blade scalpel and electrocautery. The base of the specimen was the retromammaryfat. The specimen was oriented for pathological identification and specimenimaging was performed. Specimen imaging demonstrated residualmicrocalcifications, the biopsy clip in the region of previously biopsy provenbreast cancer and the needle that had been placed preoperatively. The specimenwas sent for permanent pathology. Re-excision of the entire partial mastectomycavity was carried out to ensure clear margins due to the indistinct nature ofthe residual disease based on presurgical treatment. This entire reexcision ofthe partial mastectomy cavity was inked and oriented for pathologicalidentification and sent as a separate re-excision specimen. The left breasttissue was copiously irrigated. Hemostasis was assured. The left breast wasclosed in layers using 2-0 and 3-0 Vicryl and a 4-0 Monocryl was used on theskin. Care and attention was taken towards the left axilla where a curvilinear skin PATIENT NAME: AZALIA DUNCAN incision was made at the low axillary hairline. Previously biopsy positivelymph node disease had been documented. Therefore, axillary dissection wasagreed upon and performed. Care and attention was taken towards dissectingthrough the axillary fat and fascia. Superiorly and anteriorly, the lateraledge of the pectoralis major muscle was identified and it was cleared. ARichardson retractor reflected the pectoralis major muscle medially and theclavipectoral fascia was incised. Inferiorly, the tail of the breast wasidentified and resected using cautery. Laterally, the medial border of thelatissimus dorsi muscle was identified. The thoracodorsal complex wasdissected. It was swept inferiorly to the floor of the axilla and perforatingvasculature was clipped around Endoclips. Level 1 and level 2 axillarydissection was completed by ligation of tributaries of the axillary vein usingsilk suture and Endoclips. Level 1 and level 2 axillary dissection wascompleted using electrocautery to remove the remaining axillary tissue laterallywith care and attention towards preservation of the musculocutaneous nerveslaterally and superiorly. The axillary contents were sent as a separatespecimen. Hemostasis was excellent. The axilla was copiously irrigated. H62-Gdlabu Alvin drain was brought out to the low axillary skin flap and securedwith 3-0 nylon. The drain was left in the axilla. Sponge, Ray-Jean, and needlecount was checked and found to be correct. The axillary fascia was closed using 2-0 Vicryl. 3-0 Vicryl was used on thesubdermis and subcutaneous tissues. A 4-0 Monocryl subcuticular closure wasperformed. Steri-Strips, sterile pressure dressing, and surgical bra wereapplied. The drain was attached to close bulb suction and safety pinned to thelower portion of the bra. The patient tolerated the procedure well, taken torecovery in stable condition. Blood loss was approximately 35 mL. Dictated By: Surjit Jensen MD WT: OP:F.FLORIN/REEMA/NTSDD: 03/24/2019 12:02:37DT: 03/24/2019 14:48:03Conf#: [id number]/DID#: [id number] Authenticated by Surjit Jensen MD On 03/24/2019 07:54:13 PM at 1954 PATIENT NAME: AZALIA DUNCAN ayowdg0831-09-50L08:48:00F.[id number] lable for patient locdEUPRDVMAPMFWTQ1315-56-63G52:54:57 [facility] 2019-03-17 15:09:00 [id number] 763-64-67A97:09:00 [facility] ([facility])DT Discharge NoteREPORT#:[id number] REPORT STATUS: SignedDATE:03/17/19 TIME: 1509 PATIENT: AZALIA DUNCAN UNIT #: [id number]#: [id number] ROOM/BED:: 62 AGE: 59 SEX: F ATTEND: Surjit Jensen MDADM AUTHOR: Surjit Jensen MD * ALL edits or amendments must be made on the electronic/computer document * DISCHARGE NOTEDischarge Note:TEACH PATIENT TO EMPTY DRAIN ONCE DAILYRECORD DRAINAGE AND BRING RECORD TO OFFICECALL OFFICE FOR FOLLOWUP APPOINTMENT CONFIRMATIONKEEP DRESSING AND BRA DRY AND IN PLACESPONGE BATHE ONLY; DO NOT SHOWERRESUME HOME BLOOD PRESSURE MEDS at 1511 RPT #:[id number] OF REPORT DSDischarge cykqdda8873-66-47N33:09:00F.[id number] ailable for patient cuorOPXZWUAOLPVEVS2680-09-30M92:11:25 [facility] 2019-03-10 14:30:00 [id number] 372-04-33N73:30:[id number] [place] [address] PATIENT NAME: AZALIA DUNCAN ADMIT DATE: ACCOUNT NO: [id number] ROOM NO: AGE: 59 SEX: F ADMITTING PHYSICIAN: ATTENDING PHYSICIAN: Surjit Jensen MD Order:[id number] Reason : PRE-OP Test Date/Time Stamp:ThuMar 10 2019 14:30:54Blood Pressure : / mmHGVent. Rate : 070 BPM Atrial Rate : 070 BPM P-R Int : 198 ms QRS Dur : 090 ms QT Int : 376 ms P-R-T Axes : 019 036 032 degrees QTc Int : 406 ms Normal sinus rhythmNormal ECGWhen compared with ECG of 31-AUG-2018 13:41,No significant change was foundConfirmed by LUZ TAVERAS MD ([id number]) on 03/11/2019 7:10:06 AM Referred By: Surjit Jensen Confirmed by:LUZ TAVERAS MD at 0710 PATIENT NAME: AZALIA DUNCAN .[id number] AVAvailable for patient rinhVTUPTLUUGRVKOB8691-08-37M33:10:25 [facility] 2019-01-11 11:42:00 [id number] 954-69-78F31:42:00 [facility] ([facility])Brief Op NoteREPORT#:[id number] REPORT STATUS: SignedDATE:01/11/19 TIME:1142 PATIENT: AZALIA DUNCAN UNIT #: [id number]#: [id number] ROOM/BED:: 62 AGE: 59 SEX: F ATTEND: Julia Wiley MDA AUTHOR: Gareth Hernandez MD * ALL edits or amendments must be made on the electronic/computer document * Op/Inv Proc Note - BriefPre-procedure diagnosis:Scalp abscessPost-procedure diagnosis: same as pre procedure dxProcedures performed:Percutaneous aspirationPrimary Surgeon:Gareth Hernandez MDAssistant(s): noneFindings:Successful US guided aspiration of abscess at the vertex of the scalp. 1 cc of dacosta pus was aspirated and sent for culture.Complications: noneEstimated blood loss in ml's: Less than 10 mLSpecimens removed/altered: Scalp abscess sampleDisposition: plan to D/C home at 1143 RPT #: [id number] OF REPORT OPOperative dwlrte3277-79-15Y14:42:00L.[id number] ilable for patient qhusVGAWXYOSZAVNJL1221-43-39E52:43:49 [facility] 2018-08-31 13:41:00 [id number] 11-09-07T13:41:[id number] [address] PATIENT NAME: AZALIA DUNCAN ADMIT DATE: 08/31/18ACCOUNT NO: [id number] ROOM NO: S217 AGE: 58 REPORT TYPE: eELECTROCARDIOGRAM SEX: F ADMITTING PHYSICIAN: Nigel Kaye MD ATTENDING PHYSICIAN: Nigel Kaye MD Order:[id number] Reason : (Not Selected) Test Date/Time Stamp:ThuAug 31 2018 13:41:17Blood Pressure : 123/087 mmHGVent. Rate : 068 BPM Atrial Rate : 068 BPM P-R Int : 158 ms QRS Dur : 092 ms QT Int : 378 ms P-R-T Axes : 021 053 043 degrees QTc Int : 401 ms Normal sinus rhythmNormal ECGNo previous ECGs availableConfirmed by MD BEST, MEHREEN ([id number]) on 09/19/2018 12:43:01 PM Referred By: System System Confirmed by:MEHREEN JEWELL MD at 1243 PATIENT NAME: AZALIA DUNCAN .[id number] AVAvailable for patient mfvcGGSCYCJTONHGYV5149-40-95Y85:42:57 [facility]
[2023-08-01] MEDS ORDERED: MORPHINE 4 MG/ML SYR ONE (09:42)
[2023-08-01] MEDS ORDERED: ONDANSETRON 4 MG (ODT) TAB ONE (09:42)
--- NOTE | 2023-08-01 10:47 | RAD REPORT ---
EXAM DESCRIPTION: RAD - Ankle Left 3 View - 08/01/2023 10:40 am CLINICAL HISTORY: Pain;Swelling COMPARISON: Ankle Left 3 View dated 02/09/2014 TECHNIQUE: Left ankle, 3 views. FINDINGS: No fracture, dislocation or periosteal reaction. Stable ovoid corticated density at the ti p of the medial malleolus. No joint effusion seen. No joint space narrowing. Mild soft tissue swellin g about the ankle. IMPRESSION: Soft tissue swelling without acute osseous abnormality.
--- NOTE | 2023-08-01 10:52 | EDPHYS ---
Physician Documentation [facility] Name: Azalia Duncan Age: 63 yrs Sex: Female : 1960 Arrival Date: 08/01/2023 Time: 09:03 Bed 18 Private MD: ED Physician Nichelle Tong HPI: 08/01 10:10 This 63 yrs old Black Female presents to ER via Wheelchair with complaints of Fall sb4 Injury, Ankle Injury. 10:10 The patient presents with an injury, pain, that is acute, swelling, tenderness. The sb4 complaints affect the left ankle. Onset: The symptoms/episode began/occurred just prior to arrival. Context: The problem was sustained at home, resulted from the patient falling, a mis-step by the patient, the patient tripping, The mechanism of injury is unknown. The patient is unable to bear weight. The patient is not able to ambulate. The patient has experienced a previous episode. patient twisted her ankle taking out the trash. states she hurt this ankle over 30 years ago and had surgery. cannot bear weight. Historical: - Allergies: 09:18 NKDA; hb - PMHx: 09:18 Anxiety; Asthma; Depression; Hyperlipidemia; Hypertension; left breast cancer; hb - PSHx: 09:18 Pelvic fracture; Splenectomy; Cholecystectomy; hb - Immunization history:: Adult Immunizations up to date. - Social history:: Smoking status: Patient denies any tobacco usage or history of. ROS: 10:10 Constitutional: Negative for fever, chills, and weight loss, sb4 10:10 MS/extremity: Positive for injury or acute deformity, decreased range of motion, pain, swelling, tenderness, of the left lateral ankle, left medial ankle and anterior aspect of left ankle, 10:10 All other systems are negative, Exam: 10:10 Head/Face: Normocephalic, atraumatic. Eyes: Extra-ocular motions intact. Periorbital sb4 areas with no swelling, redness, or edema. ENT: Mucous membranes moist. Skin: Warm, dry with normal turgor. Normal color with no rashes, no lesions, and no evidence of cellulitis. Neuro: Awake and alert, GCS 15, oriented to person, place, time, and situation. Motor strength 5/5 in all extremities. Sensory grossly intact. 10:10 Constitutional: The patient appears alert, awake, obese, in obvious pain, 10:10 Musculoskeletal/extremity: ROM: limited active range of motion due to pain, limited passive range of motion due to pain, Circulation is intact in all extremities. Pulses: are normal with no appreciated deficits, Perfusion: the patient is normally perfused throughout, Perfusion: the extremity is normally perfused throughout, Sensation intact. Vital Signs: 09:17 BP 182 / 77; Pulse 95; Resp 16; Temp 97.5(TE); Pulse Ox 99% on R/A; Weight 127.01 kg; hb Height 5 ft. 8 in. ; Pain 10/10; 09:58 Pain 8; nj1 11:00 BP 151 / 83; Pulse 80; Resp 19; Pulse Ox 98% ; Pain 8; nj1 09:17 Body Mass Index 42.57 (127.01 kg, 172.72 cm) hb 09:17 Pain Scale: Adult hb 09:58 Pain Scale: Adult nj1 11:00 Pain Scale: Adult nj1 MDM: 09:07 Patient medically screened. sb4 10:10 Differential diagnosis: fracture, sprain. sb4 10:50 Data reviewed: vital signs, nurses notes, radiologic studies, and as a result, I will sb4 discharge patient. Independent interpretation of the following test(s) in the Emergency Department X-Ray: My interpretation is my interpretation of the ankle xray images are no acute fracture or dislocation. Care significantly affected by the following chronic conditions: Hypertension, Obesity. Counseling: I had a detailed discussion with the patient and/or guardian regarding the historical points, exam findings, and any diagnostic results supporting the discharge/admit diagnosis, radiology results, the need for outpatient follow up, a orthopedic surgeon, to return to the emergency department if symptoms worsen or persist or if there are any questions or concerns that arise at home. 08/01 09:17 Order name: Ankle Left 3 View XRAY; Complete Time: 10:47 sb4 08/01 10:48 Order name: Walking boot; Complete Time: 11:31 sb4 08/01 10:48 Order name: Crutches; Complete Time: 11:31 sb4 Administered Medications: 09:30 Drug: morphine IM 4 mg IM once Route: IM; Site: right deltoid; [facility] 09:58 Follow up: Pain 8 Adult; Response: No adverse reaction; Pain is decreased nj1 09:30 Drug: Ondansetron Oral Disintegrating Tablet Oral Disintegrating Tablet 4 mg PO once nj1 Route: PO; 09:58 Follow up: Response: No adverse reaction nj1 Disposition Summary: 08/01/23 10:51 Discharge Ordered Notes: Location: Home sb4 Problem: new sb4 Symptoms: have improved sb4 Condition: Stable sb4 Diagnosis - Sprain of other ligament of left ankle sb4 Followup: sb4 - With: Jason Hernández MD - When: As needed - Reason: Further diagnostic work-up, Recheck today's complaints, Re-evaluation by your physician Discharge Instructions: - Discharge Summary Sheet sb4 - Crutch Use, Adult, Mwea-sn-Gfdg sb4 - Ankle Sprain, Qean-sm-Ssrp sb4 - Walking Boot, Adult sb4 Forms: - Medication Reconciliation Form sb4 - Thank You Letter sb4 - Antibiotic Education sb4 - Prescription Opioid Use sb4 - Patient Portal Instructions sb4 - Leadership Thank You Letter sb4 Signatures: Dispatcher [employer] Katheryn Escoto, RN RN Madyson Mcdonald PA-C PA-C sb4 Terri Hector RN RN nj1
--- NOTE | 2023-08-01 10:52 | ER ---
Nurse's Notes [facility] Name: Azalia Duncan Age: 63 yrs Sex: Female : 1960 Arrival Date: 08/01/2023 Time: 09:03 Bed 18 Private MD: Diagnosis: Sprain of other ligament of left ankle Presentation: 08/01 09:17 Chief complaint: Rolled ankle stepping down from sidewalk, c/o severe left ankle pain hb 10/10, unable to bear weight. Coronavirus screen: At this time, the client does not indicate any symptoms associated with coronavirus-19. Ebola Screen: No symptoms or risks identified at this time. Initial Sepsis Screen: Does the patient meet any 2 criteria? No. Patient's initial sepsis screen is negative. Does the patient have a suspected source of infection? No. Patient's initial sepsis screen is negative. Risk Assessment: Do you want to hurt yourself or someone else? Patient reports no desire to harm self or others. Onset of symptoms was August 01, 2023. 09:17 Method Of Arrival: Wheelchair hb 09:17 Acuity: CONOR 4 hb Historical: - Allergies: 09:18 NKDA; hb - PMHx: 09:18 Anxiety; Asthma; Depression; Hyperlipidemia; Hypertension; left breast cancer; hb - PSHx: 09:18 Pelvic fracture; Splenectomy; Cholecystectomy; hb - Immunization history:: Adult Immunizations up to date. - Social history:: Smoking status: Patient denies any tobacco usage or history of. Screenin:38 [facility] ED Fall Risk Assessment (Adult) Score/Fall Risk Level 3 or more points = High nj1 Risk Oriented to surroundings, Maintained a safe environment, Educated pt \T\ family on fall prevention, incl call for assistance when getting out of bed, Assessed \T\ reinforced patient's understanding of fall precautions, Hourly rounding (assess needs \T\ fall precautionary measures) done, Used ambulatory aids as needed (educated on \T\ assisted with), Remained with patient while ambulating. Abuse screen: Denies threats or abuse. Denies injuries from another. Nutritional screening: No deficits noted. Tuberculosis screening: No symptoms or risk factors identified. Assessment: 09:30 General: Appears in no apparent distress. uncomfortable, Behavior is calm, cooperative, nj1 appropriate for age. Pain: Complains of pain in left ankle Pain currently is 10 out of 10 on a pain scale. 09:30 Neuro: Level of Consciousness is awake, alert, obeys commands, Oriented to person, nj1 place, time, situation. Cardiovascular: Patient's skin is warm and dry. Respiratory: Airway is patent Respiratory effort is even, unlabored. Musculoskeletal: Ice pack noted on left ankle Reports pain in left ankle. 10:51 Reassessment: Patient appears in no apparent distress at this time. Patient and/or nj1 family updated on plan of care and expected duration. Pain level reassessed. Patient is alert, oriented x 3, equal unlabored respirations, skin warm/dry/pink. Vital Signs: 09:17 BP 182 / 77; Pulse 95; Resp 16; Temp 97.5(TE); Pulse Ox 99% on R/A; Weight 127.01 kg; hb Height 5 ft. 8 in. ; Pain 10/10; 09:58 Pain 8/10; nj1 11:00 BP 151 / 83; Pulse 80; Resp 19; Pulse Ox 98% ; Pain 8/10; nj1 09:17 Body Mass Index 42.57 (127.01 kg, 172.72 cm) hb 09:17 Pain Scale: Adult hb 09:58 Pain Scale: Adult nj1 11:00 Pain Scale: Adult nj1 ED Course: 09:05 Patient arrived in ED. mg5 09:07 Madyson Hanks PA-C is PHCP. sb4 09:07 Nichelle Tong is Attending Physician. sb4 09:18 Triage completed. hb 09:18 Arm band placed on. hb 09:24 Terri Hector, RN is Primary Nurse. nj1 09:39 Patient has correct armband on for positive identification. Bed in low position. Call nj1 light in reach. Provided Education on: call light, fall precautions. 10:42 Ankle Left 3 View XRAY In Process Unspecified. EDMS 10:51 Jason Hernández MD is Referral Physician. sb4 11:10 No provider procedures requiring assistance completed. nj1 11:10 Patient did not have IV access during this emergency room visit. nj1 11:10 Crutch training done. Ortho/walking boot. nj1 Administered Medications: 09:30 Drug: morphine IM 4 mg IM once Route: IM; Site: right deltoid; nj1 09:58 Follow up: Pain 04/02 Adult; Response: No adverse reaction; Pain is decreased nj1 09:30 Drug: Ondansetron Oral Disintegrating Tablet Oral Disintegrating Tablet 4 mg PO once nj1 Route: PO; 09:58 Follow up: Response: No adverse reaction nj1 Medication: 11:15 VIS not applicable for this client. nj1 Outcome: 10:51 Discharge ordered by . lauren 11:10 Discharged to home via wheelchair, with crutches, nj1 11:10 Condition: stable 11:10 Discharge instructions given to patient, Instructed on discharge instructions, follow up and referral plans. safety practices, crutch walking, Demonstrated understanding of instructions, follow-up care, crutch walking, 11:32 Patient left the ED. nj1 Signatures: Dispatcher [employer] EDKatheryn Mccann, RN Madyson Yusuf PAAstonC PAOscar sb4 Terri Hector RN RN nj1 Rozina Gonsales 5
[2023-08-01 11:36] VITALS: TEMP 97.5
[2023-08-01 11:38] VITALS: BP 151/83; O2SAT 98
== END 2023-08-01 11:32 | disposition home or self-care (01) ==
LOC: ER 09:03
DX: S93.492A Sprain of other ligament of left ankle, initial encounter (principal); W19.XXXA Unspecified fall, initial encounter; Y92.480 Sidewalk as the place of occurrence of the external cause; I10 Essential (primary) hypertension; E78.5 Hyperlipidemia, unspecified
CPT/HCPCS: 73610; 96372; 99284; Q0162

== ENCOUNTER → 2023-09-12 | Emergency (ER) | payer OTHER ==
[~2023-09-12] MED LIST: CEFTRIAXONE 1000 MG/VIAL ONE; NA CHLORIDE 0.9% 1,000 ML ONE; ONDANSETRON 4 MG/2 ML VIAL ONE
--- OUTSIDE RECORDS SUMMARY | 2023-09-12 13:30 | XMS REPORT | Continuity of Care Document ---
Author Name Unknown Address [address] [place] [address] [facility] thconnect Address [address] [place] [address] Care Team Providers Care Housing Liaison Name Role Phone Ely Avila MD Primary Care Physician + [phone] Nancy Dooley Attending Clinician Unavailable Julia Wiley Attending Clinician Unavailable José Antonio Shannon Attending Clinician UnavailSurjit Mohan Attending Clinician Unasong Colón RN, Nancy Bruce Attending Clinician Unav MICHELLE Maria Attending Clinician Unavailable ELY AVILA Attending Clinician Unavailable Ely Avila MD Attending Clinician [phone] Doctor Unassigned, [place] Attending Clinician U Nancy Emerson Admitting Clinician [...] to syphilis Disease Active 10-12 00:00: 00 [facility] Exposure to hepatitis C Exposure to hepatitis C Disease Active 10-12 00:00: 00 [facility] Screening for malignant neoplasm of colon Screening for malignant neoplasm of colon Disease Active 10-12 00:00: 00 [facility] Anxiety and depression Anxiety and depression Disease Active 10-12 00:00: 00 [facility] History of left breast cancer History of left breast cancer Disease Active 10-12 00:00: 00 [facility] Nicotine dependence , cigarettes , in remission Nicotine dependence , cigarettes , in remission Disease Active 10-12 00:00: 00 [facility] Screening for malignant neoplasm of the cervix Screening for malignant neoplasm of the cervix Disease Active 10-12 00:00: 00 [facility] No known active problems No known active problems Disease [facility] Allergies, Adverse Reactions, Alerts Allergy Name Allergy Type Status Severity Reaction(s) Onset Date Inactive Date Treating Clinician Comments Source No Known Allergie s DA Active U 19 00:00: 00 [facility] No Known Allergie s DA Active U 0 19 00:00: 00 [facility] No Known Drug Allergie s DA Active U 0 5-21 00:00: 00 [facility] No Known Allergie s DA Active U 0 1-08 00:00: 00 [facility] No Known Allergie s DA Active U 2017-08 2-13 00:00: 00 [facility] NO KNOWN ALLERGIE S Drug Class Active [facility] Social History Social Habit Start Date Stop Date Quantity Comments Source History of tobacco use Cigarette Smoker [facility] Exposure to SARS-CoV-2 (event) Not sure [facility] Cigarettes smoked current (pack per day) - Reported 2020-10-14 00:00:00 2020-10-14 00:00:00 [facility] Tobacco use and exposure 2020-10-14 00:00:00 2020-10-14 00:00:00 Never used [facility] Alcohol intake 2020-10-14 00:00:00 2020-10-14 00:00:00 Current non-drinker of alcohol (finding) [facility] Sex Assigned At 1960 00:00:00 1960 00:00:00 [facility] Smoking Status Start Date Stop Date Source Current every day smoker 2020-10-14 00:00:00 [facility] Medications Ordered Medication Name Filled Medication Name Start Date Stop Date Current Medication? Ordering Clinician Indication Dosage Frequency Signature (SIG) Comments Components Source penicillin g proc & benzathine (BICILLIN C-R) 1,200,000 unit/ 2 mL(600k/600 k) injection 2.4 Million Units 10-12 19:30: 00 10-12 18:26 :52 No [id number] 2.410 [facility] penicillin g benzathine (BICILLIN L-A) injection 2.4 Million Units 10-12 19:30: 00 10-12 18:28 :00 No [id number] 2.410 [facility] penicillin g benzathine (BICILLIN L-A) injection 2.4 Million Units 10-12 19:30: 00 10-12 18:28 :00 No [id number] 2.410 2.4 Million Units, Intramuscu lar, ONCE, 1 dose, Thu10/12/20 at 1330, JORGE LUIS
Re ason for Anti-Infec tive: Documented Infection< br>Documen chaim Infection Site: Other
O ther site: Syhilis
Duration of Therapy: Other (see Comments) [facility] penicillin g proc & benzathine (BICILLIN C-R) 1,200,000 unit/ 2 mL(600k/600 k) injection 2.4 Million Units 10-12 19:30: 00 10-12 18:26 :52 No [id number] 2.410 [facility] penicillin g benzathine (BICILLIN L-A) injection 2.4 Million Units 10-12 19:30: 00 10-12 18:28 :00 No [id number] 2.410 [facility] penicillin g benzathine (BICILLIN L-A) injection 2.4 Million Units 10-12 19:30: 00 10-12 18:28 :00 No [id number] 2.410 2.4 Million Units, Intramuscu lar, ONCE, 1 dose, 10/12/20 at 1330, JORGE LUIS
Re ason for Anti-Infec tive: Documented Infection< br>Documen chaim Infection Site: Other
O ther site: Syhilis
Duration of Therapy: Other (see Comments) [facility] penicillin g benzathine (BICILLIN L-A) injection 2.4 Million Units 10-12 19:15: 00 10-12 18:15 :25 No [id number] 2.410 [facility] penicillin g benzathine (BICILLIN L-A) injection 2.4 Million Units 10-12 19:15: 00 10-12 18:15 :25 No [id number] 2.410 [facility] MULTIVITAMI N ORAL 2015-08 16:32: 23 Yes 1{tbl} Take 1 Tab by mouth daily. [facility] losartan (COZAAR) 100 mg tablet 2015-08 16:32: 23 Yes 100mg Take 100 mg by mouth daily. [facility] MULTIVITAMI N ORAL 2015-08 16:32: 23 Yes 1{tbl} Take 1 Tab by mouth daily. [facility] losartan (COZAAR) 100 mg tablet 2015-08 16:32: 23 Yes 100mg Take 100 mg by mouth daily. [facility] MULTIVITAMI N ORAL 2015-08 16:32: 23 Yes 1{tbl} Take 1 Tab by mouth daily. [facility] losartan (COZAAR) 100 mg tablet 2015-08 16:32: 23 Yes 100mg Take 100 mg by mouth daily. [facility] MULTIVITAMI N ORAL 2015-08 16:32: 23 Yes 1{tbl} Take 1 Tab by mouth daily. [facility] losartan (COZAAR) 100 mg tablet 2015-08 16:32: 23 Yes 100mg Take 100 mg by mouth daily. [facility] MULTIVITAMI N ORAL 2015-08 16:32: 23 Yes 1{tbl} Take 1 Tab by mouth daily. [facility] losartan (COZAAR) 100 mg tablet 2015-08 16:32: 23 Yes 100mg Take 100 mg by mouth daily. [facility] DULoxetine (CYMBALTA) 60 mg capsule 2015-08 16:32: 22 Yes 60mg Take 60 mg by mouth daily. [facility] HYDROcodone -acetaminop hen (NORCO) 10-325 mg tablet 2015-08 16:32: 22 Yes 1{tbl} Take 1 Tab by mouth 2 (two) times daily. [facility] meloxicam (MOBIC) 7.5 mg tablet 2015-08 16:32: 22 Yes 7.5mg Take 7.5 mg by mouth daily. [facility] traMADOL (ULTRAM) 50 mg tablet 2015-08 16:32: 22 Yes 50mg Take 50 mg by mouth daily. [facility] simvastatin (ZOCOR) 40 mg tablet 2015-08 16:32: 22 Yes 40mg Take 40 mg by mouth daily. [facility] furosemide (LASIX) 40 mg tablet 2015-08 16:32: 22 Yes 40mg Take 40 mg by mouth daily. [facility] cyclobenzap rine (FLEXERIL) 10 mg tablet 2015-08 16:32: 22 Yes 10mg Take 10 mg by mouth 3 (three) times daily. [facility] DULoxetine (CYMBALTA) 60 mg capsule 2015-08 16:32: 22 Yes 60mg Take 60 mg by mouth daily. [facility] HYDROcodone -acetaminop hen (NORCO) 10-325 mg tablet 2015-08 16:32: 22 Yes 1{tbl} Take 1 Tab by mouth 2 (two) times daily. [facility] meloxicam (MOBIC) 7.5 mg tablet 2015-08 16:32: 22 Yes 7.5mg Take 7.5 mg by mouth daily. [facility] traMADOL (ULTRAM) 50 mg tablet 2015-08 16:32: 22 Yes 50mg Take 50 mg by mouth daily. [facility] simvastatin (ZOCOR) 40 mg tablet 2015-08 16:32: 22 Yes 40mg Take 40 mg by mouth daily. [facility] furosemide (LASIX) 40 mg tablet 2015-08 16:32: 22 Yes 40mg Take 40 mg by mouth daily. [facility] cyclobenzap rine (FLEXERIL) 10 mg tablet 2015-08 16:32: 22 Yes 10mg Take 10 mg by mouth 3 (three) times daily. [facility] DULoxetine (CYMBALTA) 60 mg capsule 2015-08 16:32: 22 Yes 60mg Take 60 mg by mouth daily. [facility] HYDROcodone -acetaminop hen (NORCO) 10-325 mg tablet 2015-08 16:32: 22 Yes 1{tbl} Take 1 Tab by mouth 2 (two) times daily. [facility] meloxicam (MOBIC) 7.5 mg tablet 2015-08 16:32: 22 Yes 7.5mg Take 7.5 mg by mouth daily. [facility] traMADOL (ULTRAM) 50 mg tablet 2015-08 16:32: 22 Yes 50mg Take 50 mg by mouth daily. [facility] simvastatin (ZOCOR) 40 mg tablet 2015-08 16:32: 22 Yes 40mg Take 40 mg by mouth daily. [facility] furosemide (LASIX) 40 mg tablet 2015-08 16:32: 22 Yes 40mg Take 40 mg by mouth daily. [facility] cyclobenzap rine (FLEXERIL) 10 mg tablet 2015-08 16:32: 22 Yes 10mg Take 10 mg by mouth 3 (three) times daily. [facility] DULoxetine (CYMBALTA) 60 mg capsule 2015-08 16:32: 22 Yes 60mg Take 60 mg by mouth daily. [facility] HYDROcodone -acetaminop hen (NORCO) 10-325 mg tablet 2015-08 16:32: 22 Yes 1{tbl} Take 1 Tab by mouth 2 (two) times daily. [facility] meloxicam (MOBIC) 7.5 mg tablet 2015-08 16:32: 22 Yes 7.5mg Take 7.5 mg by mouth daily. [facility] traMADOL (ULTRAM) 50 mg tablet 2015-08 16:32: 22 Yes 50mg Take 50 mg by mouth daily. [facility] simvastatin (ZOCOR) 40 mg tablet 2015-08 16:32: 22 Yes 40mg Take 40 mg by mouth daily. [facility] furosemide (LASIX) 40 mg tablet 2015-08 16:32: 22 Yes 40mg Take 40 mg by mouth daily. [facility] cyclobenzap rine (FLEXERIL) 10 mg tablet 2015-08 16:32: 22 Yes 10mg Take 10 mg by mouth 3 (three) times daily. [facility] DULoxetine (CYMBALTA) 60 mg capsule 2015-08 16:32: 22 Yes 60mg Take 60 mg by mouth daily. [facility] HYDROcodone -acetaminop hen (NORCO) 10-325 mg tablet 2015-08 16:32: 22 Yes 1{tbl} Take 1 Tab by mouth 2 (two) times daily. [facility] meloxicam (MOBIC) 7.5 mg tablet 2015-08 16:32: 22 Yes 7.5mg Take 7.5 mg by mouth daily. [facility] traMADOL (ULTRAM) 50 mg tablet 2015-08 16:32: 22 Yes 50mg Take 50 mg by mouth daily. [facility] simvastatin (ZOCOR) 40 mg tablet 2015-08 16:32: 22 Yes 40mg Take 40 mg by mouth daily. [facility] furosemide (LASIX) 40 mg tablet 2015-08 16:32: 22 Yes 40mg Take 40 mg by mouth daily. [facility] cyclobenzap rine (FLEXERIL) 10 mg tablet 2015-08 16:32: 22 Yes 10mg Take 10 mg by mouth 3 (three) times daily. [facility] Vital Signs Vital Name Observation Time Observation Value Comments S melchor Systolic blood pressure 2020-10-12 17:43:00 136 mm[Hg] [facility] Diastolic blood pressure 2020-10-12 17:43:00 83 mm[Hg] [facility] Heart rate 2020-10-12 17:43:00 79 /min [facility] Body temperature 2020-10-12 17:43:00 36.72 Lauren [facility] Respiratory rate 2020-10-12 17:43:00 18 /min [facility] Body weight 2020-10-12 17:43:00 120.702 kg [facility] BMI 2020-10-12 17:43:00 45.68 kg/m2 [facility] Oxygen saturation in Arterial blood by Pulse oximetry 2020-10-12 17:43:00 99 /min [facility] Systolic blood pressure 2020-10-12 17:43:00 136 mm[Hg] [facility] Diastolic blood pressure 2020-10-12 17:43:00 83 mm[Hg] [facility] Heart rate 2020-10-12 17:43:00 79 /min [facility] Body temperature 2020-10-12 17:43:00 36.72 Lauren [facility] Respiratory rate 2020-10-12 17:43:00 18 /min [facility] Body weight 2020-10-12 17:43:00 120.702 kg [facility] BMI 2020-10-12 17:43:00 45.68 kg/m2 [facility] Oxygen saturation in Arterial blood by Pulse oximetry 2020-10-12 17:43:00 99 /min [facility] Procedures Procedure Date / Time Performed Performing Clinicia n Source ASSIGNMENT OF BENEFITS 2020-10-12 17:33:19 Docto r Unassigned, [place] [facility] Encounters Start Date/Time End Date/Time Encounter Type Admission Type Attending Clinicians Care Facility Care Department Encounter ID Source 2022-07-28 09:52:01 Outpatient Nancy Do[facility] [id number] [facility] 2021-09-18 12:07:11 Outpatient Nancy Dooley [facility] [id number] [facility] 2020-05-21 10:00:00 Inpatient Julia Houser [facility] [id number] [facility] 2020-05-17 10:00:00 Inpatient ShannonMadysonoliva [facility] [id number] [facility] 2019-08-23 13:00:00 Inpatient Surjit Yang [facility] [id number] [facility] 2023-03-02 12:00:00 2023-03-02 12:00:00 Outpatient Julia Houser [facility] [id number] 91 [facility] 2021-08-29 12:00:00 2021-08-29 12:00:00 Outpatient Julia Houser [facility] [id number] [facility] 2021-04-23 00:00:00 2021-04-23 00:00:00 Telephone Nancy Colón [id number] [facility] 2020-12-26 08:30:00 2020-12-26 08:30:00 Outpatient MICHELLE JAQUEZ [facility] [id number] [facility] 2020-11-28 16:50:00 2020-11-28 16:50:00 Outpatient [facility] [id number] [facility] 2020-10-12 14:00:00 2020-10-12 14:00:00 Outpatient R ELY AVILA [facility] [id number] [facility] 2020-10-12 11:35:09 2020-10-12 12:32:47 Office Visit Ely Avila [facility] [id number] [facility] 2020-10-12 11:35:09 2020-10-12 12:32:47 Office Visit Ely Avila [facility] [id number] 2020-10-12 00:00:00 2020-10-12 00:00:00 Orders Only Doctor Unassigned, [place] [facility] [id number] [id number] [facility] 2020-09-20 09:00:00 2020-09-20 09:00:00 Out[facility] Saurabh[facility] [id number] [facility] 2020-08-20 12:00:00 2020-08-20 12:00:00 Outpatient EL Saurabh, Julia [facility] [id number] [facility] 2020-03-09 09:00:00 2020-03-09 09:00:00 Outpatient Saurabh, [facility] [id number] [facility] 2020-02-09 13:48:00 2020-02-09 13:48:00 Outpatient Saurabh, [facility] [id number] [facility] 2019-10-04 09:30:00 2019-10-04 09:30:00 [facility] [id number] [facility] 2019-09-23 16:48:00 2019-09-23 16:48:00 [facility] [id number] [facility] 2019-08-15 12:00:00 2019-08-15 12:00:00 Outpatient EL Julia Wiley [facility] [id number] [facility] Results Test Description Test Time Test Comments Results Resul t Comments Source - SP FLUORO GUID CTRL ACC DEV 2020-05-21 13:23:00 Name: AZALIA DUNCAN [facility] : 1960 Age/S: 60 / F [id number] Unit #: [id number] Loc: [place] [address] Phys: Julia Wiley MD Acct: [id number] Dis Date: Status[place] [facility] PHONE #: [phone] Exam Date: 05/21/2020 1252 FAX #: Reason: CANCER TREATMENT COMPLETE EXAMS: CPT: [id number] SP FLUORO GUID CTRL ACC DEV [id number] Fluoro Time: 00:14 DAP (Gy m2): 0.25 [...] minutes. TECHNIQUE: Prior to beginning the procedure, [place] Protocol was used to confirm the patient's [...] PAGE 1 Signed Report Name: AZALIA DUNCAN [facility] : 1960 Age/S: 60 / F [address] Unit #: [id number] Loc: [place] [address] Phys: Julia Wiley MD Acct: [id number] Dis Date: Status: [place] [facility] PHONE #: [phone] Exam Date: 05/21/2020 1250 FAX #: Reason: CANCER TREATMENT COMPLETE EXAMS: CPT: [id number] SP FLUORO GUID CTRL ACC DEV [id number] Fluoro Time: 00:14 DAP (Gy m2): 0.25 Air Kerma (mGy): 1 <Continued> Technologist: John Higuera RT(R) Trnscb Date/Time: 05/21/2020 (8513) [id number] Orig Print D/T: S: 05/21/2020 (2105) PAGE 2 Signed Report BREAST,EXCISION OF LESION/[id number] 16:54:00 RUN DATE: 03/23/19 [facility] PAGE 1 RUN TIME: 1654 Specimen Inquiry RUN USER: INTERFACE -------- ----PATIENT: AZALIA DUNCAN LOC: [facility] U #: [id number] AGE/SX: 59/F ROOM: RE03/17/19REG DR: Surjit Jensen : 64 BED: DIS: STATUS: [facility] TLOC: SPEC #: [id number] RECD: 03/17/19STATUS: JUAN R REQ #: [id number] AGUSTO: 03/17/19- SUBM DR: Surjit Jensen MD ENTERED: 03/18/19 SP TYPE: BREAST,EXC OTHR DR: ORDERED: LEVEL SURGIC CODES: K42309 - BREAST, NOS PROCEDURES: LEVEL SURGIC (Incomplete) [...] Histologic Type: Invasive micropapillary carcinoma Histologic Grade (Wendell Histologic Score): Gradingmay be inaccurate post chemotherapy Glandular (Acinar)/Tubular Differentiation: Score 2 Nuclear Pleomorphism: Score 3 Mitotic Rate: Score 1 CONTINUED ON NEXT PAGE RUN DATE: 03/23/19 [facility] PAGE 2 RUN TIME: 1654 Specimen Inquiry RUN USER: INTERFACE SPEC #: [id number] PATIENT: AZALIA DUNCAN #[id number] (Continued) FINAL DIAGNOSIS (Continued) Overall Grade: Grade [...] intensity Microcalcifications: Present in non-neoplastic tissueCPT code(s): 30812 x3, 65167-74, 84240-76 carlos/donny dt: 03/23/19 CONTINUED ON NEXT PAGE --RUN DATE: 03/23/19 [facility] PAGE 3 RUN TIME: 1654 Specimen Inquiry RUN USER: INTERFACE SPEC #: [id number] PATIENT: AZALIA DUNCAN #[id number] (Continued) GROSS DESCRIPTION ANATOMIC SOURCE OF TISSUE [...] inferior Black - posterior Green - anterior [place] - medial Yellow - lateral Section code: [...] Specimen Inquiry RUN USER: INTERFACE SPEC #: [id number] PATIENT: AZALIA DUNCAN #[id number] (Continued) GROSS DESCRIPTION (Continued) consists of a [...] inferior Black - posterior Green - anterior [place] - medial Yellow - lateral Section code: [...] a 0.6 cm dacosta- wilhelm, firm nodule. Terminal Makeup Operator sections are submitted labeled C1 - 1 [...] Specimen Inquiry RUN USER: INTERFACE SPEC #: [id number] PATIENT: AZALIA DUNCAN #[id number] (Continued) - MICROSCOPIC DESCRIPTION (Continued) lymphovascular invasion [...] focuswith no extracapuslar extension. No fibrosis identified. [facility]/donny dt: 03/23/19 The [facility]components [facility] [address] [place] [address]. The interpretation is provided by [facility], [address] [place] [address]. Controls received from [facility] stained appropriately. INTERPRETATION: Block A6: D2-40 and CD31- See above for results. Prognostic Markers performed and interpreted 03/23/19 at [facility] ER: POSITIVE Tumor Stained: 62% Intensity: 3+ Internal control: Present DC: POSITIVE Tumor Stained: 43% Intensity: 1+ Internal control: Present HER2 (IHC): NEGATIVE Score: 1+ Ki67: LOW, 5% Intensity: 3+ Signed SIGNATURE ON FILE Catherine Kelly MD 03/23/19 1654 END OF REPORT CHEMISTRY 7 [id number] 14:59:00* Test Item Value Reference Range Interpretation [...] = CA) 9.6 mg/dL 8.4-10.2 N HGB [id number] 14:27:00* Test Item Value Reference Range Interpretation Comme nts HEMOGLOBIN (test code = HGB) 12.4 g/dL 10.7-13.9 N HEMATOCRIT (test code = HCT) 38.6 % 32.1-42.1 N - USG NDL PLACEMENT (Bxg/Asp)2019-01-11 11:50:00Name: AZALIA DUNCAN [facility] : 1960 Age/S: 59 / F [id number] Unit #: [id number] Loc: [place] [address] Phys: Julia Wiley MD Acct: [id number] Dis Date: Status: DEP CLI PHONE #: [phone] Exam Date: 01/11/2019 1135 FAX #: Reason: ASPIRATION EXAMS: CPT: [id number] USG NDL PLACEMENT (Bxg/Asp) 73092 PROCEDURE: PERCUTANEOUS IMAGE GUIDED ASPIRATION. LOCATION: S 17. HISTORY: Scalp abscess. SEDATION: The patient did not require conscious sedation for the procedure. TECHNIQUE: The risks, benefits, and alternatives were discussed and informed consent was obtained. Prior to beginning the procedure, [place] Protocol was used to confirm the patient's [...] 1 Signed Report (CONTINUED) Name: AZALIA DUNCAN [place] : 1960 Age/S: 59 / F [id number] Unit #: [id number] Loc: [place] [address] Phys: Julia Wiley MD Acct: [id number] Dis Date: Status: [facility] PHONE #: [phone] Exam Date: 01/11/2019 1135 FAX#: Reason: ASPIRATION EXAMS: CPT: [id number] USG NDL PLACEMENT (Bxg/Asp) 62683 <Continued> CC:Nancy Wiley MD Technologist: Slime Dubois, RT(R),RDMS(AB) Trnscb Date/Time: 01/11/2019 (1150) [email or web address] PAGE 2 Signed Report Name: AZALIA DUNCAN [place] : 1960 Age/S: 59 / F [address] Unit #: [id number] Loc: [place] [address] Phys: Julia Wiley MD Acct: [id number] Dis Date: Status: DEP CLI PHONE #: [phone] Exam Date: 01/11/2019 1135 FAX #: Reason: ASPIRATION EXAMS: CPT: [id number] USG NDL PLACEMENT (Bxg/Asp) 43253 <Continued> Orig Print D/T: S: 01/11/2019 (1153) Probe: PAGE 3 Signed Report- USG NDL PLACEMENT (Bxg/Asp)2019-01-11 11:50:00 [place] : 1960 Age/S: 59 / F [address] Unit #: [id number] Loc: [place] [address] Phys: Julia Wiley MD Acct: [id number] Dis Date: Status: REG CLI PHONE #: [phone] Exam Date: 01/11/2019 1135 FAX #: Reason: ASPIRATION EXAMS: CPT: [id number] USG NDL P LACEMENT (Bxg/Asp) 42574 PROCEDURE: PERCUTANEOUS IMAGE GUIDED ASPIRATION. LOCATION: S 17. HISTORY:Scalp abscess. SEDATION: The patient did not require conscious sedation for the procedure. TECHNIQUE: The risks, benefits, and alternatives were discussed and informed consent was obtained. Prior to b eginning the procedure, [place] Protocol was used to confirm the patient's [...] 1 Signed Report (CONTINUED) Name: AZALIA DUNCAN [place] : 1960 Age/S: 59 / F [address] Unit #: [id number] Loc: [place] [address] Phys: Julia Wiley MD Acct: [id number] Dis Date: Status: REG CLI PHONE #: [phone] Exam Date: 01/11/2019 1135FAX #: Reason: ASPIRATION EXAMS: CPT: [id number] USG NDL PLACEMENT (Bxg/Asp) 27242 (Continued) CC: Nancy Dooley; Julia Wiley MD Technologist: Slime Dubois, RT(R),RDMS(AB) Trnscb Date/Time: 01/11/2019 (1150) [email or web address] PAGE 2 Signed Report Name: AZALIA DUNCAN [place] : 1960 Age/S: 59 / F [address] Unit #: [id number] Loc: [place] [address] Phys: Julia Wiley MD Acct:[id number] Dis Date: Status: REG CLI PHONE #: [phone] Exam Date: 01/11/2019 1135 FAX #: Reason: ASPIRATION EXAMS: CPT: [id number] USG NDL PLACEMENT (Bxg/Asp) 83216 (Continued) Orig Print D/T: S: 01/11/2019 (1153) Probe: PAGE 3 Signed Report- SP FLUORO GUID CTRL ACC [id number] 11:21:00Name: AZALIA DUNCAN [place] : 1960 Age/S: 58 / F [address] Unit #: [id number] Loc: [place] [address] Phys: Gareth Hernandez MD Acct: [id number] Dis Date: [facility] [facility] [place] #: [phone] Exam Date: 08/05/2018 1100 FAX #: Reason: EXAMS: CPT: [id number] SP FLUORO GUID CTRLACC DEV 12776 Fluoro Time: 00:52 DAP (Gy m2): 0.87 [...] was obtained. Prior to beginning the procedure, [place] Protocol was used to confirm the patient's [...] 1 Signed Report (CONTINUED) [facility] 1960 Age/S: 58 / F [id number] [address] Unit #: [id number] Loc: [place] [address] [id number] Dis Date: Status: [facility] PHONE #: [phone] Exam Date: 08/05/2018 1100 FAX #: Reason: EXAMS: CPT: [id number] SP FLUORO GUID CTRL ACC DEV 51489 Fluoro Time: 00:52 DAP (Gy m2): 0.87 [...] MD PAGE 2 SignedReport Name: AZALIA DUNCAN [facility] : 1960 Age/S: 58 / F [address] [facility] Unit #: [id number] Loc: [place] [id number] Phys: Gareth Hernandez MD Acct: [id number] Dis Date: Status: [facility] PHONE #: [phone] Exam Date: 08/05/2018 1100 FAX #: Reason: EXAMS: CPT: [id number] SP FLUOROGUID CTRL ACC DEV 82206 Fluoro Time: 00:52 DAP (Gy m2): 0.87 Air Kerma (mGy): 4 <Continued> Technologist: RT Jazzmine(R) Trnpbb Date/Time: 08/05/2018 (112) tLEIPR7 Orig Print D/T: S: 08/05/2018 (1124) PAGE 3 Signed Report Notes Date/Time Note Provider Source 2020-09-20 12:26:00 [id number] Ddfl4pLkzf+lv3XqQQcl8+932/6MO jMYxg6I5EVpCLYJr5fiIgkixOX6KX/7wp65181-12-76X14:2 6:[id number] [facility] [address] [place] [address] PATIENT NAME: AZALIA DUNCAN ADMIT DATE: 09/20/20ACCOUNT NO: [id number] ROOM NO: AGE: 60 REPORT TYPE: eECHOCARDIOGRAM REPORT SEX: F ADMITTING PHYSICIAN: ATTENDING PHYSICIAN: Julia Wiley MD *[facility]*[address] [place], [place] [address]Jqpsy Transthoracic Echocardiogram Patient: Azalia DuncaniseStudy Date: 09/20/2020 BP: Location: [facility]: [id number] : 1960 Age: 60 Height: 67 in / 170.2 cmAccession#: [id number] Gender: F Weight: 250.5 lb / 113.9 kgBMI/BSA: 39.3 kg/m 2 / 2.23 m 2 *Ordering Physician: * Julia Wiley *Interpreting Physician: * Molly Min*[employer]: * Shaniqua Brennan Indications: MALG NEOPLASM OF QUADRANT. Study data: Transthoracic echocardiogram. Procedure: Transthoracicechocardiography was performed. Image quality was adequate. Feumefwz4Y, complete spectral Doppler, and color Doppler. Location: [...] Value 10/04/2019 Ref Vol/bsa, 33 ml/m 2 11 40 ES, 1-p A4C Vol/bsa, 35 ml/m [...] 3.0 --------- Pulmonic valve Value 10/04/2019 Ref DC peak v 0.99 m/sec 1.08 --------- DC peak 4 mm Hg --------- grad Tricuspid [...] at 1227 PATIENT NAME: AZALIA DUNCAN :26:0 0L.[id number] for patient dkyvHSRFXNIRZVANUK9087-73-92A91:27:19 [facility] 2019-10-04 22:02:00 ISxblnlkeeb65803158o rTVWp526L3Z+6c1AFptzu/Fdm8qJP CXpvmvBZWZ6TFkNXitPDZTU+zRrlYLVmC32452-31-27G22:0 2:[id number] [address] PATIENT NAME: AZALIA DUNCAN ADMIT DATE: 10/04/19ACCOUNT NO: [id number] ROOM NO: AGE: 59 REPORT TYPE: eECHOCARDIOGRAM REPORT SEX: F ADMITTING PHYSICIAN: ATTENDING PHYSICIAN: Julia Wiley MD *[facility]*[address] [place] [address]Uqfmr Transthoracic Echocardiogram Patient: Azalia Duncantudy Date: 10/04/2019 BP: [id number] 1960 Age: 59 Height: 67 in / 170.2 cmAccession#: [id number] Gender: F Weight: 244.5 lb / 111.1 kgBMI/BSA: 38.4 kg/m 2 / 2.34 m 2 *Ordering Physician: * Julia Wiley *Interpreting Physician: * Yrn Whitehead MD*[employer]: * Shaniqua Brennan Indications: Encounter For Antineoplastic Chemotherapy. Study data: Transthoracic echocardiogram. Procedure: Transthoracicechocardiography was performed. Image quality was adequate. Cisuyojg4C, complete spectral Doppler, and color Doppler. Location: [...] Peak fannie, S 1.24 m/sec 1.15 --------- DC peak v 1.08 m/sec 1.38 ----- Mean fannie, S 0.85 m/sec 0.93 --------- DC grad, ED 5 mm Hg 8 ----- [...] at 2203 PATIENT NAME: AZALIA DUNCAN :02:0 0L.[id number] for patient zqqlSAKPCJLAYGHGKV6160-51-64H62:03:18 [facility] 2019-05-24 10:36:00 HPliaxcnhby82960887R xREP6yYnF3arI4wNi897iCkxd/9Pd Fh5jvKc8goKGuks9/VZ40jc+EC6vWd+PGu2954-16-39S22:3 6:557685-[address] [address] PATIENT NAME: AZALIA DUNCAN ADMIT DATE: 05/19/19ACCOUNT NO: [id number] ROOM NO: AGE: 59 REPORT TYPE: eECHOCARDIOGRAM REPORT SEX: F ADMITTING PHYSICIAN: ATTENDING PHYSICIAN: Julia Wiley MD *[facility]*[address] [place], [place] [address]Os[place]one Transthoracic Echocardiogram Patient: Ana Duncan Date: 05/19/2019 BP: [id number] : 1960 Age: 59 Height: 67 in / 170.2 cmAccession#: [id number] Gender: F Weight: 243.5 lb / 110.7 kgBMI/BSA: 38.2 kg/m 2 / 2.2 m 2 *Ordering Physician: * Julia Wiley *Interpreting Physician: * Yrn Whitehead MD*[employer]: * Shaniqua Brennan Indications: Antineoplastic Chemotherapy. Study data: Transthoracic echocardiogram. Procedure: Transthoracicechocardiography was performed. Image quality was adequate. Ilgafolt2O, complete spectral Doppler, and color Doppler. Location: [...] Peak grad, S 5 mm Hg --------- DC peak v 1.38 m/sec ----- Mean grad, S 4 mm Hg --------- DC peak grad 8 mm Hg ----- SV 100 ml --------- DC grad, ED 8 mm Hg ----- SV/bsa [...] at 1036 PATIENT NAME: AZALIA DUNCAN :36:0 0L.[id number] for patient hffdRPTZLBFCDLXKMJ5025-80-03U12:36:32 [facility] 2019-03-24 12:02:00 IYsnsivhoxb19818312m +SVbry4TslKj73zkVwbI6Uyy49xdg CJBQxy+zWpxLUfdxu09mJLVkrE1oTGr1ae1795-27-07H17:0 2:888622-3448 [facility] [address], [place] [address] PATIENT NAME: AZALIA DUNCAN ADMIT DATE: 03/17/19ACCOUNT NO: [id number] ROOM NO: AGE: 59 SEX: F ADMITTING PHYSICIAN: ATTENDING PHYSICIAN: Surjit Jensen MD OPERATION DATE: 03/17/2019 PREOPERATIVE DIAGNOSIS: Left breast cancer, status post neoadjuvantchemotherapy T2 N1. POSTOPERATIVE DIAGNOSIS: Left breast cancer, status post neoadjuvantchemotherapy T2 N1. PROCEDURE PERFORMED: Left partial mastectomy with axillary dissection and preopneedle localization. SURGEON: Surjit Jensen MD PHOTOLITHOGRAPHIC STRIPPER: Bradley Reyna SA. ANESTHESIA: General. DRAINS: 15-Salvadorean drain placed in the left axilla. PROCEDURE [...] was excellent. The axilla was copiously irrigated. P38-Jogdxd Alvin drain was brought out to the [...] mL. Dictated By: Surjit Jensen MD WT: OP:ADAN/REEMA/MATTHEWDD: 03/24/2019 12:02:37DT: 03/24/2019 14:48:03Conf#: [id number]/DID#: [id number] Authenticated by Surjit Jensen MD On 03/24/2019 07:54:13 PM at 1954 PATIENT NAME: AZALIA DUNCAN fjlekd3239-82-54I50:48:00F.EVI74869524-3298XSShbw lable for patient ggqdLUZLCQUOCCJWCA2735-89-74P91:54:57 [facility] 2019-03-17 15:09:00 [id number] TmeKTmy+G+kh/t37vorivasrmeuYT U+uI97qPOeCo0/zfONHOJQ5P5Uy4jtiyO31589-17-01M19:0 9:00 [facility] ([facility])DT Discharge NoteREPORT#:[id number] REPORT STATUS: SignedDATE:03/17/19 TIME: 150 PATIENT: AZALIA DUNCAN UNIT #: [id number]#: [id number] ROOM/BED:: 62 AGE: 59 SEX: F ATTEND: Surjit Jensen [facility] AUTHOR: Surjit Jensen MD * ALL edits or amendments must be made on the electronic/computer document * DISCHARGE NOTEDischarge Note:TEACH PATIENT TO EMPTY DRAIN ONCE DAILYRECORD DRAINAGE AND BRING RECORD TO OFFICECALL OFFICE FOR FOLLOWUP APPOINTMENT CONFIRMATIONKEEP DRESSING AND BRA DRY AND IN PLACESPONGE BATHE ONLY; DO NOT SHOWERRESUME HOME BLOOD PRESSURE MEDS at 1511 RPT #:[id number] OF REPORT DSDischarge rqcuplu0493-14-97V22:09:00F.MOVI67060901-9529KMEp ailable for patient fbgqNBOYPQZFPRELTB6393-73-15Z75:11:25 [facility] 2019-03-10 14:30:00 AZxlfjriune15136772l 1M9IC7IYwrWI2pKBPcbIuCyV0WYMF 6wXu6S6LVAELqeMYsC+4UhOG2MtW5bDgkP0959-18-37O86:3 0:222972-0942 [facility] [address], [place] [address] PATIENT NAME: AZALIA DUNCAN ADMIT DATE: ACCOUNT NO: [id number] ROOM NO: AGE: 59 SEX: F ADMITTING PHYSICIAN: ATTENDING PHYSICIAN: Surjit Jensen MD Order:[id number] Reason : PRE-OP Test Date/Time Stamp:ThuMar 10 [...] change was foundConfirmed by LUZ TAVERAS MD ([id number]) on 03/11/2019 7:10:06 AM Referred By: Surjit Jensen Confirmed by:LUZ TAVERAS MD at 0710 PATIENT NAME: AZALIA DUNCAN .[id number] AVAvailable for patient faknHMGNFSAMJQKSDI7617-49-20X71:10:25 [facility] 2019-01-11 11:42:00 BOglqmultma67518122J Y94zpLJqhY8+3grVY/DH4RTCBX9Gp zl6cDtDUjd89SHKswN78DNYJGkTAtTbDQY6598-73-41I07:4 2:00 [facility] ([facility])Brief Op NoteREPORT#:[id number] REPORT STATUS: SignedDATE:01/11/19 TIME:1142 PATIENT: AZALIA DUNCAN UNIT #: [id number]#: [id number] ROOM/BED:: 62 AGE: 59 SEX: F ATTEND: Julia Wiley [facility] AUTHOR: Gareth Hernandez MD * ALL edits [...] to D/C home at 1143 RPT #: [id number] OF REPORT OPOperative gcjsyj1523-41-82H44:42:00L.ERNO89193142-4709EJHlk ilable for patient xiurVZUGGDCAWOMHSM3113-60-24C47:43:49 [facility] 2018-08-31 13:41:00 XQzkibjtjmw9260783zi Ey0W26o7g9YIF00wy5jkv/rD2wR7/ j1Sz/+LrsOSzUXDF7tvx1p4NshyljtpZc3164-41-69U50:41 :[id number] [address] PATIENT NAME: AZALIA DUNCAN ADMIT DATE: 08/31/18ACCOUNT NO: [id number] ROOM NO: [facility] AGE: 58 REPORT TYPE: eELECTROCARDIOGRAM SEX: F ADMITTING PHYSICIAN: Nigel Kaye MD ATTENDING PHYSICIAN: Nigel Kaye MD Order:[id number] Reason : (Not Selected) Test Date/Time Stamp:ThuAug 31 2018 13:41:17Blood Pressure : 123/087 mmHGVent. Rate : 068 BPM Atrial Rate : 068 BPM P-R Int : 158 ms QRS Dur : 092 ms QT Int : 378 ms P-R-T Axes : 021 053 043 degrees QTc Int : 401 ms Normal sinus rhythmNormal ECGNo previous ECGs availableConfirmed by MD [facility] ([id number]) on 09/19/2018 12:43:01 PM Referred By: System System Confirmed by:MEHREEN JEWELL MD at 1243 PATIENT NAME: AZALIA DUNCAN .[id number] AVAvailable for patient ioxyNRVFWEUWWKZZQV7470-61-34A87:42:57 [facility]
[2023-09-12 14:33] LABS: Absolute Lymphocytes (CBC) 2.5 K/uL (0.7-4.9); Hematocrit 43.2 % (36.0-45.0); Lymphocytes % 39.4 % (15.3-44.8); MCV 87.1 fL (80-100); MPV 10.2 fL (7.6-11.3); Platelets 206 thou/uL (152-406); RBC Red Blood Cell Count 4.96 M/uL (3.86-4.86)
[2023-09-12 14:52] LABS: Albumin 3.1 g/dL (3.4-5.0); Bilirubin Direct 0.2 mg/dL (0-0.2); Bilirubin Indirect, Calculated 0.3 mg/dL (0.2-0.8); Bilirubin Total 0.5 mg/dL (0.2-1.0); Magnesium 1.9 mg/dL (1.6-2.4); Potassium 3.5 mEq/L (3.5-5.1); Protein, Total 7.9 g/dL (6.4-8.2); Troponin High Sensitivity 6.8 pg/mL (<58.9)
[2023-09-12 14:54] LABS: SARS-CoV-2 Antigen Rapid Res Negative (Negative)
--- NOTE | 2023-09-12 15:10 | RAD REPORT ---
EXAM DESCRIPTION: Marcellat Single View09/12/2023 2:01 pm CLINICAL HISTORY: CHEST PAIN COMPARISON: Chest Single View dated 10/17/2018; Chest Single View dated 04/21/2018; Chest Pa And Lat ( 2 Views) dated 03/26/2018; Chest Single View dated 01/31/2018 TECHNIQUE: Portable AP view of the chest. FINDINGS: The lungs are clear. No pneumothorax or effusion. The cardiomediastinal contours are unre markable. IMPRESSION: No acute cardiopulmonary process.
--- NOTE | 2023-09-12 15:12 | RAD REPORT ---
EXAM DESCRIPTION: CT - Head Brain Wo Cont - 09/12/2023 2:25 pm CLINICAL HISTORY: DIZZINESS COMPARISON: Head Brain Wo Cont dated 07/25/2019; Head Brain Wo Cont dated 10/17/2018 TECHNIQUE: Noncontrast head CT images were obtained without IV contrast. Multiplanar reformats were generated and reviewed. All CT scans are performed using dose optimization technique as appropriate and may include automated exposure control or mA/KV adjustment according to patient size. FINDINGS: No intracranial hemorrhage, mass, or edema. Midline structures are unremarkable. Normal ventricular caliber for age. Cobb-white matter differentiation is preserved, without evidence of acute infarct. No abnormal extra- axial fluid collections. Mastoid air cells and visualized portions of the paranasal sinuses are clear. No acute bony findings. IMPRESSION: No evidence of an acute intracranial process.
[2023-09-12 15:19] LABS: Specific Gravity 1.021 (1.005-1.030); Urine Bacteria <20 /HPF (<20); Urine Bilirubin NEGATIVE (Negative); Urine Blood Negative (Negative); Urine Clarity Extremely Turbid (Clear); Urine Color Yellow (Yellow); Urine Glucose NEGATIVE (Negative); Urine Mucus Slight /HPF (None Seen); Urine Protein TRACE (Negative); Urine RBC <5 /HPF (None Seen); Urine Urobilinogen 2+ (Normal)
[2023-09-12 15:30] LABS: Barbiturates NEGATIVE (NEGATIVE); Benzodiazepines NEGATIVE (NEGATIVE); Cocaine NEGATIVE (NEGATIVE); METHAMPHETAM NEGATIVE (NEGATIVE); Methadone NEGATIVE (NEGATIVE); Opiates NEGATIVE (NEGATIVE); Phencyclidine NEGATIVE (NEGATIVE); THC Cannibis NEGATIVE (NEGATIVE)
--- NOTE | 2023-09-12 15:41 | EDPHYS ---
Physician Documentation [facility] Name: Azalia Duncan Age: 63 yrs Sex: Female : 1960 Arrival Date: 09/12/2023 Time: 13:28 Bed 14 Private MD: ED Physician Vish Spring HPI: 09/12 13:46 This 63 yrs old Black Female presents to ER via Ambulatory with complaints of sb4 Dizziness, Nausea. 13:57 patient states that she has been feeling dizzy, nauseated, and generally ill for the sb4 past 2 days. states she had one episode of emesis this morning. does report history of vertigo, but typically resolves with meclizine. states this is different, feels like her heart rate increases and her BP decreases. denies any sick contacts. no fever chills, abd pain, diarrhea, sob. Historical: - Allergies: 13:41 NKDA; nj1 - PMHx: 13:41 Anxiety; Asthma; Depression; Hyperlipidemia; Hypertension; left breast cancer; nj1 - PSHx: 13:41 Cholecystectomy; Pelvic fracture; Splenectomy; nj1 - Immunization history:: Client reports receiving the 2nd dose of the Covid vaccine. - Social history:: Smoking status: Patient denies any tobacco usage or history of. ROS: 13:50 Constitutional: Negative for fever, chills, and weight loss, sb4 13:50 Abdomen/GI: Positive for nausea and vomiting, 13:50 Neuro: Positive for dizziness, 13:50 All other systems are negative, Exam: 13:50 Constitutional: This is a well developed, well nourished patient who is awake, alert, sb4 and in no acute distress. Head/Face: Normocephalic, atraumatic. Eyes: Extra-ocular motions intact. Periorbital areas with no swelling, redness, or edema. ENT: Mucous membranes moist. Cardiovascular: Regular rate and rhythm with a normal S1 and S2. Respiratory: Lungs have equal breath sounds bilaterally, clear to auscultation and percussion. No rales, rhonchi or wheezes noted. No increased work of breathing, no retractions or nasal flaring. Abdomen/GI: Soft, non-tender, no distension. Skin: Warm, dry with normal turgor. Normal color with no rashes, no lesions, and no evidence of cellulitis. MS/ Extremity: Pulses equal, no cyanosis. Neurovascular intact. Full, normal range of motion. Neuro: Awake and alert, GCS 15, oriented to person, place, time, and situation. Motor strength 5/5 in all extremities. Sensory grossly intact. Vital Signs: 13:33 BP 134 / 67; Pulse 72; Resp 18; Temp 98.3(O); Pulse Ox 98% on R/A; Weight 129.27 kg; nj1 Height 5 ft. 7 in. ; 13:45 BP 124 / 72; Pulse 74; Resp 16; Pulse Ox 99% ; ko1 14:22 BP 126 / 74 LA Supine (auto/lg); Pulse 62; Resp 15; Pulse Ox 96% ; ko1 14:24 BP 127 / 82 LA Sitting (auto/lg); Pulse 62; Resp 14; Pulse Ox 98% ; ko1 14:26 BP 133 / 77 LA Standing (auto/lg); Pulse 71; Resp 15; Pulse Ox 98% ; ko1 15:57 BP 126 / 68; Pulse 75; Resp 15; Pulse Ox 98% ; ko1 13:33 Body Mass Index 44.64 (129.27 kg, 170.18 cm) nj1 MDM: 13:34 Patient medically screened. sb4 13:50 Differential diagnosis: cardiac arrhythmia, CVA, generalized weakness, hypovolemia, sb4 idiopathic dizziness, syncope, TIA, vertigo. 15:39 Data reviewed: vital signs, nurses notes, lab test result(s), EKG, radiologic studies, sb4 and as a result, I will discharge patient. Consideration of Admission/Observation Escalation of care including admission/observation considered. Care significantly affected by the following chronic conditions: Hypertension. Counseling: I had a detailed discussion with the patient and/or guardian regarding the historical points, exam findings, and any diagnostic results supporting the discharge/admit diagnosis, lab results, radiology results, to return to the emergency department if symptoms worsen or persist or if there are any questions or concerns that arise at home. 09/12 13:46 Order name: Basic Metabolic Panel; Complete Time: 14:53 sb4 09/12 13:46 Order name: CBC with Diff; Complete Time: 14:36 sb4 09/12 13:46 Order name: Hepatic Function; Complete Time: 14:53 sb4 09/12 13:46 Order name: Magnesium; Complete Time: 14:53 sb4 09/12 13:46 Order name: Troponin High Sensitivity; Complete Time: 14:53 sb4 09/12 13:46 Order name: UDS; Complete Time: 15:32 sb4 09/12 13:46 Order name: Urinalysis w/ reflexes; Complete Time: 15:24 sb4 09/12 13:48 Order name: SARS RAPID; Complete Time: 14:56 sb4 09/12 13:48 Order name: Flu; Complete Time: 15:08 sb4 09/12 15:25 Order name: Urine Culture EDMS 09/12 13:46 Order name: CT Head Brain wo Cont; Complete Time: 15:13 sb4 09/12 13:46 Order name: Chest Single View XRAY; Complete Time: 15:11 sb4 09/12 13:46 Order name: EKG; Complete Time: 13:46 sb4 09/12 13:46 Order name: Cardiac monitoring; Complete Time: 13:47 sb4 09/12 13:46 Order name: EKG - Nurse/Tech; Complete Time: 15:20 sb4 09/12 13:46 Order name: IV Saline Lock; Complete Time: 14:19 sb4 09/12 13:46 Order name: Labs collected and sent; Complete Time: 14:19 sb4 09/12 13:46 Order name: O2 Per Protocol; Complete Time: 13:47 sb4 09/12 13:46 Order name: O2 Sat Monitoring; Complete Time: 13:47 sb4 09/12 13:46 Order name: Orthostatics; Complete Time: 14:35 sb4 EC:20 Rate is 59 beats/min. Rhythm is regular, Sinus bradycardia. FL interval is normal at sb4 192 msec. QRS interval is normal at 86 msec. QT interval is normal at 412 msec. No Q waves. T waves are Normal. No ST changes noted. Clinical impression: Normal ECG. Interpreted by me. Reviewed by me. Administered Medications: 14:36 Drug: NS 0.9% IV 1000 ml IV at 1 bolus Per protocol; 1000 mL bolus Route: IV; Rate: 1 ko1 bolus; Site: left hand; 15:37 Drug: Rocephin IV 1 grams IV at calculated rate once; Given slow IV push per pharmacy ko1 instructions Route: IV; Rate: calculated rate; Site: left hand; 15:42 Drug: Ondansetron IVP 4 mg IVP once; over 2 minutes Route: IVP; Site: left hand; ko1 Disposition Summary: 09/12/23 15:40 Discharge Ordered Notes: Location: Home sb4 Problem: new sb4 Symptoms: are unchanged sb4 Condition: Stable sb4 Diagnosis - UTI/ Urinary tract infection, site not specified sb4 - Dizziness and giddiness sb4 - Nausea sb4 Followup: sb4 - With: Dorene Espinoza MD - When: As needed - Reason: Further diagnostic work-up, Recheck today's complaints, Re-evaluation by your physician Discharge Instructions: - Discharge Summary Sheet sb4 - Postural Orthostatic Tachycardia Syndrome sb4 - Urinary Tract Infection, Adult, Gkjb-ey-Yicw sb4 - Dizziness, Bbex-yr-Ebww sb4 Forms: - Medication Reconciliation Form sb4 - Thank You Letter sb4 - Antibiotic Education sb4 - Prescription Opioid Use sb4 - Patient Portal Instructions sb4 - Leadership Thank You Letter sb4 Prescriptions: - Zofran 4 mg Oral Tablet - take 1 tablet ORAL route every 12 hours As needed; 20 tablet; Refills: 0, sb4 Product Selection Permitted - Macrobid 100 mg Oral Capsule - take 1 capsule ORAL route every 12 hours for 7 days; 14 capsule; Refills: 0, sb4 Product Selection Permitted Addendum: 09/14/2023 15:34 I was immediately available for consultation during this patient's visit. I did not e c2 personally see the patient or discuss the patient with the ROMAN. . Signatures: Dispatcher [employer] Zamzam Lugo RN RN ko1 Madyson Hanks PA-C PA-C sb4 Terri Hector, RN RN nj1 Vish Spring MD MD ec2
--- NOTE | 2023-09-12 15:41 | ER ---
Nurse's Notes [facility] Name: Azalia Duncan Age: 63 yrs Sex: Female : 1960 Arrival Date: 09/12/2023 Time: 13:28 Bed 14 Private MD: Diagnosis: UTI/ Urinary tract infection, site not specified;Dizziness and giddiness;Nausea Presentation: 09/12 13:33 Chief complaint: Patient states: Nausea, vomiting since "every time i eat nj1 something", able to keep fluids down. Dizziness upon standing. 13:33 Coronavirus screen: Vaccine status: Patient reports receiving the 2nd dose of the covid nj1 vaccine. Ebola Screen: Patient denies travel to an Ebola-affected area in the 21 days before illness onset. Initial Sepsis Screen: Does the patient meet any 2 criteria? No. Patient's initial sepsis screen is negative. Does the patient have a suspected source of infection? No. Patient's initial sepsis screen is negative. Risk Assessment: Do you want to hurt yourself or someone else? Patient reports no desire to harm self or others. Onset of symptoms was September 10, 2023. 13:33 Method Of Arrival: Ambulatory [facility] 13:33 Acuity: CONOR 3 nj1 Triage Assessment: 16:02 General: Appears in no apparent distress. Behavior is cooperative, appropriate for age. ko1 GI: Reports nausea. Historical: - Allergies: 13:41 NKDA; nj1 - PMHx: 13:41 Anxiety; Asthma; Depression; Hyperlipidemia; Hypertension; left breast cancer; nj1 - PSHx: 13:41 Cholecystectomy; Pelvic fracture; Splenectomy; nj1 - Immunization history:: Client reports receiving the 2nd dose of the Covid vaccine. - Social history:: Smoking status: Patient denies any tobacco usage or history of. Screenin:45 [facility] ED Fall Risk Assessment (Adult) History of falling in the last 3 months, ko1 including since admission No falls in past 3 months (0 pts) Confusion or Disorientation No (0 pts) Intoxicated or Sedated No (0 pts) Impaired Gait No (0 pts) Mobility Assist Device Used No (0 pt) Altered Elimination No (0 pt) Score/Fall Risk Level 0 - 2 = Low Risk Oriented to surroundings, Maintained a safe environment, Educated pt \\T\\ family on fall prevention, incl call for assistance when getting out of bed, Assessed \\T\\ reinforced patient's understanding of fall precautions, Provided non-skid footwear, Hourly rounding (assess needs \\T\\ fall precautionary measures) done, Used ambulatory aids as needed (educated on \\T\\ assisted with), Used gait belt as appropriate. Abuse screen: Denies threats or abuse. Denies injuries from another. Nutritional screening: No deficits noted. Tuberculosis screening: No symptoms or risk factors identified. Assessment: 13:45 Pain: Denies pain. GI: Abdomen is non-distended, obese, Reports nausea. ko1 Vital Signs: 13:33 BP 134 / 67; Pulse 72; Resp 18; Temp 98.3(O); Pulse Ox 98% on R/A; Weight 129.27 kg; nj1 Height 5 ft. 7 in. ; 13:45 BP 124 / 72; Pulse 74; Resp 16; Pulse Ox 99% ; ko1 14:22 BP 126 / 74 LA Supine (auto/lg); Pulse 62; Resp 15; Pulse Ox 96% ; ko1 14:24 BP 127 / 82 LA Sitting (auto/lg); Pulse 62; Resp 14; Pulse Ox 98% ; ko1 14:26 BP 133 / 77 LA Standing (auto/lg); Pulse 71; Resp 15; Pulse Ox 98% ; ko1 15:57 BP 126 / 68; Pulse 75; Resp 15; Pulse Ox 98% ; ko1 13:33 Body Mass Index 44.64 (129.27 kg, 170.18 cm) nj1 ED Course: 13:32 Patient arrived in ED. mg5 13:34 Madyson Hanks PA-C is PHCP. sb4 13:34 Vish Spring MD is Attending Physician. sb4 13:41 Triage completed. nj1 13:42 Arm band placed on left wrist. nj1 13:45 Patient has correct armband on for positive identification. Bed in low position. Call ko1 light in reach. Side rails up X2. Provided Education on: na. Client placed on continuous cardiac and pulse oximetry monitoring. NIBP monitoring applied. monitoring tech on. Door closed. Noise minimized. Lights dimmed. Warm blanket given. 13:45 No provider procedures requiring assistance completed. ko1 13:46 Zamzam Montes, RN is Primary Nurse. ko1 14:02 Chest Single View XRAY In Process Unspecified. EDMS 14:19 Basic Metabolic Panel Sent. ko1 14:20 CBC with Diff Sent. ko1 14:20 Hepatic Function Sent. ko1 14:20 Magnesium Sent. ko1 14:20 Troponin High Sensitivity Sent. ko1 14:21 Inserted saline lock: 22 gauge in left hand, using aseptic technique. Blood collected. tl4 14:27 CT Head Brain wo Cont In Process Unspecified. EDMS 15:02 UDS Sent. ko1 15:02 Urinalysis w/ reflexes Sent. ko1 15:35 Urine Culture Sent. ko1 15:40 Dorene Espinoza MD is Referral Physician. sb4 15:57 IV discontinued, intact, bleeding controlled, No redness/swelling at site. Pressure ko1 dressing applied. Administered Medications: 14:36 Drug: NS 0.9% IV 1000 ml IV at 1 bolus Per protocol; 1000 mL bolus Route: IV; Rate: 1 ko1 bolus; Site: left hand; 15:37 Drug: Rocephin IV 1 grams IV at calculated rate once; Given slow IV push per pharmacy ko1 instructions Route: IV; Rate: calculated rate; Site: left hand; 15:42 Drug: Ondansetron IVP 4 mg IVP once; over 2 minutes Route: IVP; Site: left hand; ko1 Medication: 13:45 VIS not applicable for this client. ko1 Outcome: 15:40 Discharge ordered by . sb4 15:57 Discharged to home ambulatory, ko1 15:57 Condition: improved 15:57 Discharge instructions given to patient, Instructed on discharge instructions, follow up and referral plans. medication usage, Demonstrated understanding of instructions, follow-up care, medications, Prescriptions given X 2, 16:03 Patient left the ED. ko1 Signatures: Dispatcher [employer] EDMS Zamzam Montes, RN RN ko1 Madyson Hanks, PA-C PA-C sb4 Terri Hector, ENRIKE RN Rozina Feng mg5 Aldair Walden tl4
[2023-09-12 18:46] VITALS: TEMP 98.3
[2023-09-12 19:15] VITALS: O2SAT 98
[2023-09-12 19:29] VITALS: BP 126/68
--- NOTE | 2023-09-14 16:57 | EKG ---
Test Date: 2023-09-12 Test Time: 15:17:45 Inletter: MARY MEASUREMENT RESULTS: Intervals: Rate: 59 WV: 192 QRSD: 86 QT: 412 QTc: 407 Sunol: P: 37 WV: 192 QRS: 41 T: 34 INTERPRETIVE STATEMENTS: Sinus bradycardia Otherwise normal ECG Compared to ECG 07/25/2019 23:20:45 Sinus rhythm no longer present Electronically Signed On 09-14-23 16:52:32 CANDY PULLER by Yair Nye
== END ==
LOC: ER 13:28
DX: N39.0 Urinary tract infection, site not specified (principal); R42 Dizziness and giddiness; R11.2 Nausea with vomiting, unspecified; I10 Essential (primary) hypertension; E78.5 Hyperlipidemia, unspecified; Z11.52 Encounter for screening for COVID-19
CPT/HCPCS: 93005; 87088; 85025; 81001; 87086; 80048; 36415; 83735; 80076; 84484; 80307; 87804 ×2; 70450; 71045; 96375; 96374; 99285; 87811; J2405; J7030; J0696

== ENCOUNTER → 2023-11-12 | Emergency (ER) | payer OTHER ==
[~2023-11-12] MED LIST changes: -CEFTRIAXONE 1000 MG/VIAL ONE; +DICYCLOMINE HCL 20 MG/2 ML AMP IM ONE; -NA CHLORIDE 0.9% 1,000 ML ONE
--- OUTSIDE RECORDS SUMMARY | 2023-11-12 13:56 | XMS REPORT | Continuity of Care Document ---
Author Name Unknown Address [address] [facility] [address] [place] [address] [facility] thconnect Address [address] [facility] [address] [place] [address] Care Team Providers Care Place Change Roof Bolter Name Role Phone Ely Avila MD Primary Care Physician + [phone] Nancy Dooley Attending Clinician Unavailable Julia Wiley Attending Clinician Unavailable José Antonio Shannon Attending Clinician UnavailSurjit Mohan Attending Clinician Unasong Colón RN, Nancy Bruce Attending Clinician Unav MICHELLE Maria Attending Clinician Unavailable ELY AVILA Attending Clinician Unavailable Ely Avila MD Attending Clinician [phone] Doctor Unassigned, [place] Attending Clinician U Nancy Emerson Admitting Clinician [...] to syphilis Disease Active 10-12 00:00: 00 [facility] Exposure to hepatitis C Exposure to hepatitis C Disease Active 10-12 00:00: 00 [facility] Screening for malignant neoplasm of colon Screening for malignant neoplasm of colon Disease Active 10-12 00:00: 00 [facility] Anxiety and depression Anxiety and depression Disease Active 10-12 00:00: 00 [facility] History of left breast cancer History of left breast cancer Disease Active 10-12 00:00: 00 [facility] Nicotine dependence , cigarettes , in remission Nicotine dependence , cigarettes , in remission Disease Active 10-12 00:00: 00 [facility] Screening for malignant neoplasm of the cervix Screening for malignant neoplasm of the cervix Disease Active 10-12 00:00: 00 [facility] No known active problems No known active problems Disease [facility] Allergies, Adverse Reactions, Alerts Allergy Name Allergy Type Status Severity Reaction(s) Onset Date Inactive Date Treating Clinician Comments Source No Known Allergie s DA Active U 19 00:00: 00 [facility] No Known Allergie s DA Active U 0 19 00:00: 00 [facility] No Known Drug Allergie s DA Active U 0 5-21 00:00: 00 [facility] No Known Allergie s DA Active U 0 1-08 00:00: 00 [facility] No Known Allergie s DA Active U 2017-08 2-13 00:00: 00 [facility] NO KNOWN ALLERGIE S Drug Class Active [facility] Social History Social Habit Start Date Stop Date Quantity Comments Source History of tobacco use Cigarette Smoker [facility] Exposure to SARS-CoV-2 (event) Not sure [facility] Cigarettes smoked current (pack per day) - Reported 2020-10-14 00:00:00 2020-10-14 00:00:00 [facility] Tobacco use and exposure 2020-10-14 00:00:00 2020-10-14 00:00:00 Never used [facility] Alcohol intake 2020-10-14 00:00:00 2020-10-14 00:00:00 Current non-drinker of alcohol (finding) [facility] Sex Assigned At 1960 00:00:00 1960 00:00:00 [facility] Smoking Status Start Date Stop Date Source Current every day smoker 2020-10-14 00:00:00 [facility] Medications Ordered Medication Name Filled Medication Name Start Date Stop Date Current Medication? Ordering Clinician Indication Dosage Frequency Signature (SIG) Comments Components Source penicillin g proc & benzathine (BICILLIN C-R) 1,200,000 unit/ 2 mL(600k/600 k) injection 2.4 Million Units 10-12 19:30: 00 10-12 18:26 :52 No [id number] 2.410 [facility] penicillin g benzathine (BICILLIN L-A) injection 2.4 Million Units 10-12 19:30: 00 10-12 18:28 :00 No [id number] 2.410 [facility] penicillin g benzathine (BICILLIN L-A) injection 2.4 Million Units 10-12 19:30: 00 10-12 18:28 :00 No [id number] 2.410 2.4 Million Units, Intramuscu lar, ONCE, 1 dose, Thu10/12/20 at 1330, JORGE LUIS
Re ason for Anti-Infec tive: Documented Infection< br>Documen chaim Infection Site: Other
O ther site: Syhilis
Duration of Therapy: Other (see Comments) [facility] penicillin g proc & benzathine (BICILLIN C-R) 1,200,000 unit/ 2 mL(600k/600 k) injection 2.4 Million Units 10-12 19:30: 00 10-12 18:26 :52 No [id number] 2.410 [facility] penicillin g benzathine (BICILLIN L-A) injection 2.4 Million Units 10-12 19:30: 00 10-12 18:28 :00 No [id number] 2.410 [facility] penicillin g benzathine (BICILLIN L-A) injection 2.4 Million Units 10-12 19:30: 00 10-12 18:28 :00 No [id number] 2.410 2.4 Million Units, Intramuscu lar, ONCE, 1 dose, 10/12/20 at 1330, JORGE LUIS
Re ason for Anti-Infec tive: Documented Infection< br>Documen chaim Infection Site: Other
O ther site: Syhilis
Duration of Therapy: Other (see Comments) [facility] penicillin g benzathine (BICILLIN L-A) injection 2.4 Million Units 10-12 19:15: 00 10-12 18:15 :25 No [id number] 2.410 [facility] penicillin g benzathine (BICILLIN L-A) injection 2.4 Million Units 10-12 19:15: 00 10-12 18:15 :25 No [id number] 2.410 [facility] losartan (COZAAR) 100 mg tablet 2015-08 16:32: 23 Yes 100mg Take 100 mg by mouth daily. [facility] MULTIVITAMI N ORAL 2015-08 16:32: 23 Yes 1{tbl} Take 1 Tab by mouth daily. [facility] losartan (COZAAR) 100 mg tablet 2015-08 16:32: 23 Yes 100mg Take 100 mg by mouth daily. [facility] MULTIVITAMI N ORAL 2015-08 16:32: 23 Yes 1{tbl} Take 1 Tab by mouth daily. [facility] losartan (COZAAR) 100 mg tablet 2015-08 16:32: 23 Yes 100mg Take 100 mg by mouth daily. [facility] MULTIVITAMI N ORAL 2015-08 16:32: 23 Yes 1{tbl} Take 1 Tab by mouth daily. [facility] losartan (COZAAR) 100 mg tablet 2015-08 16:32: 23 Yes 100mg Take 100 mg by mouth daily. [facility] MULTIVITAMI N ORAL 2015-08 16:32: 23 Yes 1{tbl} Take 1 Tab by mouth daily. [facility] losartan (COZAAR) 100 mg tablet 2015-08 16:32: 23 Yes 100mg Take 100 mg by mouth daily. [facility] MULTIVITAMI N ORAL 2015-08 16:32: 23 Yes 1{tbl} Take 1 Tab by mouth daily. [facility] DULoxetine (CYMBALTA) 60 mg capsule 2015-08 16:32: 22 Yes 60mg Take 60 mg by mouth daily. [facility] HYDROcodone -acetaminop hen (NORCO) 10-325 mg tablet 2015-08 16:32: 22 Yes 1{tbl} Take 1 Tab by mouth 2 (two) times daily. [facility] meloxicam (MOBIC) 7.5 mg tablet 2015-08 16:32: 22 Yes 7.5mg Take 7.5 mg by mouth daily. [facility] traMADOL (ULTRAM) 50 mg tablet 2015-08 16:32: 22 Yes 50mg Take 50 mg by mouth daily. [facility] simvastatin (ZOCOR) 40 mg tablet 2015-08 16:32: 22 Yes 40mg Take 40 mg by mouth daily. [facility] furosemide (LASIX) 40 mg tablet 2015-08 16:32: 22 Yes 40mg Take 40 mg by mouth daily. [facility] cyclobenzap rine (FLEXERIL) 10 mg tablet 2015-08 16:32: 22 Yes 10mg Take 10 mg by mouth 3 (three) times daily. [facility] DULoxetine (CYMBALTA) 60 mg capsule 2015-08 16:32: 22 Yes 60mg Take 60 mg by mouth daily. [facility] HYDROcodone -acetaminop hen (NORCO) 10-325 mg tablet 2015-08 16:32: 22 Yes 1{tbl} Take 1 Tab by mouth 2 (two) times daily. [facility] meloxicam (MOBIC) 7.5 mg tablet 2015-08 16:32: 22 Yes 7.5mg Take 7.5 mg by mouth daily. [facility] traMADOL (ULTRAM) 50 mg tablet 2015-08 16:32: 22 Yes 50mg Take 50 mg by mouth daily. [facility] simvastatin (ZOCOR) 40 mg tablet 2015-08 16:32: 22 Yes 40mg Take 40 mg by mouth daily. [facility] furosemide (LASIX) 40 mg tablet 2015-08 16:32: 22 Yes 40mg Take 40 mg by mouth daily. [facility] cyclobenzap rine (FLEXERIL) 10 mg tablet 2015-08 16:32: 22 Yes 10mg Take 10 mg by mouth 3 (three) times daily. [facility] DULoxetine (CYMBALTA) 60 mg capsule 2015-08 16:32: 22 Yes 60mg Take 60 mg by mouth daily. [facility] HYDROcodone -acetaminop hen (NORCO) 10-325 mg tablet 2015-08 16:32: 22 Yes 1{tbl} Take 1 Tab by mouth 2 (two) times daily. [facility] meloxicam (MOBIC) 7.5 mg tablet 2015-08 16:32: 22 Yes 7.5mg Take 7.5 mg by mouth daily. [facility] traMADOL (ULTRAM) 50 mg tablet 2015-08 16:32: 22 Yes 50mg Take 50 mg by mouth daily. [facility] simvastatin (ZOCOR) 40 mg tablet 2015-08 16:32: 22 Yes 40mg Take 40 mg by mouth daily. [facility] furosemide (LASIX) 40 mg tablet 2015-08 16:32: 22 Yes 40mg Take 40 mg by mouth daily. [facility] cyclobenzap rine (FLEXERIL) 10 mg tablet 2015-08 16:32: 22 Yes 10mg Take 10 mg by mouth 3 (three) times daily. [facility] DULoxetine (CYMBALTA) 60 mg capsule 2015-08 16:32: 22 Yes 60mg Take 60 mg by mouth daily. [facility] HYDROcodone -acetaminop hen (NORCO) 10-325 mg tablet 2015-08 16:32: 22 Yes 1{tbl} Take 1 Tab by mouth 2 (two) times daily. [facility] meloxicam (MOBIC) 7.5 mg tablet 2015-08 16:32: 22 Yes 7.5mg Take 7.5 mg by mouth daily. [facility] traMADOL (ULTRAM) 50 mg tablet 2015-08 16:32: 22 Yes 50mg Take 50 mg by mouth daily. [facility] simvastatin (ZOCOR) 40 mg tablet 2015-08 16:32: 22 Yes 40mg Take 40 mg by mouth daily. [facility] furosemide (LASIX) 40 mg tablet 2015-08 16:32: 22 Yes 40mg Take 40 mg by mouth daily. [facility] cyclobenzap rine (FLEXERIL) 10 mg tablet 2015-08 16:32: 22 Yes 10mg Take 10 mg by mouth 3 (three) times daily. [facility] DULoxetine (CYMBALTA) 60 mg capsule 2015-08 16:32: 22 Yes 60mg Take 60 mg by mouth daily. [facility] HYDROcodone -acetaminop hen (NORCO) 10-325 mg tablet 2015-08 16:32: 22 Yes 1{tbl} Take 1 Tab by mouth 2 (two) times daily. [facility] meloxicam (MOBIC) 7.5 mg tablet 2015-08 16:32: 22 Yes 7.5mg Take 7.5 mg by mouth daily. [facility] traMADOL (ULTRAM) 50 mg tablet 2015-08 16:32: 22 Yes 50mg Take 50 mg by mouth daily. [facility] simvastatin (ZOCOR) 40 mg tablet 2015-08 16:32: 22 Yes 40mg Take 40 mg by mouth daily. [facility] furosemide (LASIX) 40 mg tablet 2015-08 16:32: 22 Yes 40mg Take 40 mg by mouth daily. [facility] cyclobenzap rine (FLEXERIL) 10 mg tablet 2015-08 16:32: 22 Yes 10mg Take 10 mg by mouth 3 (three) times daily. [facility] Vital Signs Vital Name Observation Time Observation Value Comments S melchor Systolic blood pressure 2020-10-12 17:43:00 136 mm[Hg] [facility] Diastolic blood pressure 2020-10-12 17:43:00 83 mm[Hg] [facility] Heart rate 2020-10-12 17:43:00 79 /min [facility] Body temperature 2020-10-12 17:43:00 36.72 Lauren [facility] Respiratory rate 2020-10-12 17:43:00 18 /min [facility] Body weight 2020-10-12 17:43:00 120.702 kg [facility] BMI 2020-10-12 17:43:00 45.68 kg/m2 [facility] Oxygen saturation in Arterial blood by Pulse oximetry 2020-10-12 17:43:00 99 /min [facility] Systolic blood pressure 2020-10-12 17:43:00 136 mm[Hg] [facility] Diastolic blood pressure 2020-10-12 17:43:00 83 mm[Hg] [facility] Heart rate 2020-10-12 17:43:00 79 /min [facility] Body temperature 2020-10-12 17:43:00 36.72 Lauren [facility] Respiratory rate 2020-10-12 17:43:00 18 /min [facility] Body weight 2020-10-12 17:43:00 120.702 kg [facility] BMI 2020-10-12 17:43:00 45.68 kg/m2 [facility] Oxygen saturation in Arterial blood by Pulse oximetry 2020-10-12 17:43:00 99 /min [facility] Procedures Procedure Date / Time Performed Performing Clinicia n Source ASSIGNMENT OF BENEFITS 2020-10-12 17:33:19 Docto r Unassigned, [place] [facility] Encounters Start Date/Time End Date/Time Encounter Type Admission Type Attending Clinicians Care Facility Care Department Encounter ID Source 2022-07-28 09:52:01 Outpatient Nancy Dooley [facility] [id number] [facility] 2021-09-18 12:07:11 Outpatient Nancy Dooley [facility] [id number] [facility] 2020-05-21 10:00:00 Inpatient Julia Houser [facility] [id number] [facility] 2020-05-17 10:00:00 Inpatient ShannonMadysonoliva [facility] [id number] [facility] 2019-08-23 13:00:00 Inpatient Surjit Yang [facility] [id number] [facility] 2023-03-02 12:00:00 2023-03-02 12:00:00 Outpatient Julia Houser [facility] [id number] [facility] 2021-08-29 12:00:00 2021-08-29 12:00:00 Outpatient Julia Houser [facility] [id number] [facility] 2021-04-23 00:00:00 2021-04-23 00:00:00 Telephone Nancy Colón [id number] [facility] 2020-12-26 08:30:00 2020-12-26 08:30:00 Outpatient MICHELLE JAQUEZ [facility] [id number] [facility] 2020-11-28 16:50:00 2020-11-28 16:50:00 Outpatient [facility] [id number] [facility] 2020-10-12 14:00:00 2020-10-12 14:00:00 Outpatient R ELY AVILA [facility] [id number] [facility] 2020-10-12 11:35:09 2020-10-12 12:32:47 Office Visit Ely Avila [facility] [id number] [facility] 2020-10-12 11:35:09 2020-10-12 12:32:47 Office Visit Ely Avila [facility] [id number] 2020-10-12 00:00:00 2020-10-12 00:00:00 Orders Only Doctor Unassigned, [place] [facility] [id number] [facility] 2020-09-20 09:00:00 2020-09-20 09:00:00 Outpatient Saurabh, [facility] [id number] [facility] 2020-08-20 12:00:00 2020-08-20 12:00:00 Outpatient EL Saurabh, Julia [facility] [id number] [facility] 2020-03-09 09:00:00 2020-03-09 09:00:00 Outpatient Saurabh, Julia [facility] [id number] [facility] 2020-02-09 13:48:00 2020-02-09 13:48:00 Outpatient Saurabh, Julia [facility] [id number] [facility] 2019-10-04 09:30:00 2019-10-04 09:30:00 [facility] [id number] [facility] 2019-09-23 16:48:00 2019-09-23 16:48:00 [facility] [id number] [facility] 2019-08-15 12:00:00 2019-08-15 12:00:00 Outpatient EL Julia Wiley [facility] MICHELLE [id number] [facility] Results Test Description Test Time Test Comments Results Resul t Comments Source - SP FLUORO GUID CTRL ACC DEV 2020-05-21 13:23:00 Name: AZALIA DUNCAN [facility] : 1960 Age/S: 60 / F [id number] [address] [place] Unit #: [id number] Loc: [place] [address] Phys: Julia Wiley MD Acct: [id number] Dis Date: Status: REG [facility] PHONE #: [phone] Exam Date: 05/21/2020 1251 FAX #: Reason: CANCER TREATMENT COMPLETE EXAMS: CPT: [id number] SP FLUORO GUID CTRL ACC DEV 42397 Fluoro Time: 00:14 DAP (Gy m2): 0.25 [...] minutes. TECHNIQUE: Prior to beginning the procedure, [place] Protocol was used to confirm the patient's [...] PAGE 1 Signed Report Name: AZALIA DUNCAN [facility] : 1960 Age/S: 60 / F [id number] [address] [place] Unit #: [id number] Loc: [place] [address] Phys: Julia Wiley MD Acct: [id number] Dis Date: Status: REG [facility] PHONE #: [phone] Exam Date: 05/21/2020 1250 FAX #: Reason: CANCER TREATMENT COMPLETE EXAMS: CPT: [id number] SP FLUORO GUID CTRL ACC DEV [id number] Fluoro Time: 00:14 DAP (Gy m2): 0.25 Air Kerma (mGy): 1 <Continued> Technologist: John Higuera RT(R) Trnscb Date/Time: 05/21/2020 (8693) [id number] Orig Print D/T: S: 05/21/2020 (1211) PAGE 2 Signed Report BREAST,EXCISION OF LESION/[id number] 16:54:00 RUN DATE: 03/23/19 [facility] PAGE 1 RUN TIME: 1654 Specimen Inquiry RUN USER: INTERFACE ------- -----PATIENT: AZALIA DUNCAN LOC: [facility] U #: [id number] AGE/SX: 59/F ROOM: RE03/17/19REG DR: Surjit Jensen : 64 BED: DIS: STATUS: [facility] TLOC: SPEC #: [id number] RECD: 03/17/19 STATUS: JUAN R LANG #: [id number] AGUSTO: 03/17/19- SUBM DR: Surjit Jensen MD ENTERED: 03/18/19 SP TYPE: BREAST,EXC OTHR DR: ORDERED: LEVEL SURGIC CODES: [id number] - BREAST, NOS PROCEDURES: LEVEL SURGIC (Incomplete) [...] x 10 x 7 mm tumor bed HistologicType: Invasive micropapillary carcinoma Histologic Grade (Remedios Histologic Score): Grading may be inaccurate post chemotherapy Glandular (Acinar)/Tubular Differentiation: Score 2 Nuclear Pleomorphism: Score 3 Mitotic Rate: Score 1 CONTINUED ON NEXT PAGE RUN DATE: 03/23/19 [facility] PAGE 2 RUN TIME: 1654 Specimen Inquiry RUN USER: INTERFACE SPEC #: [id number] PATIENT: AZALIA DUNCAN #[id number] (Continued) FINAL DIAGNOSIS (Continued) Overall Grade: Grade 2 Tumor Focality: Single focusof invasive carcinoma Ductal Carcinoma In Situ (DCIS): [...] intensity Microcalcifications: Present in non-neoplastic tissueCPT code(s): 83023 x3, 76238-76, 12655-25 carlos/donny dt: 03/23/19 CONTINUED ON NEXT PAGE --RUN DATE: 03/23/19 [facility] PAGE 3 RUN TIME: 1654 Specimen Inquiry RUN USER: INTERFACE SPEC #: [id number] PATIENT: AZALIA DUNCAN #[id number] (Continued) GROSS DESCRIPTION ANATOMIC SOURCE OF TISSUE (per Requisition):1. LEFT breast tissue, LEFT partial mastectomy 2. Re-excision partial LEFT breast mastectomy cavity3. Axillary contents Each specimen is labeled with the patient's name and medical record number. Specimen #1 is designated "LEFT breast tissue, LEFT partial mastectomy" and consists of 25 gm, 5.5 x 4.5 x 2.5 cm portion of breast tissue with an inserted localization wire. The specimen is oriented bythe surgeon as follows: Short - superior, long - lateral, double - deep. A needle guide wire is present in the specimen, entering at the superior/lateral aspect and exiting at the medial aspect. The c entral/superior aspect of the breast parenchyma displays a [...] inferior Black - posterior Green - anterior [place] - medial Yellow - lateral Section code: Slice 1 - A1 and A2 Slice 2 - A3 and A4 Slice 3 - A5 through A7 Slice 4 - A8 and A9 Slice 5 - A10 and A11 Slice 6 - A12 and A13 Slice 7 - A14 and A15 Slice 8 - A16 and A17 Slice 9 -A18 and A19 Slice 10 - A20 and A21 Slice 11 - A22 through A24 Specimen #2 is designated "re-excision partial LEFT breast mastectomy cavity" and CONTINUED ON NEXT PAGE RUN DATE: 03/23/19 [facility] PAGE 4 RUN TIME: 1653 Specimen Inquiry RUN USER: INTERFACE SPEC #: [id number] PATIENT: AZALIA DUNCAN #[id number] (Continued) GROSS DESCRIPTION (Continued) consists of a 9.5 gm, 5.0 x 2.5 x 1.5 cm portion of breast tissue. The specimen is oriented by the surgeon as follows: ink is new margin side, long -lateral, ink - deep, and short - superior. The outer surface of the specimen is dacosta-yellow, cauterized, and slightly fragmented. The breast parenchyma is predominantly pink-yellow, lobulated adipose tissue with a few unremarkable fibrous bands (95% adipose tissue and 5% fibrous tissue). There is nodefinite residual tumor. The specimen is serially sectioned into 10 slices and submitted in its entirety in sequential order from lateral to medial. Ink code: Blue - superior Red - inferior Black - posterior Green - anterior [place] - medial Yellow - lateral Section code: Slice 1 - B1 Slice 2 - B2 Slice 3 - B3 Slice 4 - B4 Slice 5 - B5 Slice 6 - B6 Slice 7 - B7 Slice 8 - B8 Slice 9 - B9 Slice 10 -B10 Specimen #3 is designated "axillary contents" and consists of a 7.0 x 6.0 x 3.5 cm pink-yellow,lobulated portion of adipose tissue with an inserted localized wire. The specimen displays multiple dacosta-pink, soft and firm lymph nodes, 0.2 to 2.5 cm. The cut surfaces of one lymph node, directly adjacent to localization wire displays a 0.6 cm dacosta-wilhelm, firm nodule. [employer] Account Executive sections are submitted labeled C1 - 1 [...] Specimen Inquiry RUN USER: INTERFACE SPEC #: [id number] PATIENT: AZALIA DUNCAN #[id number] (Continued) MICROSCOPIC DESCRIPTION (Continued) lymphovascular invasion and are negative around the micropapillary structures. A focusof atypical ductal hyperplasia is found less than 2 mm from the medial margin; however, no ductal carcinoma in- situ identified. The uninvolved breast parenchyma has stromal fibrosis, apocrine metaplasia, cyst formation, and sclerosing adenosis, which are associated with calcifications. Specimen #2,re-excision partial LEFT breast mastectomy cavity: No invasive or in-situ carcinoma identified. There is focal cyst formation and stromal fibrosis associated with numerous calcifications. Specimen #3, axillary contents: Metastatic carcinoma is present in one of nine lymph nodes, a 5.5 mm focus withno extracapuslar extension. No fibrosis identified. [facility]/ dt: 03/23/19 The following technical components were performed at [facility], [address] [place] [id number]. The interpretation is provided by [facility], [address] [place] [id number]. Con trols received from [facility] stained appropriately. INTERPRETATION: Block A6: D2-40 and CD31- See above for results. Prognostic Markers performed and interpreted 03/23/19 at [facility] ER: POSITIVE Tumor Stained: 62% Intensity: 3+ Internal control: Present SD: POSITIVE Tumor Stained: 43% Intensity: 1+ Internal control: Present HER2 (IHC): NEGATIVE Score: 1+ Ki67: LOW, 5% Intensity: 3+ Signed SIGNATURE ON FILE Catherine Kelly MD 03/23/19 1654 END OF REPORT CHEMISTRY 7 [id number] 14:59:00* Test Item Value Reference Range Interpretation [...] = CA) 9.6 mg/dL 8.4-10.2 N HGB [id number] 14:27:00* Test Item Value Reference Range Interpretation Comme nts HEMOGLOBIN (test code = HGB) 12.4 g/dL 10.7-13.9 N HEMATOCRIT (test code = HCT) 38.6 % 32.1-42.1 N - USG NDL PLACEMENT (Bxg/Asp)2019-01-11 11:50:00Name: AZALIA DUNCAN [facility] : 1960 Age/S: 59 / F [id number] [address] [place] Unit #: [id number] Loc: [place] [address] Phys: Julia Wiley MD Acct: [id number] Dis Date: Status: DEP CLI PHONE#: [phone] Exam Date: 01/11/2019 1137 FAX #: Reason: ASPIRATION EXAMS: CPT: [id number] USG NDLPLACEMENT (Bxg/Asp) 34917 PROCEDURE: PERCUTANEOUS IMAGE GUIDED ASPIRATION. LOCATION: S 17. HISTORY:Scalp abscess. SEDATION: The patient did not require conscious sedation for the procedure. TECHNIQUE: The risks, benefits, and alternatives were discussed and informed consent was obtained. Prior to beginning the procedure, [place] Protocol was used to confirm the patient's [...] 1 Signed Report (CONTINUED) Name: AZALIA DUNCAN [facility] [place] : 1960 Age/S: 59 / F [id number] [facility] Unit #: [id number] Loc: [place] [address] Phys: Julia Wiley MD Acct: [id number] Dis Date: [facility]: [phone] Exam Date: 01/11/2019 1133 FAX #: Reason: ASPIRATION EXAMS: CPT: [id number] USG NDL PLACEMENT (Bxg/Asp) 99278 <Continued> CC: Nancy Wiley MD Technologist: Slime Dubois, RT(R),RD(AB) Trnscb Date/Time:01/11/2019 (1150) t.[id number] PAGE 2 Signed Report Name: JAY DUNCANJACQUE EASLEYFlavia [place] : 1960ge/S: 59 / F [id number] [address] [place] Unit #: [id number] Loc: [place] [address] Phys: Julia Wiley MD Ac ct: [id number] Dis Date: Status: DEP CLI PHONE #: [phone] Exam Date: 01/11/2019 1135 FAX #:Reason: ASPIRATION EXAMS: CPT: [id number] USG NDL PLACEMENT (Bxg/Asp) 60823 <Continued> Orig Print D/T: S: 01/11/2019 (1153) Probe: PAGE 3 Signed Report- USG NDL PLACEMENT (Bxg/Asp)2019-01-11 11:50:00Name: AZALIA DUNCAN [facility] : 1960 Age/S: 59 / F [id number] [address] [place] [place] Unit #: [id number] Loc: [place] [address] Phys: Julia Wiley MD Acct: [id number] Dis Date: Status: REG CLI PHONE #: [phone] Exam Date: 01/11/2019 1130 FAX #: Reason: ASPIRATION EXAMS: CPT: [id number] USG NDL PL ACEMENT (Bxg/Asp) 80513 PROCEDURE: PERCUTANEOUS IMAGE GUIDED ASPIRATION. LOCATION: S 17. HISTORY: Scalp abscess. SEDATION: The patient did not require conscious sedation for the procedure. TECHNIQUE: The risks, benefits, and alternatives were discussed and informed consent was obtained. Prior to b eginning the procedure, [place] Protocol was used to confirm the patient's [...] the procedure demonstrate subcutaneous edema at the vert ex of the scalp with a small abscess. IMPRESSION: Successful image-guided aspiration of small scalpabscess. at 1150 Reported and signedby: Gareth Hernandez M.D. PAGE 1 Signed Report (CONTINUED) Name: AZALIA DUNCAN [place] : 1960 Age/S: 59 / F [id number] [address] [place] Unit #: [id number] Loc: [place] [address] Phys: Robert Wiley Acct: [id number] Dis Date: Status: REG CLI PHONE #: [phone] Exam Date: 01/11/2019 1135 FAX #: Reason: ASPIRATION EXAMS: CPT: [id number] USG NDL PLACEMENT (Bxg/Asp) 19989 (Continued) CC: Nancy Dooley; Julia Wiley MD Technologist: Slime Dubois, RT(R),RDMS(AB) Trnscb Date/Time: 01/11/2019 (1150) tJAMILAHR.PR7 PAGE 2 Signed Report Name: AZALIA DUNCAN [place] : 1960 Age/S: 59 / F [id number] [address] [place] Unit #: [id number] Loc: [place] [address] Phys: Julia Wiley MD Acct: [id number] Dis Date: Status: REG CLI PHONE #: [phone] Exam Date: 01/11/2019 1135 FAX #: Reason: ASPIRATION EXAMS: CPT: [id number] USG NDL PLACEMENT (Bxg/Asp) 46270 (Continued) Orig Print D/T: S: 0 01/11/2019 (1153) Probe: PAGE 3 Signed Report- SP FLUORO GUID CTRL ACC DEV 2018-08-05 11:21:00Name: AZALIA DUNCAN [place] : 1960 Age/S: 58 / F [id number] [address] [place] Unit #: [id number] Loc: [place] [address] Phys: Gareth Hernandez MD Acct: [id number] Dis Date: Status: DEP [facility] PHONE #: [phone] Exam Date: 08/05/2018 1100 FAX #: Reason: EXAMS: CPT: [id number] SP FLUORO GUID CTRL ACC DEV 09842 Fluoro Time: 00:52 DAP (Gy m2): 0.87 Air Kerma (mGy): 4 EXAMINATION: PORT CATHETER PLACEMENT. LOCATION: S 17. HISTORY: Left breast cancer. SEDATION: Under physician supervision, Versed and Fentanyl were administered intravenously for moderate sedation. Pulse oximetry, heart rate, an d BP were continuously monitored by an independent trained observer present. The physician spent 30minutes of face to face sedation time with the patient. RADIATION DOSE: Total reference air kerma 3.0 mGy. ANTIBIOTICS: None. Not indicated. CONTRAST: None. TECHNIQUE: The risks, benefits, and alternatives were discussed and informed consent was obtained. Prior to beginning the procedure, UniversalProtocol was used to confirm the patient's identity and planned procedure. Maximum sterile barriersincluding cap, mask, hand hygiene, sterile gloves, sterile [...] guidance. The intravascular length from the access siteto the right atrium was assessed. After infiltrating the skin in the subclavicular region with lidocaine, a short transverse incision was made and the pocket for the port reservoir was formed by blunt dissection. The catheter was tunneled to the access site, cut to the appropriate length, and inserted through a peel-away sheath. The catheter was flushed and the access needle was removed. The deeptissues were approximated using 4-0 Monocryl and the superficial incision closed using Dermabond. The incision in the PAGE 1 Signed Report (CONTINUED) Name: AZALIA DUNCAN [facility] : 1960 Age/S: 58 / F [id number] [address] [place] Unit #: [id number] Loc: [place] [address] Phys: Gareth Hernandez MD Acct: [id number] Dis Date: Status: [facility] PHONE #: [phone] Exam Date: 08/05/2018 1100 FAX #:Reason: EXAMS: CPT: [id number] SP FLUORO GUID CTRL ACC DEV 77527 Fluoro Time: 00:52 DAP (Gy m2): 0.87 [...] its tip in the upper right atrium. Nocomplications are seen. IMPRESSION: Successful right chest wall port catheter placement. PLAN: The catheter is ready for immediate use. When treatment is completed, removal can be scheduled by calling Interventional Radiology. at 1121 Reported and signed by: Gareth Hernandez M.D. CC: Nancy Dooley; Gareth Hernandez MD PAGE 2 Signed Report Name: AZALIA DUNCAN [facility] : 1960 Age/S: 58 / F [id number] [facility] Unit #: [id number] Loc: [place] [id number] Phys: Gareth Hernandez MD Acct: [id number] Dis Date: Status: [facility] PHONE #: [phone] Exam Date: 08/05/2018 1100 FAX #: Reason: EXAMS: CPT: [id number] SP FLUORO GUID CTRL ACC DEV 33988 Fluoro Time: 00:52 DAP (Gy m2): 0.87 Air Kerma (mGy): 4 <Continued> Technologist: RT Jazzmine(R) Trnpbb Date/Time: 08/05/2018 (1121) t.PR7 Orig Print D/T: S: 08/05/2018 (7073) PAGE 3 Signed Report Notes Date/Time Note Provider Source 2020-09-20 12:26:00 PXwchjodtgo65515049u Celz5zWuib+ji5ImICjy6+932/6MO tLRpf6A7JNgLXSYn1keChqwtGS0GU/7yk59128-52-40J31:2 6:412578-0249 [facility] [address] [place] [address] PATIENT NAME: AZALIA DUNCAN ADMIT DATE: 09/20/20ACCOUNT NO: [id number] ROOM NO: AGE: 60 REPORT TYPE: eECHOCARDIOGRAM REPORT SEX: F ADMITTING PHYSICIAN: ATTENDING PHYSICIAN: Julia Wiley MD *[facility]*[address] [place], [place] [address] Transthoracic Echocardiogram Patient: Azalia DuncaniseStudy Date: 09/20/2020 BP: [id number] 1960 Age: 60 Height: 67 in / 170.2 cmAccession#: [id number] Gender: F Weight: 250.5 lb / 113.9 kgBMI/BSA: 39.3 kg/m 2 / 2.23 m 2 *Ordering Physician: * Julia Wiley *Interpreting Physician: * Molly Min*Prime Minister: * Shaniqua Brennan Indications: MALG NEOPLASM OF QUADRANT. Study data: Transthoracic echocardiogram. Procedure: Transthoracicechocardiography was performed. Image quality was adequate. Fjwsrbwr4N, complete spectral Doppler, and color Doppler. Location: [...] 1-p A4C Vol/bsa, 35 ml/m 2 16 - 34 ES, A/L AP dim, ES 3.4 [...] 3.0 --------- Pulmonic valve Value 10/04/2019 Ref SD peak v 0.99 m/sec 1.08 --------- SD peak 4 mm Hg --------- grad Tricuspid [...] at 1227 PATIENT NAME: AZALIA DUNCAN :26:0 0L.[id number] for patient rvalHKBGGRXVSLIYOU6042-20-78M13:27:19 [facility] 2019-10-04 22:02:00 EPlitvtwfuy49529128d zYEUb553M7E+9v0NQveyd/Cgf0bFY QKhbcgYELS1VOfKQphMSNLS+tLlsVIKlN04881-72-09T72:0 2:017286-[address] [address] PATIENT NAME: AZALIA DUNCAN ADMIT DATE: 10/04/19ACCOUNT NO: [id number] ROOM NO: AGE: 59 REPORT TYPE: eECHOCARDIOGRAM REPORT SEX: F ADMITTING PHYSICIAN: ATTENDING PHYSICIAN: Julia Wiley MD *[facility]*[address] [place] [address] Transthoracic Echocardiogram Patient: Azalia Duncantudy Date: 10/04/2019 BP: [id number] 1960 Age: 59 Height: 67 in / 170.2 cmAccession#: [id number] Gender: F Weight: 244.5 lb / 111.1 kgBMI/BSA: 38.4 kg/m 2 / 2.34 m 2 *Ordering Physician: * Julia Wiley *Interpreting Physician: * Yrn Whitehead MD*Prime Minister: * Shaniqua Brennan Indications: Encounter For Antineoplastic Chemotherapy. Study data: Transthoracic echocardiogram. Procedure: Transthoracicechocardiography was performed. Image quality was adequate. Jcnrwfbd6C, complete spectral Doppler, and color Doppler. Location: [...] Peak fannie, S 1.24 m/sec 1.15 --------- SD peak v 1.08 m/sec 1.38 ----- Mean fannie, S 0.85 m/sec 0.93 --------- SD grad, ED 5 mm Hg 8 ----- [...] at 2203 PATIENT NAME: AZALIA DUNCAN :02:0 0L.[id number] for patient zzskYAKRPSKMVHVVNK6772-61-05G51:03:18 [facility] 2019-05-24 10:36:00 LThbxpknnaf74884476S lAPE7eUiS5lxU5hAr094iFxkk/9Pd Ne6qyDc8ltKSjvb3/VZ40jc+EC6vWd+MWj5319-68-31W30:3 6:861352-[address] [address] PATIENT NAME: AZALIA DUNCAN ADMIT DATE: 05/19/19ACCOUNT NO: [id number] ROOM NO: AGE: 59 REPORT TYPE: eECHOCARDIOGRAM REPORT SEX: F ADMITTING PHYSICIAN: ATTENDING PHYSICIAN: Julia Wiley MD *[facility]*[address] [place], [place] [address] Transthoracic Echocardiogram Patient: Ana Duncan Date: 05/19/2019 BP: [id number] : 1960 Age: 59 Height: 67 in / 170.2 cmAccession#: [id number] Gender: F Weight: 243.5 lb / 110.7 kgBMI/BSA: 38.2 kg/m 2 / 2.2 m 2 *Ordering Physician: * Julia Wiley *Interpreting Physician: * Yrn Whitehead MD*Prime Minister: * Shaniqua Brennan Indications: Antineoplastic Chemotherapy. Study data: Transthoracic echocardiogram. Procedure: Transthoracicechocardiography was performed. Image quality was adequate. Gvymnlyj0Y, complete spectral Doppler, and color Doppler. Location: [...] Peak grad, S 5 mm Hg --------- SD peak v 1.38 m/sec ----- Mean grad, S 4 mm Hg --------- SD peak grad 8 mm Hg ----- SV 100 ml --------- SD grad, ED 8 mm Hg ----- SV/bsa [...] at 1036 PATIENT NAME: AZALIA DUNCAN :36:0 0L.[id number] for patient xvtrWCAHXDZGVXAWLX0688-95-70R09:36:32 [facility] 2019-03-24 12:02:00 BJcnmkwrdmg81049302l +CJilv1ZpeDa34ccZfmH5Skc82jfa CJBQxy+oWgnQZbpgf34qHHMhaP7nBOd6vu4044-20-99O43:0 2:806536-6330 [facility] [address], [place] [address] PATIENT NAME: AZALIA DUNCAN ADMIT DATE: 03/17/19ACCOUNT NO: [id number] ROOM NO: AGE: 59 SEX: F ADMITTING PHYSICIAN: ATTENDING PHYSICIAN: Surjit Jensen MD OPERATION DATE: 03/17/2019 PREOPERATIVE DIAGNOSIS: Left breast cancer, status post neoadjuvantchemotherapy T2 N1. POSTOPERATIVE DIAGNOSIS: Left breast cancer, status post neoadjuvantchemotherapy T2 N1. PROCEDURE PERFORMED: Left partial mastectomy with axillary dissection and preopneedle localization. SURGEON: Surjit Jensen MD METALLURGICAL TESTER: Bradley Reyna SA. ANESTHESIA: General. DRAINS: 15-Mongolian drain placed in the left axilla. PROCEDURE [...] was excellent. The axilla was copiously irrigated. M37-Hnoeaw Alvin drain was brought out to the [...] MD WT: OP:ADAN/REEMA/MATTHEWDD: 03/24/2019 12:02:37DT: 03/24/2019 14:48:03Conf#: [id number]/DID#: [id number] Authenticated by Surjit Jensen MD On 03/24/2019 07:54:13 PM at 1954 PATIENT NAME: AZALIA DUNCAN lnaoxs2381-02-16A72:48:00F.SRD35859258-1096TGCuql lable for patient xbygCOFNTWJDNFAUID7439-79-59S11:54:57 [facility] 2019-03-17 15:09:00 CCqvxuchsan516489071 TmeKTmy+G+kh/e95jftliqpmwoxHN U+zM91yYAbLx0/wpDPQZDO6F9Zn7vazxP39482-14-71K33:0 9:00 [facility] ([facility])DT Discharge NoteREPORT#:[id number] REPORT STATUS: SignedDATE:03/17/19 TIME: 150 PATIENT: AZALIA DUNCAN UNIT #: [id number]#: [id number] ROOM/BED:: 62 AGE: 59 SEX: F ATTEND: Surjit Jensen [facility] AUTHOR: Surjit Jensen MD * ALL edits or amendments must be made on the electronic/computer document * DISCHARGE NOTEDischarge Note:TEACH PATIENT TO EMPTY DRAIN ONCE DAILYRECORD DRAINAGE AND BRING RECORD TO OFFICECALL OFFICE FOR FOLLOWUP APPOINTMENT CONFIRMATIONKEEP DRESSING AND BRA DRY AND IN PLACESPONGE BATHE ONLY; DO NOT SHOWERRESUME HOME BLOOD PRESSURE MEDS at 1511 RPT #:[id number] OF REPORT DSDischarge ttrmasp3827-85-68P89:09:00F.CADV64948979-2259EXLf ailable for patient iclyDMXRZNLPBENBXT8731-85-98J11:11:25 [facility] 2019-03-10 14:30:00 AWeegrdujnb24154902g 5R7NS4DVyjDO6bNWAcnQfRqE4ETZG 8kQz9V0TSKLBlxQYbS+7XeNP1SkP0rClwU6495-02-02V89:3 0:332826-5402 [facility] [address] [place], [place] [address] PATIENT NAME: AZALIA DUNCAN ADMIT DATE: ACCOUNT NO: [id number] ROOM NO: AGE: 59 SEX: F ADMITTING PHYSICIAN: ATTENDING PHYSICIAN: Surjit Jensen MD Order:[id number] Reason : PRE-OP Test Date/Time Stamp:ThuMar 10 [...] change was foundConfirmed by LUZ TAVERAS MD ([id number]) on 03/11/2019 7:10:06 AM Referred By: Surjit Jensen Confirmed by:LUZ TAVERAS MD at 0710 PATIENT NAME: AZALIA DUNCAN .[id number] AVAvailable for patient uhwcNWFDKGVIAUSVPY7679-35-44H82:10:25 [facility] 2019-01-11 11:42:00 DLkfngujzig17339280A D17jxKAxbT4+3grVY/KW4PBXYI3Sa qx5tEoWOec58OLOmtG84DDJMDrARpNhTIJ9050-14-76R81:4 2:00 [facility] ([facility])Brief Op NoteREPORT#:[id number] REPORT STATUS: SignedDATE:01/11/19 TIME:1142 PATIENT: AZALIA DUNCAN UNIT #: [id number]#: [id number] ROOM/BED:: 62 AGE: 59 SEX: F ATTEND: Julia Wiley [facility] AUTHOR: Gareth Hernandez MD * ALL edits or amendments must be made on the electronic/computer document * Op/Inv Proc Note - BriefPre-procedure diagnosis:Scalp abscessPost-procedure diagnosis: same as pre procedure dxProcedures performed:Percutaneous aspirationPrimary Surgeon:Davis Tayloristant(s): noneFindings:Successful US guided aspiration of abscess at the vertex of the scalp. 1 cc of dacosta pus was aspirated and sent for culture.Complications: noneEstimated blood loss in ml's: Less than 10 mLSpecimens removed/altered: Scalp abscess sampleDisposition: plan to D/C home at 1143 RPT #: [id number] OF REPORT OPOperative lxuahr7665-42-44S27:42:00L.XOWQ43127056-5009YRMas ilable for patient nylrDMNIZSYDAIRLZH2131-86-75W62:43:49 [facility] 2018-08-31 13:41:00 CUxfphuhqfn3047517sq Fl6G34y1r8MAH92lr7qad/rD2wR7/ j1Sz/+YhsRGbRUOP6icu1i0QbnzqfztGx1083-16-37P78:41 :[id number] [address] PATIENT NAME: AZALIA DUNCAN ADMIT DATE: 08/31/18ACCOUNT NO: [id number] ROOM NO: [facility] AGE: 58 REPORT TYPE: eELECTROCARDIOGRAM SEX: F ADMITTING PHYSICIAN: Nigel Kaye MD ATTENDING PHYSICIAN: Nigel Kaye MD Order:[id number] Reason : (Not Selected) Test Date/Time Stamp:ThuAug 31 2018 13:41:17Blood Pressure : 123/087 mmHGVent. Rate : 068 BPM Atrial Rate : 068 BPM P-R Int : 158 ms QRS Dur : 092 ms QT Int : 378 ms P-R-T Axes : 021 053 043 degrees QTc Int : 401 ms Normal sinus rhythmNormal ECGNo previous ECGs availableConfirmed by MD BEST MEHREEN ([id number]) on 09/19/2018 12:43:01 PM Referred By: System System Confirmed by:MEHREEN JEWELL MD at 1243 PATIENT NAME: AZALIA DUNCAN .[id number] AVAvailable for patient qhknXHHAKBVWGTMIBA3992-72-72P44:42:57 [facility]
[2023-11-12 14:54] LABS: Absolute Basophils 0.1 K/uL (0-0.5); Absolute Eosinophils 0.1 K/uL (0-0.5); Absolute Lymphocytes (CBC) 1.9 K/uL (0.7-4.9); Absolute Monocytes 0.7 K/uL (0.1-1.3); Absolute Neutrophil 2.4 K/uL (1.8-8.0); Eosinophils % 1.8 % (0-4.4); Hematocrit 41.8 % (36.0-45.0); Hemoglobin 14.1 g/dL (12.0-15.0); Lymphocytes % 36.5 % (15.3-44.8); MCH 29.2 pg (27.0-35.0); MCHC 33.7 g/dL (32.0-36.0); MCV 86.7 fL (80-100); MPV 10.5 fL (7.6-11.3); Monocytes % 14.2 % (3.3-12.3); Neutrophils % 46.5 % (41.7-73.7); Nucleated Red Blood Cells % 0.2 % (0-0); Platelets 194 thou/uL (152-406); RBC Red Blood Cell Count 4.82 M/uL (3.86-4.86); Red Cell Distribution Width 14.7 % (12.1-15.2)
[2023-11-12 15:02] LABS: PT Prothrombin Time 13.1 SECONDS (9.5-12.5); Protime INR 1.2
[2023-11-12 15:30] LABS: Albumin 3.3 g/dL (3.4-5.0); Albumin/Globulin Ratio 0.7 (1.1-1.8); Anion Gap 9.7 mEq/L (5.0-15.0); Bilirubin Direct 0.2 mg/dL (0-0.2); Bilirubin Indirect, Calculated 0.2 mg/dL (0.2-0.8); Bilirubin Total 0.4 mg/dL (0.2-1.0); Globulin 4.7 g/dL (2.3-3.5); Magnesium 1.7 mg/dL (1.6-2.4); Potassium 3.7 mEq/L (3.5-5.1); Troponin High Sensitivity 7.1 pg/mL (<58.9)
--- NOTE | 2023-11-12 16:39 | RAD REPORT ---
EXAM DESCRIPTION: CT - Abdomen Pelvis W Contrast - 11/12/2023 4:21 pm CLINICAL HISTORY: Abdominal pain COMPARISON: 2022 TECHNIQUE: Computed axial tomography of the abdomen pelvis was obtained. 100 cc Isovue-300 was admin istered intravenously. Oral contrast was not requested which limits evaluation of bowel and appendix All CT scans are performed using dose optimization technique as appropriate and may include automated exposure control or mA/KV adjustment according to patient size. FINDINGS: The liver, pancreas, adrenal and kidneys appear unremarkable. Cholecystectomy Splenectomy with splenosis There is no evidence of diverticulitis. Normal appendix. No adnexal mass. Mild posterior subluxation of L5 on S1 IMPRESSION: No acute abnormality is displayed.
--- NOTE | 2023-11-12 17:15 | RAD REPORT ---
EXAM DESCRIPTION: Jovany Single View3 2:33 pm CLINICAL HISTORY: Syncope COMPARISON: August 2023 FINDINGS: The lungs appear clear of acute infiltrate. The heart is mildly to moderately enlarged Old rib fractures IMPRESSION: No acute abnormalities displayed
--- NOTE | 2023-11-12 17:33 | ER ---
Nurse's Notes [facility] Name: Azalia Duncan Age: 63 yrs Sex: Female : 1960 Arrival Date: 11/12/2023 Time: 13:52 Bed 19 Private MD: Diagnosis: Nausea;Diarrhea, unspecified;Syncope Near;Abdominal pain, unspecified Presentation: 11/11 13:45 Chief complaint: EMS states: UPPER ABD PAIN. Coronavirus screen: At this time, the bp client does not indicate any symptoms associated with coronavirus-19. Ebola Screen: No symptoms or risks identified at this time. Initial Sepsis Screen: Does the patient meet any 2 criteria? No. Patient's initial sepsis screen is negative. Does the patient have a suspected source of infection? No. Patient's initial sepsis screen is negative. Risk Assessment: Do you want to hurt yourself or someone else? Patient reports no desire to harm self or others. Onset of symptoms is unknown. 13:45 Method Of Arrival: EMS: [facility] bp 13:45 Acuity: CONOR 3 bp Triage Assessment: 13:45 General: Appears distressed, uncomfortable, obese, Behavior is cooperative, appropriate bp for age, anxious. Pain: Complains of pain in abdomen. GI: Reports cramping, nausea. Historical: - Allergies: 14:29 NKDA; bp - PMHx: 14:29 Anxiety; Asthma; Depression; Hyperlipidemia; Hypertension; left breast cancer; bp - PSHx: 14:29 Cholecystectomy; Splenectomy; Pelvic fracture; bp - Immunization history:: Adult Immunizations up to date. - Social history:: Smoking status: Patient denies any tobacco usage or history of. Screenin:00 [facility] ED Fall Risk Assessment (Adult) History of falling in the last 3 months, bp including since admission No falls in past 3 months (0 pts). Abuse screen: Denies threats or abuse. Denies injuries from another. Nutritional screening: No deficits noted. Tuberculosis screening: No symptoms or risk factors identified. Assessment: 14:00 General: SEE TRIAGE NOTE. bp 15:00 Reassessment: No changes from previously documented assessment. Patient is alert, bp oriented x 3, equal unlabored respirations, skin warm/dry/pink. 16:00 Reassessment: No changes from previously documented assessment. Patient is alert, bp oriented x 3, equal unlabored respirations, skin warm/dry/pink. 18:00 Reassessment: DC HOME AMBULATORY. PO CHALLENGE SUCCESSFUL. bp Vital Signs: 13:45 BP 135 / 72; Pulse 75; Resp 16; Temp 98; Pulse Ox 96% ; bp 14:00 BP 105 / 50; Pulse 61; Resp 16; Pulse Ox 97% ; bp 15:00 BP 109 / 60; Pulse 63; Resp 16; Pulse Ox 97% ; bp 16:11 BP 106 / 61; Pulse 61; Resp 16; Pulse Ox 96% ; bp 18:00 BP 111 / 65; Pulse 67; Resp 18; Temp 98; Pulse Ox 98% ; bp ED Course: 13:45 Arm band placed on. bp 13:55 Patient arrived in ED. ds4 13:56 Allen Guo PA is PHCP. cp 13:56 Allen Gonzalez MD is Attending Physician. cp 14:00 Patient has correct armband on for positive identification. bp 14:18 Henry Mccord, RN is Primary Nurse. bp 14:28 Triage completed. bp 14:35 XRAY Chest (1 view) In Process Unspecified. EDMS 14:43 Inserted saline lock: 22 gauge in right antecubital area, using aseptic technique. bp Blood collected. 15:59 EKG done, by ED staff, reviewed by Allen Gonzalez MD. bp 16:11 CT Abd/Pelvis - IV Contrast Only Sent. bp 16:23 CT Abd/Pelvis - IV Contrast Only In Process Unspecified. EDMS 18:00 No provider procedures requiring assistance completed. IV discontinued, intact, bp bleeding controlled, No redness/swelling at site. Pressure dressing applied. Administered Medications: 14:43 Drug: Ondansetron IVP 4 mg IVP once; over 2 minutes Route: IVP; Site: right antecubital;bp 15:59 Follow up: Response: No adverse reaction bp 14:43 Drug: Dicyclomine IM 20 mg IM once Route: IM; Site: right deltoid; bp 15:59 Follow up: Response: No adverse reaction bp Medication: 18:19 VIS not applicable for this client. bp Outcome: 17:32 Discharge ordered by . cp 18:00 Discharged to home ambulatory, bp 18:00 Condition: stable 18:00 Discharge instructions given to patient, Instructed on discharge instructions, follow up and referral plans. medication usage, Demonstrated understanding of instructions, follow-up care, medications, Prescriptions given X 3, 18:19 Patient left the ED. bp Signatures: Dispatcher [employer] EDMS KimberlyPiotrJohn ds4 Allen uGo PA PA cp Peltier, Brian, RN RN bp Corrections: (The following items were deleted from the chart) 14: 14:29 General: Appears distressed, uncomfortable, obese, Behavior is cooperative, bp appropriate for age, anxious, bp 14:30 14:29 Pain: Complains of pain in abdomen bp bp 14:30 14:29 GI: Reports cramping, nausea, bp bp 14:30 14:29 Arm band placed on bp bp
--- NOTE | 2023-11-12 17:33 | EDPHYS ---
Physician Documentation [facility] Name: Azalia Duncan Age: 63 yrs Sex: Female : 1960 Arrival Date: 11/12/2023 Time: 13:52 Bed 19 Private MD: ED Physician Allen Gonzalez HPI: 11/11 14:05 This 63 yrs old Black Female presents to ER via EMS with complaints of Abdominal Pain. cp 14:05 The patient presents with abdominal pain that is diffuse. Onset: The symptoms/episode cp began/occurred today. Associated signs and symptoms: Pertinent positives: diarrhea, nausea, Pertinent negatives: blood in stools, chest pain, constipation, fever, vomiting. The symptoms are described as crampy. Severity of pain: in the emergency department the pain is unchanged despite EMS interventions. 14:05 Patient reports being lightheaded and almost passing out after pain and diarrhea cp started. Historical: - Allergies: 14:29 NKDA; bp - PMHx: 14:29 Anxiety; Asthma; Depression; Hyperlipidemia; Hypertension; left breast cancer; bp - PSHx: 14:29 Cholecystectomy; Splenectomy; Pelvic fracture; bp - Immunization history:: Adult Immunizations up to date. - Social history:: Smoking status: Patient denies any tobacco usage or history of. ROS: 14:10 Constitutional: Negative for body aches, chills, fever, poor PO intake, cp 14:10 Cardiovascular: Negative for chest pain, cp 14:10 Eyes: Negative for injury, pain, redness, and discharge, cp 14:10 ENT: Negative for drainage from ear(s), ear pain, sore throat, difficulty swallowing, difficulty handling secretions, 14:10 Respiratory: Negative for cough, shortness of breath, wheezing, 14:10 Abdomen/GI: Positive for abdominal pain, nausea, diarrhea, abdominal cramps, Negative for vomiting, constipation, black/tarry stool, rectal bleeding, 14:10 Neuro: Positive for near syncope, Negative for altered mental status, syncope, 14:10 : Negative for urinary symptoms, vaginal bleeding, cp 14:10 All other systems are negative, Exam: 14:15 Constitutional: The patient appears in no acute distress, alert, awake, cp non-diaphoretic, non-toxic, well developed, well nourished, obese, uncomfortable, 14:15 Head/Face: Normocephalic, atraumatic. cp 14:15 Eyes: Periorbital structures: appear normal, Conjunctiva: normal, no exudate, no injection, Sclera: no appreciated abnormality, Lids and lashes: appear normal, bilaterally, 14:15 ENT: External ear(s): are unremarkable, Nose: is normal, Mouth: Lips: moist, Oral mucosa: pink and intact, moist, Posterior pharynx: Airway: no evidence of obstruction, patent, erythema, is not appreciated, exudate, is not appreciated, 14:15 Neck: ROM/movement: is normal, is supple, without pain, no range of motions limitations, 14:15 Chest/axilla: Inspection: normal, 14:15 Cardiovascular: Rate: normal, Rhythm: regular, Edema: is not appreciated, JVD: is not appreciated, 14:15 Respiratory: the patient does not display signs of respiratory distress, Respirations: normal, no use of accessory muscles, no retractions, labored breathing, is not present, Breath sounds: are clear throughout, no decreased breath sounds, no stridor, no wheezing, 14:15 Abdomen/GI: Inspection: obese Bowel sounds: active, all quadrants, Palpation: soft, in all quadrants, severe abdominal tenderness, rebound tenderness, is not appreciated, involuntary guarding, is not appreciated, 14:15 Back: pain, is absent, 14:15 Neuro: Orientation: to person, place \T\ time. Mentation: is normal, Motor: moves all fours, strength is normal, Sensation: is normal, 15:57 ECG was reviewed by the Attending Physician. cp Vital Signs: 13:45 BP 135 / 72; Pulse 75; Resp 16; Temp 98; Pulse Ox 96% ; bp 14:00 BP 105 / 50; Pulse 61; Resp 16; Pulse Ox 97% ; bp 15:00 BP 109 / 60; Pulse 63; Resp 16; Pulse Ox 97% ; bp 16:11 BP 106 / 61; Pulse 61; Resp 16; Pulse Ox 96% ; bp 18:00 BP 111 / 65; Pulse 67; Resp 18; Temp 98; Pulse Ox 98% ; bp MDM: 13:56 Patient medically screened. cp 14:30 Differential diagnosis: gastritis, GI Bleed, non-specific abd pain, pancreatitis, cp Peptic Ulcer Disease, Perf. Duodenal Ulcer, Perf. Gastric Ulcer, Peritonitis, Pyelonephritis, Ureterolithiasis, urinary tract infection. 17:30 Data reviewed: vital signs, nurses notes, lab test result(s), EKG, radiologic studies, cp CT scan, plain films, and as a result, I will discharge patient. 17:30 I considered the following discharge prescriptions or medication management in the emergency department Medications were administered in the Emergency Department. See MAR. Independent interpretation of the following test(s) in the Emergency Department EKG: See my EKG interpretation above. Care significantly affected by the following chronic conditions: Hypertension, Obesity. Counseling: I had a detailed discussion with the patient and/or guardian regarding the historical points, exam findings, and any diagnostic results supporting the discharge/admit diagnosis, lab results, radiology results, to return to the emergency department if symptoms worsen or persist or if there are any questions or concerns that arise at home. Response to treatment: the patient's symptoms have markedly improved after treatment, and as a result, I will discharge patient. Special discussion: Based on the patient's Hx, exam, and Dx evaluation, there is no indication for emergent surgery or inpatient Tx. It is understood by the patient/guardian that if the Sx's persist or worsen they need to return immediately for re-evaluation. 11/11 14:15 Order name: Basic Metabolic Panel; Complete Time: 15:47 cp 11/11 15:47 Interpretation: Normal except: GFR 75. cp 11/11 14:15 Order name: CBC with Diff; Complete Time: 15:47 cp 11/11 15:48 Interpretation: Normal except: MN% 14.2. cp 11/11 14:15 Order name: LFT's; Complete Time: 15:47 cp 11/11 17:21 Interpretation: Normal except: ALB 3.3; GLOB 4.7; A/G 0.7. cp 11/11 14:15 Order name: Magnesium; Complete Time: 15:47 cp 11/11 14:15 Order name: NT PRO-BNP; Complete Time: 15:47 cp 11/11 14:15 Order name: PT-INR; Complete Time: 15:47 cp 11/11 14:15 Order name: Troponin HS; Complete Time: 15:47 cp 11/11 14:15 Order name: Lipase; Complete Time: 15:47 cp 11/11 14:15 Order name: XRAY Chest (1 view); Complete Time: 17:20 cp 11/11 17:20 Interpretation: Report review. cp 11/11 15:48 Order name: CT Abd/Pelvis - IV Contrast Only; Complete Time: 17:20 cp 11/11 17:20 Interpretation: Report reviewed. cp 11/11 14:15 Order name: EKG; Complete Time: 14:16 cp 11/11 14:15 Order name: Cardiac monitoring; Complete Time: 14:43 cp 11/11 14:15 Order name: EKG - Nurse/Tech; Complete Time: 15:59 cp 11/11 14:15 Order name: IV Saline Lock; Complete Time: 14:43 cp 11/11 14:15 Order name: Labs collected and sent; Complete Time: 14:43 cp 11/11 14:15 Order name: O2 Per Protocol; Complete Time: 14:43 cp 11/11 14:15 Order name: O2 Sat Monitoring; Complete Time: 14:43 cp 11/11 17:21 Order name: PO challenge; Complete Time: 17:52 cp EC:57 Rate is 65 beats/min. Rhythm is regular. ME interval is normal. QRS interval is normal. cp QT interval is normal. T waves are Inverted in lead aVR. Interpreted by me. Reviewed by me. Administered Medications: 14:43 Drug: Ondansetron IVP 4 mg IVP once; over 2 minutes Route: IVP; Site: right antecubital;bp 15:59 Follow up: Response: No adverse reaction bp 14:43 Drug: Dicyclomine IM 20 mg IM once Route: IM; Site: right deltoid; bp 15:59 Follow up: Response: No adverse reaction bp Disposition Summary: 11/12/23 17:32 Discharge Ordered Notes: Location: Home cp Problem: new cp Symptoms: have improved cp Condition: Stable cp Diagnosis - Nausea cp - Diarrhea, unspecified cp - Syncope Near cp - Abdominal pain, unspecified cp Followup: cp - With: Private Physician - When: 1 - 2 days - Reason: Recheck today's complaints Discharge Instructions: - Discharge Summary Sheet cp - Abdominal Pain, Adult cp - Food Choices to Help Relieve Diarrhea, Adult cp - Diarrhea, Adult cp - Nausea, Adult cp Forms: - Medication Reconciliation Form cp - Thank You Letter cp - Antibiotic Education cp - Prescription Opioid Use cp - Patient Portal Instructions cp - Leadership Thank You Letter cp Prescriptions: - Pepcid 20 mg Oral Tablet - take 1 tablet ORAL route every 12 hours for 10 days; 20 tablet; Refills: 0, cp Product Selection Permitted - Zofran 4 mg Oral Tablet - take 1 tablet ORAL route every 12 hours As needed; 20 tablet; Refills: 0, cp Product Selection Permitted - dicyclomine 20 mg Oral tablet - take 1 tablet ORAL route 4 times per day; 30 tablet; Refills: 0, Product cp Selection Permitted Signatures: Dispatcher [employer] EDMS Allen Guo PA PA Henry Contreras, RN RN bp Corrections: (The following items were deleted from the chart) 15:15 14:52 Chest Single View+[email or web address] ordered. EDRI EDMS
[2023-11-12 18:38] VITALS: BP 111/65; TEMP 98; O2SAT 98
--- NOTE | 2023-11-16 14:30 | EKG ---
Test Date: 2023-11-12 Test Time: 15:50:31 Digester Cook: SCARLET MEASUREMENT RESULTS: Intervals: Rate: 65 CA: 184 QRSD: 92 QT: 396 QTc: 411 Staples: P: 39 CA: 184 QRS: 29 T: 33 INTERPRETIVE STATEMENTS: Normal sinus rhythm with sinus arrhythmia Nonspecific T wave abnormality Abnormal ECG Compared to ECG 09/12/2023 15:17:45 T-wave abnormality now present Sinus bradycardia no longer present Electronically Signed On 11-16-23 14:17:42 CDT by Yair Nye
== END ==
LOC: ER 13:52
DX: R11.0 Nausea (principal); R19.7 Diarrhea, unspecified; R10.9 Unspecified abdominal pain; R55 Syncope and collapse
CPT/HCPCS: 93005; 85025; 80048; 36415; 83735; 85610; 80076; 84484; 83690; 83880; 74177; 71045; 96372; 96374; 99284; Q9967; J0500; J2405